=== PATIENT | female | born 1975 | race Caucasian/White ===

== ENCOUNTER 2021-04-05 17:47 | Emergency (ER) | payer MEDICAID, SELFPAY ==
[2021-04-05 17:58] VITALS: BP 110/60; PULSE 64; O2SAT 100
--- NOTE | 2021-04-05 18:02 | ED_ITS ---
HPI - Psych General Chief Complaint: Psychiatric Symptoms Stated Complaint: si [facility] Time Seen by Provider: 04/05/21 18:02 Source: patient and EMS Mode of arrival: EMS Limitations: no limitations History of Present Illness HPI Narrative: patient's history of schizophrenia bipolar disorder conversion disorder PTSD borderline intellectual dysfunction as from fibromyalgia paraplegia Mallory Garber came from long-term facility [facility] as when after hearing the news that she may not have her own apartment she became suicidal, seen in the field by therapist sent here for admission patient has similar feeling the past states that she was asking her to kill herself but does not know how on arrival patient was calm relaxed no actual plan to kill herself Related Data Allergies Allergy/AdvReac Type Severity Reaction Status Date / Time aripiprazole [From ABILIFY] Allergy Unknown SWELL Verified 04/05/21 18:28 aspirin [ASPIRIN] Allergy Unknown UNKNOWN Verified 04/05/21 18:28 coconut Allergy Unknown HIVES Verified 04/05/21 18:28 ibuprofen [From MOTRIN] Allergy Unknown UNKNOWN Verified 04/05/21 18:28 risperidone [From RISPERDAL] Allergy Unknown UNKNOWN Verified 04/05/21 18:28 tomato [TOMATO] Allergy Unknown HIVES Verified 04/05/21 18:28 lactose [LACTOSE] AdvReac Unknown DIARRHEA Verified 04/05/21 18:28 Aspirin Allergy Unknown seizures Uncoded 06/09/11 00:00 Ibuprofen Allergy Unknown vomiting Uncoded 06/09/11 00:00 Motrin Allergy Unknown vomiting Uncoded 06/09/11 00:00 Risperdal Allergy Unknown hives Uncoded 06/09/11 00:00 Review of Systems Review of Systems: Yes all other systems are reviewed and are negative PMFSH Past Medical History Medical History (Updated 04/05/21 @ 23:57 by Rubens Mcfarlane MD) Anxiety Auditory hallucinations Depression Diabetes PTSD (post-traumatic stress disorder) Social History Social History Alcohol intake: never Patient Tobacco Use Status: Never used Tobacco Use of substances other than those prescribed or required for medical reasons: No Advance Directives: No Advance Directives Information Provided: Yes Physical Exam Vital Signs: Vital Signs: Last Vital Signs Temp 98.1 F 04/05/21 23:21 Pulse 103 H 04/05/21 23:21 Resp 18 04/05/21 23:21 BP 136/88 04/05/21 23:21 Pulse Ox 95 04/05/21 23:21 BMI result Body Mass Index 47.2 Appearance: Alert. Oriented X3. No acute distress. obese Eyes: PERRLA, No Nystagmus ENT: Pharynx normal. Oral Mucosa moist Neck: Normal inspection. Neck supple. CVS: Normal heart rate and rhythm. Pulses normal. Respiratory: No respiratory distress. Equal air entry bilateral, no whee zing/rales/rhonchi Abdomen: Soft and nontender. Bowel sounds are present, no mass palpable, no CVA tenderness Skin: Skin warm and dry. Normal skin color. Normal skin turgor. Extremities: No lower extremity edema. No calf tenderness Psych: depressed suicidal with no plan poor judgment no delusions ,auditory hallucination+ Neuro: Oriented X 3. limited movements of lower extremity, No sensory deficit.No cerebellar signs , cranial nerves II-XII intact MDM - Psych MDM Narrative Medical decision making narrative: Patient with schizoaffective disorder , bipolar disorder with depression came here for increased suicidal thoughts after she lost her apartment and now she knows that she has to stay [facility] for long time. Patient was already seen in the field by therapist plan to look for the beds for inpatient psych. patient is medically cleared Lab Data Result diagrams: 04/05/21 19:18 04/05/21 19:18 Labs: Lab Results 04/05/21 04/05/21 04/05/21 Range/Units 19:12 19:18 19:18 WBC 8.0 (4.8-10.8) X10*3/uL RBC 3.98 L (4.20-5.50) X10*6/uL Hgb 11.5 L (12.0-16.0) g/dl Hct 35.5 L (37.0-47.0) % MCV 89.2 (80.0-98.0) fL MCH 28.9 (27.0-33.0) pg MCHC 32.4 (31.0-35.0) g/dl RDW 13.4 (11.0-16.0) % Plt Count 172 (160-400) X10*3/uL MPV 10.4 (9.4-12.3) fL Immature Gran % (Auto) 0.4 (0.0-0.4) % Neut % (Auto) 43.3 L (45-73) % Lymph % (Auto) 45.7 H (20-40) % [place] % (Auto) 8.2 (2-11) % Eos % (Auto) 2.0 (0-4) % Baso % (Auto) 0.4 (0-2) % Lymph # (Auto) 3.7 (1.2-4.9) X10*3/uL [place] # (Auto) 0.7 (0.1-1.2) X10*3/uL Eos # (Auto) 0.2 (0.0-0.4) X10*3/uL Baso # (Auto) 0.0 (0.0-0.2) X10*3/uL Abs Immat Gran (auto) 0.03 (0.00-0.03) X10*3/uL Absolute Neuts (auto) 3.5 (2.0-8.3) x10*3/uL Absolute Nucleated RBC 0.000 (0.0-0.012) X10*3/uL Nucleated RBC % (auto) 0.0 (0.0-0.2) /100WBC Sodium 139 (135-145) mmol/L Potassium 4.1 (3.3-5.1) mmol/L Chloride 108 (96-108) mmol/L Carbon Dioxide 27 (22-29) mmol/L Anion Gap 8 L (12-20) BUN 13 (9-16) mg/dL Creatinine 0.61 (0.5-1.4) mg/dL Estim Creat Clear Calc 165.1 Estimated GFR > 60 POC Glucose 129 H (60-115) mg/dL Random Glucose 147 H (60-115) mg/dL Calcium 10.0 (8.4-10.2) mg/dL Total Bilirubin < 0.2 (0.0-1.0) mg/dL AST 12 (5-31) U/L ALT 8 (0-31) U/L Alkaline Phosphatase 72 (39-117) U/L Total Protein 5.8 L (6.5-8.0) g/dL Albumin 3.0 L (3.5-5.0) g/dL COVID-19 (ANDRIY) (Negative) COVID-19 Clin Com 04/05/21 Range/Units 19:18 WBC (4.8-10.8) X10*3/uL RBC (4.20-5.50) X10*6/uL Hgb (12.0-16.0) g/dl Hct (37.0-47.0) % MCV (80.0-98.0) fL MCH (27.0-33.0) pg MCHC (31.0-35.0) g/dl RDW (11.0-16.0) % Plt Count (160-400) X10*3/uL MPV (9.4-12.3) fL Immature Gran % (Auto) (0.0-0.4) % Neut % (Auto) (45-73) % Lymph % (Auto) (20-40) % [place] % (Auto) (2-11) % Eos % (Auto) (0-4) % Baso % (Auto) (0-2) % Lymph # (Auto) (1.2-4.9) X10*3/uL [place] # (Auto) (0.1-1.2) X10*3/uL Eos # (Auto) (0.0-0.4) X10*3/uL Baso # (Auto) (0.0-0.2) X10*3/uL Abs Immat Gran (auto) (0.00-0.03) X10*3/uL Absolute Neuts (auto) (2.0-8.3) x10*3/uL Absolute Nucleated RBC (0.0-0.012) X10*3/uL Nucleated RBC % (auto) (0.0-0.2) /100WBC Sodium (135-145) mmol/L Potassium (3.3-5.1) mmol/L Chloride (96-108) mmol/L Carbon Dioxide (22-29) mmol/L Anion Gap (12-20) BUN (9-16) mg/dL Creatinine (0.5-1.4) mg/dL Estim Creat Clear Calc Estimated GFR POC Glucose (60-115) mg/dL Random Glucose (60-115) mg/dL Calcium (8.4-10.2) mg/dL Total Bilirubin (0.0-1.0) mg/dL AST (5-31) U/L ALT (0-31) U/L Alkaline Phosphatase (39-117) U/L Total Protein (6.5-8.0) g/dL Albumin (3.5-5.0) g/dL COVID-19 (ANDRIY) Negative (Negative) COVID-19 Clin Com See Note Discharge Plan Discharge Clinical Impression: Suicidal ideation Depression Qualifiers: Depression Type: major depressive disorder Major depression recurrence: recurrent Active/Remission status: currently active Major depression episode severity: severe Psychotic features: with psychotic features Qualified Code(s): F33.3 - Major depressive disorder, recurrent, severe with psychotic symptoms
[2021-04-05 18:23] VITALS: BP 138/85; PULSE 91; RESP 18; TEMP 37.2; O2SAT 95; BMI 47.2
[2021-04-05 19:15] LABS: Glucose, Whole Blood 129 mg/dL (60-115)
[2021-04-05 19:25] LABS: MANUAL DIFF FLAG NO
[2021-04-05 19:27] LABS: Basophils Percent Auto 0.4 % (0-2); Eosinophils Absolute Auto 0.2 X10*3/uL (0.0-0.4); Hematocrit 35.5 % (37.0-47.0); Hemoglobin 11.5 g/dl (12.0-16.0); Imm Gran Abs Auto 0.03 X10*3/uL (0.00-0.03); Imm Gran Pct Auto 0.4 % (0.0-0.4); Lymphocytes Absolute Auto 3.7 X10*3/uL (1.2-4.9); Lymphocytes Percent Auto 45.7 % (20-40); Mean Corpuscular HGB Conc 32.4 g/dl (31.0-35.0); Mean Corpuscular Hemoglobin 28.9 pg (27.0-33.0); Mean Corpuscular Volume 89.2 fL (80.0-98.0); Mean Platelet Volume 10.4 fL (9.4-12.3); Monocytes Absolute Auto 0.7 X10*3/uL (0.1-1.2); Monocytes Percent Auto 8.2 % (2-11); Neutrophils Absolute Auto 3.5 x10*3/uL (2.0-8.3); Neutrophils Percent Auto 43.3 % (45-73); Platelet Count 172 X10*3/uL (160-400); Red Blood Count 3.98 X10*6/uL (4.20-5.50); Red Cell Distribution Width 13.4 % (11.0-16.0)
[2021-04-05 19:45] LABS: COVID-19 Test Negative (Negative); IDNOW Serial# 9DD0AD1C
[2021-04-05 19:52] LABS: Alanine Aminotransferase 8 U/L (0-31); Alkaline Phosphatase 72 U/L (39-117); Anion Gap 8 (12-20); Aspartate Amino Transferase 12 U/L (5-31); Bilirubin Total < 0.2 mg/dL (0.0-1.0); Blood Urea Nitrogen 13 mg/dL (9-16); Carbon Dioxide 27 mmol/L (22-29); Chloride 108 mmol/L (96-108); Creatinine Clr Calc Pharmacy 165.1; Estimated Glomerular Filt Rate > 60; Glucose Random 147 mg/dL (60-115); Potassium 4.1 mmol/L (3.3-5.1); Sodium 139 mmol/L (135-145); Total Protein 5.8 g/dL (6.5-8.0)
[2021-04-05 20:20] VITALS: BP 143/90; PULSE 88; RESP 16; TEMP 37.2; O2SAT 96
[2021-04-05 22:13] VITALS: BP 115/80; PULSE 90; RESP 20; TEMP 36.8; O2SAT 95
[2021-04-05 23:21] VITALS: BP 136/88; PULSE 103; RESP 18; TEMP 36.7; O2SAT 95
[2021-04-06 01:36] LABS: Glucose, Whole Blood 149 mg/dL (60-115)
[2021-04-06 02:00] VITALS: BP 128/81; PULSE 79; RESP 16; TEMP 37.1; O2SAT 95
[2021-04-06 04:00] VITALS: RESP 15
[2021-04-06 05:48] VITALS: BP 139/73; PULSE 68; RESP 16; TEMP 36.8; O2SAT 95
[2021-04-06 07:45] LABS: Glucose, Whole Blood 139 mg/dL (60-115)
[2021-04-06 09:53] VITALS: BP 132/84; PULSE 89; RESP 16; TEMP 36.8; O2SAT 94
--- NOTE | 2021-04-06 10:37 | PC.NURSE ---
PCT notified this RN that there is blood around patient's wahl catheter; this RN asked patient when her LMP was, patient reports that she is on her period now. Patient crying due to leg pain. Discussed with ER physician, home medications added, which includes lyrica and scheduled tylenol.
[2021-04-06] MEDS: Pregabalin 150 MG CAPSULE PO (11:37)
[2021-04-06] MEDS: Divalproex Sodium 500 MG TABLET.DR 1000 MG PO (11:37)
[2021-04-06] MEDS: Escitalopram Oxalate 10 MG TABLET PO (11:37)
[2021-04-06] MEDS: Famotidine 20 MG TABLET PO (11:37)
[2021-04-06] MEDS: Apixaban 2.5 MG TABLET PO (11:38)
[2021-04-06] MEDS: Insulin Glargine,Hum.rec.anlog 100 UNIT/ML 10 ML VIAL 6 UNIT SUBCUT (11:38)
[2021-04-06 12:08] VITALS: BP 151/75; PULSE 121; RESP 19; TEMP 36.4; O2SAT 95
== END 2021-04-06 14:33 ==
PROVIDERS: Emergency Provider Internal Medicine
DX: F33.3 Major depressive disorder, recurrent, severe with psychotic symptoms (principal); R45.851 Suicidal ideations; Z20.822 Contact with and (suspected) exposure to COVID-19; F25.0 Schizoaffective disorder, bipolar type; F44.9 Dissociative and conversion disorder, unspecified; F43.10 Post-traumatic stress disorder, unspecified; E11.9 Type 2 diabetes mellitus without complications; I48.91 Unspecified atrial fibrillation; Z79.01 Long term (current) use of anticoagulants; Z72.89 Other problems related to lifestyle
CPT/HCPCS: 51702; 80053; 82947; 85025; 87635; 99285

== ENCOUNTER 2023-01-03 01:32 | Emergency (ER) | payer MEDICAID, SELFPAY ==
[2023-01-03] VITALS (8 sets, daily range): BP systolic 108–136; BP diastolic 54–74; PULSE 93–133; RESP 17–29; TEMP 36.6–38.9; O2SAT 94–96; BMI 57.1
--- NOTE | ~2023-01-03 | CT_ITS ---
EXAMINATION: CT ANGIOGRAM OF THE CHEST WITH AND WITHOUT CONTRAST (CT PULMONARY ANGIOGRAM FOR PE) CLINICAL INFORMATION: Reason for Exam hypoxic, tachycardia, rule out pulmonary embolism COMPARISON: Chest x-ray dated 01/03/2023. TECHNIQUE: Prior to contrast administration, noncontrast localization images were obtained. Subsequently, multidetector volumetric imaging was performed from the thoracic inlet to below the diaphragms following the administration of 70 mL Omnipaque 350 intravenous contrast. No contrast reaction reported Sagittal, coronal, and MIP oblique sagittal reformatted images were obtained on the CT workstation, uploaded to PACS, and reviewed. This CT examination was performed using dose optimization techniques as appropriate, variously including the following: *Automated exposure control *Adjustment of mA and/or kV according to patient size (this includes techniques or standardized protocols for targeted exams where dose is matched to indication/reason for exam; i.e. extremities or head) *Use of iterative reconstruction technique Total exam dose-length product 567.00 mGy-cm FINDINGS: QUALITY OF STUDY/CONTRAST BOLUS: Inadequate and nondiagnostic. PULMONARY ARTERIES: There is inadequate opacification of the pulmonary arterial system with the contrast bolus primarily highlighting the aorta and its branches. No obvious central thrombus noted, though confidence level is extremely low given the inadequate contrast bolus extends as well as multiple linear bands of beam hardening artifact extending through the imaged volume. THORACIC AORTA: No aneurysm. There is a curvilinear low density line seen extending through the anterior ascending aorta from approximately the 11:00 to 3:00 positions (series 6, image 21), most likely artifactual as it is seen extending beyond the lumen of the aorta. No definite aortic dissection or periaortic collection noted. Conjoint origin of the right brachiocephalic and left common carotid arteries is seen. There is direct origin of the left vertebral artery from the aortic arch. LUNG: No focal consolidation, nodules or masses. Minimal dependent atelectasis seen in the lungs bilaterally. PLEURA: No pleural effusion or pneumothorax. MEDIASTINUM: Normal heart size. No pericardial effusion. No hilar or mediastinal lymphadenopathy. No evidence of septal bowing or right heart strain. CORONARY ARTERY CALCIFICATION: None visualized on this study, though evaluation is limited. CHEST WALL/AXILLA: No axillary or internal mammary lymphadenopathy. OSSEOUS STRUCTURES: No acute or suspicious osseous abnormality. UPPER ABDOMEN: Prominent gaseous distention of the colon in the abdomen is noted. Cholecystectomy hailee are seen in place. Diffuse hepatic steatosis is noted. There are geographic region of focal fatty sparing in hepatic segment 4A (series 6, image 43) adjacent to the falciform ligament. Evaluation of solid organs in the upper abdomen limited by extensive beam hardening artifact. No reflux of contrast into the hepatic veins to suggest elevated right heart pressures. CT/CT angio chest PE protocol IMPRESSION: 1. Inadequate assessment of the pulmonary arterial system due to inadequate contrast bolus and extensive beam hardening artifact. No obvious central pulmonary embolus in the main pulmonary artery or in the right and left main pulmonary arteries is seen on this extremely limited exam. Depending on clinical circumstances, repeat attempt at CT pulmonary angiogram could be performed versus alternative means of assessment, such as a VQ scan. Also, consider bilateral lower extremity venous Doppler ultrasounds to exclude of DVT. 2. Linear low density line seen in the ascending aorta, most likely artifactual as it is seen extending beyond the lumen of the aorta. No definite aortic dissection is seen. Close clinical correlation is requested. Repeat imaging may be warranted. 3. Diffuse hepatic steatosis with geographic region of focal fatty sparing in hepatic segment 4A. VTE: Nondiagnostic
--- NOTE | ~2023-01-03 | XR_ITS ---
EXAMINATION: XR CHEST CLINICAL INFORMATION: Dyspnea COMPARISON: None available. TECHNIQUE: Frontal view of the chest was obtained. FINDINGS: Lung volumes are symmetric. No focal consolidation is seen. There is a coarsened appearance of the interstitium. No evidence of pneumothorax or significant pleural effusion. The cardiomediastinal contour is unremarkable. No acute osseous findings are seen. XR/XR chest 1V IMPRESSION: No focal consolidation. Coarsened appearance of the interstitium may reflect acute or chronic airways disease.
--- NOTE | 2023-01-03 01:53 | ECG_ITS ---
Test Reason : CHEST PX Blood Pressure : / mmHG Vent. Rate : 126 BPM Atrial Rate : 000 BPM P-R Int : 000 ms QRS Dur : 078 ms QT Int : 414 ms P-R-T Axes : 000 003 028 degrees QTc Int : 599 ms Sinus tachycardia Nonspecific T wave abnormality Abnormal ECG No previous ECGs available Referred By: Generic ED Physician Electronically Signed By:AISHA PEDRO MD
[2023-01-03 02:27] LABS: Basophils Percent Auto 0.2 % (0-2); Eosinophils Percent Auto 0.1 % (0-4); Hematocrit 32.8 % (37.0-47.0); Hemoglobin 9.3 g/dl (12.0-16.0); Imm Gran Abs Auto 0.07 X10*3/uL (0.00-0.03); Imm Gran Pct Auto 0.5 % (0.0-0.4); Lymphocytes Absolute Auto 0.5 X10*3/uL (1.2-4.9); Lymphocytes Percent Auto 3.5 % (20-40); MANUAL DIFF FLAG SCAN; Mean Corpuscular HGB Conc 28.4 g/dl (31.0-35.0); Mean Corpuscular Hemoglobin 17.6 pg (27.0-33.0); Monocytes Absolute Auto 0.6 X10*3/uL (0.1-1.2); Monocytes Percent Auto 3.8 % (2-11); Neutrophils Absolute Auto 13.6 x10*3/uL (2.0-8.3); Neutrophils Percent Auto 91.9 % (45-73); PLT ABN DIST 1; Platelet Count 427 X10*3/uL (160-400); Red Blood Count 5.29 X10*6/uL (4.20-5.50); Red Cell Distribution Width 22.3 % (11.0-16.0); SCAN SMEAR FLAG 1; White Blood Count 14.8 X10*3/uL (4.8-10.8)
[2023-01-03] MEDS: Acetaminophen 325 MG TABLET 975 MG PO (02:33)
[2023-01-03 02:42] LABS: Lactic Acid 3.6 mmol/L (0.5-2.0)
--- NOTE | 2023-01-03 02:43 | ED_ITS ---
HPI - SOB/Dyspnea General Chief Complaint: Dyspnea Stated Complaint: SOB PER EMS Time Seen by Provider: 01/03/23 02:28 Source: patient Mode of arrival: EMS Limitations: no limitations History of Present Illness HPI Narrative: 47-year-old female with a history of borderline personality, diabetes mellitus, lower extremity edema, hypertension, GERD, obesity, fibromyalgia, schizoaffective disorder, PTSD, who is a long-term resident x3 years living at [facility] who was sent to the emergency department for evaluation of shortness of breath, cough, chest pain, bilateral leg pain, tachycardia and fever. Patient had a COVID test at the facility which was negative. Patient states that she had 2 teeth extracted 2 weeks prior since there were infected. She states she was on antibiotics but is no longer taking them. She states she has had a nonproductive cough for 2 days. She said shaking chills. She has had nausea but no vomiting or diarrhea. She has urinary frequency but she attributes this to being on a diuretic. She does have dysuria. Related Data Home Medications Medication Instructions Recorded Confirmed acetaminophen 500 mg capsule 1,000 mg PO TID 04/06/21 04/06/21 apixaban 2.5 mg tablet (Eliquis) 2.5 mg PO DAILY 04/06/21 04/06/21 camphor-methyl salicylate-menthol 1 appl topical DAILY PRN Pain 04/06/21 04/06/21 topical cream chlorpromazine 100 mg tablet 100 mg PO BEDTIME 04/06/21 04/06/21 cholecalciferol (vitamin D3) 1,250 1,250 mcg PO QMONTH 04/06/21 04/06/21 mcg (50,000 unit) tablet citalopram 20 mg tablet 20 mg PO DAILY 04/06/21 04/06/21 divalproex 500 mg tablet,delayed 1,000 mg PO BID 04/06/21 04/06/21 release docusate sodium 100 mg tablet 400 mg PO BEDTIME 04/06/21 04/06/21 famotidine 20 mg tablet 20 mg PO DAILY 04/06/21 04/06/21 insulin glargine 100 unit/mL 6 unit subcut DAILY 04/06/21 04/06/21 subcutaneous cartridge melatonin 5 mg tablet 5 mg PO BEDTIME PRN Insomnia 04/06/21 04/06/21 polyethylene glycol 3350 17 17 g PO DAILY 04/06/21 04/06/21 gram/dose oral powder pregabalin 150 mg capsule (Lyrica) 150 mg PO BID 04/06/21 04/06/21 quetiapine 400 mg tablet,extended 400 mg PO BEDTIME 04/06/21 04/06/21 release 24 hr quetiapine 50 mg tablet (Seroquel) 50 mg PO Q4H PRN Anxiety 04/06/21 04/06/21 trazodone 100 mg tablet 100 mg PO BEDTIME 04/06/21 04/06/21 Allergies Allergy/AdvReac Type Severity Reaction Status Date / Time aripiprazole [From ABILIFY] Allergy Unknown SWELL Verified 10/25/21 11:14 aspirin [ASPIRIN] Allergy Unknown UNKNOWN Verified 10/25/21 11:14 coconut Allergy Unknown HIVES Verified 10/25/21 11:14 ibuprofen [From MOTRIN] Allergy Unknown UNKNOWN Verified 10/25/21 11:14 risperidone [From RISPERDAL] Allergy Unknown UNKNOWN Verified 10/25/21 11:14 tomato [TOMATO] Allergy Unknown HIVES Verified 10/25/21 11:14 lactose [LACTOSE] AdvReac Unknown DIARRHEA Verified 10/25/21 11:14 Aspirin Allergy Unknown seizures Uncoded 10/25/21 11:14 Ibuprofen Allergy Unknown vomiting Uncoded 10/25/21 11:14 Motrin Allergy Unknown vomiting Uncoded 10/25/21 11:14 Risperdal Allergy Unknown hives Uncoded 10/25/21 11:14 Review of Systems 2 Review of Systems: Yes all other systems are reviewed and are negative [facility] Past Medical History [facility] Narrative: Past medical history:borderline personality, diabetes mellitus, lower extremity edema, hypertension, GERD, obesity, fibromyalgia, schizoaffective disorder, PTSD, . Social history: She states she has been living at [facility] for 3 years . She is immobile. She believes that she is on blood thinners to help prevent blood clots in her legs. She denies tobacco, alcohol and drug use. Medical History PTSD (post-traumatic stress disorder) Auditory hallucinations Depression Anxiety Diabetes Social History Social History Alcohol intake: former Patient Tobacco Use Status: Never used Tobacco Smoked in Last 30 Days: No Use of substances other than those prescribed or required for medical reasons: No Advance Directives: No Advance Directives Information Provided: Yes Patient : No Physical Exam 2 Vital Signs: Vital Signs: Last Vital Signs Temp 99.2 F 01/03/23 06:33 Pulse 107 H 01/03/23 06:33 Resp 21 H 01/03/23 06:33 BP 123/58 L 01/03/23 06:33 Pulse Ox 95 01/03/23 06:33 O2 Del Method Room Air 01/03/23 06:33 BMI result Body Mass Index 57.1 vital signs revealed fever of 102 degrees F, tachycardia with a pulse of 133, elevated respiratory rate of 29, normal blood pressure and O2 saturation exam General: Awake, alert in no distress, answers all questions appropriately, elevated BMI 57.2 Head: Normocephalic, atraumatic EENT: PERRL, Lids normal, sclera normal, conjunctiva normal, nose normal , ears normal, throat without erythema or exudates. Patient does have to dental extractions left upper jaw ( tooth 14 and 15 ), tenderness of the gingiva in this area but no obvious abscess, patient does appear to have a dental fragment is also tender to palpation. Neck: Supple, no adenopathy, no trachea midline or C-spine tenderness Lung: breath sounds symmetric, diffuse rhonchi, no wheezing, no rales Chest: symmetric movement, nontender Heart: tachycardia with normal rhythm, normal S1, S2 no murmurs or rubs Abdomen: soft, obese,non-tender, nondistended, normal bowel sounds Back: no vertebral tenderness, no CVAT Extremities: no deformities, symmetric appearing lower extremities with nonpitting edema Neuro: Awake, alert, oriented, normal speech, cranial nerves intact, minimal movement of her lower extremities secondary to chronic weakness Psych: Pleasant, cooperative Medications Administered Discontinued Medications Generic Name Dose Route Start Last Admin Trade Name Freq PRN Reason Stop Dose Admin Acetaminophen 975 mg 01/03/23 02:28 01/03/23 02:33 Acetaminophen 325 Mg Tablet PO 01/03/23 02:29 975 mg ONCE ONE Administration Sodium Chloride 1,917 mls @ 1,917 mls/hr 01/03/23 02:45 01/03/23 04:59 Ns IV 01/03/23 03:44 Infused .Q1H STA Infusion Piperacillin Sod/Tazobactam 100 mls @ 200 mls/hr 01/03/23 03:09 01/03/23 03:56 Sod 4.5 gm/ Sodium Chloride IV 01/03/23 03:38 Infused ONCE ONE Infusion Sodium Chloride 1,000 mls @ 999 mls/hr 01/03/23 05:20 01/03/23 06:31 Ns IV 01/03/23 06:20 Infused .Q1H1M STA Infusion Medical Decision Making Medical Decision Making MDM Narrative: 03:00 47-year-old female with a history of borderline personality, diabetes mellitus, lower extremity edema, hypertension, GERD, obesity, fibromyalgia, schizoaffective disorder, PTSD, who is a long-term resident x3 years living at [facility] who was sent to the emergency department for evaluation of shortness of breath, cough, chest pain, bilateral leg pain, tachycardia and fever. Patient had a COVID test at the facility which was negative. patient's vital signs revealed fever, tachycardia and tachypnea. Lung exam revealed diffuse rhonchi , patient does have some tenderness over the gingiva where she had her dental extractions but no obvious abscess, there is a dental fragment that is also tender,otherwise exam was unremarkable. Patient was made a sepsis alert. Following evaluation was ordered: CBC, CMP, lactic acid, troponin, urinalysis, COVID-19, flu, RSV, blood cultures x2, EKG, chest x-ray. Patient was ordered to get Tylenol 975 mg orally. Patient is obese with an elevated BMI of 57.2 therefore she was given a normal saline fluid bolus based on her ideal body weight. 0424: Patient's laboratory evaluation revealed an elevated white blood count 43808 elevated lactic acid 3.6. Chest x-ray on my interpretation is left lower lobe infiltrate/pneumonia, radiologist interpreted as course interstitial markings chronic versus acute. Patient's clinical presentation is consistent with acute pneumonia therefore she was treated with Zosyn 4.5 g IV and Tylenol 975 mg orally. I did discuss the patient's presentation with the covering hospitalist, Dr. Velasco. 06:50 there was a delay in obtaining the CT pulmonary angiogram PE protocol since the patient required an ultrasound IV done by nursing staff. At the end of my shift patient's care was turned over to my colleague Dr. Vashti Mcfarlane. Differential Diagnosis 03:00 differential diagnosis includes was not limited to pneumonia, urinary tract infection, endocarditis secondary to teeth extraction, dental abscess, gingiva infection,COVID-19, influenza, RSV, dehydration, volume depletion, anemia, electrolyte abnormality Admission/Observation Consideration of admission/observation: Escalation of care including admission/observation considered Lab Data MDM Lab Attestation statement: I reviewed the patient's lab results. my interpretation patient's laboratory evaluation as follows: Elevated WBC 60381. Anemia with an H&H of 9.3 and 32.8-this is chronic. platelet count low for 427,000. Patient's sodium was low at 129. Bicarb low 17. Glucose elevated 308. Lactic acid elevated 3.6. 01/03/23 02:17 01/03/23 02:17 Labs: Lab Results 01/03/23 01/03/23 01/03/23 Range/Units 02:17 04:18 04:55 WBC 14.8 H (4.8-10.8) X10*3/uL RBC 5.29 D (4.20-5.50) X10*6/uL Hgb 9.3 L (12.0-16.0) g/dl Hct 32.8 L (37.0-47.0) % MCV 62.0 L (80.0-98.0) fL MCH 17.6 L (27.0-33.0) pg MCHC 28.4 L (31.0-35.0) g/dl RDW 22.3 H (11.0-16.0) % Plt Count 427 H D (160-400) X10*3/uL MPV Not Reportable Immature Gran % (Auto) 0.5 H (0.0-0.4) % Neut % (Auto) 91.9 H (45-73) % Lymph % (Auto) 3.5 L (20-40) % [place] % (Auto) 3.8 (2-11) % Eos % (Auto) 0.1 (0-4) % Baso % (Auto) 0.2 (0-2) % Lymph # (Auto) 0.5 L (1.2-4.9) X10*3/uL [place] # (Auto) 0.6 (0.1-1.2) X10*3/uL Eos # (Auto) 0.0 (0.0-0.4) X10*3/uL Baso # (Auto) 0.0 (0.0-0.2) X10*3/uL Abs Immat Gran (auto) 0.07 H (0.00-0.03) X10*3/uL Absolute Neuts (auto) 13.6 H (2.0-8.3) x10*3/uL Absolute Nucleated RBC 0.000 (0.0-0.012) X10*3/uL Nucleated RBC % (auto) 0.0 (0.0-0.2) /100WBC Smear Tech's Comments VERIFIED Sodium 129 L (135-145) mmol/L Potassium 5.1 D (3.3-5.1) mmol/L Chloride 98 (96-108) mmol/L Carbon Dioxide 17 L (22-29) mmol/L Anion Gap 19 (12-20) BUN 15 (9-16) mg/dL Creatinine 0.96 (0.5-1.4) mg/dL Estim Creat Clear Calc 119.2 Estimated GFR > 60 Random Glucose 308 H (60-115) mg/dL Lactic Acid 3.6 H* (0.5-2.0) mmol/L Lactic Acid F/U @ 2Hr 4.1 H* (0.5-2.0) mmol/L Calcium 9.8 (8.4-10.2) mg/dL Total Bilirubin 0.3 (0.0-1.0) mg/dL AST 34 H (5-31) U/L ALT 22 (0-31) U/L Alkaline Phosphatase 137 H (39-117) U/L Troponin I High Sens 4.1 (<3.5-17.0) ng/L Total Protein 8.0 (6.5-8.0) g/dL Albumin 3.8 (3.5-5.0) g/dL Urine Color Yellow Urine Appearance Clear Urine pH 5.5 (5.0-9.0) Ur Specific [place] >= 1.030 H (1.005-1.025) Urine Protein Negative (Neg-Trace) mg/dL Urine Glucose (UA) >=1000 H (Negative) mg/dL Urine Ketones Trace (Negative) mg/dL Urine Blood Negative (Negative) Urine Nitrite Negative (Negative) Ur Leukocyte Esterase Trace H (Negative) Urine RBC 3-5 H (0-2) /HPF Urine WBC 21-50 H (0-5) /HPF Urine WBC Clumps Present Ur Squamous Epith Cells 3-5 (0-2) /HPF Urine Bacteria Trace (None Seen) Hyaline Casts 3-5 (0-2) /LPF Influenza Type A (PCR) NEGATIVE (Negative) Influenza Type B (PCR) NEGATIVE (Negative) RSV RNA Qual (PCR) NEGATIVE (Negative) SARS-CoV-2 RNA (RT-PCR) NEGATIVE (Negative) Independent Interpretation I performed an independent interpretation of an: EKG and Plain X-Ray Interpretation: my independent interpretation of patient's chest x-ray is as follows: Left lower lobe infiltrate -my interpretation defers from the radiologist interpretation my independent interpretation patient's 12 EKG is as follows tachycardia with a rate of 126, normal QRS but prolonged QTC interval of 599 milliseconds, no ST segment elevation, no ST segment depression, no significant T-wave abnormalities, no PACs, no PVCs, Q-wave in lead 3 and AVF Radiology Impression Discussion of test interpretation with radiology: I have reviewed the radiologist's reading. Radiologist Impression: XR chest 1V IMPRESSION: No focal consolidation. Coarsened appearance of the interstitium may reflect acute or chronic airways disease. Dictated By: Deacon Carranza MD Discharge Plan Discharge Clinical Impression: Acute hyperglycemia, Pain, dental Pneumonia Qualifiers: Pneumonia type: due to unspecified organism Laterality: left Lung location: l ower lobe of lung Qualified Code(s): J18.9 - Pneumonia, unspecified organism Patient Disposition: Still a Patient Prescriptions: No Action chlorpromazine 100 mg Tablet 100 mg PO BEDTIME divalproex 500 mg Tablet,Delayed Release (Dr/Ec) 1,000 mg PO BID famotidine 20 mg Tablet 20 mg PO DAILY polyethylene glycol 3350 17 gram/dose Powder 17 g PO DAILY acetaminophen 500 mg Capsule 1,000 mg PO TID Eliquis 2.5 mg Tablet 2.5 mg PO DAILY quetiapine 400 mg Tablet Extended Release 24 Hr 400 mg PO BEDTIME citalopram 20 mg Tablet 20 mg PO DAILY Lantus U-100 Insulin 100 unit/mL Cartridge 6 unit SUBCUT DAILY pregabalin [Lyrica] 150 mg Capsule 150 mg PO BID trazodone 100 mg Tablet 100 mg PO BEDTIME docusate sodium 100 mg Tablet 400 mg PO BEDTIME Muscle Rub (with camphor) Cream 1 appl TOPICAL DAILY PRN (Reason: Pain) quetiapine [Seroquel] 50 mg Tablet 50 mg PO Q4H MDD 150 MG PRN (Reason: Anxiety) melatonin 5 mg Tablet 5 mg PO BEDTIME PRN (Reason: Insomnia) cholecalciferol (vitamin D3) 1,250 mcg (50,000 unit) Tablet 1,250 mcg PO QMONTH
[2023-01-03 02:48] LABS: Troponin-I High Sensitivity 4.1 ng/L (<3.5-17.0)
--- OUTSIDE RECORDS SUMMARY | 2023-01-03 02:49 | XMS_ITS | Continuity of Care Document ---
Author Name Unknown Organization 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 [address] [place] [id number]- Encounter Diagnosis Atrial flutter(Discharge Diagnosis) - 02/12/21 History of COVID-19(Discharge Diagnosis) - 02/12/21 Morbid obesity(Discharge Diagnosis) - 02/12/21 Hypertension(Discharge Diagnosis) - 02/12/21 Attending Physician: Nahomy Hurd MD Referring Physician: Radha Ashton MD Allergies, Adverse Reactions, Alerts Substance Reaction Severity Status lithium Active buPROPion Active hydrOXYzine Active Percocet Active BuSpar Active Tomatoes Active NSAIDs 1 Severe Active LaMICtal Active RisperDAL Active Coconut Active 1Pt stated she beings to have seziures due to medication Medications ChlorproMAZINE = 100 mg, By Mouth, Daily at bedtime, 0 Refills, Maintenance, 02/12/21 16:10:00 EST, Partial fill upon patient request if the prescription is for a schedule II opioid drug. Start Date: 02/12/21 Status: Ordered Divalproex Sodium = 1,000 mg, By Mouth, 2 times a day, 0 Refills, Maintenance, 02/12/21 16:12:00 EST, Partial fill upon patient request if the prescription is for a schedule II opioid drug. Start Date: 02/12/21 Status: Ordered Eliquis 2.5 mg oral tablet 1 tablet = 2.5 mg, By Mouth, Daily, 0 Refills, Maintenance, 02/12/21 16:13:00 EST, Partial fill upon patient request if the prescription is for a schedule II opioid drug. Start Date: 02/12/21 Status: Ordered Famotidine = 20 mg, By Mouth, Daily, 0 Refills, Maintenance, 02/12/21 16:13:00 EST, Partial fill upon patient request if the prescription is for a schedule II opioid drug. Start Date: 02/12/21 Status: Ordered Glucagon Emergency Kit 1 mg, Intramuscular, PRN, Maintenance, Other, id Blood Sugar is less than 60 w/ s/sx of Hypoglycemia & if resident is unable to take P.O. Re-treat every 15 mins until FSG above 100 mg/DL., 02/12/21 16:15:00 EST, Supply Start Date: 02/12/21 Status: Ordered Lantus 100 u/ml subcutaneous solution = 6 units, Subcutaneous Infusion, Daily, 0 Refills, Maintenance, 02/12/21 16:19:00 EST, Partial fill upon patient request if the prescription is for a schedule II opioid drug. Start Date: 02/12/21 Status: Ordered nalOXONE 0.4 mg/mL injectable solution = 0.4 mg, Intramuscular, Once, 0 Refills, Maintenance, 02/12/21 16:20:00 EST, Partial fill upon patient request if the prescription is for a schedule II opioid drug. Start Date: 02/12/21 Status: Ordered Narcan 4 mg/0.1 mL nasal spray 1 spray, Naris, Left, Once, 0 Refills, Maintenance, 02/12/21 16:21:00 EST, Partial fill upon patient request if the prescription is for a schedule II opioid drug. Start Date: 02/12/21 Status: Ordered Pregabalin = 75 mg, By Mouth, 2 times a day, 0 Refills, Maintenance, 02/12/21 16:22:00 EST, Partial fill upon patient request if the prescription is for a schedule II opioid drug. Start Date: 02/12/21 Status: Ordered Quetiapine 400 mg, By Mouth, Daily at bedtime, Refills 0, Maintenance, 02/12/21 16:23:00 EST, Partial fill upon patient request if the prescription is for a schedule II opioid drug. Start Date: 02/12/21 Status: Ordered Problem List Condition Effective Dates Status Health Status Inform ant Asthma(Confirmed) Active Atrial flutter(Confirmed) Active Bipolar affective disorder(Confirmed) Active Diabetes mellitus(Confirmed) Active Dysphagia(Confirmed) Active Fibromyalgia(Confirmed) Active History of COVID-19(Confirmed) Active Hypertension(Confirmed) Active Morbid obesity(Confirmed) Active PTSD - Post-traumatic stress disorder(Confirmed) Active Diagnosis Diagnosis Type Effective Dates Health Status Clinical Service Informant Atrial flutter Discharge Diagnosis 02/12/21 History of COVID-19 Discharge Diagnosis 02/12/21 Morbid obesity Discharge Diagnosis 02/12/21 Hypertension Discharge Diagnosis 02/12/21 Vital Signs Most recent to oldest [Reference Range]: 1 Oxygen Saturation [94-100 %] 97 % (02/12/21 3:35 PM) Pulse Rate [55-90 bpm] 108 bpm *H* (02/12/21 3:35 PM) Blood Pressure [90-138/55-84 mm Hg] 119/ 72mm Hg (02/12/21 3:35 PM) Temperature [96.8-100.4 DegF] 97.1 DegF (02/12/21 3:35 PM) Blood pressure sites Arm, left (02/12/21 3:35 PM) Temperature Route Temporal (02/12/21 3:35 PM)
--- OUTSIDE RECORDS SUMMARY | 2023-01-03 02:49 | XMS_ITS | Continuity of Care Document ---
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
--- OUTSIDE RECORDS SUMMARY | 2023-01-03 02:49 | XMS_ITS | Continuity of Care Document ---
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
[2023-01-03 02:51] LABS: Alanine Aminotransferase 22 U/L (0-31); Albumin Level 3.8 g/dL (3.5-5.0); Alkaline Phosphatase 137 U/L (39-117); Anion Gap 19 (12-20); Aspartate Amino Transferase 34 U/L (5-31); Bilirubin Total 0.3 mg/dL (0.0-1.0); Blood Urea Nitrogen 15 mg/dL (9-16); Calcium 9.8 mg/dL (8.4-10.2); Carbon Dioxide 17 mmol/L (22-29); Chloride 98 mmol/L (96-108); Creatinine Clr Calc Pharmacy 119.2; Estimated Glomerular Filt Rate > 60; Glucose Random 308 mg/dL (60-115); Potassium 5.1 mmol/L (3.3-5.1); Sodium 129 mmol/L (135-145)
[2023-01-03 03:02] LABS: SLIDE REVIEW VERIFIED
[2023-01-03 03:03] LABS: Influenza A PCR NEGATIVE (Negative); Influenza B PCR NEGATIVE (Negative); Resp Syncy Virus RNA Qual PCR NEGATIVE (Negative); SARS COV2 PCR INHOUSE NEGATIVE (Negative)
[2023-01-03] MEDS: 0.9 % Sodium Chloride 1,917 ML 1917 ML IV (03:15)
[2023-01-03] MEDS: Piperacillin Sodium/Tazobactam 4.5 GM in 0.9 % Sodium Chloride 100 ML IV (03:26)
[2023-01-03 04:25] LABS: Reflex Lactate? Lactic Acid Added
[2023-01-03 04:27] LABS: Appearance Urine Clear; Color Urine Yellow; Glucose Urine UA >=1000 mg/dL (Negative); Leukocyte Esterase Urine Trace (Negative); Nitrite Urine Negative (Negative); PH 5.5 (5.0-9.0); Specific Gravity - Urine >= 1.030 (1.005-1.025); UMIC TRIGGER UACC YES; Urine Blood Negative (Negative); Urine Ketones Trace mg/dL (Negative); Urine Protein Negative (Neg-Trace)
[2023-01-03 04:39] LABS: Bacteria Urine Trace (None Seen); UACC Culture Trigger YES; WBC Clumps Urine Present; WBC Urine 21-50 /HPF (0-5)
[2023-01-03 05:18] LABS: ~Lactic Acid-LAB USE ONLY 4.1 mmol/L (0.5-2.0)
[2023-01-03] MEDS: 0.9 % Sodium Chloride 1,000 ML 999 ML IV (05:30)
--- NOTE | 2023-01-03 06:29 | PC.NURSE ---
Lab called with critical trop level 1889.5. Dr. Velasco informed
[2023-01-03 07:00] LABS: Reflex Lactate? 2 Y
[2023-01-03] MEDS: iohexoL 350 MG/ML 100 ML INFUS..BTL IV (08:15)
--- NOTE | 2023-01-03 09:00 | MHC.EDTECH ---
Provider stated that the lactic acid is not needed.
[2023-01-03 09:24] LABS: Glucose, Whole Blood 410 mg/dL (60-115)
[2023-01-03] MEDS: Albuterol Sulfate 90 MCG 8 GM INHALER 2 PUFF INHALE (09:37)
[2023-01-03] MEDS: Insulin Lispro 100 UNIT/ML 3 ML VIAL 14 UNIT SUBCUT (09:38)
[2023-01-03] MEDS: Insulin Glargine,Hum.rec.anlog 100 UNIT/ML 10 ML VIAL 10 UNIT SUBCUT (09:40)
--- NOTE | 2023-01-03 10:11 | PC.NURSE ---
Attempted to call [facility] x 2 for to give report, no answer on unit
--- NOTE | 2023-01-03 10:15 | PC.NURSE ---
Pt is alert/oriented. Medicated as charted with Insulin and Albuterol inhaler. No diff breathing noted. Breathing unlabored. Skin midly pale, warm and dry. VSS. Afebrile. Reports leg pain persist
[2023-01-03 10:37] LABS: Glucose, Whole Blood 405 mg/dL (60-115)
--- NOTE | 2023-01-03 10:53 | PHA.MEDREC ---
Pharmacy Consult ? Medication Reconciliation Pharmacy has completed the medication reconciliation. Called [facility] and had med list faxed to us
--- NOTE | 2023-01-03 12:10 | PC.NURSE ---
Per RN at handoff patient is discharged; Awaiting EMS for transport back to [facility] - per branch maker, EMS to pickup by 1400. Pt currently appears in NAD. TA
--- NOTE | 2023-01-03 13:03 | PC.NURSE ---
This RN informed that EMS is currently enroute to pickup patient for transfer back to origin facility. Pt notified, DC paperwork reviewed and signed. Pt notified that x3 IVs will be removed upon final disposition. All belongings returned to patient. Currently the patient appears in NAD - VSS, sitting upright on stretcher eating lunch tray.
== END 2023-01-03 14:00 ==
PROVIDERS: Emergency Provider Emergency Medicine Emergency Medical Services
DX: E11.65 Type 2 diabetes mellitus with hyperglycemia (principal); J20.9 Acute bronchitis, unspecified; K04.7 Periapical abscess without sinus; N39.0 Urinary tract infection, site not specified; K08.89 Other specified disorders of teeth and supporting structures; R00.0 Tachycardia, unspecified; R06.02 Shortness of breath; R50.9 Fever, unspecified; R60.0 Localized edema; Z20.822 Contact with and (suspected) exposure to COVID-19; Z20.828 Contact with and (suspected) exposure to other viral communicable diseases; E66.9 Obesity, unspecified; Z68.43 Body mass index [BMI] 50.0-59.9, adult; Z79.4 Long term (current) use of insulin
CPT/HCPCS: 0241U; 36415; 71045; 71275; 80053; 81001; 82947; 83605; 84484; 85025; 87040; 87086; 93005; 96361; 96365; 99285; J2543; Q9967

== ENCOUNTER 2023-06-25 09:03 | Outpatient (REF) | payer MEDICAID, SELFPAY ==
--- NOTE | ~2023-06-25 | XR_ITS ---
EXAMINATION: XR ankle RT min 3V, XR foot RT 2V, XR hip RT min 2V, XR knee RT 2V CLINICAL INFORMATION: Reason for Exam M21.371 - Foot drop, right foot COMPARISON: None. TECHNIQUE: Two views of the right hip, 2 views of the foot, 2 views of the knee, 2 views of the ankle FINDINGS: Technically limited views. Generalized osteopenia. No acute fracture or dislocation. Mild osteoarthritis of the hip. Calcifications overlying the pubic symphysis. Atherosclerotic vascular calcification. Marked soft tissue swelling about the foot. Mild osteoarthritis of the left foot. Pes planus. Achilles tendon enthesopathy. Hindfoot varus. No definite tibiotalar joint effusion. Advanced osteoarthritis of the knee with loss of medial and lateral compartment joint space and tricompartmental osteophytes. No suprapatellar joint effusion. XR/XR ankle RT min 3V IMPRESSION: 1. Technically limited views. No acute fracture or dislocation appreciated however background of generalized osteopenia limits evaluation. 2. Mild osteoarthritis of the hip. 3. Mild osteoarthritis of the left foot with marked soft tissue swelling and hindfoot varus. 4. Advanced osteoarthritis of the knee.
--- NOTE | ~2023-06-25 | XR_ITS ---
EXAMINATION: XR ankle RT min 3V, XR foot RT 2V, XR hip RT min 2V, XR knee RT 2V CLINICAL INFORMATION: Reason for Exam M21.371 - Foot drop, right foot COMPARISON: None. TECHNIQUE: Two views of the right hip, 2 views of the foot, 2 views of the knee, 2 views of the ankle FINDINGS: Technically limited views. Generalized osteopenia. No acute fracture or dislocation. Mild osteoarthritis of the hip. Calcifications overlying the pubic symphysis. Atherosclerotic vascular calcification. Marked soft tissue swelling about the foot. Mild osteoarthritis of the left foot. Pes planus. Achilles tendon enthesopathy. Hindfoot varus. No definite tibiotalar joint effusion. Advanced osteoarthritis of the knee with loss of medial and lateral compartment joint space and tricompartmental osteophytes. No suprapatellar joint effusion. XR/XR knee RT 2V IMPRESSION: 1. Technically limited views. No acute fracture or dislocation appreciated however background of generalized osteopenia limits evaluation. 2. Mild osteoarthritis of the hip. 3. Mild osteoarthritis of the left foot with marked soft tissue swelling and hindfoot varus. 4. Advanced osteoarthritis of the knee.
--- NOTE | ~2023-06-25 | XR_ITS ---
EXAMINATION: XR ankle RT min 3V, XR foot RT 2V, XR hip RT min 2V, XR knee RT 2V CLINICAL INFORMATION: Reason for Exam M21.371 - Foot drop, right foot COMPARISON: None. TECHNIQUE: Two views of the right hip, 2 views of the foot, 2 views of the knee, 2 views of the ankle FINDINGS: Technically limited views. Generalized osteopenia. No acute fracture or dislocation. Mild osteoarthritis of the hip. Calcifications overlying the pubic symphysis. Atherosclerotic vascular calcification. Marked soft tissue swelling about the foot. Mild osteoarthritis of the left foot. Pes planus. Achilles tendon enthesopathy. Hindfoot varus. No definite tibiotalar joint effusion. Advanced osteoarthritis of the knee with loss of medial and lateral compartment joint space and tricompartmental osteophytes. No suprapatellar joint effusion. XR/XR foot RT 2V IMPRESSION: 1. Technically limited views. No acute fracture or dislocation appreciated however background of generalized osteopenia limits evaluation. 2. Mild osteoarthritis of the hip. 3. Mild osteoarthritis of the left foot with marked soft tissue swelling and hindfoot varus. 4. Advanced osteoarthritis of the knee.
--- NOTE | ~2023-06-25 | XR_ITS ---
EXAMINATION: XR ankle RT min 3V, XR foot RT 2V, XR hip RT min 2V, XR knee RT 2V CLINICAL INFORMATION: Reason for Exam M21.371 - Foot drop, right foot COMPARISON: None. TECHNIQUE: Two views of the right hip, 2 views of the foot, 2 views of the knee, 2 views of the ankle FINDINGS: Technically limited views. Generalized osteopenia. No acute fracture or dislocation. Mild osteoarthritis of the hip. Calcifications overlying the pubic symphysis. Atherosclerotic vascular calcification. Marked soft tissue swelling about the foot. Mild osteoarthritis of the left foot. Pes planus. Achilles tendon enthesopathy. Hindfoot varus. No definite tibiotalar joint effusion. Advanced osteoarthritis of the knee with loss of medial and lateral compartment joint space and tricompartmental osteophytes. No suprapatellar joint effusion. XR/XR hip RT min 2V IMPRESSION: 1. Technically limited views. No acute fracture or dislocation appreciated however background of generalized osteopenia limits evaluation. 2. Mild osteoarthritis of the hip. 3. Mild osteoarthritis of the left foot with marked soft tissue swelling and hindfoot varus. 4. Advanced osteoarthritis of the knee.
== END 2023-06-25 09:04 | disposition home or self-care (01) ==
LOC: HO.HOSX 09:03
PROVIDERS: Visit Provider Physical Medicine & Rehabilitation
DX: M21.371 Foot drop, right foot (principal); M16.11 Unilateral primary osteoarthritis, right hip; M17.11 Unilateral primary osteoarthritis, right knee
CPT/HCPCS: 73502; 73560; 73610; 73620; 99202

== ENCOUNTER 2023-06-25 09:03 | Outpatient (AMB) | payer MEDICAID, SELFPAY ==
--- NOTE | 2023-06-25 09:15 | MHC.OFFVIS ---
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 Intake Note: Karolyn 47 yr old female presents today for a new patient visit for her right foot. has has a dropped foot for a couple years now and is worsening. States she is having a lot of pain and throbbing. She uses a wheel chair to ambulate. She has been in a rehab facility for the last 4 years. Denies any foot surgery, numbness, tingling or recent injury. Allergies aripiprazole [From ABILIFY] Allergy (Unknown, Verified 06/25/23 09:21) SWELL aspirin [ASPIRIN] Allergy (Unknown, Verified 06/25/23 09:21) UNKNOWN coconut Allergy (Unknown, Verified 06/25/23 09:21) HIVES ibuprofen [From MOTRIN] Allergy (Unknown, Verified 06/25/23 09:21) UNKNOWN risperidone [From RISPERDAL] Allergy (Unknown, Verified 06/25/23 09:21) UNKNOWN tomato [TOMATO] Allergy (Unknown, Verified 06/25/23 09:21) HIVES lactose [LACTOSE] Adverse Reaction (Unknown, Verified 06/25/23 09:21) DIARRHEA Aspirin Allergy (Unknown, Uncoded 06/25/23 09:21) seizures Ibuprofen Allergy (Unknown, Uncoded 06/25/23 09:21) vomiting Motrin Allergy (Unknown, Uncoded 06/25/23 09:21) vomiting Risperdal Allergy (Unknown, Uncoded 06/25/23 09:21) hives Medication List - Last Reconciled 06/25/23 by Shira Tiwari MD albuterol sulfate 90 mcg/actuation (ProAir HFA) 2 puffs inhalation Q4-6H PRN apixaban (Eliquis) 2.5 mg PO BID benzonatate 200 mg PO TID PRN budesonide-formoterol 160-4.5 mcg/actuation (Symbicort) 2 puffs inhalation DAILY cefuroxime axetil 500 mg PO BID 10 days chlorpromazine 150 mg PO BEDTIME cholecalciferol (vitamin D3) 1,250 mcg PO QMONTH cholecalciferol (vitamin D3) 50 mcg PO DAILY citalopram 40 mg PO DAILY docusate sodium 400 mg PO BEDTIME famotidine 20 mg PO DAILY ferrous sulfate 325 mg PO Q OTHER DAY furosemide 40 mg PO DAILY guaifenesin ER (Mucinex) 600 mg PO BID insulin aspart U-100 (Novolog FlexPen U-100 Insulin aspart) 1 sliding scale dose See Protocol subcut USEASDIRECTD insulin glargine (Lantus Solostar U-100 Insulin) 46 units subcut BEDTIME insulin glargine (Lantus U-100 Insulin) 44 units subcut DAILY loratadine 10 mg PO DAILY PRN lurasidone (Latuda) 120 mg PO DAILY@1700 metformin 1,000 mg PO BID oxcarbazepine 300 mg PO BID pantoprazole 20 mg PO DAILY polyethylene glycol 3350 17 grams PO DAILY pregabalin (Lyrica) 150 mg PO BID pregabalin 25 mg PO BID HPI HPI Comments History of Present Illness Details 47 year old, brought it by EMS, on 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 She's been residing there for past 4 years, transferred from [facility]. She was admitted at [facility] for falls (need to obtain medical records from [facility]). Denies any history of fracture, stroke, surgery or cardiac events during that hospitalization. She says the foot drop started/worseneded during that hospitalization. At [facility], she is jemma lift transfers, non ambulatory, level. Spends most of the day in bed. Can go to dining room on . Bladder/bowel care all in bed, wears diapers. Denies incontinence though. Has sensation. Denies back pain. Good movement on LLE and BUE per patient, except for chronic shoulder ROM limitation due to past RTC injury. Denies numbness on right foot. Right foot is plantarflexed and dorsiflexed. To start PT in SNF in July. 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 Patient was appropriately conversant and oriented. MSK: Right foot is plantarflexed and dorsiflexed. Intact sensation to light touch. 0/5. No foot drop on left. Left ankle 5/5. Unable to fully assess knee and hip strength due to position on stretcher. Both wrists and elbows full ROM and 5/5. Limited shoulder abduction bilateral. Intact sensation on LLE and BUE. Results Reviewed Results Reviewed: I independently reviewed the results of the following: xrasys done in the office - await official reading I reviewed records from the following: [facility] Assessment & Plan Assessment & Plan (1) Right foot drop: Code(s): M21.371 - Foot drop, right foot Plan Right foot drop, unknown etiology. Need to obtain records from [facility] - discharge summary from 4 years ago. Will obtain xrays first - foot, ankle, knee, hip, rule out chronic fracture. Considering AFO but we need to try lengthening/loosening gastrocnemius first with possibly botulinum injections (Botox). Consider EMG to find etiology, if xrays do not give us clues Assessment and plan discussed with patient, and patient was agreeable. All questions were answered thoroughly. Total of 45 minutes spent today including chart review, results review, history taking, physical examination, discussion of assessment and plan, and coordination of care. [ ] Shira Tiwari MD, SAROJ Board Certified, [place] [employer] and Rehabilitation (ABPMR) Board Certified, [place] Board [employer] Electrodiagnostic Medicine (ABEM) Orders: Orders XR foot RT 2V Today M21.371 - Foot drop, right foot XR hip RT min 2V Today M21.371 - Foot drop, right foot Coding Level of Care Code New Pt Level 4 (44056) Diagnoses Right foot drop M21.371
[2023-06-25 09:25] VITALS: BMI 51.7
== END 2023-06-25 10:16 | disposition home or self-care (01) ==
PROVIDERS: Visit Provider Physical Medicine & Rehabilitation
DX: M21.371 Foot drop, right foot (principal)
CPT/HCPCS: 99204

== ENCOUNTER 2023-09-02 09:40 | Outpatient (AMB) | payer MEDICAID, SELFPAY ==
--- NOTE | 2023-09-02 09:45 | A.OFFVIS_ITS ---
Vital Signs 09/02/23 09:46 Height 5 ft 7 in Weight 330 lb BMI 51.7 Intake Visit Reasons: O/V botox consult RT foot/ drop foot Intake Note: Karolyn is a 47 year old female who presents today VIA stretcher for a follow up visit on right foot drop. States has had drop foot for about a year now and is worsening, complains of throbbing pain. She uses a wheel chair to ambulate. She has been in a rehab facility for the last 4 years. Denies any foot surgery, numbness, tingling or recent injury? Allergies aripiprazole [From ABILIFY] Allergy (Unknown, Verified 09/02/23 09:50) SWELL aspirin [ASPIRIN] Allergy (Unknown, Verified 09/02/23 09:50) UNKNOWN coconut Allergy (Unknown, Verified 09/02/23 09:50) HIVES ibuprofen [From MOTRIN] Allergy (Unknown, Verified 09/02/23 09:50) UNKNOWN risperidone [From RISPERDAL] Allergy (Unknown, Verified 09/02/23 09:50) UNKNOWN tomato [TOMATO] Allergy (Unknown, Verified 09/02/23 09:50) HIVES lactose [LACTOSE] Adverse Reaction (Unknown, Verified 09/02/23 09:50) DIARRHEA Aspirin Allergy (Unknown, Uncoded 09/02/23 09:50) seizures Ibuprofen Allergy (Unknown, Uncoded 09/02/23 09:50) vomiting Motrin Allergy (Unknown, Uncoded 09/02/23 09:50) vomiting Risperdal Allergy (Unknown, Uncoded 09/02/23 09:50) hives Medication List - Last Reconciled 09/02/23 by Shira Tiwari MD albuterol sulfate 90 mcg/actuation (ProAir HFA) 2 puffs inhalation Q4-6H PRN apixaban (Eliquis) 2.5 mg PO BID benzonatate 200 mg PO TID PRN budesonide-formoterol 160-4.5 mcg/actuation (Symbicort) 2 puffs inhalation DAILY cefuroxime axetil 500 mg PO BID 10 days chlorpromazine 150 mg PO BEDTIME cholecalciferol (vitamin D3) 1,250 mcg PO QMONTH cholecalciferol (vitamin D3) 50 mcg PO DAILY citalopram 40 mg PO DAILY docusate sodium 400 mg PO BEDTIME famotidine 20 mg PO DAILY ferrous sulfate 325 mg PO Q OTHER DAY furosemide 40 mg PO DAILY guaifenesin ER (Mucinex) 600 mg PO BID insulin aspart U-100 (Novolog FlexPen U-100 Insulin aspart) 1 sliding scale dose See Protocol subcut USEASDIRECTD insulin glargine (Lantus Solostar U-100 Insulin) 46 units subcut BEDTIME insulin glargine (Lantus U-100 Insulin) 44 units subcut DAILY loratadine 10 mg PO DAILY PRN lurasidone (Latuda) 120 mg PO DAILY@1700 metformin 1,000 mg PO BID oxcarbazepine 300 mg PO BID pantoprazole 20 mg PO DAILY polyethylene glycol 3350 17 grams PO DAILY pregabalin (Lyrica) 150 mg PO BID pregabalin 25 mg PO BID HPI Comments Details: 06/25/23 47 year old, brought it by EMS, on stretcher, with [employer], resides in [facility]. She's been residing there for past 4 years, transferred from [facility]. She was admitted at [facility] for falls (need to obtain medical records from [facility]). Denies any history of fracture, stroke, surgery or cardiac events during that hospitalization. She says the foot drop started/worseneded during that hospitalization. At [facility], she is jemma lift transfers, non ambulatory, level. Spends most of the day in bed. Can go to dining room on . Bladder/bowel care all in bed, wears diapers. Denies incontinence though. Has sensation. Denies back pain. Good movement on LLE and BUE per patient, except for chronic shoulder ROM limitation due to past RTC injury. Denies numbness on right foot. 09/02/23 We tried to obtain notes from [facility] but unsuccessful. I could not find medical records that would explain her right foot drop. There was a small note from [facility] that said ? fracture . Patient denies ever having fracture or stroke prior to this. Xrays done here in [place] didn't show signs of fracture but did show soft tissue swelling. Knee xray showed advanced DJD. No new change since last visit. Left leg is juvencio wrapped, for fluids per SNF staff. No recent falls or injuries. 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 Does not appear that gastrocnemius are tight though. Unable to move much, almost just 2/5 strength but this has been chronic 4 years, she's been non ambulatory for that long. Right foot appears more flaccid rather than spastic. No clonus. Results Reviewed Results Reviewed: Ordering Physician: Shira Hameed Date of Service: 06/25/23 Procedure(s): XR knee RT 2V Accession Number(s): [id number] cc: Physician,Unknown ; Shira Hameed~ EXAMINATION: XR ankle RT min 3V, XR foot RT 2V, XR hip RT min 2V, XR knee RT 2V CLINICAL INFORMATION: Reason for Exam M21.371 - Foot drop, right foot COMPARISON: None. TECHNIQUE: Two views of the right hip, 2 views of the foot, 2 views of the knee, 2 views of the ankle FINDINGS: Technically limited views. Generalized osteopenia. No acute fracture or dislocation. Mild osteoarthritis of the hip. Calcifications overlying the pubic symphysis. Atherosclerotic vascular calcification. Marked soft tissue swelling about the foot. Mild osteoarthritis of the left foot. Pes planus. Achilles tendon enthesopathy. Hindfoot varus. No definite tibiotalar joint effusion. Advanced osteoarthritis of the knee with loss of medial and lateral compartment joint space and tricompartmental osteophytes. No suprapatellar joint effusion. XR/XR knee RT 2V IMPRESSION: 1. Technically limited views. No acute fracture or dislocation appreciated however background of generalized osteopenia limits evaluation. 2. Mild osteoarthritis of the hip. 3. Mild osteoarthritis of the left foot with marked soft tissue swelling and hindfoot varus. 4. Advanced osteoarthritis of the knee. Assessment & Plan Assessment & Plan (1) Right foot drop: Code(s): M21.371 - Foot drop, right foot Category: Medical Plan Right foot drop, unknown etiology. Unsuccessful getting more records from [facility]. Would go ahead and order CT scan to see any bony abnormality (was this a chronic fracture that healed poorly ending in a contracture?). Or is this tone/spasticity? And if this is tone, we could consider botulinum toxin injection. Discussed with patient, she verbalized understanding. Assessment and plan discussed with patient, and patient was agreeable. All questions were answered thoroughly. Follow-up after CT scan. Shira Tiwari MD, SAROJ Board Certified, [place] [employer] and Rehabilitation (ABPMR) Board Certified, [place] Board [employer] Electrodiagnostic [employer] (ABEM) Orders: Orders CT ankle RT wo IV con Today M21.371 - Foot drop, right foot Coding Level of Care Code Est Pt Level 4 (28058) Diagnoses Right foot drop M21.371
[2023-09-02 09:46] VITALS: BMI 51.7
== END 2023-09-02 11:39 | disposition home or self-care (01) ==
PROVIDERS: Visit Provider Physical Medicine & Rehabilitation
DX: M21.371 Foot drop, right foot (principal)
CPT/HCPCS: 99214

== ENCOUNTER → 2023-09-02 09:40 | Outpatient (BNVA) | payer MEDICAID, SELFPAY | PROVIDERS: Visit Provider Physical Medicine & Rehabilitation | DX: M21.371 Foot drop, right foot (principal) | CPT/HCPCS: 99212 ==

== ENCOUNTER 2023-10-05 09:57 | Outpatient (REF) | payer MEDICAID, SELFPAY ==
--- NOTE | ~2023-10-05 | CT_ITS ---
EXAMINATION: CT OF THE RIGHT ANKLE WITHOUT CONTRAST INDICATION: Reason for Exam M21.371 - Foot drop, right foot. COMPARISON: Radiograph dated 06/25/2023. TECHNIQUE: Multidetector volumetric imaging was obtained through the right ankle without contrast material. Multiplanar reformatted images in coronal and sagittal orientations were submitted. This CT examination was performed using dose optimization techniques as appropriate, variously including the following: *Automated exposure control *Adjustment of mA and/or kV according to patient size (this includes techniques or standardized protocols for targeted exams where dose is matched to indication/reason for exam; i.e. extremities or head) *Use of iterative reconstruction technique DLP: 110 mGy-cm FINDINGS: Bones are osteopenic. No acute fractures are identified. There is abnormal alignment at the ankle with plantar flexion and medial deviation of the foot. At the talocrural joint, there is szzv-dp-vwtzhjpk nonuniform joint space narrowing with articular cortical irregularity and subarticular bone resorption at the dorsomedial aspect of the talus. Additional cortical irregularity and subcortical edema are present at the posterior aspect of the distal tibial articular surface. No appreciable intra-articular loose bodies. Subtalar and talonavicular joints are relatively well preserved. There is mild osteoarthritis of the calcaneocuboid joint with nonuniform joint space narrowing and small marginal osteophytes. Joints of the midfoot are otherwise unremarkable. There is skin thickening and subcutaneous edema at the lateral aspect of the ankle and dorsal aspect of the foot. Muscle is atrophic and fatty replaced. Tendons appear intact. CT/CT ankle RT wo IV con IMPRESSION: 1. Marked plantar flexion at the ankle with medial deviation of the foot. 2. Ghyf-rz-geyyekrx talocrural arthrosis with cartilage loss and cortical irregularity at the talus, more pronounced posteriorly. 3. Mild calcaneocuboid osteoarthritis. 4. No acute fractures. 5. Generalized muscle atrophy and fatty replacement. 6. Skin thickening and subcutaneous edema at the lateral aspect of the ankle and dorsal aspect of the foot.
== END 2023-10-05 09:58 | disposition home or self-care (01) ==
LOC: HO.CT 09:57
PROVIDERS: Visit Provider Physical Medicine & Rehabilitation
DX: M21.371 Foot drop, right foot (principal)
CPT/HCPCS: 73700

== ENCOUNTER 2023-10-20 08:14 | Outpatient (AMB) | payer MEDICAID, SELFPAY ==
[2023-10-20 08:18] VITALS: BMI 51.7
--- NOTE | 2023-10-20 08:18 | MHC.OFFVIS ---
Vital Signs 10/20/23 08:18 10/20/23 08:20 Height 5 ft 7 in 5 ft 7 in Weight 330 lb 330 lb BMI 51.7 51.7 Intake Visit Reasons: OV- RT foot/ drop foot Intake Note: Karolyn is a 47 year old female who presents today VIA stretcher a follow up visit on right foot drop. Patient reports that she is doing well, she is looking to discuss botox injection Allergies aripiprazole [From ABILIFY] Allergy (Unknown, Verified 10/20/23 08:22) SWELL aspirin [ASPIRIN] Allergy (Unknown, Verified 10/20/23 08:22) UNKNOWN coconut Allergy (Unknown, Verified 10/20/23 08:22) HIVES ibuprofen [From MOTRIN] Allergy (Unknown, Verified 10/20/23 08:22) UNKNOWN risperidone [From RISPERDAL] Allergy (Unknown, Verified 10/20/23 08:22) UNKNOWN tomato [TOMATO] Allergy (Unknown, Verified 10/20/23 08:22) HIVES lactose [LACTOSE] Adverse Reaction (Unknown, Verified 10/20/23 08:22) DIARRHEA Aspirin Allergy (Unknown, Uncoded 10/20/23 08:22) seizures Ibuprofen Allergy (Unknown, Uncoded 10/20/23 08:22) vomiting Motrin Allergy (Unknown, Uncoded 10/20/23 08:22) vomiting Risperdal Allergy (Unknown, Uncoded 10/20/23 08:22) hives Medication List - Last Reconciled 10/20/23 by Shira Tiwari MD albuterol sulfate 90 mcg/actuation (ProAir HFA) 2 puffs inhalation Q4-6H PRN apixaban (Eliquis) 2.5 mg PO BID benzonatate 200 mg PO TID PRN budesonide-formoterol 160-4.5 mcg/actuation (Symbicort) 2 puffs inhalation DAILY cefuroxime axetil 500 mg PO BID 10 days chlorpromazine 150 mg PO BEDTIME cholecalciferol (vitamin D3) 1,250 mcg PO QMONTH cholecalciferol (vitamin D3) 50 mcg PO DAILY citalopram 40 mg PO DAILY docusate sodium 400 mg PO BEDTIME famotidine 20 mg PO DAILY ferrous sulfate 325 mg PO Q OTHER DAY furosemide 40 mg PO DAILY guaifenesin ER (Mucinex) 600 mg PO BID insulin aspart U-100 (Novolog FlexPen U-100 Insulin aspart) 1 sliding scale dose See Protocol subcut USEASDIRECTD insulin glargine (Lantus Solostar U-100 Insulin) 46 units subcut BEDTIME insulin glargine (Lantus U-100 Insulin) 44 units subcut DAILY loratadine 10 mg PO DAILY PRN lurasidone (Latuda) 120 mg PO DAILY@1700 metformin 1,000 mg PO BID oxcarbazepine 300 mg PO BID pantoprazole 20 mg PO DAILY polyethylene glycol 3350 17 grams PO DAILY pregabalin (Lyrica) 150 mg PO BID pregabalin 25 mg PO BID HPI Comments Details: 06/25/23 47 year old, brought it by EMS, on stretcher, with [employer], resides in [facility]. She's been residing there for past 4 years, transferred from [facility]. She was admitted at [facility] for falls (need to obtain medical records from [facility]). Denies any history of fracture, stroke, surgery or cardiac events during that hospitalization. She says the foot drop started/worseneded during that hospitalization. At [facility], she is jemma lift transfers, non ambulatory, WC level. Spends most of the day in bed. Can go to dining room on . Bladder/bowel care all in bed, wears diapers. Denies incontinence though. Has sensation. Denies back pain. Good movement on LLE and BUE per patient, except for chronic shoulder ROM limitation due to past RTC injury. Denies numbness on right foot. 09/02/23 We tried to obtain notes from [facility] but unsuccessful. I could not find medical records that would explain her right foot drop. There was a small note from [facility] that said ? fracture . Patient denies ever having fracture or stroke prior to this. Xrays done here in [place] didn't show signs of fracture but did show soft tissue swelling. Knee xray showed advanced DJD. No new change since last visit. Left leg is juvencio wrapped, for fluids per SNF staff. No recent falls or injuries. CT scan does not show any specific past injury or any specific etiology for footdrop. 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 Just 2/5 strength but this has been chronic 4 years, she's been non ambulatory for that long. No clonus. Results Reviewed Results Reviewed: Ordering Physician: Shira Hameed Date of Service: 10/05/23 Procedure(s): CT ankle RT wo IV con Accession Number(s): [id number] cc: Shira Hameed~ EXAMINATION: CT OF THE RIGHT ANKLE WITHOUT CONTRAST INDICATION: Reason for Exam M21.371 - Foot drop, right foot. COMPARISON: Radiograph dated 06/25/2023. TECHNIQUE: Multidetector volumetric imaging was obtained through the right ankle without contrast material. Multiplanar reformatted images in coronal and sagittal orientations were submitted. This CT examination was performed using dose optimization techniques as appropriate, variously including the following: *Automated exposure control *Adjustment of mA and/or kV according to patient size (this includes techniques or standardized protocols for targeted exams where dose is matched to indication/reason for exam; i.e. extremities or head) *Use of iterative reconstruction technique DLP: 110 mGy-cm FINDINGS: Bones are osteopenic. No acute fractures are identified. There is abnormal alignment at the ankle with plantar flexion and medial deviation of the foot. At the talocrural joint, there is tfph-mg-[id number] nonuniform joint space narrowing with articular cortical irregularity and subarticular bone resorption at the dorsomedial aspect of the talus. Additional cortical irregularity and subcortical edema are present at the posterior aspect of the distal tibial articular surface. No appreciable intra-articular loose bodies. Subtalar and talonavicular joints are relatively well preserved. There is mild osteoarthritis of the calcaneocuboid joint with nonuniform joint space narrowing and small marginal osteophytes. Joints of the midfoot are otherwise unremarkable. There is skin thickening and subcutaneous edema at the lateral aspect of the ankle and dorsal aspect of the foot. Muscle is atrophic and fatty replaced. Tendons appear intact. CT/CT ankle RT wo IV con IMPRESSION: 1. Marked plantar flexion at the ankle with medial deviation of the foot. 2. Zvcv-sw-dtlkonbu talocrural arthrosis with cartilage loss and cortical irregularity at the talus, more pronounced posteriorly. 3. Mild calcaneocuboid osteoarthritis. 4. No acute fractures. 5. Generalized muscle atrophy and fatty replacement. 6. Skin thickening and subcutaneous edema at the lateral aspect of the ankle and dorsal aspect of the foot. Assessment & Plan Assessment & Plan (1) Right foot drop: Code(s): M21.371 - Foot drop, right foot Category: Medical (2) Monoplegia affecting right dominant side: Code(s): G83.31 - Monoplegia, unspecified affecting right dominant side Category: Medical (3) Muscle spasm of calf: Code(s): M62.831 - Muscle spasm of calf Category: Medical Plan At this point, we are considering botulinum toxin injection to right calf/gastrocnemius and tibialis posterior muscles to correct footdrop. Long-term goal is for patient to fit and tolerate an AFO. Patient?s abnormal muscle tone is interfering with functional ability, and is expected to result in joint contracture without adequate intervention. Standard medical treatments have failed. Surgical intervention is considered to be the last option. Therefore chemodenervation using botulinum is deemed necessary to enhance function and allow additional therapeutic modalities to be employed. A total of 200 units of Botox is anticipated. The procedure will being scheduled after prior authorization. Muscles to be injected: Right medial and lateral gastrocnemius, tibialis posterior Continue PT for now. Assessment and plan discussed with patient, and patient was agreeable. All questions were answered thoroughly. Shira Tiwari MD, SAROJ Board Certified, [place] [employer] and Rehabilitation (ABPMR) Board Certified, [place] [employer] Electrodiagnostic Medicine (ABEM) Coding Level of Care Code Est Pt Level 4 (63233) Diagnoses Right foot drop M21.371 Monoplegia affecting right dominant side G83.31 Muscle spasm of calf M62.831
[2023-10-20 08:20] VITALS: BMI 51.7
== END 2023-10-20 08:43 | disposition home or self-care (01) ==
PROVIDERS: Visit Provider Physical Medicine & Rehabilitation
DX: M21.371 Foot drop, right foot (principal); G83.31 Monoplegia, unspecified affecting right dominant side; M62.831 Muscle spasm of calf
CPT/HCPCS: 99214

== ENCOUNTER → 2023-10-20 08:14 | Outpatient (BNVA) | payer MEDICAID, SELFPAY | PROVIDERS: Visit Provider Physical Medicine & Rehabilitation | DX: M21.371 Foot drop, right foot (principal); M62.831 Muscle spasm of calf; G83.31 Monoplegia, unspecified affecting right dominant side | CPT/HCPCS: 99212 ==

== ENCOUNTER 2023-12-16 14:53 | Outpatient (REF) | payer MEDICAID, SELFPAY ==
--- NOTE | 2023-12-16 15:07 | EMG_ITS ---
PROCEDURE PERFORMED: Botulinum toxin chemodenervation DIAGNOSIS: Monoplegia affecting right dominant side G83.31 Muscle spasm of calf M62.831 INDICATION: spastic muscles PREVIOUS TREATMENT AND RESPONSE: Oral antispasticity medications and physical therapy without response EXAM ON DAY OF PROCEDURE: Right foot inverted. TOXIN USED: Botox PROCEDURE: The procedure was explained to the patient/caregiver, and informed consent was obtained. The patient laid down on stretcher. Right lower extremity was cleansed with betadine in the usual sterile manner. A 26 gauge needle electrode was used. Muscle Units per site Number of sites Units per muscle Right MG 25 3 75 Right LG 25 3 75 Right TP 25 2 50 EMG-guidance was used during the injection. A total of 200 units injected. 0 units wastage. Vial size: 200 units per vial Dilution: 100 units per 1 ml of preservative free saline The patient tolerated the procedure well without complications. CODING: CPT code: 20277 1 ext, 1-4 muscles Guidance code: 88728 EMG guidance for chemodenervation J code: Botox J0585 [facility] code: 3411-4225-13 Lot #: [id number] Expiration date: [facility]
== END 2023-12-16 14:54 | disposition home or self-care (01) ==
LOC: HO.NEURO 14:53
PROVIDERS: PCP Emergency Medicine; Visit Provider Physical Medicine & Rehabilitation
DX: G83.31 Monoplegia, unspecified affecting right dominant side (principal); M62.831 Muscle spasm of calf; M21.371 Foot drop, right foot
CPT/HCPCS: 64642; 95874; J0585

== ENCOUNTER → 2023-12-16 15:07 | Outpatient (BNV) | payer MEDICAID, SELFPAY | PROVIDERS: PCP Emergency Medicine; Visit Provider Physical Medicine & Rehabilitation | DX: G83.11 Monoplegia of lower limb affecting right dominant side (principal); M62.831 Muscle spasm of calf | CPT/HCPCS: 64642; 95874 ==

== ENCOUNTER 2023-12-23 09:11 | Outpatient (AMB) | payer MEDICAID, SELFPAY ==
[2023-12-23 09:21] VITALS: BMI 51.7
--- NOTE | 2023-12-23 09:21 | MHC.OFFVIS ---
Vital Signs 12/23/23 09:21 Height 5 ft 7 in Weight 330 lb BMI 51.7 Intake Visit Reasons: ENP: Tremors/migraines Intake Note: Patient presents for tremors and migraines. patient has had migraines for years atleastv 1 migraine a week. Allergies aripiprazole [From ABILIFY] Allergy (Unknown, Verified 12/23/23 09:26) SWELL aspirin [ASPIRIN] Allergy (Unknown, Verified 12/23/23 09:26) UNKNOWN coconut Allergy (Unknown, Verified 12/23/23 09:26) HIVES ibuprofen [From MOTRIN] Allergy (Unknown, Verified 12/23/23 09:26) UNKNOWN risperidone [From RISPERDAL] Allergy (Unknown, Verified 12/23/23 09:26) UNKNOWN tomato [TOMATO] Allergy (Unknown, Verified 12/23/23 09:26) HIVES lactose [LACTOSE] Adverse Reaction (Unknown, Verified 12/23/23 09:26) DIARRHEA Aspirin Allergy (Unknown, Uncoded 12/23/23 09:26) seizures Ibuprofen Allergy (Unknown, Uncoded 12/23/23 09:26) vomiting Motrin Allergy (Unknown, Uncoded 12/23/23 09:26) vomiting Risperdal Allergy (Unknown, Uncoded 12/23/23 09:26) hives Medication List - Last Reconciled 12/23/23 by Lindsay Lerma MD albuterol sulfate 90 mcg/actuation (ProAir HFA) 2 puffs inhalation Q4-6H PRN apixaban (Eliquis) 2.5 mg PO BID benzonatate 200 mg PO TID PRN budesonide-formoterol 160-4.5 mcg/actuation (Symbicort) 2 puffs inhalation DAILY cefuroxime axetil 500 mg PO BID 10 days chlorpromazine 150 mg PO BEDTIME cholecalciferol (vitamin D3) 1,250 mcg PO QMONTH cholecalciferol (vitamin D3) 50 mcg PO DAILY citalopram 40 mg PO DAILY clonazepam 1 mg PO DAILY docusate sodium 400 mg PO BEDTIME doxepin 3 mg PO BEDTIME PRN famotidine 20 mg PO DAILY ferrous sulfate 325 mg PO Q OTHER DAY furosemide 40 mg PO DAILY guaifenesin ER (Mucinex) 600 mg PO BID insulin aspart U-100 (Novolog FlexPen U-100 Insulin aspart) 1 sliding scale dose See Protocol subcut USEASDIRECTD insulin glargine (Lantus Solostar U-100 Insulin) 46 units subcut BEDTIME insulin glargine (Lantus U-100 Insulin) 44 units subcut DAILY loratadine 10 mg PO DAILY PRN lurasidone (Latuda) 120 mg PO DAILY@1700 lurasidone 120 mg PO DAILY metformin 1,000 mg PO BID oxcarbazepine 300 mg PO BID pantoprazole 20 mg PO DAILY polyethylene glycol 3350 17 grams PO DAILY pregabalin (Lyrica) 150 mg PO BID pregabalin 25 mg PO BID semaglutide (Ozempic) 0.25 mg subcut QWEEK simvastatin 20 mg PO DAILY HPI Comments Details: Migraines - 1/week she started at age 5 and has increased in frequncy and intensity Pulsating, frontal, unitemporal pain with photophobia, phonophobia, occasional nausea. she denies aura visual or sensory. she used to be on imitrex and tramadol but has been stopped for past 4 years in the retirement. Now she takes tylenol and she says it cedeño snot help her and can last the whole day. She also reports tremors in don hands R>L both at rest and posture action for past 1 year. she is not sure if she was started on any new antipsychotics.she used to be on risperdal, zyprexa , geodon and haldol etc. she stopped walking about 6-7 years ago- she says she fell out of her bed multiple times and has been bed bound since then . The history is unclear. There is a mention of monoplegia , right muscle contracture as per retirement notes. she has diabetes and is controlled now but was poorly controlled in the past. [facility] Medical History Presbyopia Conversion disorder with motor symptom or deficit Other early skin lesions due to yaws Type 2 diabetes mellitus with other skin complications Hypercalcemia Fibromyalgia Tinea unguium Allergic rhinitis Iron deficiency anemia Epidermal cyst Obesity due to excess calories Unspecified asthma, uncomplicated Type 2 diabetes mellitus with hyperglycemia Diabetes mellitus with diabetic mononeuropathy Other frontotemporal neurocognitive disorder Other signs and symptoms in breast Other hammer toe (acquired) Personal history of other diseases of respiratory system Osteoarthritis Abnormal posture Myopia Regular astigmatism Hypoglycemia History of falling Left knee pain Urinary incontinence Vitamin D deficiency Chronic venous hypertension (idiopathic) with inflammation of bilateral lower extremity HTN (hypertension) Anemia Acute cough Shortness of breath Major depression GERD (gastroesophageal reflux disease) Other reduced mobility Contracture of muscle, right ankle and foot Muscle weakness (generalized) Other disorders of plasma-protein metabolism, not elsewhere classified Type 2 diabetes mellitus with diabetic neuropathy, unspecified Nail dystrophy Full incontinence of feces Combined forms of age-related cataract, bilateral Difficulty in walking, not elsewhere classified Unspecified atrial fibrillation 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 atrial flutter 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 Unspecified abnormalities of gait and mobility Localized edema Dysphagia, oral phase Nausea Schizoaffective disorder, bipolar type Constipation, unspecified Need for assistance with personal care Migraine without aura Tremors of nervous system Muscle spasm of calf Monoplegia affecting right dominant side Right foot drop PTSD (post-traumatic stress disorder) Auditory hallucinations Depression Anxiety Diabetes Social History Alcohol intake: former Patient Tobacco Use Status: Never used Tobacco Current occupational status: disabled 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 Physical Exam Vital Signs: BMI result Body Mass Index 51.7 Const General: cooperative Nutritional Appearance: obese morbidly obese Orientation/consciousness: patient oriented x3 Eyes Pupils: Equal, round and reactive pupils present Neuro Other: Limited exam - LE - right foot drop and increased tone- she is treated with botox to her Right LE by [facility] ortho Left LE- was able to move her foot 4/5 UE - Don mild rest and postural tremors In stretcher- speech is normal General: patient oriented x3 and Unable to assess gait Cranial nerves: Yes Facial sensation intact/muscles of mastication intact, Yes Equal, round and reactive pupils present, Yes Bilaterally intact EOM present, Yes Nystagmus not present, Yes Normal facial strength present and Yes Midline tongue present Cognition (Neuro): normal cognition Gait exam (Neuro): Unable to assess gait Deep tendon reflexes (DTR's): Right triceps reflex intensity grade: 2+, Left triceps reflex intensity grade: 2+, Rt Biceps (C5, C6): 2+, Left biceps reflex intensity grade: 2+, Right brachioradialis reflex intensity grade: 2+ and Left brachioradialis reflex intensity grade: 2+ Coordination: [id number] test normal Assessment & Plan Assessment & Plan (1) Tremors of nervous system: Comment: lloydley related to exposure to neuroleptics Code(s): R25.1 - Tremor, unspecified Category: Medical (2) Migraine without aura: Code(s): G43.009 - Migraine without aura, not intractable, without status migrainosus Category: Medical Qualifiers: Intractability: not intractable Status migrainosus presence: without status migrainosus Qualified Code(s): G43.009 - Migraine without aura, not intractable, without status migrainosus Plan I will trial her on sumatriptan 50mg as needed for migraine, can be repeated in 2 hrs Max 200/day Her tremors are mild. No evidence of Parkinsons. will monitor clinically. Continue pregabalin and magnesium which may also help with migraines Consider sleep study Consider PT and OT Coding Level of Care Code New Pt Level 4 (88538) Complex EM visit Add On G2211 Diagnoses Tremors of nervous system R25.1 Migraine without aura and without status migrainosus, not intractable G43.009 Intractability: not intractable Status migrainosus presence: without status migrainosus
== END 2023-12-23 09:59 | disposition home or self-care (01) ==
PROVIDERS: Visit Provider Psychiatry & Neurology Neurology
DX: R25.1 Tremor, unspecified (principal); G43.009 Migraine without aura, not intractable, without status migrainosus
CPT/HCPCS: 99204

== ENCOUNTER → 2023-12-23 09:11 | Outpatient (BNVA) | payer MEDICAID, SELFPAY | PROVIDERS: Visit Provider Psychiatry & Neurology Neurology | DX: R25.1 Tremor, unspecified (principal); G43.009 Migraine without aura, not intractable, without status migrainosus | CPT/HCPCS: 99202 ==

== ENCOUNTER 2024-01-14 09:42 | Outpatient (AMB) | payer MEDICAID, SELFPAY ==
--- NOTE | 2024-01-14 09:49 | MHC.OFFVIS ---
Vital Signs 01/14/24 09:52 Height 5 ft 7 in Weight 330 lb BMI 51.7 Intake Visit Reasons: OV - Botox follow up - inj date: 12/16/23 Intake Note: Karolyn is a 48 year old female who presents today for a follow up visit s/p Botox injection on 12/16/2023. Allergies aripiprazole [From ABILIFY] Allergy (Unknown, Verified 01/14/24 09:52) SWELL aspirin [ASPIRIN] Allergy (Unknown, Verified 01/14/24 09:52) UNKNOWN coconut Allergy (Unknown, Verified 01/14/24 09:52) HIVES ibuprofen [From MOTRIN] Allergy (Unknown, Verified 01/14/24 09:52) UNKNOWN risperidone [From RISPERDAL] Allergy (Unknown, Verified 01/14/24 09:52) UNKNOWN tomato [TOMATO] Allergy (Unknown, Verified 01/14/24 09:52) HIVES lactose [LACTOSE] Adverse Reaction (Unknown, Verified 01/14/24 09:52) DIARRHEA Aspirin Allergy (Unknown, Uncoded 01/14/24 09:52) seizures Ibuprofen Allergy (Unknown, Uncoded 01/14/24 09:52) vomiting Motrin Allergy (Unknown, Uncoded 01/14/24 09:52) vomiting Risperdal Allergy (Unknown, Uncoded 01/14/24 09:52) hives Medication List - Last Reconciled 01/14/24 by Shira Tiwari MD albuterol sulfate 90 mcg/actuation (ProAir HFA) 2 puffs inhalation Q4-6H PRN apixaban (Eliquis) 2.5 mg PO BID benzonatate 200 mg PO TID PRN budesonide-formoterol 160-4.5 mcg/actuation (Symbicort) 2 puffs inhalation DAILY cefuroxime axetil 500 mg PO BID 10 days chlorpromazine 150 mg PO BEDTIME cholecalciferol (vitamin D3) 1,250 mcg PO QMONTH cholecalciferol (vitamin D3) 50 mcg PO DAILY citalopram 40 mg PO DAILY clonazepam 1 mg PO DAILY docusate sodium 400 mg PO BEDTIME doxepin 3 mg PO BEDTIME PRN famotidine 20 mg PO DAILY ferrous sulfate 325 mg PO Q OTHER DAY furosemide 40 mg PO DAILY guaifenesin ER (Mucinex) 600 mg PO BID insulin aspart U-100 (Novolog FlexPen U-100 Insulin aspart) 1 sliding scale dose See Protocol subcut USEASDIRECTD insulin glargine (Lantus Solostar U-100 Insulin) 46 units subcut BEDTIME insulin glargine (Lantus U-100 Insulin) 44 units subcut DAILY loratadine 10 mg PO DAILY PRN lurasidone (Latuda) 120 mg PO DAILY@1700 lurasidone 120 mg PO DAILY metformin 1,000 mg PO BID oxcarbazepine 300 mg PO BID pantoprazole 20 mg PO DAILY polyethylene glycol 3350 17 grams PO DAILY pregabalin (Lyrica) 150 mg PO BID pregabalin 25 mg PO BID semaglutide (Ozempic) 0.25 mg subcut QWEEK simvastatin 20 mg PO DAILY HPI Comments Details: 06/25/23 47 year old, brought it by EMS, on 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 She's been residing there for past 4 years, transferred from [facility]. She was admitted at [facility] for falls (need to obtain medical records from [facility]). Denies any history of fracture, stroke, surgery or cardiac events during that hospitalization. She says the foot drop started/worseneded during that hospitalization. At [facility], she is jemma lift transfers, non ambulatory, level. Spends most of the day in bed. Can go to dining room on . Bladder/bowel care all in bed, wears diapers. Denies incontinence though. Has sensation. Denies back pain. Good movement on LLE and BUE per patient, except for chronic shoulder ROM limitation due to past RTC injury. Denies numbness on right foot. 09/02/23 We tried to obtain notes from [facility] but unsuccessful. I could not find medical records that would explain her right foot drop. There was a small note from [facility] that said ? fracture . Patient denies ever having fracture or stroke prior to this. Xrays done here in [place] didn't show signs of fracture but did show soft tissue swelling. Knee xray showed advanced DJD. No new change since last visit. Left leg is juvencio wrapped, for fluids per SNF staff. No recent falls or injuries. CT scan does not show any specific past injury or any specific etiology for footdrop. Botulinum injection done (Botox) 12/16/2023. EMG-guidance was used during the injection. A total of 200 units injected. 0 units wastage. Patient denies any complications. She thinks it has improved the stiffness. She has been going to PT and they have tried to fit her on a boot. Muscle Units per site Number of sites Units per muscle Right MG 25 3 75 Right LG 25 3 75 Right TP 25 2 50 unfortunately she had jammed her left foot against a door and has a fracture on left 2nd toe. [facility] Medical History Presbyopia Conversion disorder with motor symptom or deficit Other early skin lesions due to yaws Type 2 diabetes mellitus with other skin complications Hypercalcemia Fibromyalgia Tinea unguium Allergic rhinitis Iron deficiency anemia Epidermal cyst Obesity due to excess calories Unspecified asthma, uncomplicated Type 2 diabetes mellitus with hyperglycemia Diabetes mellitus with diabetic mononeuropathy Other frontotemporal neurocognitive disorder Other signs and symptoms in breast Other hammer toe (acquired) Personal history of other diseases of respiratory system Osteoarthritis Abnormal posture Myopia Regular astigmatism Hypoglycemia History of falling Left knee pain Urinary incontinence Vitamin D deficiency Chronic venous hypertension (idiopathic) with inflammation of bilateral lower extremity HTN (hypertension) Anemia Acute cough Shortness of breath Major depression GERD (gastroesophageal reflux disease) Other reduced mobility Contracture of muscle, right ankle and foot Muscle weakness (generalized) Other disorders of plasma-protein metabolism, not elsewhere classified Type 2 diabetes mellitus with diabetic neuropathy, unspecified Nail dystrophy Full incontinence of feces Combined forms of age-related cataract, bilateral Difficulty in walking, not elsewhere classified Unspecified atrial fibrillation Typical atrial flutter 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 Unspecified abnormalities of gait and mobility Localized edema Dysphagia, oral phase Nausea Schizoaffective disorder, bipolar type Constipation, unspecified Need for assistance with personal care Migraine without aura Tremors of nervous system Muscle spasm of calf Monoplegia affecting right dominant side Right foot drop PTSD (post-traumatic stress disorder) Auditory hallucinations Depression Anxiety Diabetes Social History Alcohol intake: former Patient Tobacco Use Status: Never used Tobacco Current occupational status: disabled 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 Left 2nd toe bruised. Results Reviewed Results Reviewed: Patient seen by Neurology Dr. Athreya for migraines and tremors. Assessment & Plan Assessment & Plan (1) Right foot drop: Code(s): M21.371 - Foot drop, right foot Category: Medical (2) Monoplegia affecting right dominant side: Code(s): G83.31 - Monoplegia, unspecified affecting right dominant side Category: Medical (3) Muscle spasm of calf: Code(s): M62.831 - Muscle spasm of calf Category: Medical (4) Toe fracture, left: Code(s): S92.912A - Unspecified fracture of left toe(s), initial encounter for closed fracture Category: Medical Qualifiers: Encounter type: initial encounter Toe: lesser toe Fracture type: closed Phalanx: unspecified phalanx Fracture alignment: nondisplaced Qualified Code(s): S92.505A - Nondisplaced unspecified fracture of left lesser toe(s), initial encounter for closed fracture Plan Excellent response from botulinum toxin injection (Botox). No complications or side effects. I think we can further increase dose by adding 75 units to soleus muscle. Rest of dose will continue the same. Total of 275 units. Patient would like to continue treatment every 3 months. Next injection would be 03/23/2024. We will process prior authorization and scheduling. Muscles to be injected: Right medial and lateral gastrocnemius, tibialis posterior, soleus Total to 275 units. Continue PT for now. As for left 2nd toe fracture, we put her on a night splint so less pain when she is being transferred/moved. Also to prevent any contractures. Assessment and plan discussed with patient, and patient was agreeable. All questions were answered thoroughly. Shira Tiwari MD, SAROJ Board Certified, [place] [employer] and [employer] (ABPMR) Board Certified, [place] [employer] Electro[employer] (ABEM) Coding Level of Care Code Est Pt Level 4 (47923) Diagnoses Right foot drop M21.371 Monoplegia affecting right dominant side G83.31 Muscle spasm of calf M62.831 Closed nondisplaced fracture of phalanx of lesser toe of left foot, unspecified phalanx, initial encounter S92.505A Encounter type: initial encounter Toe: lesser toe Fracture type: closed Phalanx: unspecified phalanx Fracture alignment: nondisplaced
[2024-01-14 09:52] VITALS: BMI 51.7
== END 2024-01-14 10:23 | disposition home or self-care (01) ==
PROVIDERS: Visit Provider Physical Medicine & Rehabilitation
DX: M21.371 Foot drop, right foot (principal); G83.31 Monoplegia, unspecified affecting right dominant side; M62.831 Muscle spasm of calf; S92.505A Nondisplaced unspecified fracture of left lesser toe(s), initial encounter for closed fracture
CPT/HCPCS: 99213

== ENCOUNTER → 2024-01-14 09:42 | Outpatient (BNVA) | payer MEDICAID, SELFPAY | PROVIDERS: Visit Provider Physical Medicine & Rehabilitation | DX: M21.371 Foot drop, right foot (principal); M62.831 Muscle spasm of calf; G83.31 Monoplegia, unspecified affecting right dominant side; S92.505A Nondisplaced unspecified fracture of left lesser toe(s), initial encounter for closed fracture | CPT/HCPCS: 99212 ==

== ENCOUNTER → 2024-03-23 12:00 | Outpatient (BNV) | payer MEDICAID, SELFPAY | PROVIDERS: Visit Provider Physical Medicine & Rehabilitation | DX: G83.31 Monoplegia, unspecified affecting right dominant side (principal); M62.831 Muscle spasm of calf | CPT/HCPCS: 64642; 95874 ==

== ENCOUNTER 2024-03-23 12:59 | Outpatient (REF) | payer MEDICAID, SELFPAY ==
--- NOTE | 2024-03-23 12:00 | EMG_ITS ---
PROCEDURE PERFORMED: Botulinum toxin chemodenervation DIAGNOSIS: Monoplegia affecting right dominant side G83.31 Muscle spasm of calf M62.831 INDICATION: spastic muscles PREVIOUS TREATMENT AND RESPONSE: Oral antispasticity medications and physical therapy without response EXAM ON DAY OF PROCEDURE: Right foot inverted and plantarflexed, clonus, Paco 3-4 TOXIN USED: Botox PROCEDURE: The procedure was explained to the patient/caregiver, and informed consent was obtained. The patient laid down on bed. Right leg was cleansed with betadine in the usual sterile manner. A 26 gauge needle electrode was used. Muscle Units per site Number of sites Units per muscle Right soleus 50 2 100 Right LG 25 3 75 Right TP 25 2 50 Right MG 25 3 75 EMG-guidance was used during the injection. A total of 300 units injected. 0 units wastage. Vial size: 100 units per vial Dilution: 100 units per 1 ml of preservative free saline The patient tolerated the procedure well without complications. The patient was observed for 30 minutes, before being discharged with post procedure instructions. CODING: CPT code: 56194 1 ext, 1-4 muscles Guidance code: 38058 EMG guidance for chemodenervation J code: Botox J0585 [facility] code: 2754-2144-81 Lot #: [id number] [facility]
== END 2024-03-23 13:00 | disposition home or self-care (01) ==
LOC: HO.NEURO 12:59
PROVIDERS: Visit Provider Physical Medicine & Rehabilitation
DX: G83.31 Monoplegia, unspecified affecting right dominant side (principal); M62.831 Muscle spasm of calf
CPT/HCPCS: 64642; 95874; J0585

== ENCOUNTER 2024-05-13 09:00 | Outpatient (AMB) | payer MEDICAID, SELFPAY ==
--- NOTE | 2024-05-13 09:27 | A.OFFVIS_ITS ---
Intake Visit Reasons: OV - Botox follow up - inj date:03/23/2024 Intake Note: Karolyn 48 yr old female presents today S/P botox injection to her right leg on 03/23/24. States she has noticed improvement and will explain better to provider herself. Allergies aripiprazole [From ABILIFY] Allergy (Unknown, Verified 05/13/24 09:30) SWELL aspirin [ASPIRIN] Allergy (Unknown, Verified 05/13/24 09:30) UNKNOWN coconut Allergy (Unknown, Verified 05/13/24 09:30) HIVES ibuprofen [From MOTRIN] Allergy (Unknown, Verified 05/13/24 09:30) UNKNOWN risperidone [From RISPERDAL] Allergy (Unknown, Verified 05/13/24 09:30) UNKNOWN tomato [TOMATO] Allergy (Unknown, Verified 05/13/24 09:30) HIVES lactose [LACTOSE] Adverse Reaction (Unknown, Verified 05/13/24 09:30) DIARRHEA Aspirin Allergy (Unknown, Uncoded 05/13/24 09:30) seizures Ibuprofen Allergy (Unknown, Uncoded 05/13/24 09:30) vomiting Motrin Allergy (Unknown, Uncoded 05/13/24 09:30) vomiting Risperdal Allergy (Unknown, Uncoded 05/13/24 09:30) hives Medication List - Last Reconciled 05/13/24 by Shira Tiwari MD albuterol sulfate 90 mcg/actuation (ProAir HFA) 2 puffs inhalation Q4-6H PRN apixaban (Eliquis) 2.5 mg PO BID benzonatate 200 mg PO TID PRN budesonide-formoterol 160-4.5 mcg/actuation (Symbicort) 2 puffs inhalation DAILY cefuroxime axetil 500 mg PO BID 10 days chlorpromazine 150 mg PO BEDTIME cholecalciferol (vitamin D3) 1,250 mcg PO QMONTH cholecalciferol (vitamin D3) 50 mcg PO DAILY citalopram 40 mg PO DAILY clonazepam 1 mg PO DAILY docusate sodium 400 mg PO BEDTIME doxepin 3 mg PO BEDTIME PRN famotidine 20 mg PO DAILY ferrous sulfate 325 mg PO Q OTHER DAY furosemide 40 mg PO DAILY guaifenesin ER (Mucinex) 600 mg PO BID insulin aspart U-100 (Novolog FlexPen U-100 Insulin aspart) 1 sliding scale dose See Protocol subcut USEASDIRECTD insulin glargine (Lantus Solostar U-100 Insulin) 46 units subcut BEDTIME insulin glargine (Lantus U-100 Insulin) 44 units subcut DAILY loratadine 10 mg PO DAILY PRN lurasidone (Latuda) 120 mg PO DAILY@1700 lurasidone 120 mg PO DAILY metformin 1,000 mg PO BID oxcarbazepine 300 mg PO BID pantoprazole 20 mg PO DAILY polyethylene glycol 3350 17 grams PO DAILY pregabalin (Lyrica) 150 mg PO BID pregabalin 25 mg PO BID semaglutide (Ozempic) 0.25 mg subcut QWEEK simvastatin 20 mg PO DAILY HPI Comments Details: 06/25/23 47 year old, brought it by EMS, on stretcher, resides in SNF. She's been residing there for past 4 years, transferred from [facility]. She was admitted at [facility] for falls. Denies any history of fracture, stroke, surgery or cardiac events during that hospitalization. She says the foot drop started/worseneded during that hospitalization. At SNF, she is jemma lift transfers, non ambulatory, WC level. Spends most of the day in bed. Can go to dining room on WC. Bladder/bowel care all in bed, wears diapers. Denies incontinence though. Has sensation. Denies back pain. Good movement on LLE and BUE per patient, except for chronic shoulder ROM limitation due to past RTC injury. Denies numbness on right foot. 09/02/23 We tried to obtain notes from [facility] but unsuccessful. I could not find medical records that would explain her right foot drop. There was a small note from [facility] that said ? fracture . Patient denies ever having fracture or stroke prior to this. Xrays done here in [place] didn't show signs of fracture but did show soft tissue swelling. Knee xray showed advanced DJD. Right ankle CT scan does not show any specific past injury or any specific etiology for footdrop. We have been doing Botulinum injection for right ankle/lower leg. Dates: 12/16/2023, 03/23/2024. We have been increasing dose gradually. Last injection in March, we injected 300 units. As below: Muscle Units per site Number of sites Units per muscle Right soleus 50 2 100 Right LG 25 3 75 Right TP 25 2 50 Right MG 25 3 75 Today she tells me that her physical therapist mentioned improvement on inversion contracture: Foot now can cuauhtemoc passively up to -9 degrees from neutral, however dorsiflexion remains at -30 degrees from neutral. She also mentions bilateral, right worse than left, knee pain and crepitus. No swelling or redness. No recent hospitalization or infection. No recent falls. [facility] Medical History Presbyopia Conversion disorder with motor symptom or deficit Other early skin lesions due to yaws Type 2 diabetes mellitus with other skin complications Hypercalcemia Fibromyalgia Tinea unguium Allergic rhinitis Iron deficiency anemia Epidermal cyst Obesity due to excess calories Unspecified asthma, uncomplicated Type 2 diabetes mellitus with hyperglycemia Diabetes mellitus with diabetic mononeuropathy Other frontotemporal neurocognitive disorder Other signs and symptoms in breast Other hammer toe (acquired) Personal history of other diseases of respiratory system Osteoarthritis Abnormal posture Myopia Regular astigmatism Hypoglycemia History of falling Left knee pain Urinary incontinence Vitamin D deficiency Chronic venous hypertension (idiopathic) with inflammation of bilateral lower extremity HTN (hypertension) Anemia Acute cough Shortness of breath Major depression GERD (gastroesophageal reflux disease) Other reduced mobility Contracture of muscle, right ankle and foot Muscle weakness (generalized) Other disorders of plasma-protein metabolism, not elsewhere classified Type 2 diabetes mellitus with diabetic neuropathy, unspecified Nail dystrophy Full incontinence of feces Combined forms of age-related cataract, bilateral Difficulty in walking, not elsewhere classified Unspecified atrial fibrillation Typical atrial flutter 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 Unspecified abnormalities of gait and mobility Localized edema Dysphagia, oral phase Nausea Schizoaffective disorder, bipolar type Constipation, unspecified Need for assistance with personal care Migraine without aura Tremors of nervous system Muscle spasm of calf Monoplegia affecting right dominant side Right foot drop PTSD (post-traumatic stress disorder) Auditory hallucinations Depression Anxiety Diabetes Social History Alcohol intake: former Patient Tobacco Use Status: Never used Tobacco Current occupational status: disabled 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 Dorsiflex, -30 degrees from neutral. Right big toe extends upwards spontaneously with clonus (clonus improved from last time, now only 1 or 2 beats) Results Reviewed Results Reviewed: Ordering Physician: Shira Hameed Date of Service: 10/05/23 Procedure(s): CT ankle RT wo IV con Accession Number(s): [id number] cc: Shira Hameed~ EXAMINATION: CT OF THE RIGHT ANKLE WITHOUT CONTRAST INDICATION: Reason for Exam M21.371 - Foot drop, right foot. COMPARISON: Radiograph dated 06/25/2023. TECHNIQUE: Multidetector volumetric imaging was obtained through the right ankle without contrast material. Multiplanar reformatted images in coronal and sagittal orientations were submitted. This CT examination was performed using dose optimization techniques as appropriate, variously including the following: *Automated exposure control *Adjustment of mA and/or kV according to patient size (this includes techniques or standardized protocols for targeted exams where dose is matched to indication/reason for exam; i.e. extremities or head) *Use of iterative reconstruction technique DLP: 110 mGy-cm FINDINGS: Bones are osteopenic. No acute fractures are identified. There is abnormal alignment at the ankle with plantar flexion and medial deviation of the foot. At the talocrural joint, there is [id number] nonuniform joint space narrowing with articular cortical irregularity and subarticular bone resorption at the dorsomedial aspect of the talus. Additional cortical irregularity and subcortical edema are present at the posterior aspect of the distal tibial articular surface. No appreciable intra-articular loose bodies. Subtalar and talonavicular joints are relatively well preserved. There is mild osteoarthritis of the calcaneocuboid joint with nonuniform joint space narrowing and small marginal osteophytes. Joints of the midfoot are otherwise unremarkable. There is skin thickening and subcutaneous edema at the lateral aspect of the ankle and dorsal aspect of the foot. Muscle is atrophic and fatty replaced. Tendons appear intact. CT/CT ankle RT wo IV con IMPRESSION: 1. Marked plantar flexion at the ankle with medial deviation of the foot. 2. [id number] talocrural arthrosis with cartilage loss and cortical irregularity at the talus, more pronounced posteriorly. 3. Mild calcaneocuboid osteoarthritis. 4. No acute fractures. 5. Generalized muscle atrophy and fatty replacement. 6. Skin thickening and subcutaneous edema at the lateral aspect of the ankle and dorsal aspect of the foot. Assessment & Plan Assessment & Plan (1) Right foot drop: Code(s): M21.371 - Foot drop, right foot Category: Medical (2) Monoplegia affecting right dominant side: Code(s): G83.31 - Monoplegia, unspecified affecting right dominant side Category: Medical Plan Gradual improvement seen from botulinum toxin injection (Botox). No complications or side effects. I think we can further increase total dose to 400 units. Continue PT for now. I am still curious about the etiology of her right footdrop. Interestingly she has clonus that is suggestive of a central pathology such as could be coming from brain or spinal cord. I was told that she did not have a stroke. However there has been no lumbar imaging in the past. Patient had undergone adequate conservative management including PT and Botox injections without complete improvement of condition. It would be reasonable to obtain further imaging such as MRI. An MRI would help rule out any serious condition, guide treatment and assess prognosis for recovery. Specifically ruling out right L5-S1 disc herniation or spinal stenosis. Assessment and plan discussed with patient, and patient was agreeable. All questions were answered thoroughly. Shira Tiwari MD, SAROJ Board Certified, [place] [employer] and [employer] (ABPMR) Board Certified, [place] [employer] Electrodiagn[employer] (ABEM) Orders: Orders MR lumbar spine wo con Today M48.061 - Spinal stenosis, lumbar region without neurogenic claudication, M54.16 - Radiculopathy, lumbar region Coding Level of Care Code Est Pt Level 4 (14095) Diagnoses Right foot drop M21.371 Monoplegia affecting right dominant side G83.31
== END 2024-05-13 09:51 | disposition home or self-care (01) ==
PROVIDERS: Visit Provider Physical Medicine & Rehabilitation
DX: M21.371 Foot drop, right foot (principal); G83.31 Monoplegia, unspecified affecting right dominant side
CPT/HCPCS: 99214

== ENCOUNTER → 2024-05-13 09:00 | Outpatient (BNVA) | payer MEDICAID, SELFPAY | PROVIDERS: Visit Provider Physical Medicine & Rehabilitation | DX: M21.371 Foot drop, right foot (principal); G83.31 Monoplegia, unspecified affecting right dominant side | CPT/HCPCS: 99212 ==

== ENCOUNTER 2024-07-20 09:49 | Outpatient (AMB) | payer MEDICAID, SELFPAY ==
--- NOTE | 2024-07-20 09:51 | MHC.OFFVIS ---
Vital Signs 07/20/24 09:52 Height 5 ft 7 in Intake Visit Reasons: Tremors/migraines Intake Note: Patient presents for follow up migraines trial of sumatriptan given Allergies aripiprazole [From ABILIFY] Allergy (Unknown, Verified 07/20/24 10:05) SWELL aspirin [ASPIRIN] Allergy (Unknown, Verified 07/20/24 10:05) UNKNOWN coconut Allergy (Unknown, Verified 07/20/24 10:05) HIVES ibuprofen [From MOTRIN] Allergy (Unknown, Verified 07/20/24 10:05) UNKNOWN risperidone [From RISPERDAL] Allergy (Unknown, Verified 07/20/24 10:05) UNKNOWN tomato [TOMATO] Allergy (Unknown, Verified 07/20/24 10:05) HIVES lactose [LACTOSE] Adverse Reaction (Unknown, Verified 07/20/24 10:05) DIARRHEA Aspirin Allergy (Unknown, Uncoded 07/20/24 10:05) seizures Ibuprofen Allergy (Unknown, Uncoded 07/20/24 10:05) vomiting Motrin Allergy (Unknown, Uncoded 07/20/24 10:05) vomiting Risperdal Allergy (Unknown, Uncoded 07/20/24 10:05) hives Medication List - Last Reconciled 07/20/24 by Lindsay Lerma MD acetaminophen 325 mg PO Q4H PRN albuterol sulfate 90 mcg/actuation (ProAir HFA) 2 puffs inhalation Q4-6H PRN apixaban (Eliquis) 2.5 mg PO BID ascorbic acid (vitamin C) mg PO benzonatate 200 mg PO TID PRN bisacodyl 10 mg IA DAILY PRN budesonide-formoterol 160-4.5 mcg/actuation (Symbicort) 2 puffs inhalation DAILY cefuroxime axetil 500 mg PO BID 10 days chlorpromazine 150 mg PO BEDTIME cholecalciferol (vitamin D3) 1,250 mcg PO QMONTH cholecalciferol (vitamin D3) 50 mcg PO DAILY citalopram 40 mg PO DAILY clonazepam 1 mg PO DAILY dextrose 40% 10 grams PO Q15M PRN docusate sodium 400 mg PO BEDTIME docusate sodium (Colace) 100 mg PO DAILY doxepin 3 mg PO BEDTIME PRN dulaglutide (Trulicity) 1.5 mg subcut QWEEK epinephrine 0.3 mg IM Q10M PRN famotidine 20 mg PO DAILY ferrous sulfate 325 mg PO Q OTHER DAY ferrous sulfate 325 mg PO DAILY furosemide 40 mg PO DAILY glucagon 1 mg subcut Q20M PRN guaifenesin ER (Mucinex) 600 mg PO BID insulin aspart U-100 (Novolog FlexPen U-100 Insulin aspart) 1 sliding scale dose See Protocol subcut USEASDIRECTD insulin aspart U-100 1 sliding scale dose subcut USEASDIRECTD insulin glargine (Lantus Solostar U-100 Insulin) 46 units subcut BEDTIME insulin glargine (Lantus U-100 Insulin) 44 units subcut DAILY lactulose 10 grams PO BEDTIME lisinopril 5 mg PO DAILY lisinopril 2.5 mg PO DAILY loperamide 2 mg PO Q6H PRN loratadine 10 mg PO DAILY PRN lurasidone (Latuda) 120 mg PO DAILY@1700 lurasidone 120 mg PO DAILY magnesium hydroxide 400 mg PO DAILY PRN metformin 1,000 mg PO BID methyl salicylate-menthol 1 appl topical BEDTIME PRN naloxone 4 mg/actuation 1 spray intranasal Q2M omega 4-oxy-kdt-fish oil 1,000 (120-180) mg (Fish Oil) 1 cap PO DAILY omeprazole 20 mg PO DAILY ondansetron 4 mg PO Q8H oxcarbazepine 300 mg PO BID pantoprazole 20 mg PO DAILY polyethylene glycol 3350 17 grams PO DAILY pregabalin 25 mg PO BID pregabalin (Lyrica) 200 mg PO BID semaglutide (Ozempic) 0.25 mg subcut QWEEK sennosides (senna) 8.6 mg PO BEDTIME simvastatin 20 mg PO DAILY sodium phosphates 19-7 gram/118 mL (Fleet Enema) 118 mL IA BEDTIME PRN sumatriptan succinate 50 mg PO Q2-4H PRN trazodone 150 mg PO BEDTIME PRN HPI Comments Details: 48y/o female comes for follow up. 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 she denies aura visual or sensory. she used to be on imitrex and tramadol but has been stopped for past 4 years in the halfway. Now she takes tylenol and she says it does not help her and can last the whole day. She also reports tremors in don hands R>L both at rest and posture action for past 1 year. she is not sure if she was started on any new antipsychotics.she used to be on risperdal, zyprexa , geodon and haldol etc. she stopped walking about 6-7 years ago- she says she fell out of her bed multiple times and has been bed bound since then . The history is unclear. There is a mention of monoplegia , right muscle contracture as per halfway notes. she has diabetes and is controlled now but was poorly controlled in the past. [facility] Medical History (Updated 07/20/24 @ 10:41 by Lindsay Lerma MD) Hypersomnia Snoring Presbyopia Conversion disorder with motor symptom or deficit Other early skin lesions due to yaws Type 2 diabetes mellitus with other skin complications Hypercalcemia Fibromyalgia Tinea unguium Allergic rhinitis Iron deficiency anemia Epidermal cyst Obesity due to excess calories Unspecified asthma, uncomplicated Type 2 diabetes mellitus with hyperglycemia Diabetes mellitus with diabetic mononeuropathy Other frontotemporal neurocognitive disorder Other signs and symptoms in breast Other hammer toe (acquired) Personal history of other diseases of respiratory system Osteoarthritis Abnormal posture Myopia Regular astigmatism Hypoglycemia History of falling Left knee pain Urinary incontinence Vitamin D deficiency Chronic venous hypertension (idiopathic) with inflammation of bilateral lower extremity HTN (hypertension) Anemia Acute cough Shortness of breath Major depression GERD (gastroesophageal reflux disease) Other reduced mobility Contracture of muscle, right ankle and foot Muscle weakness (generalized) Other disorders of plasma-protein metabolism, not elsewhere classified Type 2 diabetes mellitus with diabetic neuropathy, unspecified Nail dystrophy Full incontinence of feces Combined forms of age-related cataract, bilateral Difficulty in walking, not elsewhere classified Unspecified atrial fibrillation Typical atrial flutter 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 Unspecified abnormalities of gait and mobility Localized edema Dysphagia, oral phase Nausea Schizoaffective disorder, bipolar type Constipation, unspecified Need for assistance with personal care Migraine without aura Tremors of nervous system Muscle spasm of calf Monoplegia affecting right dominant side Right foot drop PTSD (post-traumatic stress disorder) Auditory hallucinations Depression Anxiety Diabetes Social History Alcohol intake: former Patient Tobacco Use Status: Never used Tobacco Current occupational status: disabled 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 Physical Exam Const General: cooperative Nutritional Appearance: obese morbidly obese Orientation/consciousness: patient oriented x3 Eyes Pupils: Equal, round and reactive pupils present Neuro Other: Limited exam - LE - right foot drop and increased tone- she is treated with botox to her Right LE by [facility] ortho Left LE- was able to move her foot 4/5 UE - Don mild rest and postural tremors In stretcher- speech is normal General: patient oriented x3 Cranial nerves: Yes Facial sensation intact/muscles of mastication intact, Yes Equal, round and reactive pupils present, Yes Bilaterally intact EOM present, Yes Nystagmus not present, Yes Normal facial strength present and Yes Midline tongue present Cognition (Neuro): normal cognition Assessment & Plan Assessment & Plan (1) Tremors of nervous system: Comment: likley related to exposure to neuroleptics Code(s): R25.1 - Tremor, unspecified Category: Medical (2) Migraine without aura: Code(s): G43.009 - Migraine without aura, not intractable, without status migrainosus Category: Medical Qualifiers: Status migrainosus presence: without status migrainosus Intractability: not intractable Qualified Code(s): G43.009 - Migraine without aura, not intractable, without status migrainosus (3) Snoring: Code(s): R06.83 - Snoring Category: Medical (4) Hypersomnia: Code(s): G47.10 - Hypersomnia, unspecified Category: Medical Plan Continue sumatriptan 50mg as needed for migraine, can be repeated in 2 hrs Max 200/day Start magnesium 400mg qhs and vitamin B 2 400mg qam for decreasing migraine frequency. Her tremors are mild. No evidence of Parkinsons. will monitor clinically. Continue pregabalin sleep study Coding Level of Care Code Est Pt Level 4 (88337) Complex EM visit Add On G2211 Diagnoses Tremors of nervous system R25.1 Migraine without aura and without status migrainosus, not intractable G43.009 Status migrainosus presence: without status migrainosus Intractability: not intractable Snoring R06.83 Hypersomnia G47.10
== END 2024-07-20 10:21 | disposition home or self-care (01) ==
LOC: HO.HSMS 09:50
PROVIDERS: Visit Provider Psychiatry & Neurology Neurology
DX: R25.1 Tremor, unspecified (principal); G43.009 Migraine without aura, not intractable, without status migrainosus; R06.83 Snoring; G47.10 Hypersomnia, unspecified
CPT/HCPCS: 99214

== ENCOUNTER → 2024-07-20 09:49 | Outpatient (BNVA) | payer MEDICAID, SELFPAY | PROVIDERS: Visit Provider Psychiatry & Neurology Neurology | DX: G43.009 Migraine without aura, not intractable, without status migrainosus (principal); G47.10 Hypersomnia, unspecified; R25.1 Tremor, unspecified; R06.83 Snoring | CPT/HCPCS: 99212 ==

== ENCOUNTER 2024-11-11 10:21 | Outpatient (AMB) | payer MEDICAID, SELFPAY ==
--- NOTE | 2024-11-11 10:22 | A.OFFVIS_ITS ---
Intake Visit Reasons: TH Botox follow up -last inj date:05/13/24 Intake Note: Karolyn is a 49 year old female who presents today as a VIA Teleheath Botox follow up -last inj date:05/13/24. Patient states that the injection did help. Helen will be on the phone with the patient. Allergies aripiprazole (From ABILIFY) Allergy (Unknown, Verified 11/11/24 10:26) SWELL aspirin (ASPIRIN) Allergy (Unknown, Verified 11/11/24 10:26) UNKNOWN coconut Allergy (Unknown, Verified 11/11/24 10:26) HIVES ibuprofen (From MOTRIN) Allergy (Unknown, Verified 11/11/24 10:26) UNKNOWN risperidone (From RISPERDAL) Allergy (Unknown, Verified 11/11/24 10:26) UNKNOWN tomato (TOMATO) Allergy (Unknown, Verified 11/11/24 10:26) HIVES lactose (LACTOSE) Adverse Reaction (Unknown, Verified 11/11/24 10:26) DIARRHEA Aspirin Allergy (Unknown, Uncoded 07/20/24 10:05) seizures Ibuprofen Allergy (Unknown, Uncoded 07/20/24 10:05) vomiting Motrin Allergy (Unknown, Uncoded 07/20/24 10:05) vomiting Risperdal Allergy (Unknown, Uncoded 07/20/24 10:05) hives HPI Comments Details: Telehealth appointment today. Patient was last seen in person 05/13/2024. Last botulinum toxin injection 03/23/2024. It has been hard to determine whether botulinum toxin injections have been helpful for the patient. I think particularly because we do not have a clear indication of her left footdrop and inability to walk. I ordered a lumbar MRI b k in April but it has not been done yet. Patient reports that left foot has become stiffer since we have not done any injections since 7 months ago. She follows with neurology for migraines. She denies any recent hospitalization or infections. [facility] Medical History (Updated 07/20/24 @ 10:41 by Lindsay Lerma MD) Hypersomnia Snoring Presbyopia Conversion disorder with motor symptom or deficit Other early skin lesions due to yaws Type 2 diabetes mellitus with other skin complications Hypercalcemia Fibromyalgia Tinea unguium Allergic rhinitis Iron deficiency anemia Epidermal cyst Obesity due to excess calories Unspecified asthma, uncomplicated Type 2 diabetes mellitus with hyperglycemia Diabetes mellitus with diabetic mononeuropathy Other frontotemporal neurocognitive disorder Other signs and symptoms in breast Other hammer toe (acquired) Personal history of other diseases of respiratory system Osteoarthritis Abnormal posture Myopia Regular astigmatism Hypoglycemia History of falling Left knee pain Urinary incontinence Vitamin D deficiency Chronic venous hypertension (idiopathic) with inflammation of bilateral lower extremity HTN (hypertension) Anemia Acute cough Shortness of breath Major depression GERD (gastroesophageal reflux disease) Other reduced mobility Contracture of muscle, right ankle and foot Muscle weakness (generalized) Other disorders of plasma-protein metabolism, not elsewhere classified Type 2 diabetes mellitus with diabetic neuropathy, unspecified Nail dystrophy Full incontinence of feces Combined forms of age-related cataract, bilateral Difficulty in walking, not elsewhere classified Unspecified atrial fibrillation Typical atrial flutter 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 Unspecified abnormalities of gait and mobility Localized edema Dysphagia, oral phase Nausea Schizoaffective disorder, bipolar type Constipation, unspecified Need for assistance with personal care Migraine without aura Tremors of nervous system Muscle spasm of calf Monoplegia affecting right dominant side Right foot drop PTSD (post-traumatic stress disorder) Auditory hallucinations Depression Anxiety Diabetes Social History Alcohol intake: former Patient Tobacco Use Status: Never used Tobacco Current occupational status: disabled 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 Telehealth Telehealth Telehealth Platform: Telephone Location of provider rendering services: practice address Location of patient: address on file Patient Identification confirmed using: Name, : Yes Telehealth method: voice only Patient verbally consented to treatment: Yes Patient verbally consented to billing insurance company: Yes Patient informed of any privacy concerns related to visit: Yes Minutes spent on Phone/Video with Pt.: 30 Assessment & Plan Assessment & Plan (1) Right foot drop: Code(s): M21.371 - Foot drop, right foot Category: Medical (2) Monoplegia affecting right dominant side: Code(s): G83.31 - Monoplegia, unspecified affecting right dominant side Category: Medical Plan Per patient, right foot has been much more stiffer since she has not had botulinum toxin injections since March. She would like to continue with treatments. We will do prior auth and scheduling, hopefully this November. Would probably continue last dose injected, total of 300 units. Would still like to know if there is any central etiology for the footdrop, ruli ng out lumbar spinal stenosis by getting a lumbar MRI. Assessment and plan discussed with patient, and patient was agreeable. All questions were answered thoroughly. Shira Tiwari MD, SAROJ Board Certified, [place] Board of Physical Medicine and Rehabilitation (ABPMR) Board Certified, [place] Board of Electrodiagnostic Medicine (ABEM) Coding Level of Care Code Tele Est Pt Level 4 (44301) Diagnoses Right foot drop M21.371 Monoplegia affecting right dominant side G83.31
--- OUTSIDE RECORDS SUMMARY | 2024-11-11 11:02 | XMS_ITS | Clinical Summary ---
Author Organization [employer] Address [address] [facility] [address] [place] [address] Care Team Providers Care Legal Paraprofessional Name Role Phone Unavailable Primary Care Provider Unavailabl e Social History Tobacco Use Types Packs/Day Years Used Date Smoking Tobacco: Never Assessed Comments Unknown Sex and Gender Information Value Date Recorded Sex Assigned at Not on file Legal Sex Female 1:47 PM EST Gender Identity Not on file Sexual Orientation Not on file Plan of Treatment Health Maintenance Due Date Last Done Comments CT Colonography 1973 Colonoscopy 1973 Colorectal Cancer Screening 1973 Depression Screening 1973 FIT DNA/Cologuard 1973 FIT 1973 FOBT 1973 HIV Screening 1973 Lipid Panel 1973 SDOH Screening 1973 Sigmoidoscopy 1973 Disability Screening 1973 Alcohol/Substance Use Screening 1985 Tobacco Screening 1985 Family Planning (PISQ) 1988 Hepatitis C Screening 11/05/1991 Hepatitis B Vaccines (1 of 3 - 19+ 3-dose series) 1992 Pap Smear 1994 Cervical Cancer Screening 11/05/2003 HPV/Cotest 11/05/2003 DTaP/Tdap/Td Vaccines (1 - Tdap) 04/16/2011 04/15/19 12 Mammogram 2013 Pneumococcal Vaccine: 50+ Ye ars (2 of 2 - PCV) 04/08/2021 04/08/2020 Zoster Vaccines (1 of 2) 11/05/2023 COVID-19 Vaccine (1 - 2023-2 5 season) 2023 Influenza Vaccine (#1) 2024 RSV Patients and Pa tients Aged 60 years or older (1 - 1-dose 75+ series) 2048 HIB Vaccines Aged Out No longer eligi ble based on patient's age to complete this topic HPV Vaccines Aged Out No longer eligi ble based on patient's age to complete this topic Hepatitis A Vaccines Aged Out No long er eligible based on patient's age to complete this topic IPV Vaccines Aged Out No longer eligi ble based on patient's age to complete this topic Meningococcal B Vaccine Aged Out No l onger eligible based on patient's age to complete this topic Meningococcal Vaccine Aged Out No vanessa ashley eligible based on patient's age to complete this topic RSV under 20 months Aged Out No longe r eligible based on patient's age to complete this topic Rotavirus Vaccines Aged Out No longer eligible based on patient's age to complete this topic
== END 2024-11-11 11:02 | disposition home or self-care (01) ==
PROVIDERS: Visit Provider Physical Medicine & Rehabilitation
DX: M21.371 Foot drop, right foot (principal); G83.31 Monoplegia, unspecified affecting right dominant side
CPT/HCPCS: 99214

== ENCOUNTER 2024-11-28 09:44 | Outpatient (REF) | payer MEDICAID, SELFPAY ==
--- NOTE | 2024-11-28 09:51 | EMG_ITS ---
PROCEDURE PERFORMED: Botulinum toxin chemodenervation DIAGNOSIS: Monoplegia affecting right dominant side G83.31 Muscle spasm of calf M62.831 Last injections: 03/23/24, 12/16/23 TOXIN USED: Botox PROCEDURE: The procedure was explained to the patient/caregiver, and informed consent was obtained. The patient laid down on stretcher. Right ankle/leg was cleansed with betadine in the usual sterile manner. A 25 gauge 2 inch needle electrode was used. Muscle Units per site Number of sites Units per muscle Right soleus 50 2 100 Right LG 50 2 100 Right TP 50 2 100 Right MG 50 2 100 EMG-guidance was used during the injection. A total of 400 units injected. 0 units wastage. Vial size: 100 units per vial Dilution: 100 units per 2 ml of preservative free saline The patient tolerated the procedure well without complications. The patient was observed for 30 minutes, before being discharged with post procedure instructions. CODING: CPT code: 70467 1 ext, 1-4 muscles Guidance code: 31189 EMG guidance for chemodenervation J code: Botox J0585 [facility] code: 3053-3787-05 Lot #: [id number] Expiration date: [facility]
--- OUTSIDE RECORDS SUMMARY | 2024-11-28 11:53 | XMS_ITS | Encounter Summary ---
Author Organization [facility] Address [address] [place] [address] Care Team Providers Care Cushion Installer Name Role Phone Joan Marshall DO Primary Care Provider [phone] Encounter Details Date Type Department Care Team (Latest Contact Info) Description 11/13/2024 Lab Requisition [facility] - Main Lab [address] [facility] [employer] [place] [address] Tim Simpson MD [address], [place] [id number] Type 2 diabetes mellitus with diabetic mononeuropathy ([facility] V24, [facility] V28); Personal history of urinary (tract) infections Social History Tobacco Use Types Packs/Day Years Used Date Smoking Tobacco: Never Alcohol Use Standard Drinks/Week Comments No 0 (1 standard drink = 0.6 oz pur e alcohol) Comments Unknown Sex and Gender Information Value Date Recorded Sex Assigned at Not on file Legal Sex Female 4:07 AM EST Gender Identity Not on file Sexual Orientation Not on file documented as of this encounter Plan of Treatment Not on file documented as of this encounter Procedures Procedure Name Priority Date/Time Associated Diagnosis Comments SODIUM, URINE, RANDOM Routine 11/12/2024 5:10 AM EDT Type 2 diabetes mellitus with diabetic mononeuropathy ([facility] V24, [facility] V28) Personal history of urinary (tract) infections documented in this encounter Results * Sodium, urine, random (11/12/2024 5:10 AM EDT) Sodium, Ur 92 mmol/L LAB CHEMISTRY METHOD 11/13/2024 11:40 AM EDT [facility] LAB Urine Urine specimen obtained by clean catch procedure / Unknown Non-blood Collection / Unknown 11/12/2024 5:10 AM EDT 11/13/2024 10:59 AM EDT us Tim Simpson MD LAB URINE ORDERABLES Final R esult [facility] LAB [address] [place] [address], documented in this encounter Visit Diagnoses Diagnosis Type 2 diabetes mellitus with diabetic mononeuropathy ([facility] V24, [facility] V28) Personal history of urinary (tract) infections documented in this encounter Care Teams Cushion Installer Relationship Specialty Start Date End Date Joan Marshall DO [address] [address] PCP - General 03/17/13 documented as of this encounter
--- OUTSIDE RECORDS SUMMARY | 2024-11-28 11:53 | XMS_ITS | Encounter Summary ---
Author Organization [facility] Address [address] [place] [address] Care Team Providers Care Technical Writing Lead/Mgr Name Role Phone Joan Marshall DO Primary Care Provider [phone] Encounter Details Date Type Department Care Team (Late st Contact Info) Description 06/28/2024 Lab Requisition [facility] - Main Lab [address] [place] [address] Tim Simpson MD [address] [place] [address] Nausea with vomiting, unspecified Social History Tobacco Use Types Packs/Day Years [...] Procedure Name Priority Date/Time Associated Diagnosis Comments COMPLETE BLOOD COUNT Routine 06/28/2024 4:59 AM EDT Nausea with vomiting, unspecified COMPREHENSIVE METABOLIC PANEL Routine 06/28/2024 4:59 AM EDT Nausea with vomiting, unspecified documented in this encounter Results * (ABNORMAL) Comprehensive metabolic panel (06/28/2024 4:59 AM EDT) Sodium 131(L) 133 - 145 mmol/L LAB CHEMISTRY METHOD 06/28/2024 10:44 AM EDT [facility] Potassium 4.7 3.5 - 5.5 mmol/L LAB CHEMISTRY METHOD 06/28/2024 10:44 AM [facility] LAB Chloride 100 96 - 110 mmol/L LAB CHEMISTRY METHOD 06/28/2024 10:44 AM [facility] LAB CO2 24 21 - 32 mmol/L LAB CHEMISTRY METHOD 06/28/2024 10:44 AM [facility] LAB Anion Gap 7 3 - 11 LAB CHEMISTRY METHOD 06/28/2024 10:44 AM [facility] LAB Glucose 112(H) 70 - 100 mg/dL LAB CHEMISTRY METHOD 06/28/2024 10:44 AM [facility] LAB BUN 26(H) 5 - 25 mg/dL LAB CHEMISTRY METHOD 06/28/2024 10:44 AM [facility] LAB Creatinine 1.30(H) 0.50 - 1.10 mg/dL LAB CHEMISTRY METHOD 06/28/2024 10:44 AM [facility] LAB eGFR 50(L) >=60 mL/min/1. 73m2 LAB CHEMISTRY METHOD 06/28/2024 10:44 AM [facility] LAB Comment:Calculation based on the Chronic Kidney Disease Epidemiology Collaboration (CKD-EPI) equation refit without adjustment for race. BUN/Creatinine Ratio 20.0 LAB CHEMISTRY METHOD 06/28/2024 10:44 AM [facility] LAB Calcium 9.3 8.5 - 10.5 mg/dL LAB CHEMISTRY METHOD 06/28/2024 10:44 AM [facility] LAB AST (SGOT) 11 10 - 42 unit/L LAB CHEMISTRY METHOD 06/28/2024 10:44 AM [facility] ALT (SGPT) 20 10 - 60 unit/L LAB CHEMISTRY METHOD 06/28/2024 10:44 AM [facility] LAB Alkaline Phosphatase 107 42 - 121 unit/L LAB CHEMISTRY METHOD 06/28/2024 10:44 AM [facility] LAB Total Protein 6.2 6.0 - 8.0 g/dL LAB CHEMISTRY METHOD 06/28/2024 10:44 AM EDT [facility] Albumin 2.9(L) 3.2 - 5.0 g/dL LAB CHEMISTRY METHOD 06/28/2024 10:44 AM EDT [facility] LAB Total Bilirubin 0.3 0.0 - 1.4 mg/dL LAB CHEMISTRY METHOD 06/28/2024 10:44 AM EDT [facility] LAB Blood Venous blood specimen / Unknown Venipuncture / Unknown 06/28/2024 4:59 AM EDT 06/28/2024 9:42 AM EDT us Tim Simpson MD LAB BLOOD ORDERABLES Final R esult [facility] LAB [address] [place] [address], * (ABNORMAL) Complete blood count (06/28/2024 4:59 AM EDT) WBC 14.5(H) 4.8 - 10.8 K/mcL LAB HEMETOLOGY METHOD 06/28/2024 10:18 AM [facility] LAB RBC 4.40 3.80 - 4.80 M/mcL LAB HEMETOLOGY METHOD 06/28/2024 10:18 AM [facility] LAB Hemoglobin 10.3(L) 11.5 - 16.0 g/dL LAB HEMETOLOGY METHOD 06/28/2024 10:18 AM [facility] LAB Hematocrit 33.1(L) 35.0 - 47.0 % LAB HEMETOLOGY METHOD 06/28/2024 10:18 AM [facility] LAB MCV 75.9(L) 79.0 - 98.0 FL LAB HEMETOLOGY METHOD 06/28/2024 10:18 AM [facility] LAB MCH 23.6(L) 27.0 - 32.0 pcg LAB HEMETOLOGY METHOD 06/28/2024 10:18 AM EDT [facility] MCHC 31.1(L) 32.0 - 37.0 g/dL LAB HEMETOLOGY METHOD 06/28/2024 10:18 AM EDT [facility] LAB RDW 17.9(H) 11.0 - 15.0 % LAB HEMETOLOGY METHOD 06/28/2024 10:18 AM EDT [facility] LAB Platelets 302 130 - 400 K/mcL LAB HEMETOLOGY METHOD 06/28/2024 10:18 AM EDT [facility] MPV 11.0 7.0 - 11.0 FL LAB HEMETOLOGY METHOD 06/28/2024 10:18 AM EDT [facility] NRBC 0.0 <1.0 % LAB HEMETOLOGY METHOD 06/28/2024 10:18 AM EDT [facility] LAB NRBC Absolute 0.00 <0.10 K/mcL LAB HEMETOLOGY METHOD 06/28/2024 10:18 AM T [facility] LAB Blood Venous blood specimen / Unknown Venipuncture / Unknown 06/28/2024 4:59 AM EDT 06/28/2024 9:42 AM EDT us Tim Simpson MD LAB BLOOD ORDERABLES Final R esult [facility] [address] [place] [address], documented in this encounter Visit Diagnoses Diagnosis Nausea with vomiting, unspecified documented in this encounter Care Teams Technical Writing Lead/Mgr Relationship Specialty Start Date End Date Joan Marshall DO [address] [address] PCP - General 03/17/13 documented as of this encounter
--- OUTSIDE RECORDS SUMMARY | 2024-11-28 11:53 | XMS_ITS | Encounter Summary ---
Author Organization [facility] Address [address] [place] [address] Care Team Providers Care Chemistry Associate Name Role Phone Joan Marshall DO Primary Care Provider [phone] Encounter Details Date Type Department Care Team (Latest Contact Info) Description 03/10/2024 Lab Requisition [facility] - Main Lab [address] [facility] [place] [address] Tim Simpson MD [address] [place], [place] [id number] Type 2 diabetes mellitus without complications (CMS/HCC V24, CMS/HCC V28); Other general symptoms and signs Social History Tobacco Use Types Packs/Day Years [...] Associated Diagnosis Comments COMPLETE BLOOD COUNT Routine 03/10/2024 6:09 AM EST Type 2 diabetes mellitus without complications (CMS/HCC) Other general symptoms and signs HEMOGLOBIN A1C Routine 03/10/2024 6:09 AM EST Type 2 diabetes mellitus without complications (CMS/HCC) Other general symptoms and signs BASIC METABOLIC PANEL Routine 03/10/2024 6:09 AM EST Type 2 diabetes mellitus without complications (CMS/HCC) Other general symptoms and signs documented in this encounter Results * (ABNORMAL) Hemoglobin A1c (03/10/2024 6:09 AM EST) Hemoglobin A1C 8.9(H) <6.5 % LAB CHEMISTRY METHOD 03/10/2024 2:14 PM EST [facility] LAB Mean Bld Glu Estim. 209 mg/dL LAB CHEMISTRY METHOD 03/10/2024 2:14 PM [facility] LAB Blood Venous blood specimen / Unknown Venipuncture / Unknown 03/10/2024 6:09 AM EST 03/10/2024 11:41 AM EST us Tim Simpson MD LAB BLOOD ORDERABLES Final R esult [facility] [address] [place] [address], [place] [phone] * (ABNORMAL) Basic metabolic panel (03/10/2024 6:09 AM EST) [facility] Sodium 132(L) 133 - 145 mmol/L LAB CHEMISTRY METHOD 03/10/2024 12:45 PM [facility] LAB Potassium 3.6 3.5 - 5.5 mmol/L LAB CHEMISTRY METHOD 03/10/2024 12:45 PM [facility] Chloride 96 96 - 110 mmol/L LAB CHEMISTRY METHOD 03/10/2024 12:45 PM [facility] CO2 30 21 - 32 mmol/L LAB CHEMISTRY METHOD 03/10/2024 12:45 PM [facility] Anion Gap 6 3 - 11 LAB CHEMISTRY METHOD 03/10/2024 12:45 PM [facility] Glucose 141(H) 70 - 100 mg/dL LAB CHEMISTRY METHOD 03/10/2024 12:45 PM [facility] BUN 12 5 - 25 mg/dL LAB CHEMISTRY METHOD 03/10/2024 12:45 PM [facility] Creatinine 0.68 0.50 - 1.10 mg/dL LAB CHEMISTRY METHOD 03/10/2024 12:45 PM EST [facility] LAB eGFR 106 >=60 mL/min/1. 73m2 LAB CHEMISTRY METHOD 03/10/2024 12:45 PM [facility] LAB Comment:Calculation based on the Chronic Kidney Disease Epidemiology Collaboration (CKD-EPI) equation refit without adjustment for race. BUN/Creatinine Ratio 17.6 LAB CHEMISTRY METHOD 03/10/2024 12:45 PM EST [facility] LAB Calcium 9.5 8.5 - 10.5 mg/dL LAB CHEMISTRY METHOD 03/10/2024 12:45 PM [facility] Blood Venous blood specimen / Unknown Venipuncture / Unknown 03/10/2024 6:09 AM EST 03/10/2024 11:41 AM EST us Tim Simpson MD LAB BLOOD ORDERABLES Final R esult [facility] [address] [place] [address], * (ABNORMAL) Complete blood count (03/10/2024 6:09 AM EST) WBC 5.4 4.8 - 10.8 K/mcL LAB HEMETOLOGY METHOD 03/10/2024 12:22 PM [facility] RBC 5.20(H) 3.80 - 4.80 M/mcL LAB HEMETOLOGY METHOD 03/10/2024 12:22 PM [facility] Hemoglobin 11.5 11.5 - 16.0 g/dL LAB HEMETOLOGY METHOD 03/10/2024 12:22 PM [facility] Hematocrit 38.2 35.0 - 47.0 % LAB HEMETOLOGY METHOD 03/10/2024 12:22 PM [facility] LAB MCV 72.9(L) 79.0 - 98.0 FL LAB HEMETOLOGY METHOD 03/10/2024 12:22 PM EST [facility] LAB MCH 21.9(L) 27.0 - 32.0 pcg LAB HEMETOLOGY METHOD 03/10/2024 12:22 PM EST [facility] LAB MCHC 30.1(L) 32.0 - 37.0 g/dL LAB HEMETOLOGY METHOD 03/10/2024 12:22 PM [facility] RDW 20.4(H) 11.0 - 15.0 % LAB HEMETOLOGY METHOD 03/10/2024 12:22 PM EST [facility] LAB Platelets 260 130 - 400 K/mcL LAB HEMETOLOGY METHOD 03/10/2024 12:22 PM [facility] MPV 10.5 7.0 - 11.0 FL LAB HEMETOLOGY METHOD 03/10/2024 12:22 PM [facility] NRBC 0.0 <1.0 % LAB HEMETOLOGY METHOD 03/10/2024 12:22 PM [facility] LAB NRBC Absolute 0.00 <0.10 K/mcL LAB HEMETOLOGY METHOD 03/10/2024 12:22 PM [facility] LAB Blood Venous blood specimen / Unknown Venipuncture / Unknown 03/10/2024 6:09 AM EST 03/10/2024 11:41 AM EST us Tim Simpson MD LAB BLOOD ORDERABLES Final R esult [facility] [address] [place] [address], documented in this encounter Visit Diagnoses Diagnosis Type 2 diabetes mellitus without complications (CMS/HCC V24, CMS/HCC V28) Other general symptoms and signs documented in this encounter Additional Health Concerns Infection Onset Date Last Indicated Resolved Time Respiratory Rule-Out 03/10/2024 03/10/2024 024 2:57 PM EST C. difficile Rule-Out 06/24/2024 06/24/20242024 1:28 PM EDT documented as of this encounter Care Teams Chemistry Associate Relationship Specialty Start Date End Date [place] [address] PCP - General 03/17/13 documented as of this encounter
--- OUTSIDE RECORDS SUMMARY | 2024-11-28 11:53 | XMS_ITS | Encounter Summary ---
Author Organization [facility] Address [address] [place] [address] Care Team Providers Care Ground Support Equipment Mechanic Name Role Phone Joan Marshall DO Primary Care Provider [phone] Encounter Details Date Type Department Care Team (Late st Contact Info) Description 06/25/2024 Lab Requisition [facility] - Main Lab [address] [facility] [place] [address] Tim Simpson MD [address] [place] [address] Diarrhea, unspecified Social History Tobacco Use Types Packs/Day [...] Procedure Name Priority Date/Time Associated Diagnosis Comments CLOSTRIDIUM DIFFICILE TOXIN Routine 06/24/2024 12:50 PM EDT Diarrhea, unspecified documented in this encounter Results * Clostridium difficile toxin (06/24/2024 12:50 PM EDT) Clostridium difficile GDH Antigen Negative Negative 06/25/2024 1:28 PM EDT [facility] C difficile Toxins A+B, EIA Negative Negative 06/25/2024 1:28 PM EDT [facility] LAB Comment:NEGATIVE FOR TOXIN P RODUCING CLOSTRIDIOIDES DIFFICILE, NO ADDITIONAL TESTING IS NECESSARY. Stool Rectum structure / Unknown 06/24/2024 12:50 PM EDT 06/25/2024 11:38 AM EDT Tim Simpson MD LAB MICROBIOLOGY - GENERAL O RDERABLES Final Result [facility] [address] [place] [address], documented in this encounter Visit Diagnoses Diagnosis Diarrhea, unspecified documented in this encounter Additional Health Concerns Infection Onset Date Last Indicated Resolved Time C. difficile Rule-Out 06/24/2024 06/24/20242024 1:28 PM EDT documented as of this encounter Care Teams Ground Support Equipment Mechanic Relationship Specialty Start Date End Date Joan Marshall DO [address] [address] PCP - General 03/17/13 documented as of this encounter
--- OUTSIDE RECORDS SUMMARY | 2024-11-28 11:53 | XMS_ITS | Encounter Summary ---
Author Organization [facility] Address [address] [place] [address] Care Team Providers Care Assembler [employer] Name Role Phone Joan Marshall DO Primary Care Provider [phone] Encounter Details Date Type Department Care Team (Late st Contact Info) Description 03/10/2024 Lab Requisition [facility] - Main Lab [address] [place] [address] Tim Simpson MD [address] [place] [address] Cough, unspecified Social History Tobacco Use Types Packs/Day [...] Procedure Name Priority Date/Time Associated Diagnosis Comments [id number], RSV, FLU A AND B QUALITATIVE RT-PCR, LOCAL REFERENCE LAB Routine 03/10/2024 7:00 AM EST Cough, unspecified documented in this encounter Results * [id number], RSV, Influenza A and B qualitative RT-PCR (03/10/2024 7:00 AM EST) SARS COV-2 Not Detected Not Detected LAB MOLECULAR DIAGNOSTICS METHOD 03/10/2024 2:57 PM EST [facility] ([facility]) [facility] Comment: Disclaimer: The manner in which this information is used to guide patient care is the responsibility of the healthcare provider. Testing was performed using the [employer] Alinity m SARS-CoV-2 test. This test has been authorized by FDA under an Emergency Use Authorization (EUA). This test is only authorized for the duration of time the declaration that circumstances exist justifying the authorization of the emergency use of in vitro diagnostic tests for detection of SARS-CoV-2 virus and/or diagnosis of COVID-19 infection under section 564(b)(1) of the Act, 21 U.S.C. 360bbb- 3(b)(1), unless the authorization is terminated or revoked sooner. Fact sheet for Healthcare Providers can be found at: https://www.fda.gov/media/241531/download Fact sheet for Patients can be found at: https://www.fda.gov/media/649495/download Influenza A PCR Not Detected Not Detected LAB MOLECULAR DIAGNOSTICS METHOD 03/10/2024 2:57 PM EST [facility] Influenza B PCR Not Detected Not Detected LAB MOLECULAR DIAGNOSTICS METHOD 03/10/2024 2:57 PM EST [facility] RSV PCR Not Detected Not Detected LAB MOLECULAR DIAGNOSTICS METHOD 03/10/2024 2:57 PM [facility] Swab Nasopharyngeal structure / Unknown 03/10/2024 7:00 AM EST 03/10/2024 11:47 AM EST Tim Simpson MD LAB MICROBIOLOGY - GENERAL O RDERABLES Final Result [facility] [address] [place] [address], documented in this encounter Visit Diagnoses Diagnosis Cough, unspecified documented in this encounter Additional Health Concerns Infection Onset Date Last Indicated Resolved Time Respiratory Rule-Out 03/10/2024 03/10/2024 024 2:57 PM EST C. difficile Rule-Out 06/24/2024 06/24/20242024 1:28 PM EDT documented as of this encounter Care Teams Assembler Wire [employer] Relationship Specialty Start Date End Date Joan Marshall DO [address] [place] [address] PCP - General 03/17/13 documented as of this encounter
--- OUTSIDE RECORDS SUMMARY | 2024-11-28 11:53 | XMS_ITS | Clinical Summary ---
Author Organization [address] Address [address] [place] [address] Phone Care Team Providers Care Pin Drafter Operator Name Role Phone Joan Marshall DO Primary Care Provider [phone] Encounters Date Type Department Care Team Description 11/15/[address] [facility] Lab [address] [place] [phone] Tim Simpson MD Hypo-osmolality and hyponatremia 11/13/[address] [facility] [address] [place] [phone] Tim Simpson MD Type 2 diabetes mellitus with diabetic mononeuropathy ([facility] V24, [facility] V28); Personal history of urinary (tract) infections 11/11/[address] [facility] [address] [place] [phone] Tim Simpson MD Type 2 diabetes mellitus without complications (CMS/[facility] V24, [facility] V28) 09/22/[address] [facility] [address] [place] [phone] Tim Simpson MD Hypo-osmolality and hyponatremia 09/22/[address] [facility] [address] [place] [phone] Tim Simpson MD Hypo-osmolality and hyponatremia 09/21/[address] [facility] [address] [place] [phone] Tim Simpson MD Hypo-osmolality and hyponatremia 09/20/2024 Lab Requisition [facility] - Main Lab [address] [place] [address] Tim Simpson MD Hypokalemia 09/19/2024 Lab Requisition [facility] - Main Lab [address] [place] [address] Tim Simpson MD Anemia, unspecified; Hyperlipidemia, unspecified; Weakness; Type 2 diabetes mellitus without complications (CMS/HCC V24, [facility] V28); Vitamin D deficiency, unspecified from Last 3 Months Surgical History Surgery Date Site/Laterality Comments TUBAL LIGATION PROCEDURE: HISTORICAL TUBAL LIGATION CHOLECYSTECTOMY PROCEDURE: LAPAROSCOPY, CHOLECYSTECTOMY ESOPHAGOGASTRODUODENOSCOPY 03/14/09 PROCEDURE: AK EGD TRANSORAL BIOPSY SINGLE/MULTIPLE; COMMENT: mucosal rings in esophagus-biopsy:Nl, bilious fluid in the stomach, gastritis-biopsy: mild chronic inflammation(HPylori-), Nl small bowel COLONOSCOPY 03/14/09 PROCEDURE: AK COLONOSCOPY FLX DX W/COLLJ SPEC WHEN PFRMD; COMMENT: Up to splenic flexure, small external hemorrhoids Family History Relation Name Status Comments Father Alive NTO SURE DOES N OT DEAL WITH THEM Mother Alive Social History Tobacco Use Types Packs/Day Years Used Date Smoking Tobacco: Never Alcohol Use Standard Drinks/Week Comments No 0 (1 standard drink = 0.6 oz pur e alcohol) Comments Unknown Sex and Gender Information Value Date Recorded Sex Assigned at Not on file Legal Sex Female 4:07 AM EST Gender Identity Not on file Sexual Orientation Not on file Obstetrics History Plan of Treatment Health Maintenance Due Date Last Done Comments Breast Cancer Screening 1973 Diabetes: Annual Foot Exam 11/05/1983 Diabetes: Annual Retina Eye Exam 11/05/1983 Hepatitis B Vaccines (1 of 3 - 19+ 3-dose series) 1992 Cervical Cancer Screening: Pap Smear 1994 Pneumococcal Vaccine: 50+ Years (2 of 2 - PCV) 04/08/2021 04/08/2020 DTaP,Tdap,and Td Vaccines (2 - Td or Tdap) 04/15/2021 04/15/2011 Colorectal Cancer Screening: Colonoscopy 02/16/2022 HIV Screening 02/16/2022 Hepatitis C Screening 02/16/2022 Social Influencers of Health Screening 02/16/2022 Zoster Vaccines (1 of 2) 11/05/2023 Diabetes: Annual Urine Albumin-Creatinine Ratio (uACR) 03/09/2024 Depression Screening 03/16/2024 COVID-19 Vaccine ( season) 2024 Influenza Vaccine (#1) 2024 Diabetes: Blood Sugar Control Test (HGBA1C) 03/22/2025 09/19/2024, 03/10/2024 Diabetes: Annual GFR (Glomerular Filtration Rate) 11/15/2025 11/15/2024, 11/11/2024, 09/23/2024, Additional history exists Hypertension/CHF/CAD Annual BMP Blood Test 11/15/2025 11/15/2024, 11/11/2024, 09/23/2024, Additional history exists Cholesterol Screening (Lipid Panel) 09/19/2029 09/19/2024 HIB Vaccines Aged Out No longer eligi [...] on patient's age to complete this topic MMR Vaccines Aged Out No longer eligi ble based on patient's age to complete this topic Meningococcal ACWY Vaccine Aged Out N o longer eligible based on patient's age to complete this topic Meningococcal B Vaccine Aged Out No l onger eligible based on patient's age to complete this topic RSV Immunization Patients Under 20 months Aged Out No longer eligible based on patient's age to complete this topic Varicella Vaccines Aged Out No longer eligible based on patient's age to complete this topic Procedures Procedure Name Priority Date/Time Associated Diagnosis Comments BASIC METABOLIC PANEL Routine 11/15/2024 8:11 AM EDT Hypo-osmolality and hyponatremia SODIUM, URINE, RANDOM Routine 11/12/2024 5:10 AM EDT Type 2 diabetes mellitus with diabetic mononeuropathy (CMS/HCC V24, CMS/HCC V28) Personal history of urinary (tract) infections BASIC METABOLIC PANEL Routine 11/11/2024 7:13 AM EDT Type 2 diabetes mellitus without complications (CMS/HCC V24, [facility] V28) BASIC METABOLIC PANEL Routine 09/23/2024 7:32 AM EDT Hypo-osmolality and hyponatremia OSMOLALITY, URINE Routine 09/21/2024 8:0 0 PM EDT Hypo-osmolality and hyponatremia SODIUM, URINE, RANDOM Routine 09/21/2024 8:00 PM EDT Hypo-osmolality and hyponatremia BASIC METABOLIC PANEL Routine 09/21/2024 7:02 AM EDT Hypo-osmolality and hyponatremia BASIC METABOLIC PANEL Routine 09/20/2024 6:54 AM EDT Hypokalemia VITAMIN D 25 HYDROXY Routine 09/19/2024 5:06 AM EDT Anemia, unspecified Hyperlipidemia, unspecified Weakness Type 2 diabetes mellitus without complications (CMS/HCC V24, CMS/[facility] V28) Vitamin D deficiency, unspecified HEMOGLOBIN A1C Routine 09/19/2024 5:06 AM EDT Anemia, unspecified Hyperlipidemia, unspecified Weakness Type 2 diabetes mellitus without complications (CMS/HCC V24, [facility] V28) Vitamin D deficiency, unspecified THYROID STIMULATING HORMONE WITH REFLEX TO FREE T4 AND FREE T3 Routine 09/19/2024 5:06 AM EDT Anemia, unspecified Hyperlipidemia, unspecified Weakness Type 2 diabetes mellitus without complications (CMS/HCC V24, CMS/HCC V28) Vitamin D deficiency, unspecified LIPID PANEL WITH REFLEX TO DIRECT LDL Routine 09/19/2024 5:06 AM EDT Anemia, unspecified Hyperlipidemia, unspecified Weakness Type 2 diabetes mellitus without complications (CMS/HCC V24, [facility] V28) Vitamin D deficiency, unspecified COMPREHENSIVE METABOLIC PANEL Routine 09/19/2024 5:06 AM EDT Anemia, unspecified Hyperlipidemia, unspecified Weakness Type 2 diabetes mellitus without complications ([facility] V24, [facility] V28) Vitamin D deficiency, unspecified COMPLETE BLOOD COUNT Routine 09/19/2024 5:06 AM EDT Anemia, unspecified Hyperlipidemia, unspecified Weakness Type 2 diabetes mellitus without complications ([facility] V24, [facility] V28) Vitamin D deficiency, unspecified from Last 3 Months Results * (ABNORMAL) Basic metabolic panel (11/15/2024 8:11 AM EDT) Only the most recent of5 resultswithin the time period is included. Sodium 133 133 - 145 mmol/L LAB CHEMISTRY METHOD 11/15/2024 2:00 PM [facility] Potassium 4.0 3.5 - 5.5 mmol/L LAB CHEMISTRY METHOD 11/15/2024 2:00 PM [facility] Chloride 98 96 - 110 mmol/L LAB CHEMISTRY METHOD 11/15/2024 2:00 PM [facility] CO2 28 21 - 32 mmol/L LAB CHEMISTRY METHOD 11/15/2024 2:00 PM [facility] Anion Gap 7 3 - 11 LAB CHEMISTRY METHOD 11/15/2024 2:00 PM [facility] Glucose 220(H) 70 - 100 mg/dL LAB CHEMISTRY METHOD 11/15/2024 2:00 PM [facility] BUN 16 5 - 25 mg/dL LAB CHEMISTRY METHOD 11/15/2024 2:00 PM [facility] Creatinine 0.88 0.50 - 1.10 mg/dL LAB CHEMISTRY METHOD 11/15/2024 2:00 PM [facility] eGFR 80 >=60 mL/min/1. 73m2 LAB CHEMISTRY METHOD 11/15/2024 2:00 PM [facility] Comment:Calculation based on the Chronic Kidney Disease Epidemiology Collaboration (CKD-EPI) equation refit without adjustment for race. BUN/Creatinine Ratio 18.2 LAB CHEMISTRY METHOD 11/15/2024 2:00 PM EDT [facility] Calcium 9.2 8.5 - 10.5 mg/dL LAB CHEMISTRY METHOD 11/15/2024 2:00 PM EDT [facility] Blood Venous blood specimen / Unknown Venipuncture / Unknown 11/15/2024 8:11 AM EDT 11/15/2024 10:29 AM EDT Tim Simpson MD LAB BLOOD ORDERABLES Final R esult [facility] [address] [place] [address], [place] [phone] * Sodium, urine, random (11/12/2024 5:10 AM EDT) Only the most recent of2 resultswithin the time period is included. Sodium, Ur 92 mmol/L LAB CHEMISTRY METHOD 11/13/2024 11:40 AM EDT [facility] Urine Urine specimen obtained by clean catch procedure / Unknown Non-blood Collection / Unknown 11/12/2024 5:10 AM EDT 11/13/2024 10:59 AM EDT Tim Simpson MD LAB URINE ORDERABLES Final R esult [facility] [address] [place] [address], [place] [phone] * Osmolality, urine (09/21/2024 8:00 PM EDT) Osmolality, Urine 361 300 - 1,300 mOsm/kg LAB CHEMISTRY METHOD 09/22/2024 10:27 AM EDT [facility] Urine Urinary bladder structure / Unknown Non-blood Collection / Unknown 09/21/2024 8:00 PM EDT 09/22/2024 8:45 AM EDT Tim Simpson MD LAB URINE ORDERABLES Final R esult Performing Organization Address City/[facility]/ZIP Co de Phone Number [facility] [address] [place] [address], [place] [phone] * Thyroid stimulating hormone with reflex to free t4 and free t3 (09/19/2024 5:06 AM EDT) [facility] TSH 1.86 0.40 - 4.00 mcIU/mL LAB CHEMISTRY METHOD 09/19/2024 2:29 PM EDT [facility] Blood Venous blood specimen / Unknown Venipuncture / Unknown 09/19/2024 5:06 AM EDT 09/19/2024 11:33 AM EDT Tim Simpson MD LAB BLOOD ORDERABLES Final R esult Performing Organization Address City/[facility]/ZIP Co de Phone Number [facility] [address] [place] [address], [place] [phone] * Lipid panel with reflex to direct LDL (09/19/2024 5:06 AM EDT) [facility] Cholesterol 107 0 - 200 mg/dL LAB CHEMISTRY METHOD 09/19/2024 1:38 PM EDT [facility] Triglycerides 89 0 - 150 mg/dL LAB CHEMISTRY METHOD 09/19/2024 1:38 PM EDT [facility] HDL 48 >=40 mg/dL LAB CHEMISTRY METHOD 09/19/2024 1:38 PM EDT [facility] LDL Calculated 41 0 - 100 mg/dL LAB CHEMISTRY METHOD 09/19/2024 1:38 PM EDT [facility] VLDL Cholesterol Shaheen 17.8 mg/dL LAB CHEMISTRY METHOD 09/19/2024 1:38 PM EDT [facility] Non HDL Chol. (LDL+VLDL) 59 <145 mg/dL LAB CHEMISTRY METHOD 09/19/2024 1:38 PM EDT [facility] Chol/HDL Ratio 2.2 0.0 - 4.4 LAB CHEMISTRY METHOD 09/19/2024 1:38 PM EDT [facility] Blood Venous blood specimen / Unknown Venipuncture / Unknown 09/19/2024 5:06 AM EDT 09/19/2024 11:33 AM EDT Tim Simpson MD LAB BLOOD ORDERABLES Final R esult Performing Organization Address [facility]/ZIP Co de Phone Number [facility] [address] [place] [address], [place] [phone] * Vitamin D 25 hydroxy (09/19/2024 5:06 AM EDT) Vit D, 25-Hydroxy 32.4 30.0 - 80.0 ng/mL LAB CHEMISTRY METHOD 09/19/2024 2:29 PM EDT [facility] Blood Venous blood specimen / Unknown Venipuncture / Unknown 09/19/2024 5:06 AM EDT 09/19/2024 11:33 AM EDT Tim Simpson MD LAB BLOOD ORDERABLES Final R esult Performing Organization Address City/[facility]/ZIP Co de Phone Number [facility] [address] [place] [address], [place] [phone] * (ABNORMAL) Complete blood count (09/19/2024 5:06 AM EDT) WBC 9.2 4.8 - 10.8 K/mcL LAB HEMETOLOGY METHOD 09/19/2024 1:10 PM EDT [facility] RBC 4.30 3.80 - 4.80 M/mcL LAB HEMETOLOGY METHOD 09/19/2024 1:10 PM EDT [facility] Hemoglobin 10.3(L) 11.5 - 16.0 g/dL LAB HEMETOLOGY METHOD 09/19/2024 1:10 PM EDT [facility] Hematocrit 33.2(L) 35.0 - 47.0 % LAB HEMETOLOGY METHOD 09/19/2024 1:10 PM EDT [facility] MCV 76.5(L) 79.0 - 98.0 FL LAB HEMETOLOGY METHOD 09/19/2024 1:10 PM EDT [facility] MCH 23.7(L) 27.0 - 32.0 pcg LAB HEMETOLOGY METHOD 09/19/2024 1:10 PM EDT [facility] MCHC 31.0(L) 32.0 - 37.0 g/dL LAB HEMETOLOGY METHOD 09/19/2024 1:10 PM EDT [facility] RDW 16.3(H) 11.0 - 15.0 % LAB HEMETOLOGY METHOD 09/19/2024 1:10 PM EDT [facility] Platelets 264 130 - 400 K/mcL LAB HEMETOLOGY METHOD 09/19/2024 1:10 PM EDT [facility] MPV 10.1 7.0 - 11.0 FL LAB HEMETOLOGY METHOD 09/19/2024 1:10 PM EDT [facility] NRBC 0.0 <1.0 % LAB HEMETOLOGY METHOD 09/19/2024 1:10 PM EDT [facility] NRBC Absolute 0.00 <0.10 K/mcL LAB HEMETOLOGY METHOD 09/19/2024 1:10 PM EDT [facility] Blood Venous blood specimen / Unknown Venipuncture / Unknown 09/19/2024 5:06 AM EDT 09/19/2024 11:33 AM EDT us Tim Simpson MD LAB BLOOD ORDERABLES Final R esult [facility] [address] [place] [address], [place] [phone] * (ABNORMAL) Hemoglobin A1c (09/19/2024 5:06 AM EDT) [facility] Hemoglobin A1C 7.6(H) <6.5 % LAB CHEMISTRY METHOD 09/20/2024 2:13 PM EDT [facility] Mean Bld Glu Estim. 171 mg/dL LAB CHEMISTRY METHOD 09/20/2024 2:13 PM EDT [facility] Blood Venous blood specimen / Unknown Venipuncture / Unknown 09/19/2024 5:06 AM EDT 09/19/2024 11:33 AM EDT Tim Simpson MD LAB BLOOD ORDERABLES Final R esult [facility] [address] [place] [address], [place] [phone] * (ABNORMAL) Comprehensive metabolic panel (09/19/2024 5:06 AM EDT) [facility] Sodium 124(L) 133 - 145 mmol/L LAB CHEMISTRY METHOD 09/19/2024 1:38 PM EDT [facility] Potassium 3.8 3.5 - 5.5 mmol/L LAB CHEMISTRY METHOD 09/19/2024 1:38 PM EDT [facility] Chloride 87(L) 96 - 110 mmol/L LAB CHEMISTRY METHOD 09/19/2024 1:38 PM EDT [facility] CO2 28 21 - 32 mmol/L LAB CHEMISTRY METHOD 09/19/2024 1:38 PM EDT [facility] Anion Gap 9 3 - 11 LAB CHEMISTRY METHOD 09/19/2024 1:38 PM EDT [facility] Glucose 57(L) 70 - 100 mg/dL LAB CHEMISTRY METHOD 09/19/2024 1:38 PM EDT [facility] BUN 13 5 - 25 mg/dL LAB CHEMISTRY METHOD 09/19/2024 1:38 PM [facility] Creatinine 0.83 0.50 - 1.10 mg/dL LAB CHEMISTRY METHOD 09/19/2024 1:38 PM [facility] eGFR 86 >=60 mL/min/1. 73m2 LAB CHEMISTRY METHOD 09/19/2024 1:38 PM [facility] Comment:Calculation based on the Chronic Kidney Disease Epidemiology Collaboration (CKD-EPI) equation refit without adjustment for race. BUN/Creatinine Ratio 15.7 LAB CHEMISTRY METHOD 09/19/2024 1:38 PM [facility] Calcium 9.5 8.5 - 10.5 mg/dL LAB CHEMISTRY METHOD 09/19/2024 1:38 PM [facility] AST (SGOT) 13 10 - 42 unit/L LAB CHEMISTRY METHOD 09/19/2024 1:38 PM [facility] ALT (SGPT) 17 10 - 60 unit/L LAB CHEMISTRY METHOD 09/19/2024 1:38 PM [facility] Alkaline Phosphatase 92 42 - 121 unit/L LAB CHEMISTRY METHOD 09/19/2024 1:38 PM [facility] Total Protein 5.9(L) 6.0 - 8.0 g/dL LAB CHEMISTRY METHOD 09/19/2024 1:38 PM [facility] Albumin 3.0(L) 3.2 - 5.0 g/dL LAB CHEMISTRY METHOD 09/19/2024 1:38 PM [facility] Total Bilirubin 0.2 0.0 - 1.4 mg/dL LAB CHEMISTRY METHOD 09/19/2024 1:38 PM [facility] Blood Venous blood specimen / Unknown Venipuncture / Unknown 09/19/2024 5:06 AM EDT 09/19/2024 11:33 AM EDT us Tim Simpson MD LAB BLOOD ORDERABLES Final R esult [facility] ([facility]) [facility] [address] [place] [address], from Last 3 Months Insurance MEDICAID [facility] Advance Directives Documents on File Type Date Recorded Patient Correctional Probation Officer Expl anation Health Care Decision (hx) 12/30/2019 AD WISEMAN DIRECTIVE Health Care Decision (hx) 12/30/2019 AD WISEMAN DIRECTIVE Health Care Decision (hx) 12/30/2019 AD WISEMAN DIRECTIVE Health Care Decision (hx) 12/30/2019 AD WISEMAN DIRECTIVE Care Teams Pin Drafter Operator Relationship Specialty Start Date End Date Joan Marshall DO [address] [address] PCP - General 03/17/13
--- OUTSIDE RECORDS SUMMARY | 2024-11-28 11:53 | XMS_ITS | Encounter Summary ---
Author Organization [facility] Address [address] [place] [address] Care Team Providers Care Manager Core Name Role Phone Joan Marshall DO Primary Care Provider [phone] Encounter Details Date Type Department Care Team (Late st Contact Info) Description 11/15/2024 Lab Requisition [facility] - Main Lab [address] [facility] [employer] [address] Tim Simpson MD [address] [place] [address] Hypo-osmolality and hyponatremia Social History Tobacco Use Types Packs/Day Years [...] 11/15/2024 8:11 AM EDT Hypo-osmolality and hyponatremia documented in this encounter Results * (ABNORMAL) Basic metabolic panel (11/15/2024 8:11 AM EDT) Sodium 133 133 - 145 mmol/L LAB CHEMISTRY METHOD 11/15/2024 2:00 PM EDT [facility] Potassium 4.0 3.5 - 5.5 mmol/L LAB CHEMISTRY METHOD 11/15/2024 2:00 PM EDT [facility] Chloride 98 96 - 110 mmol/L LAB CHEMISTRY METHOD 11/15/2024 2:00 PM [facility] CO2 28 21 - 32 mmol/L LAB CHEMISTRY METHOD 11/15/2024 2:00 PM [facility] Anion Gap 7 3 - 11 LAB CHEMISTRY METHOD 11/15/2024 2:00 PM [facility] Glucose 220(H) 70 - 100 mg/dL LAB CHEMISTRY METHOD 11/15/2024 2:00 PM [facility] BUN 16 5 - 25 mg/dL LAB CHEMISTRY METHOD 11/15/2024 2:00 PM [facility] Creatinine 0.88 0.50 - 1.10 mg/dL LAB CHEMISTRY METHOD 11/15/2024 2:00 PM [facility] eGFR 80 >=60 mL/min/1. 73m2 LAB CHEMISTRY METHOD 11/15/2024 2:00 PM [facility] Comment:Calculation based on the Chronic Kidney Disease Epidemiology Collaboration (CKD-EPI) equation refit without adjustment for race. BUN/Creatinine Ratio 18.2 LAB CHEMISTRY METHOD 11/15/2024 2:00 PM [facility] Calcium 9.2 8.5 - 10.5 mg/dL LAB CHEMISTRY METHOD 11/15/2024 2:00 PM [facility] Blood Venous blood specimen / Unknown Venipuncture / Unknown 11/15/2024 8:11 AM EDT 11/15/2024 10:29 AM EDT us Tim Simpson MD LAB BLOOD ORDERABLES Final R esult [facility] [address] [place] [address], documented in this encounter Visit Diagnoses Diagnosis Hypo-osmolality and hyponatremia documented in this encounter Care Teams Manager Core Relationship Specialty Start Date End Date Joan Marshall DO [place] [address] [address] PCP - General 03/17/13 documented as of this encounter
--- OUTSIDE RECORDS SUMMARY | 2024-11-28 11:53 | XMS_ITS | Encounter Summary ---
Author Organization [facility] Address [address] [place] [address] Care Team Providers Care Juke Box Mechanic Name Role Phone Joan Marshall DO Primary Care Provider [phone] Encounter Details Date Type Department Care Team (Latest Contact Info) Description 11/11/2024 Lab Requisition [facility] - Main Lab [address] [place] [address] Tim Simpson MD [address] [place] [address] Type 2 diabetes mellitus without complications (CMS/HCC V24, CMS/[facility] V28) Social History Tobacco Use Types Packs/Day Years [...] Associated Diagnosis Comments BASIC METABOLIC PANEL Routine 11/11/2024 7:13 AM EDT Type 2 diabetes mellitus without complications (CMS/HCC V24, CMS/[facility] V28) documented in this encounter Results * (ABNORMAL) Basic metabolic panel (11/11/2024 7:13 AM EDT) Sodium 130(L) 133 - 145 mmol/L LAB CHEMISTRY METHOD 11/11/2024 9:34 AM EDT [facility] Potassium 4.4 3.5 - 5.5 mmol/L LAB CHEMISTRY METHOD 11/11/2024 9:34 AM [facility] LAB Chloride 94(L) 96 - 110 mmol/L LAB CHEMISTRY METHOD 11/11/2024 9:34 AM [facility] LAB CO2 29 21 - 32 mmol/L LAB CHEMISTRY METHOD 11/11/2024 9:34 AM [facility] LAB Anion Gap 7 3 - 11 LAB CHEMISTRY METHOD 11/11/2024 9:34 AM [facility] LAB Glucose 195(H) 70 - 100 mg/dL LAB CHEMISTRY METHOD 11/11/2024 9:34 AM [facility] LAB BUN 15 5 - 25 mg/dL LAB CHEMISTRY METHOD 11/11/2024 9:34 AM [facility] LAB Creatinine 0.82 0.50 - 1.10 mg/dL LAB CHEMISTRY METHOD 11/11/2024 9:34 AM [facility] LAB eGFR 87 >=60 mL/min/1. 73m2 LAB CHEMISTRY METHOD 11/11/2024 9:34 AM [facility] LAB Comment:Calculation based on the Chronic Kidney Disease Epidemiology Collaboration (CKD-EPI) equation refit without adjustment for race. BUN/Creatinine Ratio 18.3 LAB CHEMISTRY METHOD 11/11/2024 9:34 AM [facility] LAB Calcium 9.3 8.5 - 10.5 mg/dL LAB CHEMISTRY METHOD 11/11/2024 9:34 AM [facility] LAB Blood Venous blood specimen / Unknown Venipuncture / Unknown 11/11/2024 7:13 AM EDT 11/11/2024 8:45 AM EDT us Tim Simpson MD LAB BLOOD ORDERABLES Final R esult [facility] LAB [address] [place] [address], documented in this encounter Visit Diagnoses Diagnosis Type 2 diabetes mellitus without complications (CMS/HCC V24, CMS/HCC V28) documented in this encounter Care Teams Juke Box Mechanic Relationship Specialty Start Date [place] [address] PCP - General 03/17/13 documented as of this encounter
--- OUTSIDE RECORDS SUMMARY | 2024-11-28 11:53 | XMS_ITS | Encounter Summary ---
Author Organization [facility] Address [address] [place] [address] Care Team Providers Care Mechanic Welder Name Role Phone Joan Marshall DO Primary Care Provider [phone] Encounter Details Date Type Department Care Team (Latest Contact Info) Description 09/19/2024 Lab Requisition [facility] - Main Lab [address] [facility] [place] [address] Tim Simpson MD [address] [place] [address] Anemia, unspecified; Hyperlipidemia, unspecified; Weakness; Type 2 diabetes mellitus without complications (CMS/HCC V24, CMS/HCC V28); Vitamin D deficiency, unspecified Social History Tobacco Use Types Packs/Day [...] Procedure Name Priority Date/Time Associated Diagnosis Comments THYROID STIMULATING HORMONE WITH REFLEX TO FREE [...] V24, CMS/HCC V28) Vitamin D deficiency, unspecified VITAMIN D 25 HYDROXY Routine 09/19/2024 5:06 AM EDT Anemia, unspecified Hyperlipidemia, unspecified Weakness Type 2 diabetes mellitus without complications ([facility] V24, [facility] V28) Vitamin D deficiency, unspecified COMPLETE BLOOD COUNT Routine 09/19/2024 5:06 AM EDT Anemia, unspecified Hyperlipidemia, unspecified Weakness Type 2 diabetes mellitus without complications ([facility] V24, [facility] V28) Vitamin D deficiency, unspecified HEMOGLOBIN A1C Routine 09/19/2024 5:06 AM EDT Anemia, unspecified Hyperlipidemia, unspecified Weakness Type 2 diabetes mellitus without complications ([facility] V24, [facility] V28) Vitamin D deficiency, unspecified COMPREHENSIVE METABOLIC PANEL Routine 09/19/2024 5:06 AM EDT Anemia, unspecified Hyperlipidemia, unspecified Weakness Type 2 diabetes mellitus without complications ([facility] V24, [facility] V28) Vitamin D deficiency, unspecified documented in this encounter Results * Vitamin D 25 hydroxy (09/19/2024 5:06 AM EDT) Pathologist [facility] Vit D, 25-Hydroxy 32.4 30.0 - 80.0 ng/mL LAB CHEMISTRY METHOD 09/19/2024 2:29 PM EDT [facility] LAB Blood Venous blood specimen / Unknown Venipuncture / Unknown 09/19/2024 5:06 AM EDT 09/19/2024 11:33 AM EDT us Tim Simpson MD LAB BLOOD ORDERABLES Final R esult [facility] [address] [place] [address], * (ABNORMAL) Hemoglobin A1c (09/19/2024 5:06 AM EDT) Pathologist [facility] Hemoglobin A1C 7.6(H) <6.5 % LAB CHEMISTRY METHOD 09/20/2024 2:13 PM EDT [facility] Mean Bld Glu Estim. 171 mg/dL LAB CHEMISTRY METHOD 09/20/2024 2:13 PM EDT [facility] Blood Venous blood specimen / Unknown Venipuncture / Unknown 09/19/2024 5:06 AM EDT 09/19/2024 11:33 AM EDT Tim Simpson MD LAB BLOOD ORDERABLES Final R esult Performing Organization Address [facility] Co de Phone Number [facility] [address] [place] [address], [place] [phone] * Thyroid stimulating hormone with reflex to free t4 and free t3 (09/19/2024 5:06 AM EDT) TSH 1.86 0.40 - 4.00 mcIU/mL LAB CHEMISTRY METHOD 09/19/2024 2:29 PM EDT [facility] Blood Venous blood specimen / Unknown Venipuncture / Unknown 09/19/2024 5:06 AM EDT 09/19/2024 11:33 AM EDT Tim Simpson MD LAB BLOOD ORDERABLES Final R esult Performing Organization Address [facility] Co de Phone Number [facility] [address] [place] [address], [place] [phone] * Lipid panel with reflex to direct LDL (09/19/2024 5:06 AM EDT) Cholesterol 107 0 - 200 mg/dL LAB CHEMISTRY METHOD 09/19/2024 1:38 PM EDT [facility] Triglycerides 89 0 - 150 mg/dL LAB CHEMISTRY METHOD 09/19/2024 1:38 PM EDT [facility] HDL 48 >=40 mg/dL LAB CHEMISTRY METHOD 09/19/2024 1:38 PM EDT [facility] LDL Calculated 41 0 - 100 mg/dL LAB CHEMISTRY METHOD 09/19/2024 1:38 PM EDT [facility] VLDL Cholesterol Shaheen 17.8 mg/dL LAB CHEMISTRY METHOD 09/19/2024 1:38 PM EDT [facility] Non HDL Chol. (LDL+VLDL) 59 <145 mg/dL LAB CHEMISTRY METHOD 09/19/2024 1:38 PM EDT [facility] Chol/HDL Ratio 2.2 0.0 - 4.4 LAB CHEMISTRY METHOD 09/19/2024 1:38 PM EDT [facility] Blood Venous blood specimen / Unknown Venipuncture / Unknown 09/19/2024 5:06 AM EDT 09/19/2024 11:33 AM EDT us Tim Simpson MD LAB BLOOD ORDERABLES Final R esult [facility] [address] [place] [address], * (ABNORMAL) Comprehensive metabolic panel (09/19/2024 5:06 AM EDT) Sodium 124(L) 133 - 145 mmol/L LAB CHEMISTRY METHOD 09/19/2024 1:38 PM T [facility] Potassium 3.8 3.5 - 5.5 mmol/L LAB CHEMISTRY METHOD 09/19/2024 1:38 PM EDT [facility] Chloride 87(L) 96 - 110 mmol/L LAB CHEMISTRY METHOD 09/19/2024 1:38 PM EDT [facility] CO2 28 21 - 32 mmol/L LAB CHEMISTRY METHOD 09/19/2024 1:38 PM T [facility] Anion Gap 9 3 - 11 LAB CHEMISTRY METHOD 09/19/2024 1:38 PM EDT [facility] Glucose 57(L) 70 - 100 mg/dL LAB CHEMISTRY METHOD 09/19/2024 1:[address] [facility] BUN 13 5 - 25 mg/dL LAB CHEMISTRY METHOD 09/19/2024 1:[address] [facility] LAB Creatinine 0.83 0.50 - 1.10 mg/dL LAB CHEMISTRY METHOD 09/19/2024 1:[address] [facility] LAB eGFR 86 >=60 mL/min/1. 73m2 LAB CHEMISTRY METHOD 09/19/2024 1:[address] [facility] LAB Comment:Calculation based on the Chronic Kidney Disease Epidemiology Collaboration (CKD-EPI) equation refit without adjustment for race. BUN/Creatinine Ratio 15.7 LAB CHEMISTRY METHOD 09/19/2024 1:[address] [facility] LAB Calcium 9.5 8.5 - 10.5 mg/dL LAB CHEMISTRY METHOD 09/19/2024 1:[address] [facility] AST (SGOT) 13 10 - 42 unit/L LAB CHEMISTRY METHOD 09/19/2024 1:[address] [facility] ALT (SGPT) 17 10 - 60 unit/L LAB CHEMISTRY METHOD 09/19/2024 1:[address] [facility] Alkaline Phosphatase 92 42 - 121 unit/L LAB CHEMISTRY METHOD 09/19/2024 1:[address] [facility] Total Protein 5.9(L) 6.0 - 8.0 g/dL LAB CHEMISTRY METHOD 09/19/2024 1:[address] [facility] Albumin 3.0(L) 3.2 - 5.0 g/dL LAB CHEMISTRY METHOD 09/19/2024 1:[address] [facility] Total Bilirubin 0.2 0.0 - 1.4 mg/dL LAB CHEMISTRY METHOD 09/19/2024 1:[address] [facility] Blood Venous blood specimen / Unknown Venipuncture / Unknown 09/19/2024 5:06 AM EDT 09/19/2024 11:33 AM EDT us Tim Simpson MD LAB BLOOD ORDERABLES Final R esult [facility] [address] [place] [address], [place] [phone] * (ABNORMAL) Complete blood count (09/19/2024 5:06 AM EDT) WBC 9.2 4.8 - 10.8 K/mcL LAB HEMETOLOGY METHOD 09/19/2024 1:10 PM EDT [facility] RBC 4.30 3.80 - 4.80 M/mcL LAB HEMETOLOGY METHOD 09/19/2024 1:10 PM EDT [facility] Hemoglobin 10.3(L) 11.5 - 16.0 g/dL LAB HEMETOLOGY METHOD 09/19/2024 1:10 PM EDT [facility] Hematocrit 33.2(L) 35.0 - 47.0 % LAB HEMETOLOGY METHOD 09/19/2024 1:10 PM EDT [facility] MCV 76.5(L) 79.0 - 98.0 FL LAB HEMETOLOGY METHOD 09/19/2024 1:10 PM EDT [facility] MCH 23.7(L) 27.0 - 32.0 pcg LAB HEMETOLOGY METHOD 09/19/2024 1:10 PM EDT [facility] MCHC 31.0(L) 32.0 - 37.0 g/dL LAB HEMETOLOGY METHOD 09/19/2024 1:10 PM EDT [facility] RDW 16.3(H) 11.0 - 15.0 % LAB HEMETOLOGY METHOD 09/19/2024 1:10 PM EDT [facility] Platelets 264 130 - 400 K/mcL LAB HEMETOLOGY METHOD 09/19/2024 1:10 PM EDT [facility] MPV 10.1 7.0 - 11.0 FL LAB HEMETOLOGY METHOD 09/19/2024 1:10 PM EDT [facility] NRBC 0.0 <1.0 % LAB HEMETOLOGY METHOD 09/19/2024 1:10 PM EDT [facility] NRBC Absolute 0.00 <0.10 K/mcL LAB HEMETOLOGY METHOD 09/19/2024 1:10 PM EDT [facility] Blood Venous blood specimen / Unknown Venipuncture / Unknown 09/19/2024 5:06 AM EDT 09/19/2024 11:33 AM EDT us Tim Simpson MD LAB BLOOD ORDERABLES Final R esult [facility] [address] [place] [address], documented in this encounter Visit Diagnoses Diagnosis Anemia, unspecified Hyperlipidemia, unspecified Weakness Other malaise and fatigue Type 2 diabetes mellitus without complications (CMS/HCC V24, CMS/HCC V28) Vitamin D deficiency, unspecified documented in this encounter Care Teams Mechanic Welder Relationship Specialty Start Date End Date Joan Marshall DO [address] [address] PCP - General 03/17/13 documented as of this encounter
--- OUTSIDE RECORDS SUMMARY | 2024-11-28 11:53 | XMS_ITS | Encounter Summary ---
Author Organization [facility] Address [address] [place] [address] Care Team Providers Care Roller Skates Assembler Name Role Phone Joan Marshall DO Primary Care Provider [phone] Encounter Details Date Type Department Care Team (Late st Contact Info) Description 09/21/2024 Lab Requisition [facility] - Main Lab [address] [facility] [place] [address] Tim Simpson MD [address] [place] [address] Hypo-osmolality and hyponatremia Social History Tobacco Use [...] Associated Diagnosis Comments BASIC METABOLIC PANEL Routine 09/21/2024 7:02 AM EDT Hypo-osmolality and hyponatremia documented in this encounter Results * (ABNORMAL) Basic metabolic panel (09/21/2024 7:02 AM EDT) Sodium 128(L) 133 - 145 mmol/L LAB CHEMISTRY METHOD 09/21/2024 10:27 AM EDT [facility] LAB Potassium 3.9 3.5 - 5.5 mmol/L LAB CHEMISTRY METHOD 09/21/2024 10:27 AM EDT [facility] LAB Chloride 89(L) 96 - 110 mmol/L LAB CHEMISTRY METHOD 09/21/2024 10:27 AM [facility] LAB CO2 29 21 - 32 mmol/L LAB CHEMISTRY METHOD 09/21/2024 10:27 AM [facility] LAB Anion Gap 10 3 - 11 LAB CHEMISTRY METHOD 09/21/2024 10:27 AM [facility] LAB Glucose 119(H) 70 - 100 mg/dL LAB CHEMISTRY METHOD 09/21/2024 10:27 AM [facility] BUN 13 5 - 25 mg/dL LAB CHEMISTRY METHOD 09/21/2024 10:27 AM [facility] LAB Creatinine 0.78 0.50 - 1.10 mg/dL LAB CHEMISTRY METHOD 09/21/2024 10:27 AM [facility] LAB eGFR 93 >=60 mL/min/1. 73m2 LAB CHEMISTRY METHOD 09/21/2024 10:27 AM [facility] LAB Comment:Calculation based on the Chronic Kidney Disease Epidemiology Collaboration (CKD-EPI) equation refit without adjustment for race. BUN/Creatinine Ratio 16.7 LAB CHEMISTRY METHOD 09/21/2024 10:27 AM [facility] Calcium 9.6 8.5 - 10.5 mg/dL LAB CHEMISTRY METHOD 09/21/2024 10:27 AM [facility] LAB Blood Venous blood specimen / Unknown Venipuncture / Unknown 09/21/2024 7:02 AM EDT 09/21/2024 9:26 AM EDT us Tim Simpson MD LAB BLOOD ORDERABLES Final R esult [facility] [address] [place] [address], documented in this encounter Visit Diagnoses Diagnosis Hypo-osmolality and hyponatremia documented in this encounter Care Teams Roller Skates Assembler Relationship Specialty Start Date End Date Joan Marshall DO [facility] [address] [place] [address] PCP - General 03/17/13 documented as of this encounter
--- OUTSIDE RECORDS SUMMARY | 2024-11-28 11:53 | XMS_ITS | Encounter Summary ---
Author Organization [facility] Address [address] [place] [address] Care Team Providers Care Licensed Final Expense Agents Name Role Phone Joan Marshall DO Primary Care Provider [phone] Encounter Details Date Type Department Care Team (Late st Contact Info) Description 09/22/[address] [facility] - Main Lab [address] [facility] [place] [address] Tim Simpson MD [address] [place] [address] Hypo-osmolality and hyponatremia Social History Tobacco Use [...] Associated Diagnosis Comments BASIC METABOLIC PANEL Routine 09/23/2024 7:32 AM EDT Hypo-osmolality and hyponatremia documented in this encounter Results * (ABNORMAL) Basic metabolic panel (09/23/2024 7:32 AM EDT) Sodium 133 133 - 145 mmol/L LAB CHEMISTRY METHOD 09/23/2024 9:58 AM EDT [facility] Potassium 4.4 3.5 - 5.5 mmol/L LAB CHEMISTRY METHOD 09/23/2024 9:58 AM EDT [facility] Chloride 97 96 - 110 mmol/L LAB CHEMISTRY METHOD 09/23/2024 9:58 AM [facility] CO2 27 21 - 32 mmol/L LAB CHEMISTRY METHOD 09/23/2024 9:58 AM [facility] Anion Gap 9 3 - 11 LAB CHEMISTRY METHOD 09/23/2024 9:58 AM [facility] Glucose 118(H) 70 - 100 mg/dL LAB CHEMISTRY METHOD 09/23/2024 9:58 AM [facility] BUN 17 5 - 25 mg/dL LAB CHEMISTRY METHOD 09/23/2024 9:58 AM [facility] Creatinine 0.94 0.50 - 1.10 mg/dL LAB CHEMISTRY METHOD 09/23/2024 9:58 AM [facility] LAB eGFR 74 >=60 mL/min/1. 73m2 LAB CHEMISTRY METHOD 09/23/2024 9:58 AM [facility] LAB Comment:Calculation based on the Chronic Kidney Disease Epidemiology Collaboration (CKD-EPI) equation refit without adjustment for race. BUN/Creatinine Ratio 18.1 LAB CHEMISTRY METHOD 09/23/2024 9:58 AM [facility] Calcium 9.8 8.5 - 10.5 mg/dL LAB CHEMISTRY METHOD 09/23/2024 9:58 AM [facility] Blood Venous blood specimen / Unknown Venipuncture / Unknown 09/23/2024 7:32 AM EDT 09/23/2024 9:21 AM EDT us Tim Simpson MD LAB BLOOD ORDERABLES Final R esult [facility] [address] [place] [address], documented in this encounter Visit Diagnoses Diagnosis Hypo-osmolality and hyponatremia documented in this encounter Care Teams Licensed Final Expense Agents Relationship Specialty Start Date End Date Joan Marshall DO [place] [address] [address] PCP - General 03/17/13 documented as of this encounter
--- OUTSIDE RECORDS SUMMARY | 2024-11-28 11:53 | XMS_ITS | Encounter Summary ---
Author Organization [facility] Address [address] [place] [address] Care Team Providers Care Behavioral Psychologist Name Role Phone Joan Marshall DO Primary Care Provider [phone] Encounter Details Date Type Department Care Team (Late st Contact Info) Description 09/20/2024 Lab Requisition [facility] - Main Lab [address] [place] [address] Tim Simpson MD [address] [place] [address] Hypokalemia Social History Tobacco Use Types Packs/Day Years [...] Associated Diagnosis Comments BASIC METABOLIC PANEL Routine 09/20/2024 6:54 AM EDT Hypokalemia documented in this encounter Results * (ABNORMAL) Basic metabolic panel (09/20/2024 6:54 AM EDT) Sodium 125(L) 133 - 145 mmol/L LAB CHEMISTRY METHOD 09/20/2024 9:28 AM EDT [facility] Potassium 4.1 3.5 - 5.5 mmol/L LAB CHEMISTRY METHOD 09/20/2024 9:28 AM EDT [facility] Chloride 87(L) 96 - 110 mmol/L LAB CHEMISTRY METHOD 09/20/2024 9:28 AM [facility] LAB CO2 31 21 - 32 mmol/L LAB CHEMISTRY METHOD 09/20/2024 9:28 AM [facility] LAB Anion Gap 7 3 - 11 LAB CHEMISTRY METHOD 09/20/2024 9:28 AM [facility] Glucose 118(H) 70 - 100 mg/dL LAB CHEMISTRY METHOD 09/20/2024 9:28 AM [facility] BUN 12 5 - 25 mg/dL LAB CHEMISTRY METHOD 09/20/2024 9:28 AM [facility] Creatinine 0.87 0.50 - 1.10 mg/dL LAB CHEMISTRY METHOD 09/20/2024 9:28 AM [facility] LAB eGFR 81 >=60 mL/min/1. 73m2 LAB CHEMISTRY METHOD 09/20/2024 9:28 AM [facility] LAB Comment:Calculation based on the Chronic Kidney Disease Epidemiology Collaboration (CKD-EPI) equation refit without adjustment for race. BUN/Creatinine Ratio 13.8 LAB CHEMISTRY METHOD 09/20/2024 9:28 AM [facility] Calcium 9.2 8.5 - 10.5 mg/dL LAB CHEMISTRY METHOD 09/20/2024 9:28 AM [facility] Blood Venous blood specimen / Unknown Venipuncture / Unknown 09/20/2024 6:54 AM EDT 09/20/2024 8:45 AM EDT us Tim Simpson MD LAB BLOOD ORDERABLES Final R esult [facility] [address] [place] [address], documented in this encounter Visit Diagnoses Diagnosis Hypokalemia Hypopotassemia documented in this encounter Care Teams Behavioral Psychologist Relationship Specialty Start Date End Date Joan Marshall DO [facility] [address] [place] [address] PCP - General 03/17/13 documented as of this encounter
--- OUTSIDE RECORDS SUMMARY | 2024-11-28 11:53 | XMS_ITS | Encounter Summary ---
Author Organization [facility] Address [address] [place] [address] Care Team Providers Care Supply Crib Attendant Name Role Phone Joan Marshall DO Primary Care Provider [phone] Encounter Details Date Type Department Care Team (Late st Contact Info) Description 06/29/2024 Lab Requisition [facility] - Main Lab [address] [place] [address] Tim Simpson MD [address] [place] [address] Nausea with vomiting, unspecified Social History Tobacco [...] Associated Diagnosis Comments COMPLETE BLOOD COUNT Routine 06/29/2024 7:05 AM EDT Nausea with vomiting, unspecified documented in this encounter Results * (ABNORMAL) Complete blood count (06/29/2024 7:05 AM EDT) WBC 10.7 4.8 - 10.8 K/[facility] LAB HEMETOLOGY METHOD 06/29/2024 10:53 AM EDT [facility] RBC 4.20 3.80 - 4.80 M/[facility] LAB HEMETOLOGY METHOD 06/29/2024 10:53 AM EDT [facility] LAB Hemoglobin 9.9(L) 11.5 - 16.0 g/dL LAB HEMETOLOGY METHOD 06/29/2024 10:53 AM [facility] LAB Hematocrit 31.7(L) 35.0 - 47.0 % LAB HEMETOLOGY METHOD 06/29/2024 10:53 AM [facility] LAB MCV 75.5(L) 79.0 - 98.0 FL LAB HEMETOLOGY METHOD 06/29/2024 10:53 AM [facility] LAB MCH 23.6(L) 27.0 - 32.0 pcg LAB HEMETOLOGY METHOD 06/29/2024 10:53 AM [facility] LAB MCHC 31.2(L) 32.0 - 37.0 g/dL LAB HEMETOLOGY METHOD 06/29/2024 10:53 AM [facility] LAB RDW 17.9(H) 11.0 - 15.0 % LAB HEMETOLOGY METHOD 06/29/2024 10:53 AM [facility] LAB Platelets 288 130 - 400 K/mcL LAB HEMETOLOGY METHOD 06/29/2024 10:53 AM [facility] LAB MPV 11.0 7.0 - 11.0 FL LAB HEMETOLOGY METHOD 06/29/2024 10:53 AM [facility] LAB NRBC 0.0 <1.0 % LAB HEMETOLOGY METHOD 06/29/2024 10:53 AM [facility] LAB NRBC Absolute 0.00 <0.10 K/mcL LAB HEMETOLOGY METHOD 06/29/2024 10:53 AM [facility] LAB Blood Venous blood specimen / Unknown Venipuncture / Unknown 06/29/2024 7:05 AM EDT 06/29/2024 9:27 AM EDT Tim Simpson MD LAB BLOOD ORDERABLES Final R esult [facility] [address] [place] [address], documented in this encounter Visit Diagnoses Diagnosis Nausea with vomiting, unspecified documented in this encounter Care Teams Supply Crib Attendant Relationship Specialty Start [place] [address] PCP - General 03/17/13 documented as of this encounter
--- OUTSIDE RECORDS SUMMARY | 2024-11-28 11:53 | XMS_ITS | Encounter Summary ---
Author Organization [facility] Address [address] [place] [address] Care Team Providers Care Pot Maker Name Role Phone Joan Marshall DO Primary Care Provider [phone] Encounter Details Date Type Department Care Team (Latest Contact Info) Description 04/27/2024 Lab Requisition [facility] - Main Lab [address] [place] [address] Tim Simpson MD [address] [place] [address] Essential (primary) hypertension; Type 2 diabetes mellitus without complications (CMS/HCC V24, CMS/HCC V28) Social History Tobacco Use Types Packs/Day [...] Associated Diagnosis Comments BASIC METABOLIC PANEL Routine 04/27/2024 5:30 AM EST Essential (primary) hypertension Type 2 diabetes mellitus without complications (CMS/HCC) documented in this encounter Results * (ABNORMAL) Basic metabolic panel (04/27/2024 5:30 AM EST) Sodium 133 133 - 145 mmol/L LAB CHEMISTRY METHOD 04/27/2024 11:55 AM EST [facility] Potassium 4.6 3.5 - 5.5 mmol/L LAB CHEMISTRY METHOD 04/27/2024 11:55 AM [facility] LAB Chloride 98 96 - 110 mmol/L LAB CHEMISTRY METHOD 04/27/2024 11:55 AM [facility] LAB CO2 32 21 - 32 mmol/L LAB CHEMISTRY METHOD 04/27/2024 11:55 AM [facility] LAB Anion Gap 3 3 - 11 LAB CHEMISTRY METHOD 04/27/2024 11:55 AM [facility] LAB Glucose 140(H) 70 - 100 mg/dL LAB CHEMISTRY METHOD 04/27/2024 11:55 AM [facility] LAB BUN 18 5 - 25 mg/dL LAB CHEMISTRY METHOD 04/27/2024 11:55 AM [facility] LAB Creatinine 0.91 0.50 - 1.10 mg/dL LAB CHEMISTRY METHOD 04/27/2024 11:55 AM [facility] LAB eGFR 77 >=60 mL/min/1. 73m2 LAB CHEMISTRY METHOD 04/27/2024 11:55 AM [facility] LAB Comment:Calculation based on the Chronic Kidney Disease Epidemiology Collaboration (CKD-EPI) equation refit without adjustment for race. BUN/Creatinine Ratio 19.8 LAB CHEMISTRY METHOD 04/27/2024 11:55 AM [facility] LAB Calcium 9.5 8.5 - 10.5 mg/dL LAB CHEMISTRY METHOD 04/27/2024 11:55 AM [facility] LAB Blood Venous blood specimen / Unknown Venipuncture / Unknown 04/27/2024 5:30 AM EST 04/27/2024 10:43 AM EST us Tim Simpson MD LAB BLOOD ORDERABLES Final R esult [facility] [address] [place] [address], [place] [phone] documented in this encounter Visit Diagnoses Diagnosis Essential (primary) hypertension Unspecified essential hypertension Type 2 diabetes mellitus without complications (CMS/HCC V24, CMS/HCC V28) documented in this encounter Additional Health Concerns Infection Onset Date Last Indicated Resolved Time C. difficile Rule-Out 06/24/2024 06/24/20242024 1:28 PM EDT documented as of this encounter Care Teams Pot Maker Relationship Specialty Start Date [place] [address] PCP - General 03/17/13 documented as of this encounter
--- OUTSIDE RECORDS SUMMARY | 2024-11-28 11:53 | XMS_ITS | Encounter Summary ---
Author Organization [facility] Address [address] [place] [address] Care Team Providers Care Cattle Farmer Name Role Phone Joan Marshall DO Primary Care Provider [phone] Encounter Details Date Type Department Care Team (Late st Contact Info) Description 09/22/2024 Lab Requisition [facility] - Main Lab [address] [facility] [place] [address] Tim Simpson MD [address] [place] [address] Hypo-osmolality and hyponatremia Social History Tobacco Use [...] Associated Diagnosis Comments SODIUM, URINE, RANDOM Routine 09/21/2024 8:00 PM EDT Hypo-osmolality and hyponatremia OSMOLALITY, URINE Routine 09/21/2024 8:0 0 PM EDT Hypo-osmolality and hyponatremia documented in this encounter Results * Osmolality, urine (09/21/2024 8:00 PM EDT) Osmolality, Urine 361 300 - 1,300 mOsm/kg LAB CHEMISTRY METHOD 09/22/2024 10:27 AM EDT [facility] ([facility]) [facility] Urine Urinary bladder structure / Unknown Non-blood Collection / Unknown 09/21/2024 8:00 PM EDT 09/22/2024 8:45 AM EDT Tim Simpson MD LAB URINE ORDERABLES Final R esult Performing Organization Address City/[facility]/ZIP Co de Phone Number [facility] [address] [place] [address], [place] [phone] * Sodium, urine, random (09/21/2024 8:00 PM EDT) Sodium, Ur 78 mmol/L LAB CHEMISTRY METHOD 09/22/2024 9:42 AM EDT [facility] Urine Urinary bladder structure / Unknown Non-blood Collection / Unknown 09/21/2024 8:00 PM EDT 09/22/2024 8:45 AM EDT Tim Simpson MD LAB URINE ORDERABLES Final R esult [facility] [address] [place] [address], [place] [phone] documented in this encounter Visit Diagnoses Diagnosis Hypo-osmolality and hyponatremia documented in this encounter Care Teams Cattle Farmer Relationship Specialty Start Date End Date Joan Marshall DO [address] [address] PCP - General 03/17/13 documented as of this encounter
--- OUTSIDE RECORDS SUMMARY | 2024-11-28 11:53 | XMS_ITS | Clinical Summary ---
Author Organization [employer] Address [address] [facility] [address] [place] [address] Care Team Providers Care Medical Record Technician Name Role Phone Unavailable Primary Care Provider [...] COVID-19 Vaccine (1 - 2023-2 5 season) 2024 Influenza Vaccine (#1) 2024 RSV Patients and [...]
--- OUTSIDE RECORDS SUMMARY | 2024-11-28 11:53 | XMS_ITS | Encounter Summary ---
Author Organization [facility] Address [address] [place] [address] Care Team Providers Care Occupational Therapy Department Chair Name Role Phone Joan Marshall DO Primary Care Provider Encounter Details Date Type Department Care Team (Latest Contact Info) Description 05/10/2024 Lab Requisition [facility] - Main Lab [address] [place] [address] Tim Simpson MD [address] [place] [address] Type 2 diabetes mellitus without complications (CMS/HCC [...] Associated Diagnosis Comments BASIC METABOLIC PANEL Routine 05/10/2024 7:08 AM EST Type 2 diabetes mellitus without complications (CMS/HCC) documented in this encounter Results * (ABNORMAL) Basic metabolic panel (05/10/2024 7:08 AM EST) Sodium 135 133 - 145 mmol/L LAB CHEMISTRY METHOD 05/10/2024 1:00 PM EST [facility] LAB Potassium 4.4 3.5 - 5.5 mmol/L LAB CHEMISTRY METHOD 05/10/2024 1:00 PM EST [facility] LAB Chloride 100 96 - 110 mmol/L LAB CHEMISTRY METHOD 05/10/2024 1:00 PM [facility] LAB CO2 27 21 - 32 mmol/L LAB CHEMISTRY METHOD 05/10/2024 1:00 PM [facility] LAB Anion Gap 8 3 - 11 LAB CHEMISTRY METHOD 05/10/2024 1:00 PM [facility] LAB Glucose 170(H) 70 - 100 mg/dL LAB CHEMISTRY METHOD 05/10/2024 1:00 PM [facility] BUN 16 5 - 25 mg/dL LAB CHEMISTRY METHOD 05/10/2024 1:00 PM [facility] Creatinine 0.71 0.50 - 1.10 mg/dL LAB CHEMISTRY METHOD 05/10/2024 1:00 PM [facility] LAB eGFR 104 >=60 mL/min/1. 73m2 LAB CHEMISTRY METHOD 05/10/2024 1:00 PM [facility] LAB Comment:Calculation based on the Chronic Kidney Disease Epidemiology Collaboration (CKD-EPI) equation refit without adjustment for race. BUN/Creatinine Ratio 22.5 LAB CHEMISTRY METHOD 05/10/2024 1:00 PM [facility] Calcium 9.2 8.5 - 10.5 mg/dL LAB CHEMISTRY METHOD 05/10/2024 1:00 PM [facility] Blood Venous blood specimen / Unknown Venipuncture / Unknown 05/10/2024 7:08 AM EST 05/10/2024 11:38 AM EST us Tim Simpson MD LAB BLOOD ORDERABLES Final R esult [facility] [address] [place] [address], documented in this encounter Visit Diagnoses Diagnosis Type 2 diabetes mellitus without complications (CMS/HCC V24, CMS/HCC V28) documented in this encounter Additional Health Concerns Infection Onset Date Last Indicated Resolved Time C. difficile Rule-Out 06/24/2024 06/24/20242024 1:28 PM EDT documented as of this encounter Care Teams Occupational Therapy Department Chair Relationship Specialty Start [place] [address] PCP - General 03/17/13 documented as of this encounter
--- OUTSIDE RECORDS SUMMARY | 2024-11-28 11:53 | XMS_ITS | Encounter Summary ---
Author Organization [facility] Address [address] [place] [address] Care Team Providers Care Automobile Sales Representative Name Role Phone Joan Marshall DO Primary Care Provider [phone] Encounter Details Date Type Department Care Team (Latest Contact Info) Description 06/30/2024 Lab Requisition [facility] - Main Lab [address] [place] [address] Tim Simpson MD [address] [place], [place] [id number] Type 2 diabetes mellitus without complications (CMS/HCC [...] Associated Diagnosis Comments BASIC METABOLIC PANEL Routine 06/30/2024 6:10 AM EDT Type 2 diabetes mellitus without complications (CMS/HCC V24, CMS/[facility] V28) documented in this encounter Results * (ABNORMAL) Basic metabolic panel (06/30/2024 6:10 AM EDT) Sodium 136 133 - 145 mmol/L LAB CHEMISTRY METHOD 06/30/2024 9:45 AM EDT [facility] Potassium 4.5 3.5 - 5.5 mmol/L LAB CHEMISTRY METHOD 06/30/2024 9:45 AM [facility] LAB Chloride 102 96 - 110 mmol/L LAB CHEMISTRY METHOD 06/30/2024 9:45 AM [facility] CO2 25 21 - 32 mmol/L LAB CHEMISTRY METHOD 06/30/2024 9:45 AM [facility] LAB Anion Gap 9 3 - 11 LAB CHEMISTRY METHOD 06/30/2024 9:45 AM [facility] Glucose 136(H) 70 - 100 mg/dL LAB CHEMISTRY METHOD 06/30/2024 9:45 AM [facility] BUN 27(H) 5 - 25 mg/dL LAB CHEMISTRY METHOD 06/30/2024 9:45 AM [facility] LAB Creatinine 1.18(H) 0.50 - 1.10 mg/dL LAB CHEMISTRY METHOD 06/30/2024 9:45 AM [facility] LAB eGFR 56(L) >=60 mL/min/1. 73m2 LAB CHEMISTRY METHOD 06/30/2024 9:45 AM [facility] LAB Comment:Calculation based on the Chronic Kidney Disease Epidemiology Collaboration (CKD-EPI) equation refit without adjustment for race. BUN/Creatinine Ratio 22.9 LAB CHEMISTRY METHOD 06/30/2024 9:45 AM [facility] Calcium 9.5 8.5 - 10.5 mg/dL LAB CHEMISTRY METHOD 06/30/2024 9:45 AM [facility] LAB Blood Venous blood specimen / Unknown Venipuncture / Unknown 06/30/2024 6:10 AM EDT 06/30/2024 8:59 AM EDT us Tim Simpson MD LAB BLOOD ORDERABLES Final R esult [facility] [address] [place] [address], documented in this encounter Visit Diagnoses Diagnosis Type 2 diabetes mellitus without complications (CMS/[facility] V24, CMS/[facility] V28) documented in this encounter Care Teams Automobile Sales Representative Relationship Specialty [place] [address] PCP - General 03/17/13 documented as of this encounter
--- OUTSIDE RECORDS SUMMARY | 2024-11-28 11:54 | XMS_ITS | Encounter Summary ---
Author Organization [facility] Address [address] [place] [address] Care Team Providers Care Licensing Worker Name Role Phone Joan Marshall DO Primary Care Provider [phone] Encounter Details Date Type Department Care Team (Late st Contact Info) Description 04/21/2024 Lab Requisition [facility] - Main Lab [address] [facility] [place] [address] Tim Simpson MD [address] [place] [address] Other long term care social worker (current) drug therapy Social History Tobacco Use Types Packs/Day Years [...] Associated Diagnosis Comments BASIC METABOLIC PANEL Routine 04/21/2024 5:42 AM EST Other long term care social worker (current) drug therapy documented in this encounter Results * (ABNORMAL) Basic metabolic panel (04/21/2024 5:42 AM EST) Sodium 136 133 - 145 mmol/L LAB CHEMISTRY METHOD 04/21/2024 9:18 AM EST [facility] LAB Potassium 4.3 3.5 - 5.5 mmol/L LAB CHEMISTRY METHOD 04/21/2024 9:18 AM EST [facility] LAB Chloride 102 96 - 110 mmol/L LAB CHEMISTRY METHOD 04/21/2024 9:18 AM [facility] CO2 30 21 - 32 mmol/L LAB CHEMISTRY METHOD 04/21/2024 9:18 AM [facility] Anion Gap 4 3 - 11 LAB CHEMISTRY METHOD 04/21/2024 9:18 AM [facility] Glucose 190(H) 70 - 100 mg/dL LAB CHEMISTRY METHOD 04/21/2024 9:18 AM [facility] BUN 16 5 - 25 mg/dL LAB CHEMISTRY METHOD 04/21/2024 9:18 AM [facility] Creatinine 0.63 0.50 - 1.10 mg/dL LAB CHEMISTRY METHOD 04/21/2024 9:18 AM [facility] LAB eGFR 108 >=60 mL/min/1. 73m2 LAB CHEMISTRY METHOD 04/21/2024 9:18 AM [facility] LAB Comment:Calculation based on the Chronic Kidney Disease Epidemiology Collaboration (CKD-EPI) equation refit without adjustment for race. BUN/Creatinine Ratio 25.4 LAB CHEMISTRY METHOD 04/21/2024 9:18 AM [facility] Calcium 9.6 8.5 - 10.5 mg/dL LAB CHEMISTRY METHOD 04/21/2024 9:18 AM [facility] LAB Blood Venous blood specimen / Unknown Venipuncture / Unknown 04/21/2024 5:42 AM EST 04/21/2024 8:31 AM EST us Tim Simpson MD LAB BLOOD ORDERABLES Final R esult [facility] [address] [place] [address], documented in this encounter Visit Diagnoses Diagnosis Other long term care social worker (current) drug therapy documented in this encounter Additional Health Concerns Infection Onset Date Last Indicated Resolved Time C. difficile Rule-Out 06/24/2024 06/24/20242024 1:28 PM EDT documented as of this encounter Care Teams Licensing Worker Relationship Specialty Start [place] [address] PCP - General 03/17/13 documented as of this encounter
== END 2024-11-28 09:45 | disposition home or self-care (01) ==
LOC: HO.NEURO 09:44
PROVIDERS: Visit Provider Physical Medicine & Rehabilitation
DX: G83.31 Monoplegia, unspecified affecting right dominant side (principal); M62.831 Muscle spasm of calf
CPT/HCPCS: 64642; 95874; J0585

== ENCOUNTER → 2024-11-28 09:51 | Outpatient (BNV) | payer MEDICAID, SELFPAY | PROVIDERS: Visit Provider Physical Medicine & Rehabilitation | DX: G83.31 Monoplegia, unspecified affecting right dominant side (principal); M62.831 Muscle spasm of calf | CPT/HCPCS: 64642; 95874 ==

== ENCOUNTER 2025-01-20 09:06 | Outpatient (AMB) | payer MEDICAID, SELFPAY ==
--- NOTE | 2025-01-20 09:11 | A.OFFVIS_ITS ---
Vital Signs 01/20/25 09:17 Height 5 ft 7 in Weight 345 lb BMI 54.0 Intake Visit Reasons: OV- Botox 4-6 week Follow up, 11/28/24. Intake Note: Karolyn is a 49 year old female who presents today as a follow up from her Botox injection, 11/28/24. Patient states that the Botox injection did help and gave her relief. She noted that this injection did last longer then the previous Botox injection. Allergies aripiprazole (From ABILIFY) Allergy (Unknown, Verified 11/11/24 10:26) SWELL aspirin (ASPIRIN) Allergy (Unknown, Verified 11/11/24 10:26) UNKNOWN coconut Allergy (Unknown, Verified 11/11/24 10:26) HIVES ibuprofen (From MOTRIN) Allergy (Unknown, Verified 11/11/24 10:26) UNKNOWN risperidone (From RISPERDAL) Allergy (Unknown, Verified 11/11/24 10:26) UNKNOWN tomato (TOMATO) Allergy (Unknown, Verified 11/11/24 10:26) HIVES lactose (LACTOSE) Adverse Reaction (Unknown, Verified 11/11/24 10:26) DIARRHEA Aspirin Allergy (Unknown, Uncoded 07/20/24 10:05) seizures Ibuprofen Allergy (Unknown, Uncoded 07/20/24 10:05) vomiting Motrin Allergy (Unknown, Uncoded 07/20/24 10:05) vomiting Risperdal Allergy (Unknown, Uncoded 07/20/24 10:05) hives HPI Comments Details: She's been residing there for past 4 years, transferred from [facility]. She was admitted at [facility] for falls. Denies any history of fracture, stroke, surgery or cardiac events during that hospitalization. She says the foot drop started/worseneded during that hospitalization. At [facility], she is jemma lift transfers, non ambulatory, level. Spends most of the day in bed. Can go to dining room on . Bladder/bowel care all in bed, wears diapers. Denies incontinence though. Has sensation. Denies back pain. Good movement on LLE and BUE per patient, except for chronic shoulder ROM limitation due to past RTC injury. Denies numbness on right foot. Past botulinum injections: 12/16/2023, 03/23/2024, 11/28/2024. We have been increasing dose gradually. Last injection in March, we injected 400 units. [facility] Medical History (Updated 07/20/24 @ 10:41 by Lindsay Lerma MD) Hypersomnia Snoring Presbyopia Conversion disorder with motor symptom or deficit Other early skin lesions due to yaws Type 2 diabetes mellitus with other skin complications Hypercalcemia Fibromyalgia Tinea unguium Allergic rhinitis Iron deficiency anemia Epidermal cyst Obesity due to excess calories Unspecified asthma, uncomplicated Type 2 diabetes mellitus with hyperglycemia Diabetes mellitus with diabetic mononeuropathy Other frontotemporal neurocognitive disorder Other signs and symptoms in breast Other hammer toe (acquired) Personal history of other diseases of respiratory system Osteoarthritis Abnormal posture Myopia Regular astigmatism Hypoglycemia History of falling Left knee pain Urinary incontinence Vitamin D deficiency Chronic venous hypertension (idiopathic) with inflammation of bilateral lower extremity HTN (hypertension) Anemia Acute cough Shortness of breath Major depression GERD (gastroesophageal reflux disease) Other reduced mobility Contracture of muscle, right ankle and foot Muscle weakness (generalized) Other disorders of plasma-protein metabolism, not elsewhere classified Type 2 diabetes mellitus with diabetic neuropathy, unspecified Nail dystrophy Full incontinence of feces Combined forms of age-related cataract, bilateral Difficulty in walking, not elsewhere classified Unspecified atrial fibrillation Typical atrial flutter prison (current) use of anticoagulants Unspecified abnormalities of gait and mobility Localized edema Dysphagia, oral phase Nausea Schizoaffective disorder, bipolar type Constipation, unspecified Need for assistance with personal care Migraine without aura Tremors of nervous system Muscle spasm of calf Monoplegia affecting right dominant side Right foot drop PTSD (post-traumatic stress disorder) Auditory hallucinations Depression Anxiety Diabetes Social History Alcohol intake: former Patient Tobacco Use Status: Never used Tobacco Current occupational status: disabled 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 Dorsiflex, -20 degrees from neutral, still improvement from last time. Right big toe does not extend upwards anymore. No more clonus. Assessment & Plan Assessment & Plan (1) Right foot drop: Code(s): M21.371 - Foot drop, right foot Category: Medical (2) Monoplegia affecting right dominant side: Code(s): G83.31 - Monoplegia, unspecified affecting right dominant side Category: Medical Plan There is improvement with botulinum toxin injections, in the sense that her right foot is much loose in terms of inversion and eversion although there is still a degree of plantar flexion contraction. Patient would like to continue injections. Her next injection would be on 02/15, 13:00, for total 400 units. Same dose injected as last time. Assessment and plan discussed with patient, and patient was agreeable. All questions were answered thoroughly. Shira Tiwari MD, SAROJ Board Certified, [place] [employer] and Rehabilitation (ABPMR) Board Certified, [place] [employer] Electrodiagnostic [employer] (ABEM) Coding Level of Care Code Est Pt Level 3 (33087) Diagnoses Right foot drop M21.371 Monoplegia affecting right dominant side G83.31
[2025-01-20 09:17] VITALS: BMI 54.0
--- OUTSIDE RECORDS SUMMARY | 2025-01-20 10:08 | XMS_ITS | Encounter Summary ---
Author Organization [facility] Address [address] [place] [address] Care Team Providers Care Vice President Of Consulting Services Name Role Phone Joan Marshall DO Primary Care Provider [phone] Encounter Details Date Type Department Care Team (Late st Contact Info) Description 11/15/2024 Lab Requisition [facility] - Main Lab [address] [facility] [place] [address] Tim Simpson MD [address] [place] [address] Hypo-osmolality and hyponatremia Social History Tobacco Use [...] LAB CHEMISTRY METHOD 11/15/2024 2:00 PM [facility] CO2 28 21 - 32 mmol/L LAB CHEMISTRY METHOD 11/15/2024 2:00 PM [facility] Anion Gap 7 3 - 11 LAB CHEMISTRY METHOD 11/15/2024 2:00 PM [facility] Glucose 220(H) 70 - 100 mg/dL LAB CHEMISTRY METHOD 11/15/2024 2:00 PM [facility] BUN 16 5 - 25 mg/dL LAB CHEMISTRY METHOD 11/15/2024 2:00 PM [facility] Creatinine 0.88 0.50 - 1.10 mg/dL LAB CHEMISTRY METHOD 11/15/2024 2:00 PM [facility] eGFR 80 >=60 mL/min/1. 73m2 LAB CHEMISTRY METHOD 11/15/2024 2:00 PM [facility] Comment:Calculation based on the Chronic Kidney Disease Epidemiology Collaboration (CKD-EPI) equation refit without adjustment for race. BUN/Creatinine Ratio 18.2 LAB CHEMISTRY METHOD 11/15/2024 2:00 PM [facility] Calcium 9.2 8.5 - 10.5 mg/dL LAB CHEMISTRY METHOD 11/15/2024 2:00 PM [facility] Blood Venous blood specimen / Unknown Venipuncture / Unknown 11/15/2024 8:11 AM EDT 11/15/2024 10:29 AM EDT us Tim Simpson MD LAB BLOOD ORDERABLES Final R esult [facility] [address] [place] [address], documented in this encounter Visit Diagnoses Diagnosis Hypo-osmolality and hyponatremia documented in this encounter Care Teams Vice President Of Consulting Services Relationship Specialty Start Date End Date Joan Marshall DO [place] [address] [address] PCP - General 03/17/13 documented as of this encounter
--- OUTSIDE RECORDS SUMMARY | 2025-01-20 10:08 | XMS_ITS | Encounter Summary ---
Author Organization [facility] Address [address] [place] [address] Care Team Providers Care Career Services Representative Name Role Phone Joan Marshall DO Primary Care Provider [phone] Encounter Details Date Type Department Care Team (Late st Contact Info) Description 09/22/2024 Lab Requisition [facility] - Main Lab [address] [facility] [place] [address] Tim Simpson MD [address] [place] [address] Hypo-osmolality and hyponatremia Social History Tobacco Use [...] LAB CHEMISTRY METHOD 09/23/2024 9:58 AM EDT [facility] Potassium 4.4 3.5 - 5.5 mmol/L LAB CHEMISTRY METHOD 09/23/2024 9:58 AM EDT [facility] Chloride 97 96 - 110 mmol/L LAB CHEMISTRY METHOD 09/23/2024 9:58 AM [facility] CO2 27 21 - 32 mmol/L LAB CHEMISTRY METHOD 09/23/2024 9:58 AM [facility] Anion Gap 9 3 - 11 LAB CHEMISTRY METHOD 09/23/2024 9:58 AM [facility] Glucose 118(H) 70 - 100 mg/dL LAB CHEMISTRY METHOD 09/23/2024 9:58 AM [facility] BUN 17 5 - 25 mg/dL LAB CHEMISTRY METHOD 09/23/2024 9:58 AM [facility] Creatinine 0.94 0.50 - 1.10 mg/dL LAB CHEMISTRY METHOD 09/23/2024 9:58 AM [facility] eGFR 74 >=60 mL/min/1. 73m2 LAB CHEMISTRY METHOD 09/23/2024 9:58 AM [facility] Comment:Calculation based on the Chronic Kidney Disease Epidemiology Collaboration (CKD-EPI) equation refit without adjustment for race. BUN/Creatinine Ratio 18.1 LAB CHEMISTRY METHOD 09/23/2024 9:58 AM [facility] Calcium 9.8 8.5 - 10.5 mg/dL LAB CHEMISTRY METHOD 09/23/2024 9:58 AM [facility] Blood Venous blood specimen / Unknown Venipuncture / Unknown 09/23/2024 7:32 AM EDT 09/23/2024 9:21 AM EDT us Tim Simpson MD LAB BLOOD ORDERABLES Final R esult [facility] [address] [place] [address], documented in this encounter Visit Diagnoses Diagnosis Hypo-osmolality and hyponatremia documented in this encounter Care Teams Career Services Representative Relationship Specialty Start Date End Date Joan Marshall DO [place] [address] [address] PCP - General 03/17/13 documented as of this encounter
--- OUTSIDE RECORDS SUMMARY | 2025-01-20 10:08 | XMS_ITS | Encounter Summary ---
Author Organization [facility] Address [address] [place] [address] Care Team Providers Care Fugitive Investigator Name Role Phone Joan Marshall DO Primary Care Provider [phone] Encounter Details Date Type Department Care Team (Latest Contact Info) Description 11/13/2024 Lab Requisition [facility] - Main Lab [address] [facility] [place] [address] Tim Simpson MD [address], [place] [id number] Type 2 diabetes mellitus with diabetic mononeuropathy ([facility] V24, [facility] V28); Personal history of urinary (tract) infections [...] Type 2 diabetes mellitus with diabetic mononeuropathy ([facility] V24, [facility] V28) Personal history of urinary (tract) infections documented in this encounter Results * Sodium, urine, random (11/12/2024 5:10 AM EDT) Sodium, Ur 92 mmol/L LAB CHEMISTRY METHOD 11/13/2024 11:40 AM EDT [facility] ([email or web address] LAB Urine Urine specimen obtained by clean catch procedure / Unknown Non-blood Collection / Unknown 11/12/2024 5:10 AM EDT 11/13/2024 10:59 AM EDT us Tim Simpson MD LAB URINE ORDERABLES Final R esult [facility] ([facility] [[email or web address] [address] [place] [address], documented in this encounter Visit Diagnoses Diagnosis Type 2 diabetes mellitus with diabetic mononeuropathy ([facility] V24, [facility] V28) Personal history of urinary (tract) infections documented in this encounter Care Teams Fugitive Investigator Relationship Specialty Start Date End Date Joan Marshall DO [address] [address] PCP - General 03/17/13 documented as of this encounter
--- OUTSIDE RECORDS SUMMARY | 2025-01-20 10:08 | XMS_ITS | Encounter Summary ---
Author Organization [facility] Address [address] [place] [address] Care Team Providers Care Director Adult Name Role Phone Joan Marshall DO Primary Care Provider [phone] Encounter Details Date Type Department Care Team (Latest Contact Info) Description 12/14/2024 Lab Requisition [facility] - Main Lab [address] [facility] [place] [address] Tim Simpson MD [address] [place], [place] [id number] Type 2 diabetes mellitus with diabetic mononeuropathy (CMS/HCC V24, CMS/HCC V28); Hyperkalemia Social History Tobacco Use Types Packs/Day Years [...] Associated Diagnosis Comments COMPLETE BLOOD COUNT Routine 12/14/2024 5:17 AM EDT Type 2 diabetes mellitus with diabetic mononeuropathy (CMS/HCC V24, CMS/HCC V28) Hyperkalemia COMPREHENSIVE METABOLIC PANEL Routine 12/14/2024 5:17 AM EDT Type 2 diabetes mellitus with diabetic mononeuropathy (CMS/HCC V24, CMS/HCC V28) Hyperkalemia documented in this encounter Results * (ABNORMAL) Comprehensive metabolic panel (12/14/2024 5:17 AM EDT) Sodium 135 133 - 145 mmol/L LAB CHEMISTRY METHOD 12/14/2024 12:42 PM [facility] LAB Potassium 4.2 3.5 - 5.5 mmol/L LAB CHEMISTRY METHOD 12/14/2024 12:42 PM [facility] LAB Chloride 100 96 - 110 mmol/L LAB CHEMISTRY METHOD 12/14/2024 12:42 PM [facility] LAB CO2 25 21 - 32 mmol/L LAB CHEMISTRY METHOD 12/14/2024 12:42 PM [facility] LAB Anion Gap 10 3 - 11 LAB CHEMISTRY METHOD 12/14/2024 12:42 PM [facility] LAB Glucose 129(H) 70 - 100 mg/dL LAB CHEMISTRY METHOD 12/14/2024 12:42 PM [facility] BUN 12 5 - 25 mg/dL LAB CHEMISTRY METHOD 12/14/2024 12:42 PM [facility] LAB Creatinine 0.74 0.50 - 1.10 mg/dL LAB CHEMISTRY METHOD 12/14/2024 12:42 PM [facility] LAB eGFR 98 >=60 mL/min/1. 73m2 LAB CHEMISTRY METHOD 12/14/2024 12:42 PM [facility] LAB Comment:Calculation based on the Chronic Kidney Disease Epidemiology Collaboration (CKD-EPI) equation refit without adjustment for race. BUN/Creatinine Ratio 16.2 LAB CHEMISTRY METHOD 12/14/2024 12:42 PM [facility] LAB Calcium 9.7 8.5 - 10.5 mg/dL LAB CHEMISTRY METHOD 12/14/2024 12:42 PM [facility] LAB AST (SGOT) 22 10 - 42 unit/L LAB CHEMISTRY METHOD 12/14/2024 12:42 PM [facility] LAB ALT (SGPT) 34 10 - 60 unit/L LAB CHEMISTRY METHOD 12/14/2024 12:42 PM EDT [facility] LAB Alkaline Phosphatase 153(H) 42 - 121 unit/L LAB CHEMISTRY METHOD 12/14/2024 12:42 PM T [facility] Total Protein 7.0 6.0 - 8.0 g/dL LAB CHEMISTRY METHOD 12/14/2024 12:42 PM [facility] Albumin 3.3 3.2 - 5.0 g/dL LAB CHEMISTRY METHOD 12/14/2024 12:42 PM [facility] Total Bilirubin 0.3 0.0 - 1.4 mg/dL LAB CHEMISTRY METHOD 12/14/2024 12:42 PM [facility] Blood Venous blood specimen / Unknown Venipuncture / Unknown 12/14/2024 5:17 AM EDT 12/14/2024 11:56 AM EDT Tim Simpson MD LAB BLOOD ORDERABLES Final R esult [facility] [address] [place] [address], [place] [phone] * (ABNORMAL) Complete blood count (12/14/2024 5:17 AM EDT) WBC 9.0 4.8 - 10.8 K/mcL LAB HEMETOLOGY METHOD 12/14/2024 1:04 PM [facility] RBC 4.50 3.80 - 4.80 M/mcL LAB HEMETOLOGY METHOD 12/14/2024 1:04 PM [facility] LAB Hemoglobin 10.7(L) 11.5 - 16.0 g/dL LAB HEMETOLOGY METHOD 12/14/2024 1:04 PM [facility] LAB Hematocrit 34.2(L) 35.0 - 47.0 % LAB HEMETOLOGY METHOD 12/14/2024 1:04 PM EDT [facility] MCV 76.2(L) 79.0 - 98.0 FL LAB HEMETOLOGY METHOD 12/14/2024 1:04 PM EDT [facility] MCH 23.8(L) 27.0 - 32.0 pcg LAB HEMETOLOGY METHOD 12/14/2024 1:04 PM EDT [facility] MCHC 31.3(L) 32.0 - 37.0 g/dL LAB HEMETOLOGY METHOD 12/14/2024 1:04 PM EDT [facility] RDW 17.6(H) 11.0 - 15.0 % LAB HEMETOLOGY METHOD 12/14/2024 1:04 PM EDT [facility] Platelets 353 130 - 400 K/mcL LAB HEMETOLOGY METHOD 12/14/2024 1:04 PM EDT [facility] MPV 10.5 7.0 - 11.0 FL LAB HEMETOLOGY METHOD 12/14/2024 1:04 PM EDT [facility] NRBC 0.0 <1.0 % LAB HEMETOLOGY METHOD 12/14/2024 1:04 PM EDT [facility] NRBC Absolute 0.00 <0.10 K/mcL LAB HEMETOLOGY METHOD 12/14/2024 1:04 PM EDT [facility] Blood Venous blood specimen / Unknown Venipuncture / Unknown 12/14/2024 5:17 AM EDT 12/14/2024 11:56 AM EDT us Tim Simpson MD LAB BLOOD ORDERABLES Final R esult [facility] [address] [place] [address], documented in this encounter Visit Diagnoses Diagnosis Type 2 diabetes mellitus with diabetic mononeuropathy (CMS/HCC V24, CMS/HCC V28) Hyperkalemia Hyperpotassemia documented in this encounter Care Teams Director Adult Relationship Specialty Start Date [place] [address] PCP - General 03/17/13 documented as of this encounter
--- OUTSIDE RECORDS SUMMARY | 2025-01-20 10:08 | XMS_ITS | Encounter Summary ---
Author Organization [facility] Address [address] [place] [address] Care Team Providers Care Electronic Security Specialist Name Role Phone Joan Marshall DO Primary Care Provider [phone] Encounter Details Date Type Department Care Team (Late st Contact Info) Description 12/30/2024 Lab Requisition [facility] - Main Lab [address] [place] [address] Tim Simpson MD [address] [place] [address] Other abnormal glucose; Encounter for general adult medical examination without abnormal findings Social History Tobacco Use Types Packs/Day Years [...] Associated Diagnosis Comments COMPLETE BLOOD COUNT Routine 12/30/2024 7:38 AM EDT Other abnormal glucose Encounter for general adult medical examination without abnormal findings HEMOGLOBIN A1C Routine 12/30/2024 7:38 AM EDT Other abnormal glucose Encounter for general adult medical examination without abnormal findings documented in this encounter Results * (ABNORMAL) Hemoglobin A1c (12/30/2024 7:38 AM EDT) Hemoglobin A1C 7.5(H) <6.5 % LAB CHEMISTRY METHOD 12/30/2024 2:53 PM EDT [facility] ([facility]) [facility] Mean Bld Glu Estim. 169 mg/dL LAB CHEMISTRY METHOD 12/30/2024 2:53 PM EDT [facility] LAB Blood Venous blood specimen / Unknown Venipuncture / Unknown 12/30/2024 7:38 AM EDT 12/30/2024 11:08 AM EDT us Tim Simpson MD LAB BLOOD ORDERABLES Final R esult [facility] [address] [place] [address], * (ABNORMAL) Complete blood count (12/30/2024 7:38 AM EDT) WBC 6.6 4.8 - 10.8 K/mcL LAB HEMETOLOGY METHOD 12/30/2024 11:44 AM [facility] LAB RBC 4.10 3.80 - 4.80 M/[facility] LAB HEMETOLOGY METHOD 12/30/2024 11:44 AM [facility] LAB Hemoglobin 9.7(L) 11.5 - 16.0 g/dL LAB HEMETOLOGY METHOD 12/30/2024 11:44 AM [facility] LAB Hematocrit 31.3(L) 35.0 - 47.0 % LAB HEMETOLOGY METHOD 12/30/2024 11:44 AM [facility] LAB MCV 76.7(L) 79.0 - 98.0 FL LAB HEMETOLOGY METHOD 12/30/2024 11:44 AM [facility] LAB MCH 23.8(L) 27.0 - 32.0 pcg LAB HEMETOLOGY METHOD 12/30/2024 11:44 AM [facility] LAB MCHC 31.0(L) 32.0 - 37.0 g/dL LAB HEMETOLOGY METHOD 12/30/2024 11:44 AM EDT [facility] RDW 17.4(H) 11.0 - 15.0 % LAB HEMETOLOGY METHOD 12/30/2024 11:44 AM EDT [facility] Platelets 280 130 - 400 K/mcL LAB HEMETOLOGY METHOD 12/30/2024 11:44 AM EDT [facility] LAB MPV 11.1(H) 7.0 - 11.0 FL LAB HEMETOLOGY METHOD 12/30/2024 11:44 AM EDT [facility] NRBC 0.0 <1.0 % LAB HEMETOLOGY METHOD 12/30/2024 11:44 AM EDT [facility] LAB NRBC Absolute 0.00 <0.10 K/mcL LAB HEMETOLOGY METHOD 12/30/2024 11:44 AM EDT [facility] Blood Venous blood specimen / Unknown Venipuncture / Unknown 12/30/2024 7:38 AM EDT 12/30/2024 11:08 AM EDT us Tim Simpson MD LAB BLOOD ORDERABLES Final R esult [facility] [address] [place] [address], documented in this encounter Visit Diagnoses Diagnosis Other abnormal glucose Encounter for general adult medical examination without abnormal findings documented in this encounter Care Teams Electronic Security Specialist Relationship Specialty Start Date End Date Joan Marshall DO [address] [address] PCP - General 03/17/13 documented as of this encounter
--- OUTSIDE RECORDS SUMMARY | 2025-01-20 10:08 | XMS_ITS | Encounter Summary ---
Author Organization [facility] Address [address] [place] [address] Care Team Providers Care Front End Specialist Name Role Phone Joan Marshall DO Primary Care Provider [phone] Encounter Details Date Type Department Care Team (Latest Contact Info) Description 09/19/2024 Lab Requisition [facility] - Main Lab [address] [facility] [place] [address] Tim Simpson MD [address] [place] [address] Anemia, unspecified; Hyperlipidemia, unspecified; Weakness; Type 2 [...] Weakness Type 2 diabetes mellitus without complications ([facility] V24, [facility] V28) Vitamin D deficiency, unspecified COMPLETE BLOOD COUNT Routine 09/19/2024 5:06 AM EDT Anemia, unspecified Hyperlipidemia, unspecified Weakness Type 2 diabetes mellitus without complications ([facility] V24, [facility] V28) Vitamin D deficiency, unspecified HEMOGLOBIN A1C Routine 09/19/2024 5:06 AM EDT Anemia, unspecified Hyperlipidemia, unspecified Weakness Type 2 diabetes mellitus without complications ([facility] V24, [facility] V28) Vitamin D deficiency, unspecified COMPREHENSIVE METABOLIC PANEL Routine 09/19/2024 5:06 AM EDT Anemia, unspecified Hyperlipidemia, unspecified Weakness Type 2 diabetes mellitus without complications ([facility] V24, [facility] V28) Vitamin D deficiency, unspecified documented in this encounter Results * Vitamin D 25 hydroxy (09/19/2024 5:06 AM EDT) Pathologist [facility] Vit D, 25-Hydroxy 32.4 30.0 - 80.0 ng/mL LAB CHEMISTRY METHOD 09/19/2024 2:29 PM EDT [facility] LAB Blood Venous blood specimen / Unknown Venipuncture / Unknown 09/19/2024 5:06 AM EDT 09/19/2024 11:33 AM EDT us Tim Simpson MD LAB BLOOD ORDERABLES Final R esult [facility] LAB [address] [place] [address], * (ABNORMAL) Hemoglobin A1c (09/19/2024 5:06 AM EDT) Pathologist [facility] Hemoglobin A1C 7.6(H) <6.5 % LAB CHEMISTRY METHOD 09/20/2024 2:13 PM EDT [facility] LAB Mean Bld Glu Estim. 171 mg/dL LAB CHEMISTRY METHOD 09/20/2024 2:13 PM EDT [facility] LAB Blood Venous blood specimen / Unknown Venipuncture / Unknown 09/19/2024 5:06 AM EDT 09/19/2024 11:33 AM EDT Tim Simpson MD LAB BLOOD ORDERABLES Final R esult Performing Organization Address [facility] Co de Phone Number [facility] [address] [place] [address], [place] [phone] * Thyroid stimulating hormone with reflex to free t4 and free t3 (09/19/2024 5:06 AM EDT) TSH 1.86 0.40 - 4.00 mcIU/mL LAB CHEMISTRY METHOD 09/19/2024 2:29 PM EDT [facility] LAB Blood Venous blood specimen / Unknown Venipuncture / Unknown 09/19/2024 5:06 AM EDT 09/19/2024 11:33 AM EDT Tim Simpson MD LAB BLOOD ORDERABLES Final R esult Performing Organization Address [facility] Co de Phone Number [facility] [address] [place] [address], [place] [phone] * Lipid panel with reflex to direct LDL (09/19/2024 5:06 AM EDT) Cholesterol 107 0 - 200 mg/dL LAB CHEMISTRY METHOD 09/19/2024 1:38 PM EDT [facility] Triglycerides 89 0 - 150 mg/dL LAB CHEMISTRY METHOD 09/19/2024 1:38 PM EDT [facility] HDL 48 >=40 mg/dL LAB CHEMISTRY METHOD 09/19/2024 1:38 PM EDT [facility] LDL Calculated 41 0 - 100 mg/dL LAB CHEMISTRY METHOD 09/19/2024 1:38 PM EDT [facility] VLDL Cholesterol Shaheen 17.8 mg/dL LAB CHEMISTRY METHOD 09/19/2024 1:38 PM EDT [facility] LAB Non HDL Chol. (LDL+VLDL) 59 <145 mg/dL LAB CHEMISTRY METHOD 09/19/2024 1:38 PM EDT [facility] Chol/HDL Ratio 2.2 0.0 - 4.4 LAB CHEMISTRY METHOD 09/19/2024 1:38 PM EDT [facility] Blood Venous blood specimen / Unknown Venipuncture / Unknown 09/19/2024 5:06 AM EDT 09/19/2024 11:33 AM EDT us Tim Simpson MD LAB BLOOD ORDERABLES Final R esult [facility] [address] [place] [address], * (ABNORMAL) Comprehensive metabolic panel (09/19/2024 5:06 AM EDT) Sodium 124(L) 133 - 145 mmol/L LAB CHEMISTRY METHOD 09/19/2024 1:38 PM T [facility] Potassium 3.8 3.5 - 5.5 mmol/L LAB CHEMISTRY METHOD 09/19/2024 1:38 PM EDT [facility] Chloride 87(L) 96 - 110 mmol/L LAB CHEMISTRY METHOD 09/19/2024 1:38 PM EDT [facility] CO2 28 21 - 32 mmol/L LAB CHEMISTRY METHOD 09/19/2024 1:38 PM T [facility] Anion Gap 9 3 - 11 LAB CHEMISTRY METHOD 09/19/2024 1:38 PM EDT [facility] Glucose 57(L) 70 - 100 mg/dL LAB CHEMISTRY METHOD 09/19/2024 1:38 PM [facility] BUN 13 5 - 25 mg/dL LAB CHEMISTRY METHOD 09/19/2024 1:38 PM [facility] Creatinine 0.83 0.50 - 1.10 mg/dL LAB CHEMISTRY METHOD 09/19/2024 1:38 PM [facility] LAB eGFR 86 >=60 mL/min/1. 73m2 LAB CHEMISTRY METHOD 09/19/2024 1:38 PM [facility] Comment:Calculation based on the Chronic Kidney Disease Epidemiology Collaboration (CKD-EPI) equation refit without adjustment for race. BUN/Creatinine Ratio 15.7 LAB CHEMISTRY METHOD 09/19/2024 1:38 PM [facility] Calcium 9.5 8.5 - 10.5 mg/dL LAB CHEMISTRY METHOD 09/19/2024 1:38 PM [facility] AST (SGOT) 13 10 - 42 unit/L LAB CHEMISTRY METHOD 09/19/2024 1:38 PM [facility] ALT (SGPT) 17 10 - 60 unit/L LAB CHEMISTRY METHOD 09/19/2024 1:38 PM [facility] Alkaline Phosphatase 92 42 - 121 unit/L LAB CHEMISTRY METHOD 09/19/2024 1:38 PM [facility] Total Protein 5.9(L) 6.0 - 8.0 g/dL LAB CHEMISTRY METHOD 09/19/2024 1:38 PM [facility] Albumin 3.0(L) 3.2 - 5.0 g/dL LAB CHEMISTRY METHOD 09/19/2024 1:38 PM [facility] Total Bilirubin 0.2 0.0 - 1.4 mg/dL LAB CHEMISTRY METHOD 09/19/2024 1:38 PM [facility] Blood Venous blood specimen / Unknown Venipuncture / Unknown 09/19/2024 5:06 AM EDT 09/19/2024 11:33 AM EDT us Tim Simpson MD LAB BLOOD ORDERABLES Final R esult [facility] [address] [place] [address], [place] [phone] * (ABNORMAL) Complete blood count (09/19/2024 5:06 AM EDT) WBC 9.2 4.8 - 10.8 K/mcL LAB HEMETOLOGY METHOD 09/19/2024 1:10 PM EDT [facility] RBC 4.30 3.80 - 4.80 M/mcL LAB HEMETOLOGY METHOD 09/19/2024 1:10 PM EDT [facility] Hemoglobin 10.3(L) 11.5 - 16.0 g/dL LAB HEMETOLOGY METHOD 09/19/2024 1:10 PM EDT [facility] Hematocrit 33.2(L) 35.0 - 47.0 % LAB HEMETOLOGY METHOD 09/19/2024 1:10 PM EDT [facility] MCV 76.5(L) 79.0 - 98.0 FL LAB HEMETOLOGY METHOD 09/19/2024 1:10 PM EDT [facility] MCH 23.7(L) 27.0 - 32.0 pcg LAB HEMETOLOGY METHOD 09/19/2024 1:10 PM EDT [facility] MCHC 31.0(L) 32.0 - 37.0 g/dL LAB HEMETOLOGY METHOD 09/19/2024 1:10 PM EDT [facility] RDW 16.3(H) 11.0 - 15.0 % LAB HEMETOLOGY METHOD 09/19/2024 1:10 PM EDT [facility] Platelets 264 130 - 400 K/mcL LAB HEMETOLOGY METHOD 09/19/2024 1:10 PM EDT [facility] MPV 10.1 7.0 - 11.0 FL LAB HEMETOLOGY METHOD 09/19/2024 1:10 PM EDT [facility] NRBC 0.0 <1.0 % LAB HEMETOLOGY METHOD 09/19/2024 1:10 PM EDT [facility] NRBC Absolute 0.00 <0.10 K/mcL LAB HEMETOLOGY METHOD 09/19/2024 1:10 PM EDT [facility] Blood Venous blood specimen / Unknown Venipuncture / Unknown 09/19/2024 5:06 AM EDT 09/19/2024 11:33 AM EDT us Tim Simpson MD LAB BLOOD ORDERABLES Final R esult [facility] [address] [place] [address], documented in this encounter Visit Diagnoses Diagnosis Anemia, unspecified Hyperlipidemia, unspecified Weakness Other malaise and fatigue Type 2 diabetes mellitus without complications (CMS/HCC V24, CMS/HCC V28) Vitamin D deficiency, unspecified documented in this encounter Care Teams Front End Specialist Relationship Specialty Start Date End Date Joan Marshall DO [address] [address] PCP - General 03/17/13 documented as of this encounter
--- OUTSIDE RECORDS SUMMARY | 2025-01-20 10:08 | XMS_ITS | Encounter Summary ---
Author Organization [facility] Address [address] [place] [address] Care Team Providers Care Admission Discharge Rn Name Role Phone Joan Marshall DO Primary Care Provider [phone] Encounter Details Date Type Department Care Team (Latest Contact Info) Description 11/11/[address] [facility] - Main Lab [address] [place] [address] Tim Simpson MD [address] [place] [address] Type 2 diabetes mellitus without complications (CMS/HCC V24, CMS/[facility] V28) Social History Tobacco Use Types [...] mellitus without complications (CMS/HCC V24, CMS/[facility] V28) documented in this encounter Results * (ABNORMAL) Basic metabolic panel (11/11/2024 7:13 AM EDT) Sodium 130(L) 133 - 145 mmol/L LAB CHEMISTRY METHOD 11/11/2024 9:34 AM EDT [facility] Potassium 4.4 3.5 - 5.5 mmol/L LAB CHEMISTRY METHOD 11/11/2024 9:34 AM [facility] Chloride 94(L) 96 - 110 mmol/L LAB CHEMISTRY METHOD 11/11/2024 9:34 AM [facility] CO2 29 21 - 32 mmol/L LAB CHEMISTRY METHOD 11/11/2024 9:34 AM [facility] Anion Gap 7 3 - 11 LAB CHEMISTRY METHOD 11/11/2024 9:34 AM [facility] Glucose 195(H) 70 - 100 mg/dL LAB CHEMISTRY METHOD 11/11/2024 9:34 AM [facility] BUN 15 5 - 25 mg/dL LAB CHEMISTRY METHOD 11/11/2024 9:34 AM [facility] Creatinine 0.82 0.50 - 1.10 mg/dL LAB CHEMISTRY METHOD 11/11/2024 9:34 AM [facility] LAB eGFR 87 >=60 mL/min/1. 73m2 LAB CHEMISTRY METHOD 11/11/2024 9:34 AM [facility] LAB Comment:Calculation based on the Chronic Kidney Disease Epidemiology Collaboration (CKD-EPI) equation refit without adjustment for race. BUN/Creatinine Ratio 18.3 LAB CHEMISTRY METHOD 11/11/2024 9:34 AM [facility] Calcium 9.3 8.5 - 10.5 mg/dL LAB CHEMISTRY METHOD 11/11/2024 9:34 AM [facility] Blood Venous blood specimen / Unknown Venipuncture / Unknown 11/11/2024 7:13 AM EDT 11/11/2024 8:45 AM EDT us Tim Simpson MD LAB BLOOD ORDERABLES Final R esult [facility] [address] [place] [address], documented in this encounter Visit Diagnoses Diagnosis Type 2 diabetes mellitus without complications (CMS/HCC V24, CMS/HCC V28) documented in this encounter Care Teams Admission Discharge Rn Relationship Specialty Start [place] [address] PCP - General 03/17/13 documented as of this encounter
--- OUTSIDE RECORDS SUMMARY | 2025-01-20 10:08 | XMS_ITS | Encounter Summary ---
Author Organization [facility] Address [address] [place] [address] Care Team Providers Care Millinery Salesperson Name Role Phone Joan Marshall DO Primary Care Provider [phone] Encounter Details Date Type Department Care Team (Late st Contact Info) Description 09/22/[address] [facility] - Main Lab [address] [facility] [place] [address] Tim Simpson MD [address] [place] [address] Hypo-osmolality and hyponatremia Social History Tobacco Use [...] LAB CHEMISTRY METHOD 09/22/2024 10:27 AM EDT [facility] ([facility]) [facility] Urine Urinary bladder structure / Unknown Non-blood Collection / Unknown 09/21/2024 8:00 PM EDT 09/22/2024 8:45 AM EDT Tim Simpson MD LAB URINE ORDERABLES Final R esult Performing Organization Address City/[facility]/ZIP Co de Phone Number [facility] [address] [place] [address], [place] [phone] * Sodium, urine, random (09/21/2024 8:00 PM EDT) Sodium, Ur 78 mmol/L LAB CHEMISTRY METHOD 09/22/2024 9:42 AM EDT [facility] Urine Urinary bladder structure / Unknown Non-blood Collection / Unknown 09/21/2024 8:00 PM EDT 09/22/2024 8:45 AM EDT Tim Simpson MD LAB URINE ORDERABLES Final R esult [facility] [address] [place] [address], [place] [phone] documented in this encounter Visit Diagnoses Diagnosis Hypo-osmolality and hyponatremia documented in this encounter Care Teams Millinery Salesperson Relationship Specialty Start Date End Date Joan Marshall DO [address] [address] PCP - General 03/17/13 documented as of this encounter
--- OUTSIDE RECORDS SUMMARY | 2025-01-20 10:08 | XMS_ITS | Encounter Summary ---
Author Organization [facility] Address [address] [place] [address] Care Team Providers Care Nude Model Name Role Phone Joan Marshall DO Primary Care Provider [phone] Encounter Details Date Type Department Care Team (Late st Contact Info) Description 12/27/2024 Lab Requisition [facility] - Main Lab [address] [facility] [employer] [place] [address] Tim Smipson MD [address] [place] [address] Hyperkalemia; Hyperlipidemia, unspecified Social History Tobacco Use Types Packs/Day [...] Procedure Name Priority Date/Time Associated Diagnosis Comments COMPREHENSIVE METABOLIC PANEL Routine 12/28/2024 5:21 AM EDT Hyperkalemia Hyperlipidemia, unspecified documented in this encounter Results * (ABNORMAL) Comprehensive metabolic panel (12/28/2024 5:21 AM EDT) Sodium 138 133 - 145 mmol/L LAB CHEMISTRY METHOD 12/28/2024 9:08 AM EDT [facility] Potassium 4.8 3.5 - 5.5 mmol/L LAB CHEMISTRY METHOD 12/28/2024 9:08 AM EDT [facility] Chloride 106 96 - 110 mmol/L LAB CHEMISTRY METHOD 12/28/2024 9:08 AM [facility] CO2 25 21 - 32 mmol/L LAB CHEMISTRY METHOD 12/28/2024 9:08 AM [facility] Anion Gap 7 3 - 11 LAB CHEMISTRY METHOD 12/28/2024 9:08 AM [facility] Glucose 135(H) 70 - 100 mg/dL LAB CHEMISTRY METHOD 12/28/2024 9:08 AM [facility] BUN 13 5 - 25 mg/dL LAB CHEMISTRY METHOD 12/28/2024 9:08 AM [facility] Creatinine 0.75 0.50 - 1.10 mg/dL LAB CHEMISTRY METHOD 12/28/2024 9:08 AM [facility] eGFR 97 >=60 mL/min/1. 73m2 LAB CHEMISTRY METHOD 12/28/2024 9:08 AM [facility] Comment:Calculation based on the Chronic Kidney Disease Epidemiology Collaboration (CKD-EPI) equation refit without adjustment for race. BUN/Creatinine Ratio 17.3 LAB CHEMISTRY METHOD 12/28/2024 9:08 AM [facility] Calcium 9.4 8.5 - 10.5 mg/dL LAB CHEMISTRY METHOD 12/28/2024 9:08 AM [facility] AST (SGOT) 14 10 - 42 unit/L LAB CHEMISTRY METHOD 12/28/2024 9:08 AM [facility] ALT (SGPT) 21 10 - 60 unit/L LAB CHEMISTRY METHOD 12/28/2024 9:08 AM [facility] Alkaline Phosphatase 136(H) 42 - 121 unit/L LAB CHEMISTRY METHOD 12/28/2024 9:08 AM [facility] Total Protein 5.9(L) 6.0 - 8.0 g/dL LAB CHEMISTRY METHOD 12/28/2024 9:08 AM [facility] Albumin 2.7(L) 3.2 - 5.0 g/dL LAB CHEMISTRY METHOD 12/28/2024 9:08 AM EDT [facility] Total Bilirubin 0.2 0.0 - 1.4 mg/dL LAB CHEMISTRY METHOD 12/28/2024 9:08 AM EDT [facility] Blood Venous blood specimen / Unknown Venipuncture / Unknown 12/28/2024 5:21 AM EDT 12/28/2024 8:34 AM EDT us Tim Simpson MD LAB BLOOD ORDERABLES Final R esult [facility] [address] [place] [address], documented in this encounter Visit Diagnoses Diagnosis Hyperkalemia Hyperpotassemia Hyperlipidemia, unspecified documented in this encounter Care Teams Nude Model Relationship Specialty Start Date End Date Joan Marshall DO [address] [address] PCP - General 03/17/13 documented as of this encounter
--- OUTSIDE RECORDS SUMMARY | 2025-01-20 10:08 | XMS_ITS | Encounter Summary ---
Author Organization [facility] Address [address] [place] [address] Care Team Providers Care Project Controls Scheduler Name Role Phone Joan Marshall DO Primary Care Provider [phone] Encounter Details Date Type Department Care Team (Late st Contact Info) Description 09/21/2024 Lab Requisition [facility] - Main Lab [address] [facility] [place] [address] Tim Simpson MD [address] [place] [address] Hypo-osmolality and hyponatremia Social History Tobacco Use [...] LAB CHEMISTRY METHOD 09/21/2024 10:27 AM EDT [facility] Potassium 3.9 3.5 - 5.5 mmol/L LAB CHEMISTRY METHOD 09/21/2024 10:27 AM EDT [facility] Chloride 89(L) 96 - 110 mmol/L LAB CHEMISTRY METHOD 09/21/2024 10:27 AM [facility] CO2 29 21 - 32 mmol/L LAB CHEMISTRY METHOD 09/21/2024 10:27 AM [facility] Anion Gap 10 3 - 11 LAB CHEMISTRY METHOD 09/21/2024 10:27 AM [facility] Glucose 119(H) 70 - 100 mg/dL LAB CHEMISTRY METHOD 09/21/2024 10:27 AM [facility] BUN 13 5 - 25 mg/dL LAB CHEMISTRY METHOD 09/21/2024 10:27 AM [facility] Creatinine 0.78 0.50 - 1.10 mg/dL LAB CHEMISTRY METHOD 09/21/2024 10:27 AM [facility] eGFR 93 >=60 mL/min/1. 73m2 LAB CHEMISTRY METHOD 09/21/2024 10:27 AM [facility] Comment:Calculation based on the Chronic Kidney Disease Epidemiology Collaboration (CKD-EPI) equation refit without adjustment for race. BUN/Creatinine Ratio 16.7 LAB CHEMISTRY METHOD 09/21/2024 10:27 AM [facility] Calcium 9.6 8.5 - 10.5 mg/dL LAB CHEMISTRY METHOD 09/21/2024 10:27 AM [facility] Blood Venous blood specimen / Unknown Venipuncture / Unknown 09/21/2024 7:02 AM EDT 09/21/2024 9:26 AM EDT us Tim Simpson MD LAB BLOOD ORDERABLES Final R esult [facility] [address] [place] [address], documented in this encounter Visit Diagnoses Diagnosis Hypo-osmolality and hyponatremia documented in this encounter Care Teams Project Controls Scheduler Relationship Specialty Start Date End Date Joan Marshall DO [facility] [address] [place] [address] PCP - General 03/17/13 documented as of this encounter
--- OUTSIDE RECORDS SUMMARY | 2025-01-20 10:08 | XMS_ITS | Encounter Summary ---
Author Organization [facility] Address [address] [place] [address] Care Team Providers Care Transportation Assistant Name Role Phone Joan Marshall DO Primary Care Provider [phone] Encounter Details Date Type Department Care Team (Late st Contact Info) Description 09/20/2024 Lab Requisition [facility] - Main Lab [address] [place] [address] Tim Simpson MD [address] [place] [address] Hypokalemia Social History Tobacco Use Types Packs/Day [...] LAB CHEMISTRY METHOD 09/20/2024 9:28 AM EDT [facility] Potassium 4.1 3.5 - 5.5 mmol/L LAB CHEMISTRY METHOD 09/20/2024 9:28 AM EDT [facility] Chloride 87(L) 96 - 110 mmol/L LAB CHEMISTRY METHOD 09/20/2024 9:28 AM [facility] CO2 31 21 - 32 mmol/L LAB CHEMISTRY METHOD 09/20/2024 9:28 AM [facility] Anion Gap 7 3 - 11 LAB CHEMISTRY METHOD 09/20/2024 9:28 AM [facility] Glucose 118(H) 70 - 100 mg/dL LAB CHEMISTRY METHOD 09/20/2024 9:28 AM [facility] BUN 12 5 - 25 mg/dL LAB CHEMISTRY METHOD 09/20/2024 9:28 AM [facility] Creatinine 0.87 0.50 - 1.10 mg/dL LAB CHEMISTRY METHOD 09/20/2024 9:28 AM [facility] eGFR 81 >=60 mL/min/1. 73m2 LAB CHEMISTRY METHOD 09/20/2024 9:28 AM [facility] Comment:Calculation based on the Chronic Kidney Disease Epidemiology Collaboration (CKD-EPI) equation refit without adjustment for race. BUN/Creatinine Ratio 13.8 LAB CHEMISTRY METHOD 09/20/2024 9:28 AM [facility] Calcium 9.2 8.5 - 10.5 mg/dL LAB CHEMISTRY METHOD 09/20/2024 9:28 AM [facility] Blood Venous blood specimen / Unknown Venipuncture / Unknown 09/20/2024 6:54 AM EDT 09/20/2024 8:45 AM EDT us Tim Simpson MD LAB BLOOD ORDERABLES Final R esult [facility] [address] [place] [address], documented in this encounter Visit Diagnoses Diagnosis Hypokalemia Hypopotassemia documented in this encounter Care Teams Transportation Assistant Relationship Specialty Start Date End Date Joan Marshall DO [facility] [address] [place] [address] PCP - General 03/17/13 documented as of this encounter
--- OUTSIDE RECORDS SUMMARY | 2025-01-20 10:08 | XMS_ITS | Encounter Summary ---
Author Organization [facility] Address [address] [place] [address] Care Team Providers Care Structural Steel Trades Worker Name Role Phone Joan Marshall DO Primary Care Provider [phone] Encounter Details Date Type Department Care Team (Late st Contact Info) Description 12/21/[address] [facility] - Main Lab [address] [place] [address] Tim Simpson MD [address] [place] [address] Constipation, unspecified Social History Tobacco Use Types Packs/Day [...] Associated Diagnosis Comments COMPLETE BLOOD COUNT Routine 12/21/2024 5:30 AM EDT Constipation, unspecified COMPREHENSIVE METABOLIC PANEL Routine 12/21/2024 5:30 AM EDT Constipation, unspecified documented in this encounter Results * (ABNORMAL) Comprehensive metabolic panel (12/21/2024 5:30 AM EDT) Sodium 138 133 - 145 mmol/L LAB CHEMISTRY METHOD 12/21/2024 11:15 AM EDT [facility] Potassium 3.8 3.5 - 5.5 mmol/L LAB CHEMISTRY METHOD 12/21/2024 11:15 AM [facility] Chloride 103 96 - 110 mmol/L LAB CHEMISTRY METHOD 12/21/2024 11:15 AM [facility] CO2 25 21 - 32 mmol/L LAB CHEMISTRY METHOD 12/21/2024 11:15 AM [facility] Anion Gap 10 3 - 11 LAB CHEMISTRY METHOD 12/21/2024 11:15 AM [facility] Glucose 84 70 - 100 mg/dL LAB CHEMISTRY METHOD 12/21/2024 11:15 AM [facility] BUN 12 5 - 25 mg/dL LAB CHEMISTRY METHOD 12/21/2024 11:15 AM [facility] Creatinine 0.74 0.50 - 1.10 mg/dL LAB CHEMISTRY METHOD 12/21/2024 11:15 AM [facility] eGFR 98 >=60 mL/min/1. 73m2 LAB CHEMISTRY METHOD 12/21/2024 11:15 AM [facility] Comment:Calculation based on the Chronic Kidney Disease Epidemiology Collaboration (CKD-EPI) equation refit without adjustment for race. BUN/Creatinine Ratio 16.2 LAB CHEMISTRY METHOD 12/21/2024 11:15 AM [facility] Calcium 9.8 8.5 - 10.5 mg/dL LAB CHEMISTRY METHOD 12/21/2024 11:15 AM [facility] AST (SGOT) 19 10 - 42 unit/L LAB CHEMISTRY METHOD 12/21/2024 11:15 AM [facility] ALT (SGPT) 22 10 - 60 unit/L LAB CHEMISTRY METHOD 12/21/2024 11:15 AM [facility] Alkaline Phosphatase 146(H) 42 - 121 unit/L LAB CHEMISTRY METHOD 12/21/2024 11:15 AM [facility] Total Protein 6.5 6.0 - 8.0 g/dL LAB CHEMISTRY METHOD 12/21/2024 11:15 AM EDT [facility] Albumin 3.0(L) 3.2 - 5.0 g/dL LAB CHEMISTRY METHOD 12/21/2024 11:15 AM EDT [facility] Total Bilirubin 0.4 0.0 - 1.4 mg/dL LAB CHEMISTRY METHOD 12/21/2024 11:15 AM [facility] Blood Venous blood specimen / Unknown Venipuncture / Unknown 12/21/2024 5:30 AM EDT 12/21/2024 9:20 AM EDT us Tim Simpson MD LAB BLOOD ORDERABLES Final R esult [facility] [address] [place] [address], * (ABNORMAL) Complete blood count (12/21/2024 5:30 AM EDT) WBC 8.0 4.8 - 10.8 K/mcL LAB HEMETOLOGY METHOD 12/21/2024 10:28 AM [facility] RBC 4.30 3.80 - 4.80 M/mcL LAB HEMETOLOGY METHOD 12/21/2024 10:28 AM [facility] Hemoglobin 10.4(L) 11.5 - 16.0 g/dL LAB HEMETOLOGY METHOD 12/21/2024 10:28 AM [facility] Hematocrit 33.3(L) 35.0 - 47.0 % LAB HEMETOLOGY METHOD 12/21/2024 10:28 AM [facility] MCV 76.7(L) 79.0 - 98.0 FL LAB HEMETOLOGY METHOD 12/21/2024 10:28 AM [facility] MCH 24.0(L) 27.0 - 32.0 pcg LAB HEMETOLOGY METHOD 12/21/2024 10:28 AM EDT [facility] MCHC 31.2(L) 32.0 - 37.0 g/dL LAB HEMETOLOGY METHOD 12/21/2024 10:28 AM EDT [facility] RDW 17.4(H) 11.0 - 15.0 % LAB HEMETOLOGY METHOD 12/21/2024 10:28 AM EDT [facility] Platelets 387 130 - 400 K/mcL LAB HEMETOLOGY METHOD 12/21/2024 10:28 AM EDT [facility] MPV 11.0 7.0 - 11.0 FL LAB HEMETOLOGY METHOD 12/21/2024 10:28 AM EDT [facility] NRBC 0.2 <1.0 % LAB HEMETOLOGY METHOD 12/21/2024 10:28 AM EDT [facility] NRBC Absolute 0.02 <0.10 K/mcL LAB HEMETOLOGY METHOD 12/21/2024 10:28 AM EDT [facility] Blood Venous blood specimen / Unknown Venipuncture / Unknown 12/21/2024 5:30 AM EDT 12/21/2024 9:20 AM EDT us Tim Simpson MD LAB BLOOD ORDERABLES Final R esult [facility] [address] [place] [address], documented in this encounter Visit Diagnoses Diagnosis Constipation, unspecified documented in this encounter Care Teams Structural Steel Trades Worker Relationship Specialty Start Date End Date Joan Marshall DO [address] [address] PCP - General 03/17/13 documented as of this encounter
--- OUTSIDE RECORDS SUMMARY | 2025-01-20 10:09 | XMS_ITS | Encounter Summary ---
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 Social History Tobacco Use [...] PANEL Routine 04/21/2024 5:42 AM EST Other jail (current) drug therapy documented in this encounter Results * (ABNORMAL) Basic metabolic panel (04/21/2024 5:42 AM EST) Sodium 136 133 - 145 mmol/L LAB CHEMISTRY METHOD 04/21/2024 9:18 AM EST [facility] Potassium 4.3 3.5 - 5.5 mmol/L LAB CHEMISTRY METHOD 04/21/2024 9:18 AM EST [facility] Chloride 102 96 - 110 mmol/L LAB CHEMISTRY METHOD 04/21/2024 9:18 AM [facility] CO2 30 21 - 32 mmol/L LAB CHEMISTRY METHOD 04/21/2024 9:18 AM [facility] LAB Anion Gap 4 3 - 11 LAB CHEMISTRY METHOD 04/21/2024 9:18 AM [facility] Glucose 190(H) 70 - 100 mg/dL LAB CHEMISTRY METHOD 04/21/2024 9:18 AM [facility] BUN 16 5 - 25 mg/dL LAB CHEMISTRY METHOD 04/21/2024 9:18 AM [facility] Creatinine 0.63 0.50 - 1.10 mg/dL LAB CHEMISTRY METHOD 04/21/2024 9:18 AM [facility] LAB eGFR 108 >=60 mL/min/1. 73m2 LAB CHEMISTRY METHOD 04/21/2024 9:18 AM [facility] LAB Comment:Calculation based on the Chronic Kidney Disease Epidemiology Collaboration (CKD-EPI) equation refit without adjustment for race. 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 difficile Rule-Out 06/24/2024 06/24/20242024 1:28 PM EDT documented as of this encounter Care Teams Inspector Packer Glass Container Relationship Specialty Start [place] [address] PCP - General 03/17/13 documented as of this encounter
--- OUTSIDE RECORDS SUMMARY | 2025-01-20 10:09 | XMS_ITS | Encounter Summary ---
Author Organization [facility] Address [address] [place] [address] Care Team Providers Care Experimental Electronics Developer Name Role Phone Joan Marshall DO Primary Care Provider [phone] Encounter Details Date Type Department Care Team (Late st Contact Info) Description 06/28/2024 Lab Requisition [facility] - Main Lab [address] [place] [address] Tim Simpson MD [address] [place] [address] Nausea with vomiting, unspecified Social History Tobacco [...] LAB CHEMISTRY METHOD 06/28/2024 10:44 AM EDT [facility] Potassium 4.7 3.5 - 5.5 mmol/L LAB CHEMISTRY METHOD 06/28/2024 10:44 AM [facility] Chloride 100 96 - 110 mmol/L LAB CHEMISTRY METHOD 06/28/2024 10:44 AM [facility] CO2 24 21 - 32 mmol/L LAB CHEMISTRY METHOD 06/28/2024 10:44 AM [facility] Anion Gap 7 3 - 11 LAB CHEMISTRY METHOD 06/28/2024 10:44 AM [facility] Glucose 112(H) 70 - 100 mg/dL LAB CHEMISTRY METHOD 06/28/2024 10:44 AM [facility] BUN 26(H) 5 - 25 mg/dL LAB CHEMISTRY METHOD 06/28/2024 10:44 AM [facility] Creatinine 1.30(H) 0.50 - 1.10 mg/dL LAB CHEMISTRY METHOD 06/28/2024 10:44 AM [facility] LAB eGFR 50(L) >=60 mL/min/1. 73m2 LAB CHEMISTRY METHOD 06/28/2024 10:44 AM [facility] LAB Comment:Calculation based on the Chronic Kidney Disease Epidemiology Collaboration (CKD-EPI) equation refit without adjustment for race. BUN/Creatinine Ratio 20.0 LAB CHEMISTRY METHOD 06/28/2024 10:44 AM [facility] Calcium 9.3 8.5 - 10.5 mg/dL LAB CHEMISTRY METHOD 06/28/2024 10:44 AM [facility] AST (SGOT) 11 10 - 42 unit/L LAB CHEMISTRY METHOD 06/28/2024 10:44 AM [facility] ALT (SGPT) 20 10 - 60 unit/L LAB CHEMISTRY METHOD 06/28/2024 10:44 AM [facility] LAB Alkaline Phosphatase 107 42 - 121 unit/L LAB CHEMISTRY METHOD 06/28/2024 10:44 AM [facility] Total Protein 6.2 6.0 - 8.0 g/dL LAB CHEMISTRY METHOD 06/28/2024 10:44 AM EDT [facility] Albumin 2.9(L) 3.2 - 5.0 g/dL LAB CHEMISTRY METHOD 06/28/2024 10:44 AM EDT [facility] Total Bilirubin 0.3 0.0 - 1.4 mg/dL LAB CHEMISTRY METHOD 06/28/2024 10:44 AM EDT [facility] Blood Venous blood specimen / Unknown Venipuncture / Unknown 06/28/2024 4:59 AM EDT 06/28/2024 9:42 AM EDT us Tim Simpson MD LAB BLOOD ORDERABLES Final R esult [facility] [address] [place] [address], * (ABNORMAL) Complete blood count (06/28/2024 4:59 AM EDT) WBC 14.5(H) 4.8 - 10.8 K/mcL LAB HEMETOLOGY METHOD 06/28/2024 10:18 AM [facility] RBC 4.40 3.80 - 4.80 M/mcL LAB HEMETOLOGY METHOD 06/28/2024 10:18 AM [facility] Hemoglobin 10.3(L) 11.5 - 16.0 g/dL LAB HEMETOLOGY METHOD 06/28/2024 10:18 AM [facility] LAB Hematocrit 33.1(L) 35.0 - 47.0 % LAB HEMETOLOGY METHOD 06/28/2024 10:18 AM [facility] LAB MCV 75.9(L) 79.0 - 98.0 FL LAB HEMETOLOGY METHOD 06/28/2024 10:18 AM [facility] MCH 23.6(L) 27.0 - 32.0 pcg LAB HEMETOLOGY METHOD 06/28/2024 10:18 AM EDT [facility] MCHC 31.1(L) 32.0 - 37.0 g/dL LAB HEMETOLOGY METHOD 06/28/2024 10:18 AM EDT [facility] RDW 17.9(H) 11.0 - 15.0 % LAB HEMETOLOGY METHOD 06/28/2024 10:18 AM EDT [facility] Platelets 302 130 - 400 K/mcL LAB HEMETOLOGY METHOD 06/28/2024 10:18 AM EDT [facility] MPV 11.0 7.0 - 11.0 FL LAB HEMETOLOGY METHOD 06/28/2024 10:18 AM EDT [facility] NRBC 0.0 <1.0 % LAB HEMETOLOGY METHOD 06/28/2024 10:18 AM EDT [facility] NRBC Absolute 0.00 <0.10 K/mcL LAB HEMETOLOGY METHOD 06/28/2024 10:18 AM T [facility] Blood Venous blood specimen / Unknown Venipuncture / Unknown 06/28/2024 4:59 AM EDT 06/28/2024 9:42 AM EDT us Tim Simpson MD LAB BLOOD ORDERABLES Final R esult [facility] [address] [place] [address], documented in this encounter Visit Diagnoses Diagnosis Nausea with vomiting, unspecified documented in this encounter Care Teams Experimental Electronics Developer Relationship Specialty Start Date End Date Joan Marshall DO [address] [address] PCP - General 03/17/13 documented as of this encounter
--- OUTSIDE RECORDS SUMMARY | 2025-01-20 10:09 | XMS_ITS | Clinical Summary ---
Author Organization [address] Address [address] [place] [phone] Phone Care Team Providers Care Neon Light Installer Name Role Phone Joan Marshall DO Primary Care Provider [phone] Encounters Date Type Department Care Team Description 01/09/2025 Lab Requisition [facility] [address] [place] [phone] Tim Simpson MD Type 2 diabetes mellitus without complications (CMS/HCC V24, CMS/[facility] V28); Weakness; Hyperlipidemia, unspecified; Other abnormal glucose; Encounter for general adult medical examination without abnormal findings; Constipation, unspecified; Hypo-osmolality and hyponatremia; Vitamin D deficiency, unspecified 12/30/2024 Lab Requisition [facility] [address] [place] [phone] Tim Simpson MD Other abnormal glucose; Encounter for general adult medical examination without abnormal findings 12/27/2024 Lab Requisition [facility] [address] [place] [phone] Tim Simpson MD Hyperkalemia; Hyperlipidemia, unspecified 12/21/2024 Lab Requisition [facility] [address] [place] [phone] Tim Simpson MD Constipation, unspecified 12/14/2024 Lab Requisition [facility] [address] [place] [phone] Tim Simpson MD Type 2 diabetes mellitus with diabetic mononeuropathy (CMS/HCC V24, CMS/[facility] V28); Hyperkalemia 11/15/2024 Lab Requisition [facility] - Main Lab [address] [place] [address] Tim Simpson MD Hypo-osmolality and hyponatremia 11/13/2024 Lab Requisition [facility] [address] [place] [phone] Tim Simpson MD Type 2 diabetes mellitus with diabetic mononeuropathy ([facility] V24, [facility] V28); Personal history of urinary (tract) infections 11/11/2024 Lab Requisition [facility] [address] [place] [phone] Tim Simpson MD Type 2 diabetes mellitus without complications ([facility] V24, [facility] V28) from Last 3 Months Surgical History Surgery Date Site/Laterality Comments TUBAL LIGATION PROCEDURE: HISTORICAL TUBAL LIGATION CHOLECYSTECTOMY PROCEDURE: LAPAROSCOPY, CHOLECYSTECTOMY ESOPHAGOGASTRODUODENOSCOPY 03/14/09 PROCEDURE: MN EGD TRANSORAL BIOPSY SINGLE/MULTIPLE; COMMENT: mucosal rings in esophagus-biopsy:Nl, bilious fluid in the stomach, gastritis-biopsy: mild chronic inflammation(HPylori-), Nl small bowel COLONOSCOPY 03/14/09 PROCEDURE: MN COLONOSCOPY FLX DX W/COLLJ SPEC WHEN PFRMD; [...] Last Done Comments Breast Cancer Screening 1973 Colorectal Cancer Screening: Colonoscopy 1973 Diabetes: Annual Foot Exam 11/05/1983 Diabetes: Annual Retina Eye Exam 11/05/1983 Hepatitis B Vaccines (1 of 3 - 19+ 3-dose series) 1992 Cervical Cancer Screening: Pap Smear 1994 Pneumococcal Vaccine: 50+ Years (2 of 2 - PCV) 04/08/2021 04/08/2020 DTaP,Tdap,and Td Vaccines (2 - Td or Tdap) 04/15/2021 04/15/2011 HIV Screening 02/16/2022 Hepatitis C Screening 02/16/2022 Social Influencers of Health Screening 02/16/2022 RSV Immunization Adult Patients (1 - Risk 50-74 years 1-dose series) 11/05/2023 Zoster Vaccines (1 of 2) 11/05/2023 Diabetes: Annual Urine Albumin-Creatinine Ratio (uACR) 03/09/2024 Depression Screening 03/16/2024 COVID-19 Vaccine ( season) 2024 Influenza Vaccine (#1) 2024 Diabetes: Blood Sugar Control Test (HGBA1C) 06/30/2025 12/30/2024, 09/19/2024, 03/10/2024 Diabetes: Annual GFR (Glomerular Filtration Rate) 01/10/2026 01/10/2025, 12/28/2024, 12/21/2024, Additional history exists Cholesterol Screening (Lipid Panel) [...] Associated Diagnosis Comments BASIC METABOLIC PANEL Routine 01/10/2025 5:45 AM EDT Type 2 diabetes mellitus without complications (CMS/HCC V24, CMS/HCC V28) Weakness Hyperlipidemia, unspecified Other abnormal glucose Encounter for general adult medical examination without abnormal findings Constipation, unspecified Hypo-osmolality and hyponatremia Vitamin D deficiency, unspecified COMPLETE BLOOD COUNT Routine 01/10/2025 5:45 AM EDT Type 2 diabetes mellitus without complications (CMS/HCC V24, CMS/[facility] V28) Weakness Hyperlipidemia, unspecified Other abnormal glucose Encounter for general adult medical examination without abnormal findings Constipation, unspecified Hypo-osmolality and hyponatremia Vitamin D deficiency, unspecified HEMOGLOBIN A1C Routine 12/30/2024 7:38 AM EDT Other abnormal glucose Encounter for general adult medical examination without abnormal findings COMPLETE BLOOD COUNT Routine 12/30/2024 7:38 AM EDT Other abnormal glucose Encounter for general adult medical examination without abnormal findings COMPREHENSIVE METABOLIC PANEL Routine 12/28/2024 5:21 AM EDT Hyperkalemia Hyperlipidemia, unspecified COMPREHENSIVE METABOLIC PANEL Routine 12/21/2024 5:30 AM EDT Constipation, unspecified COMPLETE BLOOD COUNT Routine 12/21/2024 5:30 AM EDT Constipation, unspecified COMPREHENSIVE METABOLIC PANEL Routine 12/14/2024 5:17 AM EDT Type 2 diabetes mellitus with diabetic mononeuropathy (CMS/HCC V24, CMS/[facility] V28) Hyperkalemia COMPLETE BLOOD COUNT Routine 12/14/2024 5:17 AM EDT Type 2 diabetes mellitus with diabetic mononeuropathy (CMS/HCC V24, CMS/HCC V28) Hyperkalemia BASIC METABOLIC PANEL Routine 11/15/2024 8:11 AM EDT Hypo-osmolality and hyponatremia SODIUM, URINE, RANDOM Routine 11/12/2024 5:10 AM EDT Type 2 diabetes mellitus with diabetic mononeuropathy (CMS/HCC V24, CMS/HCC V28) Personal history of urinary (tract) infections BASIC METABOLIC PANEL Routine 11/11/2024 7:13 AM EDT Type 2 diabetes mellitus without complications ([facility] V24, [facility] V28) LIPID PANEL WITH REFLEX TO DIRECT LDL Routine 09/19/2024 5:06 AM EDT Anemia, unspecified Hyperlipidemia, unspecified Weakness Type 2 diabetes mellitus without complications ([facility] V24, [facility] V28) Vitamin D deficiency, unspecified from Last 3 Months or Most Recently Relevant to Health Maintenance Results * (ABNORMAL) Complete blood count (01/10/2025 5:45 AM EDT) Only the most recent of4 resultswithin the time period is included. WBC 8.9 4.8 - 10.8 K/mcL LAB HEMETOLOGY METHOD 01/10/2025 10:07 AM [facility] RBC 4.60 3.80 - 4.80 M/mcL LAB HEMETOLOGY METHOD 01/10/2025 10:07 AM [facility] Hemoglobin 10.8(L) 11.5 - 16.0 g/dL LAB HEMETOLOGY METHOD 01/10/2025 10:07 AM [facility] Hematocrit 35.6 35.0 - 47.0 % LAB HEMETOLOGY METHOD 01/10/2025 10:07 AM [facility] MCV 76.7(L) 79.0 - 98.0 FL LAB HEMETOLOGY METHOD 01/10/2025 10:07 AM [facility] MCH 23.3(L) 27.0 - 32.0 pcg LAB HEMETOLOGY METHOD 01/10/2025 10:07 AM [facility] MCHC 30.3(L) 32.0 - 37.0 g/dL LAB HEMETOLOGY METHOD 01/10/2025 10:07 AM [facility] RDW 17.4(H) 11.0 - 15.0 % LAB HEMETOLOGY METHOD 01/10/2025 10:[address] [facility] Platelets 302 130 - 400 K/mcL LAB HEMETOLOGY METHOD 01/10/2025 10:[address] [facility] MPV 11.6(H) 7.0 - 11.0 FL LAB HEMETOLOGY METHOD 01/10/2025 10:[address] [facility] NRBC 0.0 <1.0 % LAB HEMETOLOGY METHOD 01/10/2025 10:[address] [facility] NRBC Absolute 0.00 <0.10 K/mcL LAB HEMETOLOGY METHOD 01/10/2025 10:07 AM [facility] Blood Venous blood specimen / Unknown Venipuncture / Unknown 01/10/2025 5:45 AM EDT 01/10/2025 9:31 AM EDT Tim Simpson MD LAB BLOOD ORDERABLES Final R esult [facility] [address] [place] [address], * Basic metabolic panel (01/10/2025 5:45 AM EDT) Only the most recent of3 resultswithin the time period is included. Sodium 137 133 - 145 mmol/L LAB CHEMISTRY METHOD 01/10/2025 10:58 AM [facility] Potassium 4.0 3.5 - 5.5 mmol/L LAB CHEMISTRY METHOD 01/10/2025 10:58 AM [facility] Chloride 98 96 - 110 mmol/L LAB CHEMISTRY METHOD 01/10/2025 10:58 AM [facility] CO2 28 21 - 32 mmol/L LAB CHEMISTRY METHOD 01/10/2025 10:[address] [facility] Anion Gap 11 3 - 11 LAB CHEMISTRY METHOD 01/10/2025 10:[address] [facility] Glucose 99 70 - 100 mg/dL LAB CHEMISTRY METHOD 01/10/2025 10:[address] [facility] BUN 11 5 - 25 mg/dL LAB CHEMISTRY METHOD 01/10/2025 10:[address] [facility] Creatinine 0.65 0.50 - 1.10 mg/dL LAB CHEMISTRY METHOD 01/10/2025 10:[address] [facility] eGFR 107 >=60 mL/min/1. 73m2 LAB CHEMISTRY METHOD 01/10/2025 10:[address] [facility] Comment:Calculation based on the Chronic Kidney Disease Epidemiology Collaboration (CKD-EPI) equation refit without adjustment for race. BUN/Creatinine Ratio 16.9 LAB CHEMISTRY METHOD 01/10/2025 10:[address] [facility] Calcium 9.7 8.5 - 10.5 mg/dL LAB CHEMISTRY METHOD 01/10/2025 10:[address] [facility] Blood Venous blood specimen / Unknown Venipuncture / Unknown 01/10/2025 5:45 AM EDT 01/10/2025 9:31 AM EDT us Tim Simpson MD LAB BLOOD ORDERABLES Final R esult [facility] [address] [place] [address], * (ABNORMAL) Hemoglobin A1c (12/30/2024 7:38 AM EDT) Hemoglobin A1C 7.5(H) <6.5 % LAB CHEMISTRY METHOD 12/30/2024 2:[address] [facility] Mean Bld Glu Estim. 169 mg/dL LAB CHEMISTRY METHOD 12/30/2024 2:[address] [facility] Blood Venous blood specimen / Unknown Venipuncture / Unknown 12/30/2024 7:38 AM EDT 12/30/2024 11:08 AM EDT us Tim Simpson MD LAB BLOOD ORDERABLES Final R esult [facility] [address] [place] [address], [place] [phone] * (ABNORMAL) Comprehensive metabolic panel (12/28/2024 5:21 AM EDT) Only the most recent of3 resultswithin the time period is included. Sodium 138 133 - 145 mmol/L LAB CHEMISTRY METHOD 12/28/2024 9:08 AM [facility] Potassium 4.8 3.5 - 5.5 mmol/L LAB CHEMISTRY METHOD 12/28/2024 9:08 AM [facility] Chloride 106 96 - 110 mmol/L LAB CHEMISTRY METHOD 12/28/2024 9:08 AM [facility] CO2 25 21 - 32 mmol/L LAB CHEMISTRY METHOD 12/28/2024 9:08 AM [facility] Anion Gap 7 3 - 11 LAB CHEMISTRY METHOD 12/28/2024 9:08 AM [facility] Glucose 135(H) 70 - 100 mg/dL LAB CHEMISTRY METHOD 12/28/2024 9:08 AM [facility] BUN 13 5 - 25 mg/dL LAB CHEMISTRY METHOD 12/28/2024 9:08 AM [facility] Creatinine 0.75 0.50 - 1.10 mg/dL LAB CHEMISTRY METHOD 12/28/2024 9:08 AM [facility] eGFR 97 >=60 mL/min/1. 73m2 LAB CHEMISTRY METHOD 12/28/2024 9:08 AM [facility] Comment:Calculation based on the Chronic Kidney Disease Epidemiology Collaboration (CKD-EPI) equation refit without adjustment for race. BUN/Creatinine Ratio 17.3 LAB CHEMISTRY METHOD 12/28/2024 9:08 AM [facility] Calcium 9.4 8.5 - 10.5 mg/dL LAB CHEMISTRY METHOD 12/28/2024 9:08 AM [facility] AST (SGOT) 14 10 - 42 unit/L LAB CHEMISTRY METHOD 12/28/2024 9:08 AM [facility] ALT (SGPT) 21 10 - 60 unit/L LAB CHEMISTRY METHOD 12/28/2024 9:08 AM [facility] Alkaline Phosphatase 136(H) 42 - 121 unit/L LAB CHEMISTRY METHOD 12/28/2024 9:08 AM [facility] Total Protein 5.9(L) 6.0 - 8.0 g/dL LAB CHEMISTRY METHOD 12/28/2024 9:08 AM [facility] Albumin 2.7(L) 3.2 - 5.0 g/dL LAB CHEMISTRY METHOD 12/28/2024 9:08 AM [facility] Total Bilirubin 0.2 0.0 - 1.4 mg/dL LAB CHEMISTRY METHOD 12/28/2024 9:08 AM [facility] Blood Venous blood specimen / Unknown Venipuncture / Unknown 12/28/2024 5:21 AM EDT 12/28/2024 8:34 AM EDT Tim Simpson MD LAB BLOOD ORDERABLES Final R esult [facility] [address] [place] [address], * Sodium, urine, random (11/12/2024 5:10 AM EDT) Sodium, Ur 92 mmol/L LAB CHEMISTRY METHOD 11/13/2024 11:[address] [facility] Urine Urine specimen obtained by clean catch procedure / Unknown Non-blood Collection / Unknown 11/12/2024 5:10 AM EDT 11/13/2024 10:59 AM EDT Tim Simpson MD LAB URINE ORDERABLES Final R esult Performing Organization Address City/[facility]/ZIP Co de Phone Number [facility] [address] [place] [address], [place] [phone] * Lipid panel with reflex to direct LDL (09/19/2024 5:06 AM EDT) Cholesterol 107 0 - 200 mg/dL LAB CHEMISTRY METHOD 09/19/2024 1:[address] [facility] Triglycerides 89 0 - 150 mg/dL LAB CHEMISTRY METHOD 09/19/2024 1:[address] [facility] HDL 48 >=40 mg/dL LAB CHEMISTRY METHOD 09/19/2024 1:[address] [facility] LDL Calculated 41 0 - 100 mg/dL LAB CHEMISTRY METHOD 09/19/2024 1:[address] [facility] VLDL Cholesterol Shaheen 17.8 mg/dL LAB CHEMISTRY METHOD 09/19/2024 1:[address] [facility] Non HDL Chol. (LDL+VLDL) 59 <145 mg/dL LAB CHEMISTRY METHOD 09/19/2024 1:[address] [facility] Chol/HDL Ratio 2.2 0.0 - 4.4 LAB CHEMISTRY METHOD 09/19/2024 1:[address] [facility] Blood Venous blood specimen / Unknown Venipuncture / Unknown 09/19/2024 5:06 AM EDT 09/19/2024 11:33 AM EDT Tim Simpson MD LAB BLOOD ORDERABLES Final R esult [facility] [address] [place] [address], from Last 3 Months or Most Recently Relevant to Health Maintenance Insurance [place]ICA[place] - [place] Advance Directives Documents on File Type Date Recorded Patient System Designer Expl anation Health Care Decision (hx) 12/30/2019 AD WISEMAN DIRECTIVE Health Care Decision (hx) 12/30/2019 AD WISEMAN DIRECTIVE Health Care Decision (hx) 12/30/2019 AD WISEMAN DIRECTIVE Health Care Decision (hx) 12/30/2019 AD WISEMAN DIRECTIVE Care Teams Neon Light Installer Relationship Specialty Start Date End Date Joan Marshall DO [address] [address] PCP - General 03/17/13
--- OUTSIDE RECORDS SUMMARY | 2025-01-20 10:09 | XMS_ITS | Encounter Summary ---
Author Organization [facility] Address [address] [place] [address] Care Team Providers Care Sales Service Promoter Name Role Phone Joan Marshall DO Primary Care Provider [phone] Encounter Details Date Type Department Care Team (Late st Contact Info) Description 06/29/2024 Lab Requisition [facility] - Main Lab [address] [place] [address] Tim Simpson MD [address] [place] [address] Nausea with vomiting, unspecified Social History Tobacco [...] AM EDT) WBC 10.7 4.8 - 10.8 K/[facility] LAB HEMETOLOGY METHOD 06/29/2024 10:53 AM EDT [facility] RBC 4.20 3.80 - 4.80 M/[facility] LAB HEMETOLOGY METHOD 06/29/2024 10:53 AM EDT [facility] Hemoglobin 9.9(L) 11.5 - 16.0 g/dL LAB HEMETOLOGY METHOD 06/29/2024 10:53 AM [facility] Hematocrit 31.7(L) 35.0 - 47.0 % LAB HEMETOLOGY METHOD 06/29/2024 10:53 AM [facility] MCV 75.5(L) 79.0 - 98.0 FL LAB HEMETOLOGY METHOD 06/29/2024 10:53 AM [facility] MCH 23.6(L) 27.0 - 32.0 pcg LAB HEMETOLOGY METHOD 06/29/2024 10:53 AM [facility] MCHC 31.2(L) 32.0 - 37.0 g/dL LAB HEMETOLOGY METHOD 06/29/2024 10:53 AM [facility] RDW 17.9(H) 11.0 - 15.0 % LAB HEMETOLOGY METHOD 06/29/2024 10:53 AM [facility] Platelets 288 130 - 400 K/mcL LAB HEMETOLOGY METHOD 06/29/2024 10:53 AM [facility] MPV 11.0 7.0 - 11.0 FL LAB HEMETOLOGY METHOD 06/29/2024 10:53 AM [facility] NRBC 0.0 <1.0 % LAB HEMETOLOGY METHOD 06/29/2024 10:53 AM [facility] NRBC Absolute 0.00 <0.10 K/mcL LAB HEMETOLOGY METHOD 06/29/2024 10:53 AM [facility] Blood Venous blood specimen / Unknown Venipuncture / Unknown 06/29/2024 7:05 AM EDT 06/29/2024 9:27 AM EDT Tim Simpson MD LAB BLOOD ORDERABLES Final R esult [facility] [address] [place] [address], documented in this encounter Visit Diagnoses Diagnosis Nausea with vomiting, unspecified documented in this encounter Care Teams Sales Service Promoter Relationship Specialty Start [place] [address] PCP - General 03/17/13 documented as of this encounter
--- OUTSIDE RECORDS SUMMARY | 2025-01-20 10:09 | XMS_ITS | Encounter Summary ---
Author Organization [facility] Address [address] [place] [phone] Care Team Providers Care Precinct I Police Sergeant Name Role Phone Joan Marshall DO Primary Care Provider [phone] Encounter Details Date Type Department Care Team (Latest Contact Info) Description 03/10/2024 Lab Requisition [facility] - Main Lab [address] [facility] [place] [address] Tim Simpson MD [address] [place], [place] [id number] Type 2 diabetes mellitus without complications (CMS/HCC [...] LAB CHEMISTRY METHOD 03/10/2024 2:14 PM EST [facility] Mean Bld Glu Estim. 209 mg/dL LAB CHEMISTRY METHOD 03/10/2024 2:14 PM [facility] Blood Venous blood specimen / Unknown Venipuncture / Unknown 03/10/2024 6:09 AM EST 03/10/2024 11:41 AM EST us Tim Simpson MD LAB BLOOD ORDERABLES Final R esult [facility] [address] [place] [address], [place] [phone] * (ABNORMAL) Basic metabolic panel (03/10/2024 6:09 AM EST) [facility] Sodium 132(L) 133 - 145 mmol/L LAB CHEMISTRY METHOD 03/10/2024 12:45 PM [facility] Potassium 3.6 3.5 - 5.5 mmol/L LAB CHEMISTRY METHOD 03/10/2024 12:45 PM [facility] Chloride 96 96 - 110 mmol/L LAB CHEMISTRY METHOD 03/10/2024 12:45 PM [facility] CO2 30 21 - 32 mmol/L LAB CHEMISTRY METHOD 03/10/2024 12:45 PM [facility] Anion Gap 6 3 - 11 LAB CHEMISTRY METHOD 03/10/2024 12:45 PM [facility] Glucose 141(H) 70 - 100 mg/dL LAB CHEMISTRY METHOD 03/10/2024 12:45 PM [facility] BUN 12 5 - 25 mg/dL LAB CHEMISTRY METHOD 03/10/2024 12:45 PM [facility] Creatinine 0.68 0.50 - 1.10 mg/dL LAB CHEMISTRY METHOD 03/10/2024 12:45 PM EST [facility] eGFR 106 >=60 mL/min/1. 73m2 LAB CHEMISTRY METHOD 03/10/2024 12:45 PM [facility] Comment:Calculation based on the Chronic Kidney Disease Epidemiology Collaboration (CKD-EPI) equation refit without adjustment for race. BUN/Creatinine Ratio 17.6 LAB CHEMISTRY METHOD 03/10/2024 12:45 PM EST [facility] Calcium 9.5 8.5 - 10.5 mg/dL LAB CHEMISTRY METHOD 03/10/2024 12:45 PM [facility] Blood Venous blood specimen / Unknown Venipuncture / Unknown 03/10/2024 6:09 AM EST 03/10/2024 11:41 AM EST us Tim Simpson MD LAB BLOOD ORDERABLES Final R esult [facility] [address] [place] [address], * (ABNORMAL) Complete blood count (03/10/2024 6:09 AM EST) WBC 5.4 4.8 - 10.8 K/mcL LAB HEMETOLOGY METHOD 03/10/2024 12:22 PM [facility] RBC 5.20(H) 3.80 - 4.80 M/mcL LAB HEMETOLOGY METHOD 03/10/2024 12:22 PM [facility] Hemoglobin 11.5 11.5 - 16.0 g/dL LAB HEMETOLOGY METHOD 03/10/2024 12:22 PM [facility] Hematocrit 38.2 35.0 - 47.0 % LAB HEMETOLOGY METHOD 03/10/2024 12:22 PM [facility] MCV 72.9(L) 79.0 - 98.0 FL LAB HEMETOLOGY METHOD 03/10/2024 12:22 PM EST [facility] MCH 21.9(L) 27.0 - 32.0 pcg LAB HEMETOLOGY METHOD 03/10/2024 12:22 PM EST [facility] MCHC 30.1(L) 32.0 - 37.0 g/dL LAB HEMETOLOGY METHOD 03/10/2024 12:22 PM [facility] RDW 20.4(H) 11.0 - 15.0 % LAB HEMETOLOGY METHOD 03/10/2024 12:22 PM EST [facility] Platelets 260 130 - 400 K/mcL LAB HEMETOLOGY METHOD 03/10/2024 12:22 PM [facility] MPV 10.5 7.0 - 11.0 FL LAB HEMETOLOGY METHOD 03/10/2024 12:22 PM [facility] NRBC 0.0 <1.0 % LAB HEMETOLOGY METHOD 03/10/2024 12:22 PM [facility] NRBC Absolute 0.00 <0.10 K/mcL LAB HEMETOLOGY METHOD 03/10/2024 12:22 PM [facility] Blood Venous blood specimen / Unknown Venipuncture / Unknown 03/10/2024 6:09 AM EST 03/10/2024 11:41 AM EST us Tim Simpson MD LAB BLOOD ORDERABLES Final R esult [facility] [address] [place] [address], documented in this encounter Visit Diagnoses Diagnosis Type 2 diabetes mellitus without complications (CMS/HCC V24, CMS/HCC V28) Other general symptoms and signs documented in this encounter Additional Health Concerns Infection Onset Date Last Indicated Resolved Time Respiratory Rule-Out 03/10/2024 03/10/2024 024 2:57 PM EST C. difficile Rule-Out 06/24/2024 06/24/20242024 1:28 PM EDT documented as of this encounter Care Teams Precinct I Police Sergeant Relationship Specialty Start Date [place] [address] PCP - General 03/17/13 documented as of this encounter
--- OUTSIDE RECORDS SUMMARY | 2025-01-20 10:09 | XMS_ITS | Encounter Summary ---
Author Organization [facility] Address [address] [place] [address] Care Team Providers Care Hoop Flaring Machine Operator Helper Name Role Phone Joan Marshall DO Primary Care Provider [phone] Encounter Details Date Type Department Care Team (Latest Contact Info) Description 04/27/2024 Lab Requisition [facility] - Main Lab [address] [place] [address] Tim Simpson MD [address] [place] [address] Essential (primary) hypertension; Type 2 diabetes mellitus [...] LAB CHEMISTRY METHOD 04/27/2024 11:55 AM EST [facility] Potassium 4.6 3.5 - 5.5 mmol/L LAB CHEMISTRY METHOD 04/27/2024 11:55 AM [facility] Chloride 98 96 - 110 mmol/L LAB CHEMISTRY METHOD 04/27/2024 11:55 AM [facility] CO2 32 21 - 32 mmol/L LAB CHEMISTRY METHOD 04/27/2024 11:55 AM [facility] Anion Gap 3 3 - 11 LAB CHEMISTRY METHOD 04/27/2024 11:55 AM [facility] Glucose 140(H) 70 - 100 mg/dL LAB CHEMISTRY METHOD 04/27/2024 11:55 AM [facility] BUN 18 5 - 25 mg/dL LAB CHEMISTRY METHOD 04/27/2024 11:55 AM [facility] Creatinine 0.91 0.50 - 1.10 mg/dL LAB CHEMISTRY METHOD 04/27/2024 11:55 AM [facility] eGFR 77 >=60 mL/min/1. 73m2 LAB CHEMISTRY METHOD 04/27/2024 11:55 AM [facility] Comment:Calculation based on the Chronic Kidney Disease Epidemiology Collaboration (CKD-EPI) equation refit without adjustment for race. BUN/Creatinine Ratio 19.8 LAB CHEMISTRY METHOD 04/27/2024 11:55 AM [facility] Calcium 9.5 8.5 - 10.5 mg/dL LAB CHEMISTRY METHOD 04/27/2024 11:55 AM [facility] Blood Venous blood specimen / Unknown Venipuncture / Unknown 04/27/2024 5:30 AM EST 04/27/2024 10:43 AM EST us Tim Simpson MD LAB BLOOD ORDERABLES Final R esult [facility] [address] [place] [address], [place] [phone] documented in this encounter Visit Diagnoses Diagnosis Essential (primary) hypertension Unspecified essential hypertension Type 2 diabetes mellitus without complications (CMS/HCC V24, CMS/HCC V28) documented in this encounter Additional Health Concerns Infection Onset Date Last Indicated Resolved Time C. difficile Rule-Out 06/24/2024 06/24/20242024 1:28 PM EDT documented as of this encounter Care Teams Hoop Flaring Machine Operator Helper Relationship Specialty Start Date [place] [address] PCP - General 03/17/13 documented as of this encounter
--- OUTSIDE RECORDS SUMMARY | 2025-01-20 10:09 | XMS_ITS | Encounter Summary ---
Author Organization [facility] Address [address] [place] [address] Care Team Providers Care Cyber Special Agent Name Role Phone Joan Marshall DO Primary Care Provider [phone] Encounter Details Date Type Department Care Team (Latest Contact Info) Description 01/09/2025 Lab Requisition [facility] - Main Lab 299 [facility] [place] [address] Tim Simpson MD [address], [place] [id number] Type 2 diabetes mellitus without complications (CMS/HCC V24, CMS/HCC V28); Weakness; Hyperlipidemia, unspecified; Other abnormal glucose; Encounter for general adult medical examination without abnormal findings; Constipation, unspecified; Hypo-osmolality and hyponatremia; Vitamin D deficiency, unspecified Social History Tobacco [...] Associated Diagnosis Comments COMPLETE BLOOD COUNT Routine 01/10/2025 5:45 AM EDT Type 2 diabetes mellitus without complications (CMS/HCC V24, CMS/HCC V28) Weakness Hyperlipidemia, unspecified Other abnormal glucose Encounter for general adult medical examination without abnormal findings Constipation, unspecified Hypo-osmolality and hyponatremia Vitamin D deficiency, unspecified BASIC METABOLIC PANEL Routine 01/10/2025 5:45 AM EDT Type 2 diabetes mellitus without complications (CMS/HCC V24, CMS/HCC V28) Weakness Hyperlipidemia, unspecified Other abnormal glucose Encounter for general adult medical examination without abnormal findings Constipation, unspecified Hypo-osmolality and hyponatremia Vitamin D deficiency, unspecified documented in this encounter Results * Basic metabolic panel (01/10/2025 5:45 AM EDT) Sodium 137 133 - 145 mmol/L LAB CHEMISTRY METHOD 01/10/2025 10:58 AM [facility] Potassium 4.0 3.5 - 5.5 mmol/L LAB CHEMISTRY METHOD 01/10/2025 10:58 AM [facility] Chloride 98 96 - 110 mmol/L LAB CHEMISTRY METHOD 01/10/2025 10:58 AM [facility] CO2 28 21 - 32 mmol/L LAB CHEMISTRY METHOD 01/10/2025 10:58 AM [facility] Anion Gap 11 3 - 11 LAB CHEMISTRY METHOD 01/10/2025 10:58 AM [facility] Glucose 99 70 - 100 mg/dL LAB CHEMISTRY METHOD 01/10/2025 10:58 AM [facility] BUN 11 5 - 25 mg/dL LAB CHEMISTRY METHOD 01/10/2025 10:58 AM [facility] Creatinine 0.65 0.50 - 1.10 mg/dL LAB CHEMISTRY METHOD 01/10/2025 10:58 AM [facility] eGFR 107 >=60 mL/min/1. 73m2 LAB CHEMISTRY METHOD 01/10/2025 10:58 AM [facility] Comment:Calculation based on the Chronic Kidney Disease Epidemiology Collaboration (CKD-EPI) equation refit without adjustment for race. BUN/Creatinine Ratio 16.9 LAB CHEMISTRY METHOD 01/10/2025 10:58 AM [facility] Calcium 9.7 8.5 - 10.5 mg/dL LAB CHEMISTRY METHOD 01/10/2025 10:58 AM [facility] Blood Venous blood specimen / Unknown Venipuncture / Unknown 01/10/2025 5:45 AM EDT 01/10/2025 9:31 AM EDT Tim Simpson MD LAB BLOOD ORDERABLES Final R esult [facility] [address] [place] [address], * (ABNORMAL) Complete blood count (01/10/2025 5:45 AM EDT) WBC 8.9 4.8 - 10.8 K/mcL LAB HEMETOLOGY METHOD 01/10/2025 10:07 AM [facility] RBC 4.60 3.80 - 4.80 M/mcL LAB HEMETOLOGY METHOD 01/10/2025 10:07 AM [facility] Hemoglobin 10.8(L) 11.5 - 16.0 g/dL LAB HEMETOLOGY METHOD 01/10/2025 10:07 AM [facility] Hematocrit 35.6 35.0 - 47.0 % LAB HEMETOLOGY METHOD 01/10/2025 10:07 AM [facility] MCV 76.7(L) 79.0 - 98.0 FL LAB HEMETOLOGY METHOD 01/10/2025 10:07 AM [facility] MCH 23.3(L) 27.0 - 32.0 pcg LAB HEMETOLOGY METHOD 01/10/2025 10:07 AM [facility] MCHC 30.3(L) 32.0 - 37.0 g/dL LAB HEMETOLOGY METHOD 01/10/2025 10:07 AM [facility] RDW 17.4(H) 11.0 - 15.0 % LAB HEMETOLOGY METHOD 01/10/2025 10:07 AM EDT [facility] Platelets 302 130 - 400 K/mcL LAB HEMETOLOGY METHOD 01/10/2025 10:07 AM EDT [facility] MPV 11.6(H) 7.0 - 11.0 FL LAB HEMETOLOGY METHOD 01/10/2025 10:07 AM EDT [facility] NRBC 0.0 <1.0 % LAB HEMETOLOGY METHOD 01/10/2025 10:07 AM EDT [facility] NRBC Absolute 0.00 <0.10 K/mcL LAB HEMETOLOGY METHOD 01/10/2025 10:07 AM EDT [facility] Blood Venous blood specimen / Unknown Venipuncture / Unknown 01/10/2025 5:45 AM EDT 01/10/2025 9:31 AM EDT us Tim Simpson MD LAB BLOOD ORDERABLES Final R esult [facility] [address] [place] [address], documented in this encounter Visit Diagnoses Diagnosis Type 2 diabetes mellitus without complications (CMS/HCC V24, CMS/HCC V28) Weakness Other malaise and fatigue Hyperlipidemia, unspecified Other abnormal glucose Encounter for general adult medical examination without abnormal findings Constipation, unspecified Hypo-osmolality and hyponatremia Vitamin D deficiency, unspecified documented in this encounter Care Teams Cyber Special Agent Relationship Specialty Start Date End Date Joan Marshall DO [address] [address] PCP - General 03/17/13 documented as of this encounter
--- OUTSIDE RECORDS SUMMARY | 2025-01-20 10:09 | XMS_ITS | Encounter Summary ---
Author Organization [facility] Address [address] [place] [address] Care Team Providers Care Supply Chain Assistant Name Role Phone Joan Marshall DO Primary Care Provider [phone] Encounter Details Date Type Department Care Team (Late st Contact Info) Description 06/25/2024 Lab Requisition [facility] - Main Lab [address] [facility] [place] [address] Tim Simpson MD [address] [place] [address] Diarrhea, unspecified Social History Tobacco Use Types [...] Antigen Negative Negative 06/25/2024 1:28 PM EDT [facility] C difficile Toxins A+B, EIA Negative Negative 06/25/2024 1:28 PM EDT [facility] Comment:NEGATIVE FOR TOXIN P RODUCING CLOSTRIDIOIDES DIFFICILE, NO ADDITIONAL TESTING IS NECESSARY. Stool Rectum structure / Unknown 06/24/2024 12:50 PM EDT 06/25/2024 11:38 AM EDT Tim Simpson MD LAB MICROBIOLOGY - GENERAL O RDERABLES Final Result [facility] [address] [place] [address], documented in this encounter Visit Diagnoses Diagnosis Diarrhea, unspecified documented in this encounter Additional Health Concerns Infection Onset Date Last Indicated Resolved Time C. difficile Rule-Out 06/24/2024 06/24/20242024 1:28 PM EDT documented as of this encounter Care Teams Supply Chain Assistant Relationship Specialty Start Date End Date Joan Marshall DO [address] [address] PCP - General 03/17/13 documented as of this encounter
--- OUTSIDE RECORDS SUMMARY | 2025-01-20 10:09 | XMS_ITS | Encounter Summary ---
Author Organization [facility] Address [address] [place] [address] Care Team Providers Care Radiation Oncology Nurse Name Role Phone Joan Marshall DO Primary Care Provider [phone] Encounter Details Date Type Department Care Team (Late st Contact Info) Description 03/10/2024 Lab Requisition [facility] - Main Lab [address] [place] [address] Tim Simpson MD [address] [place] [address] Cough, unspecified Social History Tobacco Use Types [...] Procedure Name Priority Date/Time Associated Diagnosis Comments [id number], RSV, FLU A AND B QUALITATIVE RT-PCR, LOCAL REFERENCE LAB Routine 03/10/2024 7:00 AM EST Cough, unspecified documented in this encounter Results * [id number], RSV, Influenza A and B qualitative RT-PCR (03/10/2024 7:00 AM EST) SARS COV-2 Not Detected Not Detected LAB MOLECULAR DIAGNOSTICS METHOD 03/10/2024 2:57 PM EST [facility] Comment: Disclaimer: The manner in which [...] for Healthcare Providers can be found at: https://www.fda.gov/media/637156/download Fact sheet for Patients can be found at: https://www.fda.gov/media/233986/download Influenza A PCR Not Detected Not Detected LAB MOLECULAR DIAGNOSTICS METHOD 03/10/2024 2:57 PM EST [facility] Influenza B PCR Not Detected Not Detected LAB MOLECULAR DIAGNOSTICS METHOD 03/10/2024 2:57 PM EST [facility] RSV PCR Not Detected Not Detected LAB MOLECULAR DIAGNOSTICS METHOD 03/10/2024 2:57 PM [facility] Swab Nasopharyngeal structure / Unknown 03/10/2024 7:00 AM EST 03/10/2024 11:47 AM EST iTm Simpson MD LAB MICROBIOLOGY - GENERAL O RDERABLES Final Result [facility] [address] [place] [address], documented in this encounter Visit Diagnoses Diagnosis Cough, unspecified documented in this encounter Additional Health Concerns Infection Onset Date Last Indicated Resolved Time Respiratory Rule-Out 03/10/2024 03/10/2024 024 2:57 PM EST C. difficile Rule-Out 06/24/2024 06/24/20242024 1:28 PM EDT documented as of this encounter Care Teams Radiation Oncology Nurse Relationship Specialty Start Date End Date Joan Marshall DO [address] [place] [address] PCP - General 03/17/13 documented as of this encounter
--- OUTSIDE RECORDS SUMMARY | 2025-01-20 10:09 | XMS_ITS | Encounter Summary ---
Author Organization [facility] Address [address] [place] [address] Care Team Providers Care Insurance Consultant Name Role Phone Joan Marshall DO Primary Care Provider [phone] Encounter Details Date Type Department Care Team (Latest Contact Info) Description 05/10/2024 Lab Requisition [facility] - Main Lab [address] [place] [address] Tim Simpson MD [address] [place] [address] Type 2 diabetes mellitus without complications (CMS/HCC [...] LAB CHEMISTRY METHOD 05/10/2024 1:00 PM EST [facility] Potassium 4.4 3.5 - 5.5 mmol/L LAB CHEMISTRY METHOD 05/10/2024 1:00 PM EST [facility] Chloride 100 96 - 110 mmol/L LAB CHEMISTRY METHOD 05/10/2024 1:00 PM [facility] CO2 27 21 - 32 mmol/L LAB CHEMISTRY METHOD 05/10/2024 1:00 PM [facility] Anion Gap 8 3 - 11 LAB CHEMISTRY METHOD 05/10/2024 1:00 PM [facility] Glucose 170(H) 70 - 100 mg/dL LAB CHEMISTRY METHOD 05/10/2024 1:00 PM [facility] BUN 16 5 - 25 mg/dL LAB CHEMISTRY METHOD 05/10/2024 1:00 PM [facility] Creatinine 0.71 0.50 - 1.10 mg/dL LAB CHEMISTRY METHOD 05/10/2024 1:00 PM [facility] eGFR 104 >=60 mL/min/1. 73m2 LAB CHEMISTRY METHOD 05/10/2024 1:00 PM [facility] Comment:Calculation based on the Chronic Kidney Disease Epidemiology Collaboration (CKD-EPI) equation refit without adjustment for race. BUN/Creatinine Ratio 22.5 LAB CHEMISTRY METHOD 05/10/2024 1:00 PM [facility] Calcium 9.2 8.5 - 10.5 mg/dL LAB CHEMISTRY METHOD 05/10/2024 1:00 PM [facility] Blood Venous blood specimen / Unknown Venipuncture / Unknown 05/10/2024 7:08 AM EST 05/10/2024 11:38 AM EST us Tim Simpson MD LAB BLOOD ORDERABLES Final R esult [facility] [address] [place] [address], documented in this encounter Visit Diagnoses Diagnosis Type 2 diabetes mellitus without complications (CMS/HCC V24, CMS/HCC V28) documented in this encounter Additional Health Concerns Infection Onset Date Last Indicated Resolved Time C. difficile Rule-Out 06/24/2024 06/24/20242024 1:28 PM EDT documented as of this encounter Care Teams Insurance Consultant Relationship Specialty Start Date [place] [address] PCP - General 03/17/13 documented as of this encounter
--- OUTSIDE RECORDS SUMMARY | 2025-01-20 10:09 | XMS_ITS | Clinical Summary ---
Author Organization [employer] Address [address] [facility] [address] [place] [address] Care Team Providers Care Green Chain Off Bearer Name Role Phone Unavailable Primary Care Provider [...]
--- OUTSIDE RECORDS SUMMARY | 2025-01-20 10:09 | XMS_ITS | Encounter Summary ---
Author Organization [facility] Address [address] [place] [address] Care Team Providers Care Pile Driving Superintendent Name Role Phone Joan Marshall DO Primary Care Provider [phone] Encounter Details Date Type Department Care Team (Latest Contact Info) Description 06/30/2024 Lab Requisition [facility] - Main Lab [address] [place] [address] Tim Simpson MD [address] [place], [place] [id number] Type 2 diabetes mellitus without complications (CMS/HCC [...] 2 diabetes mellitus without complications (CMS/HCC V24, CMS/[facility] V28) documented in this encounter Results * (ABNORMAL) Basic metabolic panel (06/30/2024 6:10 AM EDT) Sodium 136 133 - 145 mmol/L LAB CHEMISTRY METHOD 06/30/2024 9:45 AM EDT [facility] Potassium 4.5 3.5 - 5.5 mmol/L LAB CHEMISTRY METHOD 06/30/2024 9:[address] [facility] Chloride 102 96 - 110 mmol/L LAB CHEMISTRY METHOD 06/30/2024 9:[address] [facility] CO2 25 21 - 32 mmol/L LAB CHEMISTRY METHOD 06/30/2024 9:[address] [facility] Anion Gap 9 3 - 11 LAB CHEMISTRY METHOD 06/30/2024 9:[address] [facility] Glucose 136(H) 70 - 100 mg/dL LAB CHEMISTRY METHOD 06/30/2024 9:[address] [facility] BUN 27(H) 5 - 25 mg/dL LAB CHEMISTRY METHOD 06/30/2024 9:[address] [facility] Creatinine 1.18(H) 0.50 - 1.10 mg/dL LAB CHEMISTRY METHOD 06/30/2024 9:[address] [facility] eGFR 56(L) >=60 mL/min/1. 73m2 LAB CHEMISTRY METHOD 06/30/2024 9:[address] [facility] Comment:Calculation based on the Chronic Kidney Disease Epidemiology Collaboration (CKD-EPI) equation refit without adjustment for race. BUN/Creatinine Ratio 22.9 LAB CHEMISTRY METHOD 06/30/2024 9:[address] [facility] Calcium 9.5 8.5 - 10.5 mg/dL LAB CHEMISTRY METHOD 06/30/2024 9:[address] [facility] Blood Venous blood specimen / Unknown Venipuncture / Unknown 06/30/2024 6:10 AM EDT 06/30/2024 8:59 AM EDT us Tim Simpson MD LAB BLOOD ORDERABLES Final R esult [facility] [address] [place] [address], documented in this encounter Visit Diagnoses Diagnosis Type 2 diabetes mellitus without complications (CMS/[facility] V24, CMS/[facility] V28) documented in this encounter Care Teams Pile Driving Superintendent Relationship Specialty Start [place] [address] PCP - General 03/17/13 documented as of this encounter
== END 2025-01-20 10:14 | disposition home or self-care (01) ==
LOC: HO.HOS 09:07
PROVIDERS: Visit Provider Physical Medicine & Rehabilitation
DX: M21.371 Foot drop, right foot (principal); G83.31 Monoplegia, unspecified affecting right dominant side
CPT/HCPCS: 99213

== ENCOUNTER → 2025-01-20 09:06 | Outpatient (BNVA) | payer MEDICAID, SELFPAY | PROVIDERS: Visit Provider Physical Medicine & Rehabilitation | DX: G83.31 Monoplegia, unspecified affecting right dominant side (principal); M21.371 Foot drop, right foot | CPT/HCPCS: 99212 ==

== ENCOUNTER 2025-02-15 13:11 | Outpatient (REF) | payer MEDICAID, SELFPAY ==
--- NOTE | 2025-02-15 13:15 | EMG_ITS ---
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 The patient lied on stretcher. Right leg was cleansed with betadine in the usual sterile manner. A 25 gauge 2 in needle electrode was used. Muscle Units per site Number of sites Units per muscle Right soleus 50 2 100 Right LG 50 2 100 Right TP 50 2 100 Right MG 50 2 100 EMG-guidance was used during the injection. A total of 400 units injected. 0 units wastage. Vial size: 200 units per vial, 2 vials Dilution: 100 units per 2 ml of preservative free saline The patient tolerated the procedure well without complications. The patient was observed for 30 minutes, before being discharged with post procedure instructions. CODING: CPT code: 22153 1 ext, 1-4 muscles Wastage: None Guidance code: 24328 EMG guidance for chemodenervation J code: Botox J0585 [facility] code: 7172-1177-37 Lot #: [id number] Ex[facility] date: [facility]
--- OUTSIDE RECORDS SUMMARY | 2025-02-15 15:40 | XMS_ITS | Encounter Summary ---
Author Organization [facility] Address [address] [place] [address] Care Team Providers Care Warehousing Technician Name Role Phone Joan Marshall DO Primary Care Provider [phone] Encounter Details Date Type Department Care Team (Latest Contact Info) Description 11/11/2024 Lab Requisition [facility] - Main Lab [address] [place] [address] Tim Simpson MD [address] [place] [address] Type 2 diabetes mellitus without complications (CMS/HCC V24, CMS/[facility] V28) Social History Tobacco Use Types [...] mellitus without complications (CMS/HCC V24, CMS/[facility] V28) documented in this encounter Results * (ABNORMAL) Basic metabolic panel (11/11/2024 7:13 AM EDT) Sodium 130(L) 133 - 145 mmol/L LAB CHEMISTRY METHOD 11/11/2024 9:34 AM EDT [facility] Potassium 4.4 3.5 - 5.5 mmol/L LAB CHEMISTRY METHOD 11/11/2024 9:34 AM [facility] Chloride 94(L) 96 - 110 mmol/L LAB CHEMISTRY METHOD 11/11/2024 9:34 AM [facility] CO2 29 21 - 32 mmol/L LAB CHEMISTRY METHOD 11/11/2024 9:34 AM [facility] Anion Gap 7 3 - 11 LAB CHEMISTRY METHOD 11/11/2024 9:34 AM [facility] Glucose 195(H) 70 - 100 mg/dL LAB CHEMISTRY METHOD 11/11/2024 9:34 AM [facility] BUN 15 5 - 25 mg/dL LAB CHEMISTRY METHOD 11/11/2024 9:34 AM [facility] Creatinine 0.82 0.50 - 1.10 mg/dL LAB CHEMISTRY METHOD 11/11/2024 9:34 AM [facility] eGFR 87 >=60 mL/min/1. 73m2 LAB CHEMISTRY METHOD 11/11/2024 9:34 AM [facility] Comment:Calculation based on the Chronic Kidney Disease Epidemiology Collaboration (CKD-EPI) equation refit without adjustment for race. BUN/Creatinine Ratio 18.3 LAB CHEMISTRY METHOD 11/11/2024 9:34 AM [facility] Calcium 9.3 8.5 - 10.5 mg/dL LAB CHEMISTRY METHOD 11/11/2024 9:34 AM [facility] Blood Venous blood specimen / Unknown Venipuncture / Unknown 11/11/2024 7:13 AM EDT 11/11/2024 8:45 AM EDT us Tim Simpson MD LAB BLOOD ORDERABLES Final R esult [facility] [address] [place] [address], documented in this encounter Visit Diagnoses Diagnosis Type 2 diabetes mellitus without complications (CMS/HCC V24, CMS/HCC V28) documented in this encounter Care Teams Warehousing Technician Relationship Specialty Start [place] [address] PCP - General 03/17/13 documented as of this encounter
--- OUTSIDE RECORDS SUMMARY | 2025-02-15 15:40 | XMS_ITS | Encounter Summary ---
Author Organization [facility] Address [address] [place] [address] Care Team Providers Care Liquor Store Manager Name Role Phone Joan Marshall DO Primary Care Provider [phone] Encounter Details Date Type Department Care Team (Late st Contact Info) Description 11/15/2024 Lab Requisition [facility] - Main Lab [address] [facility] [place] [address] Tim Simpson MD [address] [place] [address] Hypo-osmolality and hyponatremia Social History Tobacco Use [...] LAB CHEMISTRY METHOD 11/15/2024 2:[address] [facility] Potassium 4.0 3.5 - 5.5 mmol/L LAB CHEMISTRY METHOD 11/15/2024 2:[address] [facility] Chloride 98 96 - 110 mmol/L LAB CHEMISTRY METHOD 11/15/2024 2:[address] [facility] CO2 28 21 - 32 mmol/L LAB CHEMISTRY METHOD 11/15/2024 2:[address] [facility] Anion Gap 7 3 - 11 LAB CHEMISTRY METHOD 11/15/2024 2:[address] [facility] Glucose 220(H) 70 - 100 mg/dL LAB CHEMISTRY METHOD 11/15/2024 2:[address] [facility] BUN 16 5 - 25 mg/dL LAB CHEMISTRY METHOD 11/15/2024 2:[address] [facility] Creatinine 0.88 0.50 - 1.10 mg/dL LAB CHEMISTRY METHOD 11/15/2024 2:[address] [facility] eGFR 80 >=60 mL/min/1. 73m2 LAB CHEMISTRY METHOD 11/15/2024 2:[address] [facility] Comment:Calculation based on the Chronic Kidney Disease Epidemiology Collaboration (CKD-EPI) equation refit without adjustment for race. BUN/Creatinine Ratio 18.2 LAB CHEMISTRY METHOD 11/15/2024 2:[address] [facility] Calcium 9.2 8.5 - 10.5 mg/dL LAB CHEMISTRY METHOD 11/15/2024 2:[address] [facility] Blood Venous blood specimen / Unknown Venipuncture / Unknown 11/15/2024 8:11 AM EDT 11/15/2024 10:29 AM EDT us Tim Simpson MD LAB BLOOD ORDERABLES Final R esult [facility] [address] [place] [address], documented in this encounter Visit Diagnoses Diagnosis Hypo-osmolality and hyponatremia documented in this encounter Care Teams Liquor Store Manager Relationship Specialty Start Date End Date Joan Marshall DO [place] [address] [address] PCP - General 03/17/13 documented as of this encounter
--- OUTSIDE RECORDS SUMMARY | 2025-02-15 15:40 | XMS_ITS | Encounter Summary ---
Author Organization [facility] Address [address] [place] [address] Care Team Providers Care Race Starter Name Role Phone Joan Marshall DO Primary Care Provider [phone] Encounter Details Date Type Department Care Team (Late st Contact Info) Description 09/22/[address] [facility] - Main Lab [address] [facility] [place] [address] Tim Simpson MD [address] [place] [address] Hypo-osmolality and hyponatremia Social History Tobacco Use [...] LAB CHEMISTRY METHOD 09/23/2024 9:58 AM EDT [facility] Potassium 4.4 3.5 - 5.5 mmol/L LAB CHEMISTRY METHOD 09/23/2024 9:58 AM EDT [facility] Chloride 97 96 - 110 mmol/L LAB CHEMISTRY METHOD 09/23/2024 9:58 AM [facility] CO2 27 21 - 32 mmol/L LAB CHEMISTRY METHOD 09/23/2024 9:58 AM [facility] Anion Gap 9 3 - 11 LAB CHEMISTRY METHOD 09/23/2024 9:58 AM [facility] Glucose 118(H) 70 - 100 mg/dL LAB CHEMISTRY METHOD 09/23/2024 9:58 AM [facility] BUN 17 5 - 25 mg/dL LAB CHEMISTRY METHOD 09/23/2024 9:58 AM [facility] Creatinine 0.94 0.50 - 1.10 mg/dL LAB CHEMISTRY METHOD 09/23/2024 9:58 AM [facility] LAB eGFR 74 >=60 mL/min/1. 73m2 LAB CHEMISTRY METHOD 09/23/2024 9:58 AM [facility] Comment:Calculation based on the Chronic Kidney Disease Epidemiology Collaboration (CKD-EPI) equation refit without adjustment for race. BUN/Creatinine Ratio 18.1 LAB CHEMISTRY METHOD 09/23/2024 9:58 AM [facility] Calcium 9.8 8.5 - 10.5 mg/dL LAB CHEMISTRY METHOD 09/23/2024 9:58 AM [facility] Blood Venous blood specimen / Unknown Venipuncture / Unknown 09/23/2024 7:32 AM EDT 09/23/2024 9:21 AM EDT us Tim Simpson MD LAB BLOOD ORDERABLES Final R esult [facility] [address] [place] [address], documented in this encounter Visit Diagnoses Diagnosis Hypo-osmolality and hyponatremia documented in this encounter Care Teams Race Starter Relationship Specialty Start Date End Date Joan Marshall DO [place] [address] [address] PCP - General 03/17/13 documented as of this encounter
--- OUTSIDE RECORDS SUMMARY | 2025-02-15 15:40 | XMS_ITS | Encounter Summary ---
Author Organization [facility] Address [address] [place] [address] Care Team Providers Care Brake Repairer Name Role Phone Joan Marshall DO Primary Care Provider [phone] Encounter Details Date Type Department Care Team (Latest Contact Info) Description 09/19/2024 Lab Requisition [facility] - Main Lab [address] [facility] [place] [address] Tim Simpson MD [address] [place] [address] Anemia, unspecified; Hyperlipidemia, unspecified; Weakness; Type 2 [...] Weakness Type 2 diabetes mellitus without complications ([facility] V24, [facility] V28) Vitamin D deficiency, unspecified COMPLETE BLOOD COUNT Routine 09/19/2024 5:06 AM EDT Anemia, unspecified Hyperlipidemia, unspecified Weakness Type 2 diabetes mellitus without complications ([facility] V24, [facility] V28) Vitamin D deficiency, unspecified HEMOGLOBIN A1C Routine 09/19/2024 5:06 AM EDT Anemia, unspecified Hyperlipidemia, unspecified Weakness Type 2 diabetes mellitus without complications ([facility] V24, [facility] V28) Vitamin D deficiency, unspecified COMPREHENSIVE METABOLIC PANEL Routine 09/19/2024 5:06 AM EDT Anemia, unspecified Hyperlipidemia, unspecified Weakness Type 2 diabetes mellitus without complications ([facility] V24, [facility] V28) Vitamin D deficiency, unspecified documented in this encounter Results * Vitamin D 25 hydroxy (09/19/2024 5:06 AM EDT) Pathologist [facility] Vit D, 25-Hydroxy 32.4 30.0 - 80.0 ng/mL LAB CHEMISTRY METHOD 09/19/2024 2:29 PM EDT [facility] Blood Venous blood specimen / Unknown Venipuncture / Unknown 09/19/2024 5:06 AM EDT 09/19/2024 11:33 AM EDT us Tim Simpson MD LAB BLOOD ORDERABLES Final R esult [facility] [address] [place] [address], * (ABNORMAL) Hemoglobin A1c (09/19/2024 5:06 AM EDT) Pathologist [facility] Hemoglobin A1C 7.6(H) <6.5 % LAB CHEMISTRY METHOD 09/20/2024 2:13 PM EDT [facility] Mean Bld Glu Estim. 171 mg/dL LAB CHEMISTRY METHOD 09/20/2024 2:13 PM EDT [facility] Blood Venous blood specimen / Unknown Venipuncture / Unknown 09/19/2024 5:06 AM EDT 09/19/2024 11:33 AM EDT Tim Simpson MD LAB BLOOD ORDERABLES Final R esult Performing Organization Address [facility] Co de Phone Number [facility] [address] [place] [address], [place] [phone] * Thyroid stimulating hormone with reflex to free t4 and free t3 (09/19/2024 5:06 AM EDT) TSH 1.86 0.40 - 4.00 mcIU/mL LAB CHEMISTRY METHOD 09/19/2024 2:29 PM EDT [facility] Blood Venous blood specimen / Unknown Venipuncture / Unknown 09/19/2024 5:06 AM EDT 09/19/2024 11:33 AM EDT Tim Simpson MD LAB BLOOD ORDERABLES Final R esult Performing Organization Address [facility] Co de Phone Number [facility] [address] [place] [address], [place] [phone] * Lipid panel with reflex to direct LDL (09/19/2024 5:06 AM EDT) Cholesterol 107 0 - 200 mg/dL LAB CHEMISTRY METHOD 09/19/2024 1:38 PM EDT [facility] Triglycerides 89 0 - 150 mg/dL LAB CHEMISTRY METHOD 09/19/2024 1:38 PM EDT [facility] HDL 48 >=40 mg/dL LAB CHEMISTRY METHOD 09/19/2024 1:38 PM EDT [facility] LDL Calculated 41 0 - 100 mg/dL LAB CHEMISTRY METHOD 09/19/2024 1:38 PM EDT [facility] VLDL Cholesterol Shaheen 17.8 mg/dL LAB CHEMISTRY METHOD 09/19/2024 1:38 PM EDT [facility] Non HDL Chol. (LDL+VLDL) 59 <145 mg/dL LAB CHEMISTRY METHOD 09/19/2024 1:38 PM EDT [facility] Chol/HDL Ratio 2.2 0.0 - 4.4 LAB CHEMISTRY METHOD 09/19/2024 1:38 PM EDT [facility] Blood Venous blood specimen / Unknown Venipuncture / Unknown 09/19/2024 5:06 AM EDT 09/19/2024 11:33 AM EDT us Tim Simpson MD LAB BLOOD ORDERABLES Final R esult [facility] [address] [place] [address], * (ABNORMAL) Comprehensive metabolic panel (09/19/2024 5:06 AM EDT) Sodium 124(L) 133 - 145 mmol/L LAB CHEMISTRY METHOD 09/19/2024 1:38 PM T [facility] Potassium 3.8 3.5 - 5.5 mmol/L LAB CHEMISTRY METHOD 09/19/2024 1:38 PM EDT [facility] Chloride 87(L) 96 - 110 mmol/L LAB CHEMISTRY METHOD 09/19/2024 1:38 PM EDT [facility] CO2 28 21 - 32 mmol/L LAB CHEMISTRY METHOD 09/19/2024 1:38 PM T [facility] Anion Gap 9 3 - 11 LAB CHEMISTRY METHOD 09/19/2024 1:38 PM EDT [facility] Glucose 57(L) 70 - 100 mg/dL LAB CHEMISTRY METHOD 09/19/2024 1:38 PM [facility] BUN 13 5 - 25 mg/dL LAB CHEMISTRY METHOD 09/19/2024 1:38 PM [facility] Creatinine 0.83 0.50 - 1.10 mg/dL LAB CHEMISTRY METHOD 09/19/2024 1:38 PM [facility] eGFR 86 >=60 mL/min/1. 73m2 LAB CHEMISTRY METHOD 09/19/2024 1:38 PM [facility] Comment:Calculation based on the Chronic Kidney Disease Epidemiology Collaboration (CKD-EPI) equation refit without adjustment for race. BUN/Creatinine Ratio 15.7 LAB CHEMISTRY METHOD 09/19/2024 1:38 PM [facility] Calcium 9.5 8.5 - 10.5 mg/dL LAB CHEMISTRY METHOD 09/19/2024 1:38 PM [facility] AST (SGOT) 13 10 - 42 unit/L LAB CHEMISTRY METHOD 09/19/2024 1:38 PM [facility] ALT (SGPT) 17 10 - 60 unit/L LAB CHEMISTRY METHOD 09/19/2024 1:38 PM [facility] Alkaline Phosphatase 92 42 - 121 unit/L LAB CHEMISTRY METHOD 09/19/2024 1:38 PM [facility] Total Protein 5.9(L) 6.0 - 8.0 g/dL LAB CHEMISTRY METHOD 09/19/2024 1:38 PM [facility] Albumin 3.0(L) 3.2 - 5.0 g/dL LAB CHEMISTRY METHOD 09/19/2024 1:38 PM [facility] Total Bilirubin 0.2 0.0 - 1.4 mg/dL LAB CHEMISTRY METHOD 09/19/2024 1:38 PM [facility] Blood Venous blood specimen / Unknown Venipuncture / Unknown 09/19/2024 5:06 AM EDT 09/19/2024 11:33 AM EDT us Tim Simpson MD LAB BLOOD ORDERABLES Final R esult [facility] [address] [place] [address], [place] [phone] * (ABNORMAL) Complete blood count (09/19/2024 5:06 AM EDT) WBC 9.2 4.8 - 10.8 K/mcL LAB HEMETOLOGY METHOD 09/19/2024 1:10 PM EDT [facility] RBC 4.30 3.80 - 4.80 M/mcL LAB HEMETOLOGY METHOD 09/19/2024 1:10 PM EDT [facility] Hemoglobin 10.3(L) 11.5 - 16.0 g/dL LAB HEMETOLOGY METHOD 09/19/2024 1:10 PM EDT [facility] Hematocrit 33.2(L) 35.0 - 47.0 % LAB HEMETOLOGY METHOD 09/19/2024 1:10 PM EDT [facility] MCV 76.5(L) 79.0 - 98.0 FL LAB HEMETOLOGY METHOD 09/19/2024 1:10 PM EDT [facility] MCH 23.7(L) 27.0 - 32.0 pcg LAB HEMETOLOGY METHOD 09/19/2024 1:10 PM EDT [facility] MCHC 31.0(L) 32.0 - 37.0 g/dL LAB HEMETOLOGY METHOD 09/19/2024 1:10 PM EDT [facility] RDW 16.3(H) 11.0 - 15.0 % LAB HEMETOLOGY METHOD 09/19/2024 1:10 PM EDT [facility] Platelets 264 130 - 400 K/mcL LAB HEMETOLOGY METHOD 09/19/2024 1:10 PM EDT [facility] MPV 10.1 7.0 - 11.0 FL LAB HEMETOLOGY METHOD 09/19/2024 1:10 PM EDT [facility] NRBC 0.0 <1.0 % LAB HEMETOLOGY METHOD 09/19/2024 1:10 PM EDT [facility] NRBC Absolute 0.00 <0.10 K/mcL LAB HEMETOLOGY METHOD 09/19/2024 1:10 PM EDT [facility] Blood Venous blood specimen / Unknown Venipuncture / Unknown 09/19/2024 5:06 AM EDT 09/19/2024 11:33 AM EDT us Tim Simpson MD LAB BLOOD ORDERABLES Final R esult [facility] [address] [place] [address], documented in this encounter Visit Diagnoses Diagnosis Anemia, unspecified Hyperlipidemia, unspecified Weakness Other malaise and fatigue Type 2 diabetes mellitus without complications (CMS/HCC V24, CMS/HCC V28) Vitamin D deficiency, unspecified documented in this encounter Care Teams Brake Repairer Relationship Specialty Start Date End Date Joan Marshall DO [address] [address] PCP - General 03/17/13 documented as of this encounter
--- OUTSIDE RECORDS SUMMARY | 2025-02-15 15:40 | XMS_ITS | Encounter Summary ---
Author Organization [facility] Address [address] [place] [address] Care Team Providers Care Sourcer Name Role Phone Joan Marshall DO Primary Care Provider [phone] Encounter Details Date Type Department Care Team (Latest Contact Info) Description 11/13/2024 Lab Requisition [facility] - Main Lab 299 [facility] [place] [address] Tim Simpson MD [address] [place], [place] [id number] Type 2 diabetes mellitus with diabetic mononeuropathy ([facility] V24, [facility] V28); Personal history of urinary (tract) infections [...] Type 2 diabetes mellitus with diabetic mononeuropathy ([facility] V24, [facility] V28) Personal history of urinary (tract) infections documented in this encounter Results * Sodium, urine, random (11/12/2024 5:10 AM EDT) Sodium, Ur 92 mmol/L LAB CHEMISTRY METHOD 11/13/2024 11:40 AM EDT [facility] Urine Urine specimen obtained by clean catch procedure / Unknown Non-blood Collection / Unknown 11/12/2024 5:10 AM EDT 11/13/2024 10:59 AM EDT us Tim Simpson MD LAB URINE ORDERABLES Final R esult [facility] [address] [place] [address], documented in this encounter Visit Diagnoses Diagnosis Type 2 diabetes mellitus with diabetic mononeuropathy ([facility] V24, [facility] V28) Personal history of urinary (tract) infections documented in this encounter Care Teams Sourcer Relationship Specialty Start Date End Date Joan Marshall DO [address] [address] PCP - General 03/17/13 documented as of this encounter
--- OUTSIDE RECORDS SUMMARY | 2025-02-15 15:40 | XMS_ITS | Encounter Summary ---
Author Organization [facility] Address [address] [place] [address] Care Team Providers Care Steam Fitter Helper Name Role Phone Joan Marshall DO Primary Care Provider [phone] Encounter Details Date Type Department Care Team (Late st Contact Info) Description 12/27/2024 Lab Requisition [facility] - Main Lab 299 [facility] [employer] [place] [address] Tim Simpson MD [address] [place] [address] Hyperkalemia; Hyperlipidemia, unspecified Social History Tobacco Use [...] LAB CHEMISTRY METHOD 12/28/2024 9:08 AM EDT [facility] Potassium 4.8 3.5 - 5.5 mmol/L LAB CHEMISTRY METHOD 12/28/2024 9:08 AM EDT [facility] Chloride 106 96 - 110 mmol/L LAB CHEMISTRY METHOD 12/28/2024 9:08 AM [facility] CO2 25 21 - 32 mmol/L LAB CHEMISTRY METHOD 12/28/2024 9:08 AM [facility] Anion Gap 7 3 - 11 LAB CHEMISTRY METHOD 12/28/2024 9:08 AM [facility] Glucose 135(H) 70 - 100 mg/dL LAB CHEMISTRY METHOD 12/28/2024 9:08 AM [facility] BUN 13 5 - 25 mg/dL LAB CHEMISTRY METHOD 12/28/2024 9:08 AM [facility] Creatinine 0.75 0.50 - 1.10 mg/dL LAB CHEMISTRY METHOD 12/28/2024 9:08 AM [facility] eGFR 97 >=60 mL/min/1. 73m2 LAB CHEMISTRY METHOD 12/28/2024 9:08 AM [facility] Comment:Calculation based on the Chronic Kidney Disease Epidemiology Collaboration (CKD-EPI) equation refit without adjustment for race. BUN/Creatinine Ratio 17.3 LAB CHEMISTRY METHOD 12/28/2024 9:08 AM [facility] Calcium 9.4 8.5 - 10.5 mg/dL LAB CHEMISTRY METHOD 12/28/2024 9:08 AM [facility] AST (SGOT) 14 10 - 42 unit/L LAB CHEMISTRY METHOD 12/28/2024 9:08 AM [facility] ALT (SGPT) 21 10 - 60 unit/L LAB CHEMISTRY METHOD 12/28/2024 9:08 AM [facility] Alkaline Phosphatase 136(H) 42 - 121 unit/L LAB CHEMISTRY METHOD 12/28/2024 9:08 AM [facility] Total Protein 5.9(L) 6.0 - 8.0 g/dL LAB CHEMISTRY METHOD 12/28/2024 9:08 AM [facility] Albumin 2.7(L) 3.2 - 5.0 g/dL LAB CHEMISTRY METHOD 12/28/2024 9:08 AM EDT [facility] Total Bilirubin 0.2 0.0 - 1.4 mg/dL LAB CHEMISTRY METHOD 12/28/2024 9:08 AM EDT [facility] Blood Venous blood specimen / Unknown Venipuncture / Unknown 12/28/2024 5:21 AM EDT 12/28/2024 8:34 AM EDT us Tim Simpson MD LAB BLOOD ORDERABLES Final R esult [facility] [address] [place] [address], documented in this encounter Visit Diagnoses Diagnosis Hyperkalemia Hyperpotassemia Hyperlipidemia, unspecified documented in this encounter Care Teams Steam Fitter Helper Relationship Specialty Start Date End Date Joan Marshall DO [address] [address] PCP - General 03/17/13 documented as of this encounter
--- OUTSIDE RECORDS SUMMARY | 2025-02-15 15:40 | XMS_ITS | Encounter Summary ---
Author Organization [facility] Address [address] [place] [address] Care Team Providers Care Cabinet Assembler Name Role Phone Joan Marshall DO Primary Care Provider [phone] Encounter Details Date Type Department Care Team (Late st Contact Info) Description 12/21/2024 Lab Requisition [facility] - Main Lab [address] [place] [address] Tim Simpson MD [address] [place] [address] Constipation, unspecified Social History Tobacco Use Types [...] LAB CHEMISTRY METHOD 12/21/2024 11:15 AM EDT [facility] Potassium 3.8 3.5 - 5.5 mmol/L LAB CHEMISTRY METHOD 12/21/2024 11:15 AM [facility] Chloride 103 96 - 110 mmol/L LAB CHEMISTRY METHOD 12/21/2024 11:15 AM [facility] CO2 25 21 - 32 mmol/L LAB CHEMISTRY METHOD 12/21/2024 11:15 AM [facility] Anion Gap 10 3 - 11 LAB CHEMISTRY METHOD 12/21/2024 11:15 AM [facility] Glucose 84 70 - 100 mg/dL LAB CHEMISTRY METHOD 12/21/2024 11:15 AM [facility] BUN 12 5 - 25 mg/dL LAB CHEMISTRY METHOD 12/21/2024 11:15 AM [facility] Creatinine 0.74 0.50 - 1.10 mg/dL LAB CHEMISTRY METHOD 12/21/2024 11:15 AM [facility] eGFR 98 >=60 mL/min/1. 73m2 LAB CHEMISTRY METHOD 12/21/2024 11:15 AM [facility] Comment:Calculation based on the Chronic Kidney Disease Epidemiology Collaboration (CKD-EPI) equation refit without adjustment for race. BUN/Creatinine Ratio 16.2 LAB CHEMISTRY METHOD 12/21/2024 11:15 AM [facility] Calcium 9.8 8.5 - 10.5 mg/dL LAB CHEMISTRY METHOD 12/21/2024 11:15 AM [facility] AST (SGOT) 19 10 - 42 unit/L LAB CHEMISTRY METHOD 12/21/2024 11:15 AM [facility] ALT (SGPT) 22 10 - 60 unit/L LAB CHEMISTRY METHOD 12/21/2024 11:15 AM [facility] Alkaline Phosphatase 146(H) 42 - 121 unit/L LAB CHEMISTRY METHOD 12/21/2024 11:15 AM [facility] Total Protein 6.5 6.0 - 8.0 g/dL LAB CHEMISTRY METHOD 12/21/2024 11:15 AM EDT [facility] Albumin 3.0(L) 3.2 - 5.0 g/dL LAB CHEMISTRY METHOD 12/21/2024 11:15 AM EDT [facility] Total Bilirubin 0.4 0.0 - 1.4 mg/dL LAB CHEMISTRY METHOD 12/21/2024 11:15 AM [facility] Blood Venous blood specimen / Unknown Venipuncture / Unknown 12/21/2024 5:30 AM EDT 12/21/2024 9:20 AM EDT us Tim Simpson MD LAB BLOOD ORDERABLES Final R esult [facility] [address] [place] [address], * (ABNORMAL) Complete blood count (12/21/2024 5:30 AM EDT) WBC 8.0 4.8 - 10.8 K/mcL LAB HEMETOLOGY METHOD 12/21/2024 10:28 AM [facility] RBC 4.30 3.80 - 4.80 M/mcL LAB HEMETOLOGY METHOD 12/21/2024 10:28 AM [facility] Hemoglobin 10.4(L) 11.5 - 16.0 g/dL LAB HEMETOLOGY METHOD 12/21/2024 10:28 AM [facility] Hematocrit 33.3(L) 35.0 - 47.0 % LAB HEMETOLOGY METHOD 12/21/2024 10:28 AM [facility] MCV 76.7(L) 79.0 - 98.0 FL LAB HEMETOLOGY METHOD 12/21/2024 10:28 AM [facility] MCH 24.0(L) 27.0 - 32.0 pcg LAB HEMETOLOGY METHOD 12/21/2024 10:28 AM EDT [facility] MCHC 31.2(L) 32.0 - 37.0 g/dL LAB HEMETOLOGY METHOD 12/21/2024 10:28 AM EDT [facility] RDW 17.4(H) 11.0 - 15.0 % LAB HEMETOLOGY METHOD 12/21/2024 10:28 AM EDT [facility] Platelets 387 130 - 400 K/mcL LAB HEMETOLOGY METHOD 12/21/2024 10:28 AM EDT [facility] MPV 11.0 7.0 - 11.0 FL LAB HEMETOLOGY METHOD 12/21/2024 10:28 AM EDT [facility] NRBC 0.2 <1.0 % LAB HEMETOLOGY METHOD 12/21/2024 10:28 AM EDT [facility] NRBC Absolute 0.02 <0.10 K/mcL LAB HEMETOLOGY METHOD 12/21/2024 10:28 AM EDT [facility] Blood Venous blood specimen / Unknown Venipuncture / Unknown 12/21/2024 5:30 AM EDT 12/21/2024 9:20 AM EDT us Tim Simpson MD LAB BLOOD ORDERABLES Final R esult [facility] [address] [place] [address], documented in this encounter Visit Diagnoses Diagnosis Constipation, unspecified documented in this encounter Care Teams Cabinet Assembler Relationship Specialty Start Date End Date Joan Marshall DO [address] [address] PCP - General 03/17/13 documented as of this encounter
--- OUTSIDE RECORDS SUMMARY | 2025-02-15 15:40 | XMS_ITS | Encounter Summary ---
Author Organization [facility] Address [address] [place] [address] Care Team Providers Care Paleology Teacher Name Role Phone Joan Marshall DO Primary Care Provider Encounter Details Date Type Department Care Team (Latest Contact Info) Description 12/14/2024 Lab Requisition [facility] - Main Lab [address] [facility] [place] [address] Tim Simpson MD [address] [place], [place] [id number] Type 2 diabetes mellitus with diabetic mononeuropathy [...] mmol/L LAB CHEMISTRY METHOD 12/14/2024 12:42 PM [facility] Potassium 4.2 3.5 - 5.5 mmol/L LAB CHEMISTRY METHOD 12/14/2024 12:42 PM [facility] Chloride 100 96 - 110 mmol/L LAB CHEMISTRY METHOD 12/14/2024 12:42 PM [facility] CO2 25 21 - 32 mmol/L LAB CHEMISTRY METHOD 12/14/2024 12:42 PM [facility] Anion Gap 10 3 - 11 LAB CHEMISTRY METHOD 12/14/2024 12:42 PM [facility] Glucose 129(H) 70 - 100 mg/dL LAB CHEMISTRY METHOD 12/14/2024 12:42 PM [facility] BUN 12 5 - 25 mg/dL LAB CHEMISTRY METHOD 12/14/2024 12:42 PM [facility] Creatinine 0.74 0.50 - 1.10 mg/dL LAB CHEMISTRY METHOD 12/14/2024 12:42 PM [facility] eGFR 98 >=60 mL/min/1. 73m2 LAB CHEMISTRY METHOD 12/14/2024 12:42 PM [facility] Comment:Calculation based on the Chronic Kidney Disease Epidemiology Collaboration (CKD-EPI) equation refit without adjustment for race. BUN/Creatinine Ratio 16.2 LAB CHEMISTRY METHOD 12/14/2024 12:42 PM [facility] Calcium 9.7 8.5 - 10.5 mg/dL LAB CHEMISTRY METHOD 12/14/2024 12:42 PM [facility] AST (SGOT) 22 10 - 42 unit/L LAB CHEMISTRY METHOD 12/14/2024 12:42 PM [facility] ALT (SGPT) 34 10 - 60 unit/L LAB CHEMISTRY METHOD 12/14/2024 12:42 PM EDT [facility] Alkaline Phosphatase 153(H) 42 - 121 unit/L LAB CHEMISTRY METHOD 12/14/2024 12:42 PM T [facility] Total Protein 7.0 6.0 - 8.0 g/dL LAB CHEMISTRY METHOD 12/14/2024 12:42 PM [facility] Albumin 3.3 3.2 - 5.0 g/dL LAB CHEMISTRY METHOD 12/14/2024 12:42 PM [facility] Total Bilirubin 0.3 0.0 - 1.4 mg/dL LAB CHEMISTRY METHOD 12/14/2024 12:42 PM [facility] Blood Venous blood specimen / Unknown Venipuncture / Unknown 12/14/2024 5:17 AM EDT 12/14/2024 11:56 AM EDT Tim Simpson MD LAB BLOOD ORDERABLES Final R esult [facility] [address] [place] [address], [place] [phone] * (ABNORMAL) Complete blood count (12/14/2024 5:17 AM EDT) WBC 9.0 4.8 - 10.8 K/mcL LAB HEMETOLOGY METHOD 12/14/2024 1:04 PM [facility] RBC 4.50 3.80 - 4.80 M/mcL LAB HEMETOLOGY METHOD 12/14/2024 1:04 PM [facility] Hemoglobin 10.7(L) 11.5 - 16.0 g/dL LAB HEMETOLOGY METHOD 12/14/2024 1:04 PM [facility] Hematocrit 34.2(L) 35.0 - 47.0 % LAB HEMETOLOGY METHOD 12/14/2024 1:04 PM EDT [facility] MCV 76.2(L) 79.0 - 98.0 FL LAB HEMETOLOGY METHOD 12/14/2024 1:04 PM EDT [facility] MCH 23.8(L) 27.0 - 32.0 pcg LAB HEMETOLOGY METHOD 12/14/2024 1:04 PM EDT [facility] MCHC 31.3(L) 32.0 - 37.0 g/dL LAB HEMETOLOGY METHOD 12/14/2024 1:04 PM EDT [facility] RDW 17.6(H) 11.0 - 15.0 % LAB HEMETOLOGY METHOD 12/14/2024 1:04 PM EDT [facility] Platelets 353 130 - 400 K/mcL LAB HEMETOLOGY METHOD 12/14/2024 1:04 PM EDT [facility] MPV 10.5 7.0 - 11.0 FL LAB HEMETOLOGY METHOD 12/14/2024 1:04 PM EDT [facility] NRBC 0.0 <1.0 % LAB HEMETOLOGY METHOD 12/14/2024 1:04 PM EDT [facility] NRBC Absolute 0.00 <0.10 K/mcL LAB HEMETOLOGY METHOD 12/14/2024 1:04 PM EDT [facility] Blood Venous blood specimen / Unknown Venipuncture / Unknown 12/14/2024 5:17 AM EDT 12/14/2024 11:56 AM EDT us Tim Simpson MD LAB BLOOD ORDERABLES Final R esult [facility] [address] [place] [address], documented in this encounter Visit Diagnoses Diagnosis Type 2 diabetes mellitus with diabetic mononeuropathy (CMS/HCC V24, CMS/HCC V28) Hyperkalemia Hyperpotassemia documented in this encounter Care Teams Paleology Teacher Relationship Specialty Start [place] [address] PCP - General 03/17/13 documented as of this encounter
--- OUTSIDE RECORDS SUMMARY | 2025-02-15 15:40 | XMS_ITS | Encounter Summary ---
Author Organization [facility] Address [address] [place] [address] Care Team Providers Care Order Clerk Name Role Phone Joan Marshall DO Primary Care Provider [phone] Encounter Details Date Type Department Care Team (Late st Contact Info) Description 09/22/2024 Lab Requisition [facility] - Main Lab 299 [facility] [place] [address] Tim Simpson MD [address] [place] [address] Hypo-osmolality and hyponatremia Social History Tobacco Use [...] LAB CHEMISTRY METHOD 09/22/2024 10:27 AM EDT [facility] Urine Urinary bladder structure / Unknown Non-blood Collection / Unknown 09/21/2024 8:00 PM EDT 09/22/2024 8:45 AM EDT Tim Simpson MD LAB URINE ORDERABLES Final R esult Performing Organization Address City/[facility]/ZIP Co de Phone Number [facility] [address] [place] [address], [place] [phone] * Sodium, urine, random (09/21/2024 8:00 PM EDT) Sodium, Ur 78 mmol/L LAB CHEMISTRY METHOD 09/22/2024 9:42 AM EDT [facility] Urine Urinary bladder structure / Unknown Non-blood Collection / Unknown 09/21/2024 8:00 PM EDT 09/22/2024 8:45 AM EDT Tim Simpson MD LAB URINE ORDERABLES Final R esult [facility] [address] [place] [address], [place] [phone] documented in this encounter Visit Diagnoses Diagnosis Hypo-osmolality and hyponatremia documented in this encounter Care Teams Order Clerk Relationship Specialty Start Date End Date Joan Marshall DO [address] [address] PCP - General 03/17/13 documented as of this encounter
--- OUTSIDE RECORDS SUMMARY | 2025-02-15 15:40 | XMS_ITS | Encounter Summary ---
Author Organization [facility] Address [address] [place] [address] Care Team Providers Care Sander Setter Name Role Phone oJan Marshall DO Primary Care Provider [phone] Encounter Details Date Type Department Care Team (Late st Contact Info) Description 09/21/2024 Lab Requisition [facility] - Main Lab [address] [facility] [place] [address] Tim Simpson MD [address] [place] [address] Hypo-osmolality and hyponatremia Social History Tobacco Use [...] LAB CHEMISTRY METHOD 09/21/2024 10:27 AM EDT [facility] Potassium 3.9 3.5 - 5.5 mmol/L LAB CHEMISTRY METHOD 09/21/2024 10:27 AM EDT [facility] Chloride 89(L) 96 - 110 mmol/L LAB CHEMISTRY METHOD 09/21/2024 10:27 AM [facility] CO2 29 21 - 32 mmol/L LAB CHEMISTRY METHOD 09/21/2024 10:27 AM [facility] Anion Gap 10 3 - 11 LAB CHEMISTRY METHOD 09/21/2024 10:27 AM [facility] Glucose 119(H) 70 - 100 mg/dL LAB CHEMISTRY METHOD 09/21/2024 10:27 AM [facility] BUN 13 5 - 25 mg/dL LAB CHEMISTRY METHOD 09/21/2024 10:27 AM [facility] Creatinine 0.78 0.50 - 1.10 mg/dL LAB CHEMISTRY METHOD 09/21/2024 10:27 AM [facility] LAB eGFR 93 >=60 mL/min/1. 73m2 LAB CHEMISTRY METHOD 09/21/2024 10:27 AM [facility] LAB Comment:Calculation based on the Chronic Kidney Disease Epidemiology Collaboration (CKD-EPI) equation refit without adjustment for race. BUN/Creatinine Ratio 16.7 LAB CHEMISTRY METHOD 09/21/2024 10:27 AM [facility] Calcium 9.6 8.5 - 10.5 mg/dL LAB CHEMISTRY METHOD 09/21/2024 10:27 AM [facility] Blood Venous blood specimen / Unknown Venipuncture / Unknown 09/21/2024 7:02 AM EDT 09/21/2024 9:26 AM EDT us Tim Simpson MD LAB BLOOD ORDERABLES Final R esult [facility] [address] [place] [address], documented in this encounter Visit Diagnoses Diagnosis Hypo-osmolality and hyponatremia documented in this encounter Care Teams Sander Setter Relationship Specialty Start Date End Date Joan Marshall DO [facility] [address] [place] [address] PCP - General 03/17/13 documented as of this encounter
--- OUTSIDE RECORDS SUMMARY | 2025-02-15 15:40 | XMS_ITS | Encounter Summary ---
Author Organization [facility] Address [address] [place] [address] Care Team Providers Care Home Health Lvn Name Role Phone Joan Marshall DO Primary Care Provider [phone] Encounter Details Date Type Department Care Team (Late st Contact Info) Description 12/30/2024 Lab Requisition [facility] - Main Lab [address] [place] [address] Tim Simpson MD [address] [place] [address] Other abnormal glucose; Encounter for general adult [...] LAB CHEMISTRY METHOD 12/30/2024 2:53 PM EDT [facility] ([facility]) [facility] Mean Bld Glu Estim. 169 mg/dL LAB CHEMISTRY METHOD 12/30/2024 2:53 PM EDT [facility] LAB Blood Venous blood specimen / Unknown Venipuncture / Unknown 12/30/2024 7:38 AM EDT 12/30/2024 11:08 AM EDT us Tim Simpson MD LAB BLOOD ORDERABLES Final R esult [facility] [address] [place] [address], * (ABNORMAL) Complete blood count (12/30/2024 7:38 AM EDT) WBC 6.6 4.8 - 10.8 K/mcL LAB HEMETOLOGY METHOD 12/30/2024 11:44 AM [facility] LAB RBC 4.10 3.80 - 4.80 M/[facility] LAB HEMETOLOGY METHOD 12/30/2024 11:44 AM [facility] Hemoglobin 9.7(L) 11.5 - 16.0 g/dL LAB HEMETOLOGY METHOD 12/30/2024 11:44 AM [facility] LAB Hematocrit 31.3(L) 35.0 - 47.0 % LAB HEMETOLOGY METHOD 12/30/2024 11:44 AM [facility] LAB MCV 76.7(L) 79.0 - 98.0 FL LAB HEMETOLOGY METHOD 12/30/2024 11:44 AM [facility] LAB MCH 23.8(L) 27.0 - 32.0 pcg LAB HEMETOLOGY METHOD 12/30/2024 11:44 AM [facility] LAB MCHC 31.0(L) 32.0 - 37.0 g/dL LAB HEMETOLOGY METHOD 12/30/2024 11:44 AM EDT [facility] [place] [facility] RDW 17.4(H) 11.0 - 15.0 % LAB HEMETOLOGY METHOD 12/30/2024 11:44 AM EDT [facility] Platelets 280 130 - 400 K/mcL LAB HEMETOLOGY METHOD 12/30/2024 11:44 AM EDT [facility] LAB MPV 11.1(H) 7.0 - 11.0 FL LAB HEMETOLOGY METHOD 12/30/2024 11:44 AM EDT [facility] LAB NRBC 0.0 <1.0 % LAB HEMETOLOGY METHOD 12/30/2024 11:44 AM EDT [facility] LAB NRBC Absolute 0.00 <0.10 K/mcL LAB HEMETOLOGY METHOD 12/30/2024 11:44 AM EDT [facility] LAB Blood Venous blood specimen / Unknown Venipuncture / Unknown 12/30/2024 7:38 AM EDT 12/30/2024 11:08 AM EDT us Tim Simpson MD LAB BLOOD ORDERABLES Final R esult [facility] [address] [place] [address], documented in this encounter Visit Diagnoses Diagnosis Other abnormal glucose Encounter for general adult medical examination without abnormal findings documented in this encounter Care Teams Home Health Lvn Relationship Specialty Start Date End Date Joan Marshall DO [address] [address] PCP - General 03/17/13 documented as of this encounter
--- OUTSIDE RECORDS SUMMARY | 2025-02-15 15:40 | XMS_ITS | Encounter Summary ---
Author Organization [facility] Address [address] [place] [address] Care Team Providers Care Poultry Tender Name Role Phone Joan Marshall DO Primary Care Provider [phone] Encounter Details Date Type Department Care Team (Late st Contact Info) Description 09/20/[address] [facility] - Main Lab [address] [place] [address] Tim Simpson MD [address] [place] [address] Hypokalemia Social History Tobacco Use Types Packs/Day [...] mmol/L LAB CHEMISTRY METHOD 09/20/2024 9:28 AM [facility] LAB CO2 31 21 - 32 mmol/L LAB CHEMISTRY METHOD 09/20/2024 9:28 AM [facility] LAB Anion Gap 7 3 - 11 LAB CHEMISTRY METHOD 09/20/2024 9:28 AM [facility] Glucose 118(H) 70 - 100 mg/dL LAB CHEMISTRY METHOD 09/20/2024 9:28 AM [facility] BUN 12 5 - 25 mg/dL LAB CHEMISTRY METHOD 09/20/2024 9:28 AM [facility] Creatinine 0.87 0.50 - 1.10 mg/dL LAB CHEMISTRY METHOD 09/20/2024 9:28 AM [facility] LAB eGFR 81 >=60 mL/min/1. 73m2 LAB CHEMISTRY METHOD 09/20/2024 9:28 AM [facility] LAB Comment:Calculation based on the Chronic Kidney Disease Epidemiology Collaboration (CKD-EPI) equation refit without adjustment for race. BUN/Creatinine Ratio 13.8 LAB CHEMISTRY METHOD 09/20/2024 9:28 AM [facility] Calcium 9.2 8.5 - 10.5 mg/dL LAB CHEMISTRY METHOD 09/20/2024 9:28 AM [facility] LAB Blood Venous blood specimen / Unknown Venipuncture / Unknown 09/20/2024 6:54 AM EDT 09/20/2024 8:45 AM EDT us Tim Simpson MD LAB BLOOD ORDERABLES Final R esult [facility] [address] [place] [address], documented in this encounter Visit Diagnoses Diagnosis Hypokalemia Hypopotassemia documented in this encounter Care Teams Poultry Tender Relationship Specialty Start Date End Date Joan Marshall DO [facility] [address] [place] [address] PCP - General 03/17/13 documented as of this encounter
--- OUTSIDE RECORDS SUMMARY | 2025-02-15 15:41 | XMS_ITS | Encounter Summary ---
Author Organization [facility] Address [address] [place] [address] Care Team Providers Care Director Public Service Name Role Phone Joan Marshall DO Primary Care Provider [phone] Encounter Details Date Type Department Care Team (Late st Contact Info) Description 03/10/2024 Lab Requisition [facility] - Main Lab [address] [place] [address] Tim Simpson MD [address] [place] [address] Cough, unspecified Social History Tobacco Use Types [...] Procedure Name Priority Date/Time Associated Diagnosis Comments [id number], RSV, FLU A AND B QUALITATIVE RT-PCR, LOCAL REFERENCE LAB Routine 03/10/2024 7:00 AM EST Cough, unspecified documented in this encounter Results * [id number], RSV, Influenza A and B qualitative RT-PCR (03/10/2024 7:00 AM EST) SARS COV-2 Not Detected Not Detected LAB MOLECULAR DIAGNOSTICS METHOD 03/10/2024 2:[address] [facility] ([facility] Comment: Disclaimer: The manner in [...] for Healthcare Providers can be found at: https://www.fda.gov/media/312933/download Fact sheet for Patients can be found at: https://www.fda.gov/media/140022/download Influenza A PCR Not Detected Not Detected LAB MOLECULAR DIAGNOSTICS METHOD 03/10/2024 2:57 PM EST [facility] LAB Influenza B PCR Not Detected Not Detected LAB MOLECULAR DIAGNOSTICS METHOD 03/10/2024 2:57 PM EST [facility] RSV PCR Not Detected Not Detected LAB MOLECULAR DIAGNOSTICS METHOD 03/10/2024 2:57 PM [facility] Swab Nasopharyngeal structure / Unknown 03/10/2024 7:00 AM EST 03/10/2024 11:47 AM EST Tim Simpson MD LAB MICROBIOLOGY - GENERAL O RDERABLES Final Result [facility] [address] [place] [address], documented in this encounter Visit Diagnoses Diagnosis Cough, unspecified documented in this encounter Additional Health Concerns Infection Onset Date Last Indicated Resolved Time Respiratory Rule-Out 03/10/2024 03/10/2024 024 2:57 PM EST C. difficile Rule-Out 06/24/2024 06/24/20242024 1:28 PM EDT documented as of this encounter Care Teams Director Public Service Relationship Specialty Start Date End Date Joan Marshall DO [address] [place] [address] PCP - General 03/17/13 documented as of this encounter
--- OUTSIDE RECORDS SUMMARY | 2025-02-15 15:41 | XMS_ITS | Encounter Summary ---
Author Organization [facility] Address [address] [place] [address] Care Team Providers Care Sow Farm Manager Name Role Phone Joan Marshall DO Primary Care Provider Encounter Details Date Type Department Care Team (Late st Contact Info) Description 04/21/[address] [facility] - Main Lab 299 [facility] [employer] [address] [place] [address] Tim Simpson MD [address] [place] [address] Other rn long term care (current) drug therapy Social History Tobacco Use [...] PANEL Routine 04/21/2024 5:42 AM EST Other senior care (current) drug therapy documented in this encounter Results * (ABNORMAL) Basic metabolic panel (04/21/2024 5:42 AM EST) Sodium 136 133 - 145 mmol/L LAB CHEMISTRY METHOD 04/21/2024 9:18 AM EST [facility] Potassium 4.3 3.5 - 5.5 mmol/L LAB CHEMISTRY METHOD 04/21/2024 9:18 AM EST [facility] Chloride 102 96 - 110 mmol/L LAB CHEMISTRY METHOD 04/21/2024 9:18 AM [facility] CO2 30 21 - 32 mmol/L LAB CHEMISTRY METHOD 04/21/2024 9:18 AM [facility] Anion Gap 4 3 - 11 LAB CHEMISTRY METHOD 04/21/2024 9:18 AM [facility] Glucose 190(H) 70 - 100 mg/dL LAB CHEMISTRY METHOD 04/21/2024 9:18 AM [facility] BUN 16 5 - 25 mg/dL LAB CHEMISTRY METHOD 04/21/2024 9:18 AM [facility] Creatinine 0.63 0.50 - 1.10 mg/dL LAB CHEMISTRY METHOD 04/21/2024 9:18 AM [facility] LAB eGFR 108 >=60 mL/min/1. 73m2 LAB CHEMISTRY METHOD 04/21/2024 9:18 AM [facility] LAB Comment:Calculation based on the Chronic Kidney Disease Epidemiology Collaboration (CKD-EPI) equation refit without adjustment for race. BUN/Creatinine Ratio 25.4 LAB CHEMISTRY METHOD 04/21/2024 9:18 AM [facility] Calcium 9.6 8.5 - 10.5 mg/dL LAB CHEMISTRY METHOD 04/21/2024 9:18 AM [facility] Blood Venous blood specimen / Unknown Venipuncture / Unknown 04/21/2024 5:42 AM EST 04/21/2024 8:31 AM EST us Tim Simpson MD LAB BLOOD ORDERABLES Final R esult [facility] [address] [place] [address], documented in this encounter Visit Diagnoses Diagnosis Other rn long term care (current) drug therapy documented in this encounter Additional Health Concerns Infection Onset Date Last Indicated Resolved Time C. difficile Rule-Out 06/24/2024 06/24/20242024 1:28 PM EDT documented as of this encounter Care Teams Sow Farm Manager Relationship Specialty Start [place] [address] PCP - General 03/17/13 documented as of this encounter
--- OUTSIDE RECORDS SUMMARY | 2025-02-15 15:41 | XMS_ITS | Encounter Summary ---
Author Organization [facility] Address [address] [place] [address] Care Team Providers Care National Accounts Recruiter Name Role Phone Joan Marshall DO Primary Care Provider Encounter Details Date Type Department Care Team (Late st Contact Info) Description 06/29/2024 Lab Requisition [facility] - Main Lab [address] [place] [address] Tim Simpson MD [address] [place] [address] Nausea with vomiting, unspecified Social History Tobacco [...] AM EDT) WBC 10.7 4.8 - 10.8 K/[facility] LAB HEMETOLOGY METHOD 06/29/2024 10:[address] [facility] LAB RBC 4.20 3.80 - 4.80 M/[facility] LAB HEMETOLOGY METHOD 06/29/2024 10:[address] [facility] LAB Hemoglobin 9.9(L) 11.5 - 16.0 g/dL LAB HEMETOLOGY METHOD 06/29/2024 10:53 AM [facility] LAB Hematocrit 31.7(L) 35.0 - 47.0 % LAB HEMETOLOGY METHOD 06/29/2024 10:53 AM [facility] LAB MCV 75.5(L) 79.0 - 98.0 FL LAB HEMETOLOGY METHOD 06/29/2024 10:53 AM [facility] LAB MCH 23.6(L) 27.0 - 32.0 pcg LAB HEMETOLOGY METHOD 06/29/2024 10:53 AM [facility] LAB MCHC 31.2(L) 32.0 - 37.0 g/dL LAB HEMETOLOGY METHOD 06/29/2024 10:53 AM [facility] LAB RDW 17.9(H) 11.0 - 15.0 % LAB HEMETOLOGY METHOD 06/29/2024 10:53 AM [facility] LAB Platelets 288 130 - 400 K/mcL LAB HEMETOLOGY METHOD 06/29/2024 10:53 AM [facility] LAB MPV 11.0 7.0 - 11.0 FL LAB HEMETOLOGY METHOD 06/29/2024 10:53 AM [facility] NRBC 0.0 <1.0 % LAB HEMETOLOGY METHOD 06/29/2024 10:53 AM [facility] NRBC Absolute 0.00 <0.10 K/mcL LAB HEMETOLOGY METHOD 06/29/2024 10:53 AM [facility] Blood Venous blood specimen / Unknown Venipuncture / Unknown 06/29/2024 7:05 AM EDT 06/29/2024 9:27 AM EDT Tim Simpson MD LAB BLOOD ORDERABLES Final R esult [facility] LAB [address] [place] [address], documented in this encounter Visit Diagnoses Diagnosis Nausea with vomiting, unspecified documented in this encounter Care Teams National Accounts Recruiter Relationship Specialty Start [place] [address] PCP - General 03/17/13 documented as of this encounter
--- OUTSIDE RECORDS SUMMARY | 2025-02-15 15:41 | XMS_ITS | Encounter Summary ---
Author Organization [facility] Address [address] [place] [address] Care Team Providers Care Weighmaster Name Role Phone Joan Marshall DO Primary Care Provider [phone] Encounter Details Date Type Department Care Team (Latest Contact Info) Description 06/30/2024 Lab Requisition [facility] - Main Lab [address] [place] [address] Tim Simpson MD [address] [place], [place] [id number] Type 2 diabetes mellitus without complications (CMS/HCC [...] 2 diabetes mellitus without complications (CMS/HCC V24, CMS/[facility] V28) documented in this encounter Results * (ABNORMAL) Basic metabolic panel (06/30/2024 6:10 AM EDT) Sodium 136 133 - 145 mmol/L LAB CHEMISTRY METHOD 06/30/2024 9:45 AM EDT [facility] Potassium 4.5 3.5 - 5.5 mmol/L LAB CHEMISTRY METHOD 06/30/2024 9:45 AM [facility] Chloride 102 96 - 110 mmol/L LAB CHEMISTRY METHOD 06/30/2024 9:45 AM [facility] CO2 25 21 - 32 mmol/L LAB CHEMISTRY METHOD 06/30/2024 9:45 AM [facility] Anion Gap 9 3 - 11 LAB CHEMISTRY METHOD 06/30/2024 9:45 AM [facility] Glucose 136(H) 70 - 100 mg/dL LAB CHEMISTRY METHOD 06/30/2024 9:45 AM [facility] BUN 27(H) 5 - 25 mg/dL LAB CHEMISTRY METHOD 06/30/2024 9:45 AM [facility] Creatinine 1.18(H) 0.50 - 1.10 mg/dL LAB CHEMISTRY METHOD 06/30/2024 9:45 AM [facility] LAB eGFR 56(L) >=60 mL/min/1. 73m2 LAB CHEMISTRY METHOD 06/30/2024 9:45 AM [facility] LAB Comment:Calculation based on the Chronic Kidney Disease Epidemiology Collaboration (CKD-EPI) equation refit without adjustment for race. BUN/Creatinine Ratio 22.9 LAB CHEMISTRY METHOD 06/30/2024 9:45 AM [facility] Calcium 9.5 8.5 - 10.5 mg/dL LAB CHEMISTRY METHOD 06/30/2024 9:45 AM [facility] Blood Venous blood specimen / Unknown Venipuncture / Unknown 06/30/2024 6:10 AM EDT 06/30/2024 8:59 AM EDT us Tim Simpson MD LAB BLOOD ORDERABLES Final R esult [facility] [address] [place] [address], documented in this encounter Visit Diagnoses Diagnosis Type 2 diabetes mellitus without complications (CMS/[facility] V24, CMS/[facility] V28) documented in this encounter Care Teams Weighmaster Relationship Specialty Start Date [place] [address] PCP - General 03/17/13 documented as of this encounter
--- OUTSIDE RECORDS SUMMARY | 2025-02-15 15:41 | XMS_ITS | Encounter Summary ---
Author Organization [facility] Address [address] [place] [address] Care Team Providers Care Mold Carpenter Name Role Phone Joan Marshall DO Primary Care Provider [phone] Encounter Details Date Type Department Care Team (Late st Contact Info) Description 06/25/2024 Lab Requisition [facility] - Main Lab 299 [facility] [place] [address] Tim Simpson MD [address] [place] [address] Diarrhea, unspecified Social History Tobacco Use Types [...] MICROBIOLOGY - GENERAL O RDERABLES Final Result [facility] ([facility]) [facility] [address] [place] [address], documented in this encounter Visit Diagnoses Diagnosis Diarrhea, unspecified documented in this encounter Additional Health Concerns Infection Onset Date Last Indicated Resolved Time C. difficile Rule-Out 06/24/2024 06/24/20242024 1:28 PM EDT documented as of this encounter Care Teams Mold Carpenter Relationship Specialty Start Date End Date Joan Marshall DO [address] [address] PCP - General 03/17/13 documented as of this encounter
--- OUTSIDE RECORDS SUMMARY | 2025-02-15 15:41 | XMS_ITS | Encounter Summary ---
Author Organization [facility] Address [address] [place] [address] Care Team Providers Care Trauma Coordinator Name Role Phone Joan Marshall DO Primary Care Provider [phone] Encounter Details Date Type Department Care Team (Latest Contact Info) Description 03/10/2024 Lab Requisition [facility] - Main Lab 299 [facility] [place] [address] Tim Simpson MD [address] [place], [place] [id number] Type 2 diabetes mellitus without complications (CMS/HCC [...] LAB CHEMISTRY METHOD 03/10/2024 2:14 PM EST [facility] Mean Bld Glu Estim. 209 mg/dL LAB CHEMISTRY METHOD 03/10/2024 2:14 PM [facility] LAB Blood Venous blood specimen / Unknown Venipuncture / Unknown 03/10/2024 6:09 AM EST 03/10/2024 11:41 AM EST us Tim Simpson MD LAB BLOOD ORDERABLES Final R esult [facility] [address] [place] [address], [place] [phone] * (ABNORMAL) Basic metabolic panel (03/10/2024 6:09 AM EST) [facility] Sodium 132(L) 133 - 145 mmol/L LAB CHEMISTRY METHOD 03/10/2024 12:45 PM [facility] LAB Potassium 3.6 3.5 - 5.5 mmol/L LAB CHEMISTRY METHOD 03/10/2024 12:45 PM [facility] LAB Chloride 96 96 - 110 mmol/L LAB CHEMISTRY METHOD 03/10/2024 12:45 PM [facility] LAB CO2 30 21 - 32 mmol/L LAB CHEMISTRY METHOD 03/10/2024 12:45 PM [facility] LAB Anion Gap 6 3 - 11 LAB CHEMISTRY METHOD 03/10/2024 12:45 PM [facility] Glucose 141(H) 70 - 100 mg/dL LAB CHEMISTRY METHOD 03/10/2024 12:45 PM [facility] BUN 12 5 - 25 mg/dL LAB CHEMISTRY METHOD 03/10/2024 12:45 PM [facility] Creatinine 0.68 0.50 - 1.10 mg/dL LAB CHEMISTRY METHOD 03/10/2024 12:45 PM EST [facility] eGFR 106 >=60 mL/min/1. 73m2 LAB CHEMISTRY METHOD 03/10/2024 12:45 PM [facility] LAB Comment:Calculation based on the Chronic Kidney Disease Epidemiology Collaboration (CKD-EPI) equation refit without adjustment for race. BUN/Creatinine Ratio 17.6 LAB CHEMISTRY METHOD 03/10/2024 12:45 PM EST [facility] Calcium 9.5 8.5 - 10.5 mg/dL LAB CHEMISTRY METHOD 03/10/2024 12:45 PM [facility] LAB Blood Venous blood specimen / Unknown Venipuncture / Unknown 03/10/2024 6:09 AM EST 03/10/2024 11:41 AM EST us Tim Simpson MD LAB BLOOD ORDERABLES Final R esult [facility] [address] [place] [address], * (ABNORMAL) Complete blood count (03/10/2024 6:09 AM EST) WBC 5.4 4.8 - 10.8 K/mcL LAB HEMETOLOGY METHOD 03/10/2024 12:22 PM [facility] LAB RBC 5.20(H) 3.80 - 4.80 M/mcL LAB HEMETOLOGY METHOD 03/10/2024 12:22 PM [facility] Hemoglobin 11.5 11.5 - 16.0 g/dL LAB HEMETOLOGY METHOD 03/10/2024 12:22 PM [facility] LAB Hematocrit 38.2 35.0 - 47.0 % LAB HEMETOLOGY METHOD 03/10/2024 12:22 PM [facility] LAB MCV 72.9(L) 79.0 - 98.0 FL LAB HEMETOLOGY METHOD 03/10/2024 12:22 PM EST [facility] MCH 21.9(L) 27.0 - 32.0 pcg LAB HEMETOLOGY METHOD 03/10/2024 12:22 PM EST [facility] MCHC 30.1(L) 32.0 - 37.0 g/dL LAB HEMETOLOGY METHOD 03/10/2024 12:22 PM [facility] RDW 20.4(H) 11.0 - 15.0 % LAB HEMETOLOGY METHOD 03/10/2024 12:22 PM EST [facility] Platelets 260 130 - 400 K/mcL LAB HEMETOLOGY METHOD 03/10/2024 12:22 PM [facility] LAB MPV 10.5 7.0 - 11.0 FL LAB HEMETOLOGY METHOD 03/10/2024 12:22 PM [facility] LAB NRBC 0.0 <1.0 % LAB HEMETOLOGY METHOD 03/10/2024 12:22 PM [facility] LAB NRBC Absolute 0.00 <0.10 K/mcL LAB HEMETOLOGY METHOD 03/10/2024 12:22 PM [facility] LAB Blood Venous blood specimen / Unknown Venipuncture / Unknown 03/10/2024 6:09 AM EST 03/10/2024 11:41 AM EST us Tim Simpson MD LAB BLOOD ORDERABLES Final R esult [facility] [address] [place] [address], documented in this encounter Visit Diagnoses Diagnosis Type 2 diabetes mellitus without complications (CMS/HCC V24, CMS/HCC V28) Other general symptoms and signs documented in this encounter Additional Health Concerns Infection Onset Date Last Indicated Resolved Time Respiratory Rule-Out 03/10/2024 03/10/2024 024 2:57 PM EST C. difficile Rule-Out 06/24/2024 06/24/20242024 1:28 PM EDT documented as of this encounter Care Teams Trauma Coordinator Relationship Specialty Start [place] [address] PCP - General 03/17/13 documented as of this encounter
--- OUTSIDE RECORDS SUMMARY | 2025-02-15 15:41 | XMS_ITS | Encounter Summary ---
Author Organization [facility] Address [address] [place] [address] Care Team Providers Care Pump Stitcher Name Role Phone Joan Marshall DO Primary Care Provider [phone] Encounter Details Date Type Department Care Team (Late st Contact Info) Description 06/28/[address] [facility] - Main Lab [address] [place] [address] Tim Simpson MD [address] [place] [address] Nausea with vomiting, unspecified Social History Tobacco [...] LAB CHEMISTRY METHOD 06/28/2024 10:44 AM EDT [facility] Potassium 4.7 3.5 - 5.5 mmol/L LAB CHEMISTRY METHOD 06/28/2024 10:44 AM [facility] Chloride 100 96 - 110 mmol/L LAB CHEMISTRY METHOD 06/28/2024 10:44 AM [facility] CO2 24 21 - 32 mmol/L LAB CHEMISTRY METHOD 06/28/2024 10:44 AM [facility] Anion Gap 7 3 - 11 LAB CHEMISTRY METHOD 06/28/2024 10:44 AM [facility] Glucose 112(H) 70 - 100 mg/dL LAB CHEMISTRY METHOD 06/28/2024 10:44 AM [facility] BUN 26(H) 5 - 25 mg/dL LAB CHEMISTRY METHOD 06/28/2024 10:44 AM [facility] Creatinine 1.30(H) 0.50 - 1.10 mg/dL LAB CHEMISTRY METHOD 06/28/2024 10:44 AM [facility] eGFR 50(L) >=60 mL/min/1. 73m2 LAB CHEMISTRY METHOD 06/28/2024 10:44 AM [facility] LAB Comment:Calculation based on the Chronic Kidney Disease Epidemiology Collaboration (CKD-EPI) equation refit without adjustment for race. BUN/Creatinine Ratio 20.0 LAB CHEMISTRY METHOD 06/28/2024 10:44 AM [facility] Calcium 9.3 8.5 - 10.5 mg/dL LAB CHEMISTRY METHOD 06/28/2024 10:44 AM [facility] AST (SGOT) 11 10 - 42 unit/L LAB CHEMISTRY METHOD 06/28/2024 10:44 AM [facility] ALT (SGPT) 20 10 - 60 unit/L LAB CHEMISTRY METHOD 06/28/2024 10:44 AM [facility] Alkaline Phosphatase 107 42 - 121 unit/L LAB CHEMISTRY METHOD 06/28/2024 10:44 AM [facility] Total Protein 6.2 6.0 - 8.0 g/dL LAB CHEMISTRY METHOD 06/28/2024 10:44 AM EDT [facility] LAB Albumin 2.9(L) 3.2 - 5.0 g/dL LAB CHEMISTRY METHOD 06/28/2024 10:44 AM EDT [facility] Total Bilirubin 0.3 0.0 - 1.4 mg/dL LAB CHEMISTRY METHOD 06/28/2024 10:44 AM EDT [facility] LAB Blood Venous blood specimen / Unknown Venipuncture / Unknown 06/28/2024 4:59 AM EDT 06/28/2024 9:42 AM EDT us Tim Simpson MD LAB BLOOD ORDERABLES Final R esult [facility] [address] [place] [address], * (ABNORMAL) Complete blood count (06/28/2024 4:59 AM EDT) WBC 14.5(H) 4.8 - 10.8 K/mcL LAB HEMETOLOGY METHOD 06/28/2024 10:18 AM [facility] RBC 4.40 3.80 - 4.80 M/mcL LAB HEMETOLOGY METHOD 06/28/2024 10:18 AM [facility] Hemoglobin 10.3(L) 11.5 - 16.0 g/dL LAB HEMETOLOGY METHOD 06/28/2024 10:18 AM [facility] Hematocrit 33.1(L) 35.0 - 47.0 % LAB HEMETOLOGY METHOD 06/28/2024 10:18 AM [facility] MCV 75.9(L) 79.0 - 98.0 FL LAB HEMETOLOGY METHOD 06/28/2024 10:18 AM [facility] MCH 23.6(L) 27.0 - 32.0 pcg LAB HEMETOLOGY METHOD 06/28/2024 10:18 AM EDT [facility] LAB MCHC 31.1(L) 32.0 - 37.0 g/dL LAB HEMETOLOGY METHOD 06/28/2024 10:18 AM EDT [facility] LAB RDW 17.9(H) 11.0 - 15.0 % LAB HEMETOLOGY METHOD 06/28/2024 10:18 AM EDT [facility] LAB Platelets 302 130 - 400 K/mcL LAB HEMETOLOGY METHOD 06/28/2024 10:18 AM EDT [facility] LAB MPV 11.0 7.0 - 11.0 FL LAB HEMETOLOGY METHOD 06/28/2024 10:18 AM EDT [facility] LAB NRBC 0.0 <1.0 % LAB HEMETOLOGY METHOD 06/28/2024 10:18 AM EDT [facility] LAB NRBC Absolute 0.00 <0.10 K/mcL LAB HEMETOLOGY METHOD 06/28/2024 10:18 AM T [facility] LAB Blood Venous blood specimen / Unknown Venipuncture / Unknown 06/28/2024 4:59 AM EDT 06/28/2024 9:42 AM EDT us Tim Simpson MD LAB BLOOD ORDERABLES Final R esult [facility] [address] [place] [address], documented in this encounter Visit Diagnoses Diagnosis Nausea with vomiting, unspecified documented in this encounter Care Teams Pump Stitcher Relationship Specialty Start Date End Date Joan Marshall DO [address] [address] PCP - General 03/17/13 documented as of this encounter
--- OUTSIDE RECORDS SUMMARY | 2025-02-15 15:41 | XMS_ITS | Clinical Summary ---
Author Organization [address] Address [address] [place] [phone] Phone Care Team Providers Care Supervisor Prep Name Role Phone Joan Marshall DO Primary Care Provider [phone] Encounters Date Type Department Care Team Description 01/09/2025 Lab Requisition [facility] [address] [place] [phone] Tim Simpson MD Type 2 diabetes mellitus without complications (CMS/HCC V24, CMS/[facility] V28); Weakness; Hyperlipidemia, unspecified; Other abnormal glucose; Encounter for general adult medical examination without abnormal findings; Constipation, unspecified; Hypo-osmolality and hyponatremia; Vitamin D deficiency, unspecified 12/30/2024 Lab Requisition [facility] [address] [place] [phone] Tim Simpson MD Other abnormal glucose; Encounter for general adult medical examination without abnormal findings 12/27/2024 Lab Requisition [facility] [address] [place] [phone] Tim Simpson MD Hyperkalemia; Hyperlipidemia, unspecified 12/21/2024 Lab Requisition [facility] [address] [place] [phone] Tim Simpson MD Constipation, unspecified 12/14/2024 Lab Requisition [facility] [address] [place] [phone] Tim Simpson MD Type 2 diabetes mellitus with diabetic mononeuropathy (CMS/HCC V24, CMS/[facility] V28); Hyperkalemia from Last 3 Months Surgical History Surgery Date Site/Laterality Comments TUBAL LIGATION PROCEDURE: HISTORICAL TUBAL LIGATION CHOLECYSTECTOMY PROCEDURE: LAPAROSCOPY, CHOLECYSTECTOMY ESOPHAGOGASTRODUODENOSCOPY 03/14/09 PROCEDURE: AR EGD TRANSORAL BIOPSY SINGLE/MULTIPLE; COMMENT: mucosal rings in esophagus-biopsy:Nl, bilious fluid in the stomach, gastritis-biopsy: mild chronic inflammation(HPylori-), Nl small bowel COLONOSCOPY 03/14/09 PROCEDURE: AR COLONOSCOPY FLX DX W/COLLJ SPEC WHEN PFRMD; [...] 03/09/2024 Depression Screening 03/16/2024 COVID-19 Vaccine ( - 2024- season) 2024 Influenza Vaccine (#1) 2024 Diabetes: [...] V24, CMS/[facility] V28) Weakness Hyperlipidemia, unspecified Other abnormal glucose [...] diabetic mononeuropathy (CMS/HCC V24, CMS/HCC V28) Hyperkalemia COMPLETE BLOOD COUNT Routine 12/14/2024 5:17 AM EDT Type 2 diabetes mellitus with diabetic mononeuropathy (CMS/HCC V24, CMS/HCC V28) Hyperkalemia LIPID PANEL WITH REFLEX TO DIRECT LDL Routine 09/19/2024 5:06 AM EDT Anemia, unspecified Hyperlipidemia, unspecified Weakness Type 2 diabetes mellitus without complications (CMS/HCC V24, CMS/HCC V28) Vitamin D deficiency, unspecified from Last 3 Months or Most Recently Relevant to Health Maintenance Results * (ABNORMAL) Complete blood count (01/10/2025 5:45 AM EDT) Only the most recent of4 resultswithin the time period is included. WBC 8.9 4.8 - 10.8 K/mcL LAB HEMETOLOGY METHOD 01/10/2025 10:07 AM [facility] RBC 4.60 3.80 - 4.80 M/mcL LAB HEMETOLOGY METHOD 01/10/2025 10:07 AM [facility] LAB Hemoglobin 10.8(L) 11.5 - 16.0 g/dL LAB HEMETOLOGY METHOD 01/10/2025 10:07 AM [facility] LAB Hematocrit 35.6 35.0 - 47.0 % LAB HEMETOLOGY METHOD 01/10/2025 10:07 AM [facility] LAB MCV 76.7(L) 79.0 - 98.0 FL LAB HEMETOLOGY METHOD 01/10/2025 10:07 AM EDT [facility] MCH 23.3(L) 27.0 - 32.0 pcg LAB HEMETOLOGY METHOD 01/10/2025 10:07 AM EDT [facility] LAB MCHC 30.3(L) 32.0 - 37.0 g/dL LAB HEMETOLOGY METHOD 01/10/2025 10:07 AM EDT [facility] RDW 17.4(H) 11.0 - 15.0 % LAB HEMETOLOGY METHOD 01/10/2025 10:07 AM EDT [facility] Platelets 302 130 - 400 K/mcL LAB HEMETOLOGY METHOD 01/10/2025 10:07 AM EDT [facility] MPV 11.6(H) 7.0 - 11.0 FL LAB HEMETOLOGY METHOD 01/10/2025 10:07 AM EDT [facility] NRBC 0.0 <1.0 % LAB HEMETOLOGY METHOD 01/10/2025 10:07 AM EDT [facility] LAB NRBC Absolute 0.00 <0.10 K/mcL LAB HEMETOLOGY METHOD 01/10/2025 10:07 AM [facility] Blood Venous blood specimen / Unknown Venipuncture / Unknown 01/10/2025 5:45 AM EDT 01/10/2025 9:31 AM EDT us Tim Simpson MD LAB BLOOD ORDERABLES Final R esult [facility] [address] [place] [address], * Basic metabolic panel (01/10/2025 5:45 AM EDT) [facility] Sodium 137 133 - 145 mmol/L LAB CHEMISTRY METHOD 01/10/2025 10:58 AM [facility] Potassium 4.0 3.5 - 5.5 mmol/L LAB CHEMISTRY METHOD 01/10/2025 10:58 AM [facility] Chloride 98 96 - 110 mmol/L LAB CHEMISTRY METHOD 01/10/2025 10:58 AM [facility] CO2 28 21 - 32 mmol/L LAB CHEMISTRY METHOD 01/10/2025 10:58 AM [facility] Anion Gap 11 3 - 11 LAB CHEMISTRY METHOD 01/10/2025 10:58 AM [facility] Glucose 99 70 - 100 mg/dL LAB CHEMISTRY METHOD 01/10/2025 10:58 AM [facility] BUN 11 5 - 25 mg/dL LAB CHEMISTRY METHOD 01/10/2025 10:58 AM [facility] Creatinine 0.65 0.50 - 1.10 mg/dL LAB CHEMISTRY METHOD 01/10/2025 10:58 AM [facility] eGFR 107 >=60 mL/min/1. 73m2 LAB CHEMISTRY METHOD 01/10/2025 10:58 AM [facility] Comment:Calculation based on the Chronic Kidney Disease Epidemiology Collaboration (CKD-EPI) equation refit without adjustment for race. BUN/Creatinine Ratio 16.9 LAB CHEMISTRY METHOD 01/10/2025 10:58 AM [facility] Calcium 9.7 8.5 - 10.5 mg/dL LAB CHEMISTRY METHOD 01/10/2025 10:58 AM [facility] Blood Venous blood specimen / Unknown Venipuncture / Unknown 01/10/2025 5:45 AM EDT 01/10/2025 9:31 AM EDT us Tim Simpson MD LAB BLOOD ORDERABLES Final R esult [facility] [address] [place] [address], [place] [phone] * (ABNORMAL) Hemoglobin A1c (12/30/2024 7:38 AM EDT) [facility] Hemoglobin A1C 7.5(H) <6.5 % LAB CHEMISTRY METHOD 12/30/2024 2:53 PM EDT [facility] Mean Bld Glu Estim. 169 mg/dL LAB CHEMISTRY METHOD 12/30/2024 2:53 PM EDT [facility] Blood Venous blood specimen / Unknown Venipuncture / Unknown 12/30/2024 7:38 AM EDT 12/30/2024 11:08 AM EDT us Tim Simpson MD LAB BLOOD ORDERABLES Final R esult [facility] [address] [place] [address], [place] [phone] * (ABNORMAL) Comprehensive metabolic panel (12/28/2024 5:21 AM EDT) Only the most recent of3 resultswithin the time period is included. [facility] Sodium 138 133 - 145 mmol/L LAB CHEMISTRY METHOD 12/28/2024 9:08 AM T [facility] Potassium 4.8 3.5 - 5.5 mmol/L LAB CHEMISTRY METHOD 12/28/2024 9:08 AM EDT [facility] Chloride 106 96 - 110 mmol/L LAB CHEMISTRY METHOD 12/28/2024 9:08 AM T [facility] CO2 25 21 - 32 mmol/L LAB CHEMISTRY METHOD 12/28/2024 9:08 AM T [facility] Anion Gap 7 3 - 11 LAB CHEMISTRY METHOD 12/28/2024 9:08 AM EDT [facility] Glucose 135(H) 70 - 100 mg/dL LAB CHEMISTRY METHOD 12/28/2024 9:08 AM [facility] BUN 13 5 - 25 mg/dL LAB CHEMISTRY METHOD 12/28/2024 9:08 AM [facility] Creatinine 0.75 0.50 - 1.10 mg/dL LAB CHEMISTRY METHOD 12/28/2024 9:08 AM [facility] eGFR 97 >=60 mL/min/1. 73m2 LAB CHEMISTRY METHOD 12/28/2024 9:08 AM [facility] Comment:Calculation based on the Chronic Kidney Disease Epidemiology Collaboration (CKD-EPI) equation refit without adjustment for race. BUN/Creatinine Ratio 17.3 LAB CHEMISTRY METHOD 12/28/2024 9:08 AM [facility] Calcium 9.4 8.5 - 10.5 mg/dL LAB CHEMISTRY METHOD 12/28/2024 9:08 AM [facility] AST (SGOT) 14 10 - 42 unit/L LAB CHEMISTRY METHOD 12/28/2024 9:08 AM [facility] ALT (SGPT) 21 10 - 60 unit/L LAB CHEMISTRY METHOD 12/28/2024 9:08 AM [facility] Alkaline Phosphatase 136(H) 42 - 121 unit/L LAB CHEMISTRY METHOD 12/28/2024 9:08 AM [facility] Total Protein 5.9(L) 6.0 - 8.0 g/dL LAB CHEMISTRY METHOD 12/28/2024 9:08 AM [facility] Albumin 2.7(L) 3.2 - 5.0 g/dL LAB CHEMISTRY METHOD 12/28/2024 9:08 AM [facility] Total Bilirubin 0.2 0.0 - 1.4 mg/dL LAB CHEMISTRY METHOD 12/28/2024 9:08 AM [facility] Blood Venous blood specimen / Unknown Venipuncture / Unknown 12/28/2024 5:21 AM EDT 12/28/2024 8:34 AM EDT Tim Simpson MD LAB BLOOD ORDERABLES Final R esult [facility] [address] [place] [address], [place] [phone] * Lipid panel with reflex to direct [...] esult [facility] [address] [place] [address], [place] [phone] from Last 3 Months or Most Recently Relevant to Health Maintenance Insurance [place] Advance Directives Documents on File Type Date Recorded Patient Churn Operator Margarine Expl anation Health Care Decision (hx) 12/30/2019 AD WISEMAN DIRECTIVE Health Care Decision (hx) 12/30/2019 AD WISEMAN DIRECTIVE Health Care Decision (hx) 12/30/2019 AD WISEMAN DIRECTIVE Health Care Decision (hx) 12/30/2019 AD WISEMAN DIRECTIVE Care Teams Supervisor Prep Relationship Specialty Start [place] [address] PCP - General 03/17/13
--- OUTSIDE RECORDS SUMMARY | 2025-02-15 15:41 | XMS_ITS | Encounter Summary ---
Author Organization [facility] Address [address] [place] [phone] Care Team Providers Care Director Medical Safety Name Role Phone Joan Marshall DO Primary Care Provider [phone] Encounter Details Date Type Department Care Team (Latest Contact Info) Description 05/10/[address] [facility] - Main Lab [address] [place] [address] Tim Simpson MD [address] [place] [address] Type 2 diabetes mellitus without complications (CMS/HCC [...] LAB CHEMISTRY METHOD 05/10/2024 1:[address] [facility] Potassium 4.4 3.5 - 5.5 mmol/L LAB CHEMISTRY METHOD 05/10/2024 1:[address] [facility] Chloride 100 96 - 110 mmol/L LAB CHEMISTRY METHOD 05/10/2024 1:00 PM [facility] CO2 27 21 - 32 mmol/L LAB CHEMISTRY METHOD 05/10/2024 1:00 PM [facility] Anion Gap 8 3 - 11 LAB CHEMISTRY METHOD 05/10/2024 1:00 PM [facility] Glucose 170(H) 70 - 100 mg/dL LAB CHEMISTRY METHOD 05/10/2024 1:00 PM [facility] BUN 16 5 - 25 mg/dL LAB CHEMISTRY METHOD 05/10/2024 1:00 PM [facility] Creatinine 0.71 0.50 - 1.10 mg/dL LAB CHEMISTRY METHOD 05/10/2024 1:00 PM [facility] eGFR 104 >=60 mL/min/1. 73m2 LAB CHEMISTRY METHOD 05/10/2024 1:00 PM [facility] Comment:Calculation based on the Chronic Kidney Disease Epidemiology Collaboration (CKD-EPI) equation refit without adjustment for race. BUN/Creatinine Ratio 22.5 LAB CHEMISTRY METHOD 05/10/2024 1:00 PM [facility] Calcium 9.2 8.5 - 10.5 mg/dL LAB CHEMISTRY METHOD 05/10/2024 1:00 PM [facility] Blood Venous blood specimen / Unknown Venipuncture / Unknown 05/10/2024 7:08 AM EST 05/10/2024 11:38 AM EST us Tim Simpson MD LAB BLOOD ORDERABLES Final R esult [facility] [address] [place] [address], documented in this encounter Visit Diagnoses Diagnosis Type 2 diabetes mellitus without complications (CMS/HCC V24, CMS/HCC V28) documented in this encounter Additional Health Concerns Infection Onset Date Last Indicated Resolved Time C. difficile Rule-Out 06/24/2024 06/24/20242024 1:28 PM EDT documented as of this encounter Care Teams Director Medical Safety Relationship Specialty Start Date [place] [address] PCP - General 03/17/13 documented as of this encounter
--- OUTSIDE RECORDS SUMMARY | 2025-02-15 15:41 | XMS_ITS | Encounter Summary ---
Author Organization [facility] Address [address] [place] [address] Care Team Providers Care Edge Inker Uppers Name Role Phone Joan Marshall DO Primary Care Provider [phone] Encounter Details Date Type Department Care Team (Latest Contact Info) Description 04/27/2024 Lab Requisition [facility] - Main Lab [address] [place] [address] Tim Simpson MD [address] [place] [address] Essential (primary) hypertension; Type 2 diabetes mellitus [...] LAB CHEMISTRY METHOD 04/27/2024 11:55 AM EST [facility] Potassium 4.6 3.5 - 5.5 mmol/L LAB CHEMISTRY METHOD 04/27/2024 11:55 AM [facility] Chloride 98 96 - 110 mmol/L LAB CHEMISTRY METHOD 04/27/2024 11:55 AM [facility] CO2 32 21 - 32 mmol/L LAB CHEMISTRY METHOD 04/27/2024 11:55 AM [facility] Anion Gap 3 3 - 11 LAB CHEMISTRY METHOD 04/27/2024 11:55 AM [facility] Glucose 140(H) 70 - 100 mg/dL LAB CHEMISTRY METHOD 04/27/2024 11:55 AM [facility] BUN 18 5 - 25 mg/dL LAB CHEMISTRY METHOD 04/27/2024 11:55 AM [facility] Creatinine 0.91 0.50 - 1.10 mg/dL LAB CHEMISTRY METHOD 04/27/2024 11:55 AM [facility] eGFR 77 >=60 mL/min/1. 73m2 LAB CHEMISTRY METHOD 04/27/2024 11:55 AM [facility] Comment:Calculation based on the Chronic Kidney Disease Epidemiology Collaboration (CKD-EPI) equation refit without adjustment for race. BUN/Creatinine Ratio 19.8 LAB CHEMISTRY METHOD 04/27/2024 11:55 AM [facility] Calcium 9.5 8.5 - 10.5 mg/dL LAB CHEMISTRY METHOD 04/27/2024 11:55 AM [facility] Blood Venous blood specimen / Unknown Venipuncture / Unknown 04/27/2024 5:30 AM EST 04/27/2024 10:43 AM EST us Tim Simpson MD LAB BLOOD ORDERABLES Final R esult [facility] [address] [place] [address], [place] [phone] documented in this encounter Visit Diagnoses Diagnosis Essential (primary) hypertension Unspecified essential hypertension Type 2 diabetes mellitus without complications (CMS/HCC V24, CMS/HCC V28) documented in this encounter Additional Health Concerns Infection Onset Date Last Indicated Resolved Time C. difficile Rule-Out 06/24/2024 06/24/20242024 1:28 PM EDT documented as of this encounter Care Teams Edge Inker Uppers Relationship Specialty Start Date [place] [address] PCP - General 03/17/13 documented as of this encounter
--- OUTSIDE RECORDS SUMMARY | 2025-02-15 15:41 | XMS_ITS | Encounter Summary ---
Author Organization [facility] Address [address] [place] [address] Care Team Providers Care [employer] Cake Decorator Name Role Phone Joan Marshall DO Primary Care Provider [phone] Encounter Details Date Type Department Care Team (Latest Contact Info) Description 01/09/2025 Lab Requisition [facility] - Main Lab [address] [facility] [place] [address] Tim Simpson MD [address], [place] [id number] Type 2 diabetes mellitus without complications (CMS/HCC [...] mmol/L LAB CHEMISTRY METHOD 01/10/2025 10:58 AM [facility] Potassium 4.0 3.5 - 5.5 mmol/L LAB CHEMISTRY METHOD 01/10/2025 10:58 AM [facility] Chloride 98 96 - 110 mmol/L LAB CHEMISTRY METHOD 01/10/2025 10:58 AM [facility] CO2 28 21 - 32 mmol/L LAB CHEMISTRY METHOD 01/10/2025 10:58 AM [facility] Anion Gap 11 3 - 11 LAB CHEMISTRY METHOD 01/10/2025 10:58 AM [facility] Glucose 99 70 - 100 mg/dL LAB CHEMISTRY METHOD 01/10/2025 10:58 AM [facility] BUN 11 5 - 25 mg/dL LAB CHEMISTRY METHOD 01/10/2025 10:58 AM [facility] Creatinine 0.65 0.50 - 1.10 mg/dL LAB CHEMISTRY METHOD 01/10/2025 10:58 AM [facility] eGFR 107 >=60 mL/min/1. 73m2 LAB CHEMISTRY METHOD 01/10/2025 10:58 AM [facility] Comment:Calculation based on the Chronic Kidney Disease Epidemiology Collaboration (CKD-EPI) equation refit without adjustment for race. BUN/Creatinine Ratio 16.9 LAB CHEMISTRY METHOD 01/10/2025 10:58 AM [facility] Calcium 9.7 8.5 - 10.5 mg/dL LAB CHEMISTRY METHOD 01/10/2025 10:58 AM [facility] Blood Venous blood specimen / Unknown Venipuncture / Unknown 01/10/2025 5:45 AM EDT 01/10/2025 9:31 AM EDT Tim Simpson MD LAB BLOOD ORDERABLES Final R esult [facility] [address] [place] [address], * (ABNORMAL) Complete blood count (01/10/2025 5:45 AM EDT) WBC 8.9 4.8 - 10.8 K/mcL LAB HEMETOLOGY METHOD 01/10/2025 10:07 AM [facility] RBC 4.60 3.80 - 4.80 M/mcL LAB HEMETOLOGY METHOD 01/10/2025 10:07 AM [facility] Hemoglobin 10.8(L) 11.5 - 16.0 g/dL LAB HEMETOLOGY METHOD 01/10/2025 10:07 AM [facility] Hematocrit 35.6 35.0 - 47.0 % LAB HEMETOLOGY METHOD 01/10/2025 10:07 AM [facility] MCV 76.7(L) 79.0 - 98.0 FL LAB HEMETOLOGY METHOD 01/10/2025 10:07 AM [facility] MCH 23.3(L) 27.0 - 32.0 pcg LAB HEMETOLOGY METHOD 01/10/2025 10:07 AM [facility] MCHC 30.3(L) 32.0 - 37.0 g/dL LAB HEMETOLOGY METHOD 01/10/2025 10:07 AM [facility] RDW 17.4(H) 11.0 - 15.0 % LAB HEMETOLOGY METHOD 01/10/2025 10:07 AM EDT [facility] Platelets 302 130 - 400 K/mcL LAB HEMETOLOGY METHOD 01/10/2025 10:07 AM EDT [facility] MPV 11.6(H) 7.0 - 11.0 FL LAB HEMETOLOGY METHOD 01/10/2025 10:07 AM EDT [facility] NRBC 0.0 <1.0 % LAB HEMETOLOGY METHOD 01/10/2025 10:07 AM EDT [facility] NRBC Absolute 0.00 <0.10 K/mcL LAB HEMETOLOGY METHOD 01/10/2025 10:07 AM EDT [facility] Blood Venous blood specimen / Unknown Venipuncture / Unknown 01/10/2025 5:45 AM EDT 01/10/2025 9:31 AM EDT us Tim Simpson MD LAB BLOOD ORDERABLES Final R esult [facility] [address] [place] [address], documented in this encounter Visit Diagnoses Diagnosis Type 2 diabetes mellitus without complications (CMS/HCC V24, CMS/HCC V28) Weakness Other malaise and fatigue Hyperlipidemia, unspecified Other abnormal glucose Encounter for general adult medical examination without abnormal findings Constipation, unspecified Hypo-osmolality and hyponatremia Vitamin D deficiency, unspecified documented in this encounter Care Teams Fresh Foods Cake Decorator Relationship Specialty Start Date End Date Joan Marshall DO [address] [address] PCP - General 03/17/13 documented as of this encounter
== END 2025-02-15 13:12 | disposition home or self-care (01) ==
LOC: HO.NEURO 13:11
PROVIDERS: Visit Provider Physical Medicine & Rehabilitation
DX: G83.31 Monoplegia, unspecified affecting right dominant side (principal); M62.831 Muscle spasm of calf; M21.371 Foot drop, right foot
CPT/HCPCS: 64642; 95874; J0585

== ENCOUNTER → 2025-02-15 13:15 | Outpatient (BNV) | payer MEDICAID, SELFPAY | PROVIDERS: Visit Provider Physical Medicine & Rehabilitation | DX: G83.31 Monoplegia, unspecified affecting right dominant side (principal); M62.831 Muscle spasm of calf | CPT/HCPCS: 64642; 95874 ==